=== PATIENT | male | born 1930 | race Caucasian/White ===

== ENCOUNTER 2017-07-31 02:42 | Inpatient (IN) ==
[2017-07-31] MEDS ORDERED: DIPH/TET/ACEL PERT BOOSTER VACCINE 0.5 ML VIAL IM ONE ×2 (02:56→03:06)
[2017-07-31 02:57] LABS: Basophils # 0.1 10*3/uL (0.0-0.2); Basophils % 0.4 % (0.0-0.8); Eosinophils # 0.2 10*3/uL (0.0-0.87); Eosinophils % 0.9 % (0.00-10.9); Hematocrit 34.7 VOL% (42.0-52.0); Hemoglobin 10.9 GM/DL (14.0-18.0); Immature Granulocytes % 0.8 %; Immature Granulocytes Absolute 0.15 #; Lymphocytes # 3.8 10*3/uL (1.4-4.0); Lymphocytes % 20.7 % (21.2-54.2); Mean Corpuscular HGB Conc 31.4 GM/DL (32-36); Mean Corpuscular Hemoglobin 24 PG (27-34); Mean Corpuscular Volume 76.4 FL (87-102); Mean Platelet Volume 11.7 FL (9.6-12.0); Monocytes # 1.7 10*3/uL (0.11-0.8); Monocytes % 9.5 % (1.7-12.7); Neutrophils # 12.4 10*3/uL (1.4-7.4); Neutrophils % 67.7 % (38.7-73.9); Platelet Count 215 T/CUMM (130-400); Red Blood Count 4.54 MC/CUMM (3.8-5.5); Red Cell Distribution Width 16.8 % (9.3-17.3); White Blood Count 18.3 T/CUMM (4-12)
--- NOTE | 2017-07-31 03:05 | Emergency Department Note ---
Arrival - Arrival Chief Complaint: Weakness Stated Complaint: Fall secondary to weakness ED Nursing Triage Note: EMS reports that patient had a fall secondary to weakness and dizziness. Also complains of shortness of breath. EMS also report abnromal EKG with ST elevation in leads v3, avf and ST depression in leads V3, V4 and v5. Denies CP. Hx of HTN, bypass surgery x5 with stent placement. Dr. Colunga is patients learning support assistant. Patient has abrasion to head and complains of head, neck and back pain. Mode of Arrival: Stretcher Time Seen by Provider: 07/31/17 02:45 - History of Present Illness HPI Narrative: A 6-year-old white male brought in by EMS for complaints of nausea dizziness near syncope mechanical fall due to weakness and pain in the left arm and some chest tightness started last night has continued this morning. Upon arrival to the emergency room patient had a EKG done on arrival which showed ST elevation in leads II, III, aVF indicating an inferior wall ST elevation KS. Patient is also on blood thinners for chronic atrial fib he sustained facial trauma right cheek for head trauma and scalp injury with a closed head injury. Dr. Pollock was notified of the EKG immediately we discussed risks and benefits decided to not proceed to the Lining [facility]ter because patient may have a head trauma this is on blood thinners patient needs to be evaluated for intracranial hemorrhage and cervical spine injury has to be cleared before patient can proceed to the Lining Setter Allergies/Adverse Reactions: Allergies Allergy/AdvReac Type Severity Reaction Status Date / Time amitriptyline [From Elavil] Allergy Verified 12/06/16 07:21 gabapentin [From Neurontin] Allergy Verified 12/06/16 07:21 lidocaine Allergy Verified 12/06/16 07:21 Zolpidem [From Ambien] Allergy Verified 08/02/15 08:48 Home Medications: Home Medications Medication Instructions Recorded Confirmed Type Aspirin [Ecotrin] 81 mg PO DAILY 08/02/15 07/31/17 History Lisinopril 30 mg PO DAILY 08/02/15 07/31/17 History Methocarbamol Tab [Robaxin Tab] 500 mg PO TID 08/02/15 07/31/17 History Rivaroxaban [Xarelto] 15 mg PO DAILY W/BREAKFAST 08/02/15 07/31/17 History Glimepiride 4 mg PO BID 11/21/16 07/31/17 History Hydrocodone/Acetaminophen 1 each PO QID 11/21/16 07/31/17 History [Hydrocodon-Acetaminoph 7.5-325] Isosorbide Mononitrate [Isosorbide 30 mg PO DAILY 11/21/16 07/31/17 History Mononitrate ER] Loratadine Tab [Claritin Tab] 10 mg PO DAILY 11/21/16 07/31/17 History Metformin HCl 1,000 mg PO BID 11/21/16 07/31/17 History Metoprolol Tartrate 50 mg PO BID 11/21/16 07/31/17 History Pantoprazole Tab [Protonix Tab] 40 mg PO DAILY 11/21/16 07/31/17 History Sitagliptin Phosphate [Januvia] 50 mg PO DAILY 11/21/16 07/31/17 History Tamsulosin [Flomax] 0.4 mg PO DAILY 11/21/16 07/31/17 History Temazepam [Restoril] 30 mg PO BEDTIME 11/21/16 07/31/17 History amLODIPine [Norvasc] 10 mg PO DAILY 11/21/16 07/31/17 History Fish Oil 340-1,000 1 capsule PO DAILY 12/05/16 07/31/17 History Multivit-Min/FA/Lycopen/Lutein 1 each PO DAILY 12/05/16 07/31/17 History [Centrum Silver Tablet] Sucralfate Liquid [Carafate Liquid] 1 gm PO QID 12/05/16 07/31/17 History Famotidine [Pepcid AC] 20 mg PO DAILY 12/06/16 07/31/17 History Review of System - Review of System 12 point system: reviewed and no additional remarkable complaints except as stated - Review of System Constitutional: Present: diaphoresis, weakness Cardiovascular: Present: chest pain, dyspnea on exertion Gastrointestinal: Present: nausea, vomiting Neurological: Present: weakness, abnormal gait, vertigo Medical,Surgical,& Family Hx - Medical History Cardio: History of: Hypertension, KS, Cardiovascular Problems No history of: CHF Psychological: No history of: Anxiety Disorders, ADHD, Behavior Problems, Bipolar Disorder, Depression, Previous Suicide Attempt, Psychiatric/Substance Abuse Tx, Schizophrenia, Violent Behavior, Psychiatric Problems Neurology: No history of: Cerebral Hemorrhage, Cerebrovascular Accident, Peripheral Neuropathy, Seizures HEENT: No history of: Glaucoma Endocrine: History of: Diabetes Mellitus (NIDDM), Dyslipidemia No history of: Diabetes Mellitus (IDDM), Thyroid Disorder, Endocrine Cancer, Endocrine Problems Rheumatology: No history of;: Psoriasis, Sjogrens, Systemic Lupus Erythematosus Respiratory: History of: Intubation No history of: Asthma, Bronchitis, COPD Renal: No history of: Renal (Kidney) Cancer, Dialysis, Renal Failure, Renal Problems Genitourinary: History of: Prostate Problems (ca), Recurring Urinary Tract Infections No history of: Bladder Problem, Kidney Stones, Genitourinary Cancer, Problems Gastrointestinal: History of: GERD, Polyps, GI Problems (hiatal hernia) No history of: Bowel Obstruction, Clostridium Difficile, Crohn's Disease, Diverticulitis/ Diverticulosis, Esophageal Varices, Gastrointestinal Bleed Musculoskeletal: History of: Back/Neck Problems, Degenerative Disk Disease ( severe back problems) No history of: Amputation Hematology: History of: Clotting Problems (xarelto), Blood Disorders No history of: Blood Transfusion Reaction Other: History of: Cancer (prostate) No history of: Anesthesia Reactions, Anaphylaxis, Eczema, HIV, Malignant Hyperthermia, MRSA, Vancomycin-Resistant Enterococci, Skin Problems, Miscellaneous Medical Problems - Surgical History Cardiac Surgeries: Sugical HX of: Femoral-Popliteal Bypass Graft (5 in 2001...) , Cardiac Catheterization (W/ STENT PLACEMENT), Cardiac Surgery (cabg 1999) Patient Denies: Internal Defibrillator, Vascular Access Devices Thoracic Surgeries: Patient denies;: Kidney (Renal Surgery), Lithotripsy, Nephrectomy, Organ Transplant Neurologic Surgeries: Patient denies: Cerebral Hemorrhage, Neurologic Surgery HEENT Surgeries: Surgical HX of: Eye Surgery (cataract surgery), Tonsilectomy & Adenoidectomy Patient denies: Thyroid Surgery Abdominal Surgeries: Surgical HX of: Abdominal Surgery, Appendectomy, Colonoscopy, EGD Patient denies: Cholecystectomy, Gastric Bypass Surgery, Hernia Repair, Splenectomy Reproductive Surgeries: Surgical HX of;: Prostate Surgery (caterizzed) Patient denies;: Breast Surgery, Cystoscopy, Genitourinary Surgery Orthopedic Surgeries: Surgical HX of;: Orthopedic Surgery (degenerative back disease and rods and pins placed), Spinal Surgery (rods and pins placed) - Family History Family History: Reports;: Family Cancer (mother), Family Diabetes (parents), Family Heart Disease (family) Denies;: Family Anesthesia Reaction, Family Hypertension, Family Psychiatric Problems, Family Stroke - Social History Smoking Status: Never smoker Frequency of Alcohol Use: None Type of Drug Use: None Exam Physical Examination: GENERAL: Moderate distress, alert, 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 inspection, airway nml, no dental/oral injury, there is some abrasions ecchymosis around the right periorbital region RESP/CVS: chest non-tender, no ecchymosis, irregular rhythm, bilateral rhonchi and bibasilar rales ABDOMEN: non-tender, no distension GENITAL/RECTAL: nml ext inspection NEURO/PSYCH: A/Ox4, CN2-10 intact, sensation nml, motor nml, mood/affect nml Glascow Coma Scale: 15 eyes [id number] motor-[id number]-6 SKIN: intact, warm, dry BACK: no CVA tenderness, no vertebral tenderness EXTREMITIES: 3 cm superficial skin tear left forearm c, pelvis stable, , no pedal edema, nml ROM, nml color/temp Vital Signs: Vital Signs Temperature 97.1 F L 07/31/17 02:42 Pulse Rate 88 07/31/17 03:26 Respiratory Rate 17 07/31/17 03:26 Blood Pressure 115/73 07/31/17 03:26 O2 Sat by Pulse Oximetry 95 07/31/17 03:26 Course - Reevaluation(s) Reevaluation #1: After long talk to Dr. Pollock long talk with the patient and patient's family from [place] and the patient and cells risk and benefits were explained about going the Lining Setter and possibility of causing the intracranial hemorrhage in a fatal outcome also with outgoing the Lining Setter that could also be damage to the heart that could be fatal as well. After all this was weighed and closely discussed talked about in depth the family and the patient decided they will proceed to the Lining Setter Dr. Pollock was called back Lining Setter was called back and patient will go to the Lining Setter for intervention Time: 03:33 - Consultations Consultation #1: Discussed with Dr. Pollock EKG results patient have an inferior wall ST elevation KS. Since the patient on blood thinners and has a possible intracranial trauma and neck injury patient must be cleared neurologically CT the head CT C-spine rapidly done emergency room clear patient for heart catheterization. I discussed this with the family they agreed with the plan and understand the risk they also understand due to the patient's age and on high risk medications like thinners going to the Lining Setter as necessary but is also high risk for high risk patient Time: 02:35 Results - Labs CBC & BMP: 07/31/17 02:46 07/31/17 02:46 Lab Results: I have reviewed the patients labs - Diagnostic Findings Procedure: CT: image reviewed by me, report reviewed by me (CT head CT C-spine negative for any intracranial bleed) Critical Care Time Critical Care Time: Yes Total Critical Care Time: 60 Disposition Clinical Impression: Fall mechanical, Closed head injury, High risk medication, Chronic anticoagulation, Chronic atrial fibrillation, Scalp contusion, Head injury, Skin tear of left forearm without complication, Chest pain, Dizziness, Syncope and collapse, A-fib Case discussed with: patient, patient's family Disposition: Still a Patient Condition: Critical Time of Disposition: 03:34
[2017-07-31] MEDS ORDERED: ceFAZolin 1,000 MG VIAL ONE (03:06)
[2017-07-31] MEDS ORDERED: SODIUM CHLORIDE 0.9% 100 ML IV ONE (03:06)
[2017-07-31] MEDS ORDERED: ONDANSETRON 4 MG/2 ML VIAL IV STA (03:17)
[2017-07-31 03:20] LABS: Albumin 3.2 G/DL (3.4-5.0); Bilirubin,Total 0.5 MG/DL (0.2-1.0); Calcium 9.4 MG/DL (8.5-10.1); Magnesium 1.6 MG/DL (1.8-2.4); Osmolality,Calculated 285.8 MOS/KG (273-304); Potassium 4.4 MMOL/L (3.5-5.1); Total Protein 6.7 G/DL (6.4-8.3)
[2017-07-31] MEDS ORDERED: ONDANSETRON 4 MG/2 ML VIAL ONE ×2 (03:23→05:15)
[2017-07-31 03:29] LABS: INR 1.5; PT Patient Result 15.8 SECS; Troponin I Only 7.24 NG/ML (0.00-0.045)
[2017-07-31] MEDS ORDERED: TIROFIBAN 0 MCG in PREMIX 1 EACH IV ONE (03:30)
[2017-07-31] MEDS ORDERED: TIROFIBAN 5,000 MCG/100 ML PREMIX IV SCH (03:30)
[2017-07-31] MEDS ORDERED: METOPROLOL TARTRATE 5 MG/5 ML VIAL IV STA (03:31)
[2017-07-31] MEDS ORDERED: ASPIRIN EC 325 MG TABLET PO STA (03:31)
[2017-07-31] MEDS ORDERED: METOPROLOL TARTRATE 5 MG/5 ML VIAL IV ONE (03:34)
[2017-07-31] MEDS ORDERED: ASPIRIN 325 MG TABLET ONE (03:34)
[2017-07-31] MEDS ORDERED: TIROFIBAN IV ONE (03:35)
[2017-07-31] MEDS ORDERED: LIDOCAINE 1% 20 ML VIAL ONE (04:14)
--- NOTE | 2017-07-31 04:29 | History and Physical Update ---
Sedation H&P Update - History and Physical H&P was reviewed, the patient examined and there: are no changes in the patients condition since last H&P was completed. - Dictation Physical: refer to H&P completed by admitting physician - Physical Exam Mental Status: alert and oriented Heart: regular rate and rhythm Lung: clear to auscultation Abdomen: within normal limits Vitals: within normal limits - Sedation Plan for Sedation: minimal Patient Consent: Procedure disscussed with patient and patinet has consented., Risks and benefits were discussed with patient,including infection,, bleeding, injury to surrounding structures, seizure, temporary nerve, Patient understands and accepts potential risks/benefits and agrees to, proceed. ASA Class: IV Airway Assessment: Class II: Soft palate, uvula, fauces visible
--- NOTE | 2017-07-31 04:29 | Cardiology History & Physical ---
Assessment and Plan - Time spent with patient Time spent with patient: Greater than 30 minutes (1) ST elevation myocardial infarction (STEMI) of inferior wall Status: Acute Assessment and plan: The patient came in for facial trauma but her EKG showed an incidental inferior STEMI. Troponin is elevated. It could have even occurred a few hours ago or yesterday. He is having some ongoing left arm pain, which may be from his AL, and ST elevation in his ct of the head is negative so I believe the best option would be taken to the Formula Room Worker, intervened upon the inferior microinfarction. However he is at significant increased risk of having a head bleed with giving the medications as needed to treat him for posterior AL. The risk and benefits were discussed in detail with the patient and family. I even discussed with the patient and his daughter about not proceeding with intervention but just treating him conservatively for an AL. There are risk and benefits of this approach. They want to proceed with a coronary intervention. They realize he could have a head bleed and . Plan/recommendation: Take emergently to the Formula Room Worker This intervention falls out of the STEMI protocol because of the delay from needing to see the results of the CT prior to intervening Beta-zuleyka post AL TOO inhibitor post AL Aggrastat bolus and infusion was begun in the emergency room And aspirin 325 mg p.o. was given We will hold Xarelto for now Left heart cath and possible PTCA or stent Left heart cath and possible PTCA or stent were discussed with the patient. The risk of the procedure include but are not limited to a small risk of injury to the vessel, abnormal heart rhythm, stroke, heart attack, need for emergent surgery, contrast reaction, restenosis, infection, or . The patient voices understanding, agrees with the plan, and desires to proceed with the heart catheterization. Current Visit: Yes (2) Left arm pain Status: Acute Current Visit: Yes (3) Facial trauma Status: Acute Current Visit: Yes (4) Chronic anticoagulation Status: Acute Current Visit: Yes (5) Chronic atrial fibrillation Status: Acute Current Visit: Yes (6) Closed head injury Status: Acute Current Visit: Yes (7) Dizziness Status: Acute Current Visit: Yes (8) Elevated troponin Status: Acute Current Visit: Yes (9) Head injury Status: Acute Current Visit: Yes (10) Hyperlipidemia Status: Acute Current Visit: No (11) Type 2 diabetes mellitus Status: Acute Current Visit: No (12) Coronary artery disease Status: Chronic Current Visit: No Qualifiers: Coronary Disease-Associated Artery/Lesion type: cheesh-na artery Teller vs. transplanted heart: cheesh-na heart Associated angina: with stable angina Qualified Code(s): I25.118 - Atherosclerotic heart disease of cheesh-na coronary artery with other forms of angina pectoris (13) Gastroesophageal reflux Status: Chronic Current Visit: No (14) Hypertension Status: Chronic Current Visit: No (15) Status post coronary artery bypass grafting Problem details: CABG x4 November 1999 with repeat catheterization 09/06/08 which showed 4 patent grafts. Status: Chronic Current Visit: No (16) Elevated serum creatinine Problem details: ? Acute or chronic Status: Acute Current Visit: Yes History of Present Illness Chief complaint: "I fell and hit my face", came in for facial trauma but was noted hv stemi History of present illness: Mr. Colvin is a 86 year old male PCP: Dr. Silver Victoria Enamel Cracker: Dr. Manuel Christine Mr. colvin is 86. He is somewhat unsteady on his feet. However his daughter, who lives with him, is encouraged him to call her when he needs help getting around, particular in the middle of night. Last night, he had some arm pain. It did not bother him. He did not seek evaluation. Today, he got up and walked down the stairs and fell. He fell twice. His daughter assist him. He was laying on his face. He is brought to the emergency room. He was noted to have facial abrasions. An EKG Was Obtained and Suggested Inferoposterior Myocardial Infarction, a STEMI. He had a CT of the head. Showed no bleed. It was discussed with the patient and his daughter the risk and benefits of proceeding with treating an inferior AL in the setting of some head trauma, the medications which are needed to be used could increase his risk of having a brain bleed. These risks were discussed with the patient's family. They wanted to proceed. They realize that he could have a brain bleed and . The exact estimate of the risk is unknown, but it is higher than usual. Discussed the option of treating conservatively for the inferior AL and not adding further antiplatelet or antithrombotic's were considered, but they declined that option. He has had some left arm pain. Denies any chest pain Currently no orthopnea, PND, edema, palpitations, syncope, cough wheezing or phlegm. No bleeding in the pt's bowels, urine, or coughing up blood. No planned surgery for the next year. No contraindication to anticoagulation for a year. Past medical history Diabetes Prior coronary bypass grafting in 1999, he said 5 vessels , four grafts are noted Cath in [address] Christine revealing occluded right coronary artery, all grafts are open Allergy to lidocaine Has felt weak and dizzy. Did not have local loss of consciousness with this fall, at least as best he can tell Social history: He does not smoke cigarettes or drink alcohol family history: There is some coronary disease. Also some diabetes,? Home Medications Medication Instructions Recorded Confirmed Type Aspirin [Ecotrin] 81 mg PO DAILY 08/02/15 07/31/17 History Lisinopril 30 mg PO DAILY 08/02/15 07/31/17 History Methocarbamol Tab [Robaxin Tab] 500 mg PO TID 08/02/15 07/31/17 History Rivaroxaban [Xarelto] 15 mg PO DAILY W/BREAKFAST 08/02/15 07/31/17 History Glimepiride 4 mg PO BID 11/21/16 07/31/17 History Hydrocodone/Acetaminophen 1 each PO QID 11/21/16 07/31/17 History [Hydrocodon-Acetaminoph 7.5-325] Isosorbide Mononitrate [Isosorbide 30 mg PO DAILY 11/21/16 07/31/17 History Mononitrate ER] Loratadine Tab [Claritin Tab] 10 mg PO DAILY 11/21/16 07/31/17 History Metformin HCl 1,000 mg PO BID 11/21/16 07/31/17 History Metoprolol Tartrate 50 mg PO BID 11/21/16 07/31/17 History Pantoprazole Tab [Protonix Tab] 40 mg PO DAILY 11/21/16 07/31/17 History Sitagliptin Phosphate [Januvia] 50 mg PO DAILY 11/21/16 07/31/17 History Tamsulosin [Flomax] 0.4 mg PO DAILY 11/21/16 07/31/17 History Temazepam [Restoril] 30 mg PO BEDTIME 11/21/16 07/31/17 History amLODIPine [Norvasc] 10 mg PO DAILY 11/21/16 07/31/17 History Fish Oil 340-1,000 1 capsule PO DAILY 12/05/16 07/31/17 History Multivit-Min/FA/Lycopen/Lutein 1 each PO DAILY 12/05/16 07/31/17 History [Centrum Silver Tablet] Sucralfate Liquid [Carafate Liquid] 1 gm PO QID 12/05/16 07/31/17 History Famotidine [Pepcid AC] 20 mg PO DAILY 12/06/16 07/31/17 History Allergies Allergy/AdvReac Type Severity Reaction Status Date / Time amitriptyline [From Elavil] Allergy Verified 12/06/16 07:21 gabapentin [From Neurontin] Allergy Verified 12/06/16 07:21 lidocaine Allergy Verified 12/06/16 07:21 Zolpidem [From Ambien] Allergy Verified 08/02/15 08:48 12 point system: reviewed and no additional remarkable complaints except as stated (A 12 point review of systems is negative except for as mentioned in HPI. ) Medical,Surgical,& Family Hx - Medical History Cardio: History of: Hypertension, AL, Cardiovascular Problems No history of: CHF Psychological: No history of: Anxiety Disorders, ADHD, Behavior Problems, Bipolar Disorder, Depression, Previous Suicide Attempt, Psychiatric/Substance Abuse Tx, Schizophrenia, Violent Behavior, Psychiatric Problems Neurology: No history of: Cerebral Hemorrhage, Cerebrovascular Accident, Peripheral Neuropathy, Seizures HEENT: No history of: Glaucoma Endocrine: History of: Diabetes Mellitus (NIDDM), Dyslipidemia No history of: Diabetes Mellitus (IDDM), Thyroid Disorder, Endocrine Cancer, Endocrine Problems Rheumatology: No history of;: Psoriasis, Sjogrens, Systemic Lupus Erythematosus Respiratory: History of: Intubation No history of: Asthma, Bronchitis, COPD Renal: No history of: Renal (Kidney) Cancer, Dialysis, Renal Failure, Renal Problems Genitourinary: History of: Prostate Problems (ca), Recurring Urinary Tract Infections No history of: Bladder Problem, Kidney Stones, Genitourinary Cancer, Problems Gastrointestinal: History of: GERD, Polyps, GI Problems (hiatal hernia) No history of: Bowel Obstruction, Clostridium Difficile, Crohn's Disease, Diverticulitis/ Diverticulosis, Esophageal Varices, Gastrointestinal Bleed Musculoskeletal: History of: Back/Neck Problems, Degenerative Disk Disease ( severe back problems) No history of: Amputation Hematology: History of: Clotting Problems (xarelto), Blood Disorders No history of: Blood Transfusion Reaction Other: History of: Cancer (prostate) No history of: Anesthesia Reactions, Anaphylaxis, Eczema, HIV, Malignant Hyperthermia, MRSA, Vancomycin-Resistant Enterococci, Skin Problems, Miscellaneous Medical Problems - Surgical History Cardiac Surgeries: Sugical HX of: Femoral-Popliteal Bypass Graft (5 in 2001...) , Cardiac Catheterization (W/ STENT PLACEMENT), Cardiac Surgery (cabg 1999) Patient Denies: Internal Defibrillator, Vascular Access Devices Thoracic Surgeries: Patient denies;: Kidney (Renal Surgery), Lithotripsy, Nephrectomy, Organ Transplant Neurologic Surgeries: Patient denies: Cerebral Hemorrhage, Neurologic Surgery HEENT Surgeries: Surgical HX of: Eye Surgery (cataract surgery), Tonsilectomy & Adenoidectomy Patient denies: Thyroid Surgery Abdominal Surgeries: Surgical HX of: Abdominal Surgery, Appendectomy, Colonoscopy, EGD Patient denies: Cholecystectomy, Gastric Bypass Surgery, Hernia Repair, Splenectomy Reproductive Surgeries: Surgical HX of;: Prostate Surgery (caterizzed) Patient denies;: Breast Surgery, Cystoscopy, Genitourinary Surgery Orthopedic Surgeries: Surgical HX of;: Orthopedic Surgery (degenerative back disease and rods and pins placed), Spinal Surgery (rods and pins placed) - Family History Family History: Reports;: Family Cancer (mother), Family Diabetes (parents), Family Heart Disease (family) Denies;: Family Anesthesia Reaction, Family Hypertension, Family Psychiatric Problems, Family Stroke - Social History Smoking Status: Never smoker Frequency of Alcohol Use: None Type of Drug Use: None Lives With:: Children Functional capacity: independent ambulation (But he has an unsteady gait.) Cardiology Physical Exam - Constitutional Vitals: Vital Signs Temp Pulse Resp BP Pulse Ox 97.1 F L 78 21 109/75 99 07/31/17 02:42 07/31/17 04:13 07/31/17 04:13 07/31/17 04:13 07/31/17 04:13 Intake and Output 07/30/17 07/30/17 07/31/17 15:59 23:59 07:59 Other: Weight 86.183 kg Patient Weight 07/31/17 23:59 Weight 86.183 kg Exam: HEENT: Pupils equal, reactive to light and accommodation Neck: NoJVD or bruit Lungs clear to auscultation Heart: Irregularly irregular rhythm rate with normal S1 and S2. 3/6 holosystolic murmur at the apex Abdomen: No hepatosplenomegaly Spine/extremities: No clubbing, cyanosis, or edema Neuro: Nonfocal Psych: No depression or anxiety Femoral pulses are 4+. Foot pulses are 3+ Some abrasions of his face. Result/EKG - Labs CBC & BMP: 07/31/17 02:46 07/31/17 02:46 Lab Results: I have reviewed the past 24 hour labs Labs: Laboratory Results - last 24 hr 07/31/17 07/31/17 07/31/17 02:46 02:46 02:46 WBC 18.3 H RBC 4.54 Hgb 10.9 L Hct 34.7 L MCV 76.4 L MCH 24 L MCHC 31.4 L RDW 16.8 Plt Count 215 MPV 11.7 Neut % (Auto) 67.7 Lymph % (Auto) 20.7 L [place] % (Auto) 9.5 Eos % (Auto) 0.9 Baso % (Auto) 0.4 Neut # (Auto) 12.4 H Lymph # (Auto) 3.8 [place] # (Auto) 1.7 H Eos # (Auto) 0.2 Baso # (Auto) 0.1 Immature Gran % 0.8 Nucleated RBC % 0.0 Immature Gran # 0.15 Nucleated RBCs # 0.00 Immature Plt Fraction 0.0 INR 1.5 PT Patient/Control Mix 15.8 Sodium 137 Potassium 4.4 Chloride 103 Carbon Dioxide 20 L Anion Gap 18.4 H BUN 19 H Creatinine 1.50 H GFR Calculation 48 BUN/Creatinine Ratio 12.00 Glucose 298 H Calculated Osmolality 285.8 Calcium 9.4 Magnesium 1.6 L Total Bilirubin 0.50 AST 80 H ALT 30 Alkaline Phosphatase 58 Troponin I 7.240 H Total Protein 6.7 Albumin 3.2 L Globulin 3.5 Albumin/Globulin Ratio 0.9 L - Diagnostic Findings Procedure: Chest x-ray: report reviewed by me - EKG EKG results: interpreted by me
[2017-07-31] MEDS ORDERED: MEPERIDINE 25 MG/1 ML VIAL ONE (04:37)
[2017-07-31] MEDS ORDERED: MIDAZOLAM 2 MG/2 ML VIAL ONE (04:38)
[2017-07-31] MEDS ORDERED: HEPARIN 5,000 UNIT/1 ML VIAL ONE (04:44)
[2017-07-31] MEDS ORDERED: TICAGRELOR 90 MG TABLET ONE (05:32)
--- NOTE | 2017-07-31 05:48 | Operative Note ---
Date of procedure: 07/31/17 Procedure Preformed: Left heart cath Left ventriculography Supravalvar aortography Coronary angiography Vein graft angiography- x 3 vein grafts--to the right coronary artery, left circumflex, and the diagonal Left internal mammary artery graft angiography--- to the LAD Aggrastat bolus and infusion-begun in the emergency room Stent of the body of the vein graft to the right coronary artery-acute inferoposterior LA--- Xience Alpine, 3.5 x 18 mm, 18 pamela, after pre-dilating with a 3.0 x 15 mm NC Trek--a filter wire was used to help minimize distal embolization of instrumenting a 17-year-old vein bypass graft Angiogram of the right femoral artery Loading with Brilinta, 180 mg p.o. Angio-Seal of the right femoral artery-successful Surgeon / Physician: Jim Pollock [employer] Worker: Moshe Capps Post-op diagnosis: same (Patient has had some head trauma due to fall, presents and the EKG has evidence of an acute inferoposterior STEMI, troponin 7.1, having some ongoing left arm pain, head CT is negative for bleed--) Findings: Impression: Significant three-vessel coronary disease Moderately severe global left ventricular systolic dysfunction, LVEF about 30% to 35% Inferobasal and inferior severe hypokinesis 3-4+ mitral regurgitation--? Ischemic related Mildly ectatic aortic root without significant aortic regurgitation-at least 2 vein grafts were noted to emanate from the aorta Patent KERRY to LAD-but the LAD is small and diffusely diseased but no focal stenosis after the insertion site, the LAD is occluded very proximally Patent vein graft to the obtuse marginal-no critical disease Patent but significantly diseased vein graft to the diagonal-not the LA vessel Critical disease in the proximal [place] circumflex supplying a moderate-sized post lateral branch Occluded right coronary-old Subtotal stenosis of the mid body of the vein graft to the right coronary-JASIEL grade II flow-probably acute LA vessel The patient did have additional ST elevation in the inferior leads with ballooning the lesion of the mid vein graft to the right coronary-suggesting this is the lesion/vessel causing the LA Aggrastat bolus infusion-begun in the emergency room Status post successful stenting of the mid body of the vein graft to the right coronary artery---drug-eluting stent, Xience Alpine 3.5 x 18 mm, after pre- dilating with a 3.0 x 15 mm NC Trek, a filter wire was used to help minimize post intervention distal embolization Angiogram of the right femoral artery Angio-Seal of the right femoral artery-successful Loading with Brilinta, 180 mg p.o. Plan/recommendations: He was having an inferior posterior LA. With his elevated troponin on admission, possibly do the least part of the LA could have happened hours or more before he came in, is possible. Whatever the case, he was having ongoing left arm pain and ST elevation inferiorly and reciprocal ST depression anteriorly.. Hopefully will benefit from this intervention. I did use the filter wire to minimize distal embolization, but he does have reduced flow post intervention, JASIEL grade II. Hopefully, the Aggrastat and other antiplatelet medicines will, over time, help improve that flow and minimize embolization injury. Hopefully, with revascularization of this acute LA, the 3- 4+ MR will lessen, assuming it may be ischemic. Otherwise, we will watch his renal function post op. With his reduced ejection fraction I will add an TOO inhibitor if he is not on it. He will be on Brilinta and reduce dose of Xarelto , but I will hold her Xarelto for a few days before adding it. I will add carvedilol if he is not on it. He may need some as needed Lasix. He will be on Brilinta for at least 12 months, preferably. We will drop the aspirin while is on the Brilinta and reduced dose, 15 mg, Xarelto, per the recent stent in the setting of atrial fibrillation study. Otherwise, will watch for any evidence of bleeding his brain from his head trauma. So far, it appears to not be significantly present but it could change with all of the antiplatelet and antithrombotic medications which are needed for the LA and with his head trauma , weakness the patient and family was keenly aware before we proceeded with this intervention. He tends to be unsteady, have an unsteady gait. I will strongly discussed with him about getting help whenever he gets up and around, and using a walker or cane. His prognosis is guarded. The patient will will have risk factors optimized. Follow-up will be scheduled. My post-cath check to Addenda: I saw the patient post-cath. the groin puncture site and distal pulse are stable. vital signs are stable and the patient will be observed closely overnight. Specimens: none sent Estimated blood loss: minimal Condition: critical Anesthesia: local, conscious sedation Disposition: ICU
--- NOTE | 2017-07-31 06:07 | Cardiology Operative Report ---
Date of Procedure:: 07/31/17 Post-op diagnosis: same (Patient has had some head trauma due to fall, presents and the EKG has evidence of an acute inferoposterior STEMI, troponin 7.1, having some ongoing left arm pain, head CT is negative for bleed--) Procedure: Date of procedure: 07/31/17 Procedure Preformed: Left heart cath Left ventriculography Supravalvar aortography Coronary angiography Vein graft angiography- x 3 vein grafts--to the right coronary artery, left circumflex, and the diagonal Left internal mammary artery graft angiography--- to the LAD Aggrastat bolus and infusion-begun in the emergency room Stent of the body of the vein graft to the right coronary artery-acute inferoposterior KS--- Xience Alpine, 3.5 x 18 mm, 18 pamela, after pre-dilating with a 3.0 x 15 mm NC Trek--a filter wire was used to help minimize distal embolization of instrumenting a 17-year-old vein bypass graft Angiogram of the right femoral artery Loading with Brilinta, 180 mg p.o. Angio-Seal of the right femoral artery-successful Surgeon / Physician: Jim Pollock Bass Viol Repairer: Moshe Capps Post-op diagnosis: same (Patient has had some head trauma due to fall, presents and the EKG has evidence of an acute inferoposterior STEMI, troponin 7.1, having some ongoing left arm pain, head CT is negative for bleed--) procedure: The patient was prepped and draped in usual manner. Entered the right femoral artery via the Seldinger technique. I then exchanged for an angled pigtail. I crossed the valve. Left ventricular end-diastolic pressures measured. Left ventriculography was done. Left ventricle pullback was done. Supravalvar aortography was done. I then used a JL4 and engaged left coronary. Multiple views were taken. I then exchanged for a JR4. Multiple views of the right coronary were taken. I then used a JR4 to engage the vein graft to the diagonal , the vein graft to the obtuse marginal, and the vein graft to the right coronary and the HEREDIA graft to the LAD-all with multiple views. The catheters were then removed from the patient. The intervention was done as below. Please see the data sheets for the details of catheters used. Intervention: Cardiovascular surgery was available for any complications. The coronary intervention was done using a 6 Serbian multipurpose guiding catheter and 3.5- 5.5 mm filter the filter wire was deployed. the right vein bypass graft catheter was not adequate. There is a bad entry angle. I then, Then try to cross with a 3.5 x 18 mm Zions Alpine. It would not cause. I remove this stent. I then placed a 3.0 x 15 mm NC Trek across the lesion. Balloon. I then came back and place a stent across the lesion and it was deployed. There was a good result. I then retrieve the filter wire. There is JASIEL grade II flow post intervention. Initially was better than that low but it soon became JASIEL grade II. Angiogram of the right femoral artery was done, either at that time or as a follow-through from the aortogram/left ventriculogram. Closure device was used -see data sheets. patient was transferred to her room on telemetry in satisfactory but guarded condition. Please see the cath report for details of the pressures and times. Complications: none Hemodynamic data: LVEDP was 20 mmHg. Angiographic data: The left main coronary was large and had minimal luminal irregularities. The left anterior descending artery was large. There is one major diagonal. He was occluded ostially. The LAD only filled via the vein graft to the LAD The left circumflex system was moderate to large. It was 1 major obtuse marginal and 1 posterior lateral branches. The obtuse marginal only filled via the vein graft to obtuse marginal. Proximal circumflex had a 70 - 90% narrowing supplied the post lateral branch. The right coronary artery was large in size, dominant vessel with the PDA and post lateral branch. It was occluded proximally. There is an old occlusion. The vein graft to the right coronary was a large conduit. It inserted in the PDA. In the mid body however there is a 99% narrowing with JASIEL grade II flow. The actual right coronary artery had mild to moderate diffuse disease but no critical, focal stenosis. The vein graft to the obtuse marginal was a large conduit. Origin, body, insertion site was good. The [place] vessel itself was slightly small. There is no significant narrowing within this graft or vessel, other than proximal to the graft The vein graft to the diagonal was a moderate size conduit. It had 2 or 3 significant lesions within it, probably 70 - 90 %. It supplied a small diagonal. This was not the infarct-related vessel. The HEREDIA graft to the LAD was a large conduit. It supplied the LAD. The LAD itself was small but there is no critical disease within the LAD or the of the HEREDIA graft. Very proximal to the insertion site of the HEREDIA graft, LAD was occluded, but it was proximal in the LAD. PERALES left ventriculography revealed moderately severe reduction in global left ventricular systolic function. Overall ejection fraction was about 35%. There was inferior and inferior posterior severe hypokinesis to akinesis. There is 3- 4+ mitral regurgitation. Supravalvar aortography revealed a mildly ectatic aortic root with no significant aortic regurgitation. At least 2 vein grafts were noted to emanate from the aorta. After the intervention of vein graft to the PDA/right coronary, there is a 0% residual and a JASIEL grade III initially but then JASIEL grade II flow with further injections. Angiogram of the right femoral artery revealed the puncture site to be in a large vessel, above the bifurcation. It was suitable for a clocure device. Impression: Significant three-vessel coronary disease Moderately severe global left ventricular systolic dysfunction, LVEF about 30% to 35% Inferobasal and inferior severe hypokinesis 3-4+ mitral regurgitation--? Ischemic related Mildly ectatic aortic root without significant aortic regurgitation-at least 2 vein grafts were noted to emanate from the aorta Patent KERRY to LAD-but the LAD is small and diffusely diseased but no focal stenosis after the insertion site, the LAD is occluded very proximally Patent vein graft to the obtuse marginal-no critical disease Patent but significantly diseased vein graft to the diagonal-not the KS vessel Critical disease in the proximal [place] circumflex supplying a moderate-sized post lateral branch Occluded right coronary-old Subtotal stenosis of the mid body of the vein graft to the right coronary-JASIEL grade II flow-probably acute KS vessel The patient did have additional ST elevation in the inferior leads with ballooning the lesion of the mid vein graft to the right coronary-suggesting this is the lesion/vessel causing the KS Aggrastat bolus infusion-begun in the emergency room Status post successful stenting of the mid body of the vein graft to the right coronary artery---drug-eluting stent, Xience Alpine 3.5 x 18 mm, after pre- dilating with a 3.0 x 15 mm NC Trek, a filter wire was used to help minimize post intervention distal embolization Angiogram of the right femoral artery Angio-Seal of the right femoral artery-successful Loading with Brilinta, 180 mg p.o. Plan/recommendations: He was having an inferior posterior KS. With his elevated troponin on admission, possibly do the least part of the KS could have happened hours or more before he came in, is possible. Whatever the case, he was having ongoing left arm pain and ST elevation inferiorly and reciprocal ST depression anteriorly.. Hopefully will benefit from this intervention. I did use the filter wire to minimize distal embolization, but he does have reduced flow post intervention, JASIEL grade II. Hopefully, the Aggrastat and other antiplatelet medicines will, over time, help improve that flow and minimize embolization injury. Hopefully, with revascularization of this acute KS, the 3- 4+ MR will lessen, assuming it may be ischemic. Otherwise, we will watch his renal function post op. With his reduced ejection fraction I will add an TOO inhibitor if he is not on it. He will be on Brilinta and reduce dose of Xarelto , but I will hold her Xarelto for a few days before adding it. I will add carvedilol if he is not on it. He may need some as needed Lasix. He will be on Brilinta for at least 12 months, preferably. We will drop the aspirin while is on the Brilinta and reduced dose, 15 mg, Xarelto, per the recent stent in the setting of atrial fibrillation study. Otherwise, will watch for any evidence of bleeding his brain from his head trauma. So far, it appears to not be significantly present but it could change with all of the antiplatelet and antithrombotic medications which are needed for the KS and with his head trauma , weakness the patient and family was keenly aware before we proceeded with this intervention. He tends to be unsteady, have an unsteady gait. I will strongly discussed with him about getting help whenever he gets up and around, and using a walker or cane. His prognosis is guarded. The patient will will have risk factors optimized. Follow-up will be scheduled. Of note, as described above there are other areas which could cause ischemia such as a vein graft to diagonal or the circumflex supplying the post lateral and may be other branches, but there were not the infarct vessel. They were not addressed at this intervention. They could be addressed/intervened upon later and eventually may be treated medically and conservatively. Dr. Christine will make that final decision. My post-cath check to Addenda: I saw the patient post-cath. the groin puncture site and distal pulse are stable. vital signs are stable and the patient will be observed closely overnight. Specimens: none sent Estimated blood loss: minimal Condition: critical Anesthesia: local, conscious sedation Disposition: ICU Additional CC's: Silver Christine Anesthesia: local, minimal conscious sedation Surgeon / Physician: Jim Pollock Bass Viol Repairer: other Estimated blood loss: minimal Specimens: none sent Condition: critical Disposition: ICU/CCU
[2017-07-31] MEDS ORDERED: MAGNESIUM SULF RIDER 2 GM in PREMIX 1 EACH IV PRN ×2 (06:08→10:21)
[2017-07-31] MEDS ORDERED: ACETAMINOPHEN 325 MG TABLET PO PRN (06:08)
[2017-07-31] MEDS ORDERED: ONDANSETRON 4 MG/2 ML VIAL IV PRN (06:08)
[2017-07-31] MEDS ORDERED: MAGNESIUM SULF RIDER 4 GM in PREMIX 1 EACH IV PRN ×2 (06:08→10:21)
--- NOTE | 2017-07-31 06:15 | EKG Report ---
Stationary ECG Study [facility] ER Test Date: 07/31/2017 2:33:46 AM Pat Name: IOANA GATES Department: Room: Gender: M Archeologist: : [id number] Requested by: Wili Lizarraga Order Number: [id number] Reading MD: KUSH BOURNE Intervals [place] Rate: 81 P: 999 CA: 0 QRS: 19 QRSD: 128 T: -53 QT: 371 QTc: 408 Interpretive Statements ATRIAL FIBRILLATION POSSIBLE LEFT VENTRICULAR HYPERTROPHY INFERIOR MYOCARDIAL INFARCTION, PROBABLY RECENT ACUTE AL Electronically Signed On 07-31-17 18:51:02 CDT by KUSH BOURNE [email or web address]
--- NOTE | 2017-07-31 06:24 | CT Report ---
Exam:CT cervical spine wo con Date:07/31/2017 2:46 AM Indication: Head injury status post fall pain, neck pain Comparison: None Total DLP: 387.1 mGy*cm Technical: Sagittal axial and coronal imaging was available for review with out the use of intravenous contrast. Dose reduction was performed with decreasing kv and mA and automated exposure Findings: This study was initially reviewed by [facility]. 7 cervical vertebral bodies are demonstrated. The vertebral body heights, lamina, pedicles, and posterior elements are intact. The arch at C1 and C2 and odontoid process are intact. The neural foramina canals are demonstrated with slight narrowing with uncovertebral osteophytic spurring at multiple levels. Vascular calcifications of the carotid arteries. Intervertebral discogenic disease is present at C3-4 C4-5 most prominent at C5-6 and C6-7 with posterior spurring at C5-6 and C6-7. Impression 1. No fracture or dislocation. 2. 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 3. Uncovertebral osteophytic spurring at multiple. PROCEDURE INTERPRETED AT [facility] DEPARTMENT OF RADIOLOGY Final Report Signed by: Dr. Kurt Rangel
[2017-07-31] MEDS ORDERED: MAGNESIUM SULF RIDER 2 GM in PREMIX 1 EACH IV ONE (06:26)
--- NOTE | 2017-07-31 06:26 | CT Report ---
Exam: CT scan of brain without contrast Date: 07/31/2017 Indication: Syncope Comparison: None Patient's classification: Emergency department Technical: Images were obtained from the skull base to the vertex without the use of intravenous contrast. Dose reduction was performed with decreasing kv and mA and automated exposure Total DLP: 387.1 mGy*cm Findings: The study was initially reviewed by [facility]. The brainstem is intact the cerebellum reveals minimal atrophic changes. There is atrophy within the cerebral hemispheres with diffuse small vessel ischemic changes and enlargement of the ventricles. Calcification in the basal ganglia regions bilaterally. The calvarium is intact. Vascular calcifications are noted. Minimal soft tissue swelling over the right frontal for head region. Impression: 1. No acute hemorrhage infarction or mass effect 2. Soft tissue swelling right frontal scalp 3. Atrophy and diffuse small vessel ischemic change. PROCEDURE INTERPRETED AT [facility] DEPARTMENT OF RADIOLOGY Final Report Signed by: Dr. Kurt Rangel
[2017-07-31] MEDS ORDERED: SODIUM CHLORIDE 0.9% 1,000 ML IV SCH (06:30)
[2017-07-31] MEDS ORDERED: DEXTROSE 50% 25 GM/50 ML SYRINGE IV PRN (06:32)
[2017-07-31] MEDS ORDERED: GLUCAGON 1 MG VIAL IM PRN (06:32)
[2017-07-31 07:32] LABS: Risk Ratio 4.29; VLDL CHOLESTEROL 40.8 MG/DL
--- NOTE | 2017-07-31 07:49 | XRay Report ---
Exam: XR chest 1V portable Date: 07/31/2017 2:47 AM Indication: Pain secondary to fall Comparison: 11/20/2016 Technical: AP Findings: Cardiomegaly present with previous sternotomy. External cardiac leads are present. Mediastinum and bony structures are otherwise intact. No obvious effusions or infiltrates present. No pneumothorax. The bony structures reveal no acute findings Impression: 1. Cardiomegaly and previous sternotomy without acute cardiopulmonary pathology PROCEDURE INTERPRETED AT [facility] DEPARTMENT OF RADIOLOGY Final Report Signed by: Dr. Kurt Rangel
[2017-07-31 08:24] LABS: CKMB % 7.7 %
[2017-07-31 08:28] LABS: Troponin I Only 21.7 NG/ML (0.00-0.045)
[2017-07-31] MEDS: INSULIN REGULAR 100 UNIT/ML SUBCUT SCH ×4 (08:54→21:01)
[2017-07-31] MEDS: METHOCARBAMOL 500 MG TABLET PO SCH ×3 (08:55→21:00)
[2017-07-31] MEDS: SUCRALFATE 1 GM/10 ML UDCUP PO SCH ×4 (08:55→21:01)
[2017-07-31] MEDS: MULTIVITAMIN (CENTRUM) TABLET PO SCH (08:56)
[2017-07-31] MEDS: OMEGA 3 ACID ETHYL ESTERS 1 GM CAPSULE PO SCH (08:59)
[2017-07-31] MEDS ORDERED: ISOSORBIDE MONONITRATE 30 MG TABLET PO SCH (09:00)
[2017-07-31] MEDS ORDERED: CARVEDILOL 3.125 MG TABLET PO SCH (09:00)
[2017-07-31] MEDS ORDERED: FUROSEMIDE 40 MG/4 ML VIAL ONE (09:26)
[2017-07-31] MEDS ORDERED: DOBUTamine 500 MG/250 ML PREMIX IV ONE (09:28)
[2017-07-31] MEDS ORDERED: DOBUTamine 500 MG/250 ML PREMIX IV SCH (09:30)
[2017-07-31] MEDS ORDERED: FUROSEMIDE 40 MG/4 ML VIAL IV ONE ×2 (09:35→09:37)
[2017-07-31] MEDS: LORATADINE 10 MG TABLET PO SCH (09:44)
--- NOTE | 2017-07-31 09:44 | EKG Report ---
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
--- NOTE | 2017-07-31 09:49 | XRay Report ---
Exam: XR chest 1V portable Date: 07/31/2017 9:27 AM Indication: Cardiac dysrhythmia pain Comparison: None Technical: 07/31/2017 3:07 AM Findings: Cardiomegaly is present with previous sternotomy. Some increasing interstitial edema is present in the lung jarquin bilaterally with low volume effusions. No pneumothorax. External cardiac leads are present. Mediastinum is intact. Impression: 1. Worsening radiographic findings that suggest interstitial edema with mild CHF suspected with underlying cardiomegaly previous sternotomy. PROCEDURE INTERPRETED AT [facility] DEPARTMENT OF RADIOLOGY Final Report Signed by: Dr. Kurt Rangel
[2017-07-31] MEDS: MAGNESIUM CHLORIDE 64 MG TABLET PO SCH ×2 (10:07→21:00)
[2017-07-31 10:11] LABS: Hematocrit 34.5 VOL% (42.0-52.0); Hemoglobin 10.9 GM/DL (14.0-18.0)
--- NOTE | 2017-07-31 10:12 | Event Note ---
I was called to see the patient urgently by practitioner early. The patient had a seeming decline in his status with some transient bradycardia and associated presyncopal symptoms. At the time of my arrival, he is denying any chest pain. He acknowledges some shortness of breath. His heart rate is 110s, sinus tachycardia. Blood pressure is 130/90, oxygen saturations are 94% on 4 L nasal cannula. On physical exam he is noted to have ecchymosis around his right periorbital region, he has some blood-tinged saliva in his mouth and we are suctioning with seems to be him coughing up some blood-tinged sputum. He has diffuse crackles in his bilateral lungs half-way up. There is tachycardia with a regular rhythm, 3/6 holosystolic murmur loudest at the apex. The right groin is without hematoma, bruit, ecchymosis. EKG demonstrates persistent inferior ST elevation with some lateral depression, overall mildly improved from his preoperative EKG, there is no other postoperative EKG to compare this to. There are no postoperative labs available at this time. Aggrastat was just recently discontinued. The patient appears to have had transient heart block, but has recovered well into sinus tachycardia. Temporary pacemaker pads were placed on the patient's chest. Repeat laboratory data has been sent and is pending. We have given him 40 mg of Lasix IV followed by an additional 80 mg of Lasix, chest x-ray does demonstrate significant bilateral pulmonary edema. I have discussed the patient's condition and status with Dr. Pollock.
--- NOTE | 2017-07-31 10:27 | Event Note ---
Prior to my arrival this morning, patient experienced a bradycardic episode ( possibly brief third degree heart block) associated with brief near syncope and hypotension. This lasted approximately 5 seconds and patient spontaneously awakened and does became tachycardic with heart rate in the 110s. After I arrived, patient seemed to be stable. 40 mg IV Lasix ordered for slight tachypnea at rest. After visiting with the patient for approximately 15 minutes , patient then began with an altered mental status which included him being somewhat dazed but roused to loud verbal stimuli. He then became more short of breath, clutching his chest and neck. He then began to produce blood from coughing versus GI source. Only minimal amount. Labs still pending. EKG ordered, chest x-ray ordered, echocardiogram ordered. Pacing pads intact. Notify Dr. Napoles who came immediately. Dr. Pollock and forestry farm laborer in unavailable.
[2017-07-31 10:35] LABS: Magnesium 2.1 MG/DL (1.8-2.4); Potassium 4.6 MMOL/L (3.5-5.1)
[2017-07-31] MEDS: CAPTOPRIL 6.25 MG TABLET PO SCH ×2 (10:52→21:00)
[2017-07-31] MEDS: TAMSULOSIN 0.4 MG CAPSULE PO SCH (10:56)
[2017-07-31] MEDS: FAMOTIDINE 20 MG TABLET PO SCH (10:57)
[2017-07-31] MEDS: PANTOPRAZOLE 40 MG TABLET PO SCH ×2 (10:57→15:54)
[2017-07-31 10:59] LABS: CKMB % 8.3 %
[2017-07-31 11:00] LABS: Troponin I Only 61.9 NG/ML (0.00-0.045)
[2017-07-31 14:16] LABS: Basophils % 0.1 % (0.0-0.8); Hematocrit 32.7 VOL% (42.0-52.0); Hemoglobin 10.5 GM/DL (14.0-18.0); Immature Granulocytes % 0.6 %; Immature Granulocytes Absolute 0.09 #; Lymphocytes # 1.4 10*3/uL (1.4-4.0); Lymphocytes % 8.4 % (21.2-54.2); Mean Corpuscular HGB Conc 32.1 GM/DL (32-36); Mean Corpuscular Hemoglobin 24 PG (27-34); Mean Corpuscular Volume 74.7 FL (87-102); Mean Platelet Volume 11.4 FL (9.6-12.0); Monocytes # 0.9 10*3/uL (0.11-0.8); Monocytes % 5.2 % (1.7-12.7); Neutrophils # 13.9 10*3/uL (1.4-7.4); Neutrophils % 85.7 % (38.7-73.9); Platelet Count 199 T/CUMM (130-400); Red Blood Count 4.38 MC/CUMM (3.8-5.5); White Blood Count 16.2 T/CUMM (4-12)
[2017-07-31 14:52] LABS: CKMB % 8.2 %
[2017-07-31 15:00] LABS: Troponin I Only 79.5 NG/ML (0.00-0.045)
[2017-07-31] MEDS: TICAGRELOR 90 MG TABLET PO SCH ×2 (17:03→21:01)
--- NOTE | 2017-07-31 18:19 | Event Note ---
The patient is reevaluated. He is resting more comfortably and says his breathing is much improved, he is on a nonrebreather. Blood pressure is well controlled. O2 sats are 99%. There is mild tachycardia with a heart rate of 110. He continues to have bilateral basilar crackles. We will give additional Lasix to prevent worsening of his clinical condition.
[2017-07-31] MEDS: FUROSEMIDE 40 MG/4 ML VIAL IV SCH (20:59)
[2017-07-31] MEDS ORDERED: ATORVASTATIN 80 MG TABLET PO SCH (21:00)
[2017-07-31] MEDS: TEMAZEPAM 15 MG CAPSULE PO SCH (21:01)
[2017-07-31 22:53] LABS: ABG Base Excess 0.7 MMOL/L (-2.5-2.5); ABG HCO3 23.9 MMOL/L (20-26); ABG Oxygen Saturation 95.1 % (95-100); ABG PCO2 32.9 MM HG (35-48); ABG PH 7.479 (7.35-7.45); ABG PO2 74.7 MM HG (80-95); ABG TCO2 24.9 MMOL/L (23-27); Allen Test Positive; Pt O2 Delivery Device Venturi Mask
[2017-07-31 23:25] LABS: CKMB % 5.2 %
[2017-07-31 23:30] LABS: Troponin I Only 48.6 NG/ML (0.00-0.045)
[2017-08-01 01:40] LABS: Apearance,Urine Slightly Hazy (Clear); Bilirubin,Urine Negative (Negative); Blood, Urine Large mg/dL (Negative); Glucose,Urine (UA) Negative (Negative); Ketones,Urine Negative (Negative); Mucus,Urine Occasional /LPF (Occasional); Nitrite,Urine Negative (Negative); Protein,Urine Negative; RBC,Urine 67 /HPF (0-4); Urine Color Yellow (Yellow); Urine Specific Gravity 1.036 (1.001-1.035); Urine Urobilinogen < 2.0 EU/DL (0.2-1.0); WBC,Urine 39 /HPF (0-6)
[2017-08-01 02:50] LABS: Basophils % 0.2 % (0.0-0.8); Hematocrit 31.7 VOL% (42.0-52.0); Hemoglobin 9.9 GM/DL (14.0-18.0); Immature Granulocytes % 0.7 %; Lymphocytes # 1.2 10*3/uL (1.4-4.0); Lymphocytes % 8.6 % (21.2-54.2); Mean Corpuscular HGB Conc 31.2 GM/DL (32-36); Mean Corpuscular Hemoglobin 24 PG (27-34); Mean Corpuscular Volume 75.3 FL (87-102); Mean Platelet Volume 11.3 FL (9.6-12.0); Monocytes # 1.4 10*3/uL (0.11-0.8); Monocytes % 9.8 % (1.7-12.7); Neutrophils # 11.6 10*3/uL (1.4-7.4); Neutrophils % 80.7 % (38.7-73.9); Platelet Count 175 T/CUMM (130-400); Red Blood Count 4.21 MC/CUMM (3.8-5.5); Red Cell Distribution Width 17.1 % (9.3-17.3); White Blood Count 14.4 T/CUMM (4-12)
[2017-08-01 03:20] LABS: Albumin 3.2 G/DL (3.4-5.0); Bilirubin,Total 1.1 MG/DL (0.2-1.0); Calcium 8.8 MG/DL (8.5-10.1); Magnesium 2.1 MG/DL (1.8-2.4); Osmolality,Calculated 287.5 MOS/KG (273-304); Potassium 4.5 MMOL/L (3.5-5.1); Total Protein 6.3 G/DL (6.4-8.3)
--- NOTE | 2017-08-01 06:00 | CT Report ---
Exam: CT scan of brain without contrast Date: 07/31/2017 10:47 PM Indication: Change in mental status Comparison: 07/31/2017 2:55 AM Patient's classification: Inpatient CCU Technical: Images were obtained from the skull base to the vertex without the use of intravenous contrast. Dose reduction was performed with decreasing kv and mA and automated exposure Total DLP: 1025.6 mGy*cm Findings: Study was initially reviewed by [facility]. Soft tissue swelling is again noted over the right frontal scalp region. The brainstem cerebellum and cerebral hemispheres reveal no acute hemorrhage infarction or mass effect with minimal component of cortical atrophy. There is bilateral basal ganglia calcifications. The ventricles are slightly prominent with diffuse small vessel ischemic changes. Paranasal sinuses reveal no acute findings. Impression: 1. No acute hemorrhage infarction or mass effect 2. Diffuse small vessel ischemic change 3. No significant interval change PROCEDURE INTERPRETED AT [facility] DEPARTMENT OF RADIOLOGY Final Report Signed by: Dr. Kurt Rangel
--- NOTE | 2017-08-01 08:30 | EKG Report ---
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 Electronically Signed On 08-01-17 10:16:15 CDT by KUSH POLLOCK [email or web address]
--- NOTE | 2017-08-01 08:39 | XRay Report ---
Exam: XR chest 1V portable Date: 08/01/2017 4:00 AM Indication: CHF myocardial infarction Comparison: 07/31/2017 Technical: AP Findings: Cardiomegaly is present with previous sternotomy. Low volume effusions interstitial alveolar edema present left greater than right with no pneumothorax. Sternotomy wires are present. External cardiac leads and face shield present. Bony structures are intact. Impression: 1. Persistent findings of CHF with little change compared to previous exam PROCEDURE INTERPRETED AT [facility] DEPARTMENT OF RADIOLOGY Final Report Signed by: Dr. Kurt Rangel
[2017-08-01] MEDS: INSULIN REGULAR 100 UNIT/ML SUBCUT SCH ×4 (08:58→21:49)
[2017-08-01] MEDS: FUROSEMIDE 40 MG/4 ML VIAL IV SCH ×2 (09:51→16:49)
[2017-08-01] MEDS: SUCRALFATE 1 GM/10 ML UDCUP PO SCH ×4 (09:52→21:49)
[2017-08-01] MEDS: PANTOPRAZOLE 40 MG TABLET PO SCH ×2 (09:53→09:57)
[2017-08-01] MEDS: CAPTOPRIL 6.25 MG TABLET PO SCH (09:54)
[2017-08-01] MEDS: METHOCARBAMOL 500 MG TABLET PO SCH ×3 (09:54→21:48)
[2017-08-01] MEDS: MAGNESIUM CHLORIDE 64 MG TABLET PO SCH ×2 (09:54→21:49)
[2017-08-01] MEDS: TAMSULOSIN 0.4 MG CAPSULE PO SCH (09:55)
[2017-08-01] MEDS: TICAGRELOR 90 MG TABLET PO SCH ×2 (09:55→21:48)
[2017-08-01] MEDS: FAMOTIDINE 20 MG TABLET PO SCH (09:55)
[2017-08-01] MEDS: MULTIVITAMIN (CENTRUM) TABLET PO SCH (09:56)
[2017-08-01] MEDS: LORATADINE 10 MG TABLET PO SCH (09:56)
[2017-08-01] MEDS: ASPIRIN CHEW 81 MG TABLET PO SCH (09:56)
[2017-08-01] MEDS: OMEGA 3 ACID ETHYL ESTERS 1 GM CAPSULE PO SCH (09:57)
[2017-08-01] MEDS ORDERED: BISACODYL 5 MG TABLET PO PRN (10:56)
[2017-08-01] MEDS ORDERED: BISACODYL 10 MG SUPP RECTAL PRN (10:56)
--- NOTE | 2017-08-01 12:19 | Cardiology Progress Note ---
Assessment and Plan - Time spent with patient Time spent with patient: Greater than 30 minutes (1) Acute on chronic diastolic CHF (congestive heart failure) Status: Acute Assessment and plan: SEE PLAN OF CARE LISTED BELOW Current Visit: Yes (2) Coronary artery disease Status: Chronic Assessment and plan: SEE PLAN OF CARE LISTED BELOW Current Visit: Yes Qualifiers: Coronary Disease-Associated Artery/Lesion type: [place] artery [place] vs. transplanted heart: [place] heart Associated angina: with stable angina Qualified Code(s): I25.118 - Atherosclerotic heart disease of [place] coronary artery with other forms of angina pectoris (3) Hypertension Status: Chronic Assessment and plan: SEE PLAN OF CARE LISTED BELOW Current Visit: Yes (4) Chronic atrial fibrillation Status: Chronic Assessment and plan: SEE PLAN OF CARE LISTED BELOW Current Visit: Yes (5) Chronic anticoagulation Status: Chronic Assessment and plan: SEE PLAN OF CARE LISTED BELOW Current Visit: Yes (6) Hyperlipidemia Status: Chronic Assessment and plan: SEE PLAN OF CARE LISTED BELOW Current Visit: Yes (7) Type 2 diabetes mellitus Status: Chronic Assessment and plan: SEE PLAN OF CARE LISTED BELOW Current Visit: Yes (8) Closed head injury Status: Acute Assessment and plan: SEE PLAN OF CARE LISTED BELOW Current Visit: Yes (9) Scalp contusion Status: Acute Assessment and plan: SEE PLAN OF CARE LISTED BELOW Current Visit: Yes (10) Head injury Status: Acute Assessment and plan: SEE PLAN OF CARE LISTED BELOW Current Visit: Yes (11) Skin tear of left forearm without complication Status: Acute Assessment and plan: SEE PLAN OF CARE LISTED BELOW Current Visit: Yes (12) Syncope and collapse Status: Resolved Assessment and plan: SEE PLAN OF CARE LISTED BELOW Current Visit: Yes (13) ST elevation myocardial infarction (STEMI) of inferior wall Status: Acute Assessment and plan: SEE PLAN OF CARE LISTED BELOW Current Visit: Yes (14) UTI (urinary tract infection) Status: Acute Assessment and plan: SEE PLAN OF CARE LISTED BELOW Current Visit: Yes (15) Ischemic cardiomyopathy Status: Chronic Assessment and plan: SEE PLAN OF CARE LISTED BELOW Current Visit: Yes (16) Bradycardia following surgery Status: Acute Assessment and plan: SEE PLAN OF CARE LISTED BELOW Current Visit: Yes (17) At high risk for falls Status: Chronic Assessment and plan: SEE PLAN OF CARE LISTED BELOW Current Visit: Yes (18) Altered mental status Status: Resolved Assessment and plan: SEE PLAN OF CARE LISTED BELOW Current Visit: Yes (19) Advanced age Status: Chronic Assessment and plan: SEE PLAN OF CARE LISTED BELOW Current Visit: Yes (20) Debilitated Status: Chronic Assessment and plan: SEE PLAN OF CARE LISTED BELOW Current Visit: Yes (21) Constipation Status: Acute Assessment and plan: SEE PLAN OF CARE LISTED BELOW Current Visit: Yes (22) Acute kidney injury Status: Acute Assessment and plan: SEE PLAN OF CARE LISTED BELOW Current Visit: Yes (23) Anemia Status: Acute Assessment and plan: SEE PLAN OF CARE LISTED BELOW Current Visit: Yes Cardiology - PN: Subj Interval history: SPACE CONTROLLER: DR. BRANDON SUMMARY: Mr. Colvin, 86WM, with history of known CAD (status post CABG), hypertension, dyslipidemia, diabetes. History of atrial fibrillation on chronic anticoagulation (Xarelto), history of DVT, chronic pain. Patient presented to ED of [facility] July 31, 2017 after experiencing head trauma due to fall related to syncope. EKG revealed inferoposterior STEMI. Underwent emergent CT head to rule out hemorrhage (negative for hemorrhage) prior to proceeding with heart catheterization. Dr. Pollock and took patient to be heart laborer [facility] where he required a SRUTHI to vein graft to right coronary artery. (See heart catheterization report). Patient tolerated the actual procedure well. Postoperatively, patient experienced transient third-degree heart block, near syncope, brief episode of spitting up of blood. (It was difficult to ascertain if this came from the stomach or lungs). Also, patient experienced respiratory distress deemed acute on chronic CHF secondary to systolic dysfunction (EF 40-45%) and diastolic dysfunction, NYHA Class IV. 2016: During the night, patient experienced altered mental status including being difficult to arouse after receiving was given Restoril. Patient underwent CT of head again given the fact he was on multiple blood thinners over the past 24 hours. No significant abnormality was noted. Patient 's mental status is now clear having returned to his baseline. Urinalysis revealed large leukocytes, culture and sensitivity pending. In the meantime, will start Cipro twice daily. Echocardiogram result is pending. Patient has diuresed well overnight losing 5kg with IV Lasix twice daily. Creatinine increased from 1.4 - 2.1 overnight. Blood pressure is marginally low 90s-100s. I will hold Captopril at this time given the significant increase overnight of his creatinine. Hopefully, we can reincorporate TOO inhibitor prior to discharge. Because patient had no additional (possible) heart block since initially post procedure, may consider attempting to reincorporate low-dose beta -zuleyka at some point monitor his heart rate heart rhythm as he would greatly benefit from beta-zuleyka if possible. Continues to be slightly short of breath but improved. Troponin trending down, peaked at 79.5. Also, he is concerned because he has not had a bowel movement in several days therefore I will add MiraLAX to his regimen daily and Dulcolax as needed. Of note, Dr. Silver Victoria was called to see patient as it was originally thought Dr. Victoria was his primary care provider however he is not. This consult was canceled and we did not reconsult anyone to assist at this point. Cardiac rehab has seen patient and counseled. I will go ahead and consult case management for discharge planning as the patient will most likely need swing bed versus LTAC at discharge. Will further discuss with Dr. Pollock and await additional recommendations. ASSESSMENT/PLAN: 1. STEMI, INFERIOR - status post revascularization. Troponin is trending down. Continue Aspirin and Brilinta. 2. CAD S/P CABG - continue Aspirin, Brilinta, lipid-lowering agent 3. HYPERTENSION -at this time, blood pressure is 90s-100s. Discontinuing TOO inhibitor (TANYA). Will consider very low-dose beta blockade when able. 4. DYSLIPIDEMIA -LDL 98. Will decrease Atorvastatin from 80 mg to 40 mg. His LFTs are slightly elevated and on repeat in the morning. Suspect this is related to insult with a STEMI and hypotension. 5. DIABETES -continue sliding scale insulin. 6. BRADYCARDIA ARRHYTHMIA - occurred after PCI to the right coronary artery. Rhythm strips are scanned in. It was not a formal 12-lead EKG and is difficult to assess but may have been a third-degree heart block which was brief. Certainly, he did have some symptoms to suggest this was a true high grade heart block. However, heart rate now has rebounded ending is in the 90s and low 100s consistently. For this reason, when blood pressure will allow may consider reintroducing low-dose beta-zuleyka and monitor heart rate and rhythm. 7. ATRIAL FIBRILLATION, CHRONIC - previously on Xarelto. Patient will not be a candidate for triple antiplatelet therapy and favor aspirin, Brilinta for recent IN with PCI with SRUTHI. 8. TANYA - suspect related to hypotension with STEMI, IVP dye use with heart cath, and significant use of diuretics to treat his CHF. Stop TOO inhibitor. Follow labs daily. 9. UTI - adding Cipro p.o. twice daily and awaiting urine culture and sensitivity 10. ALTERED MENTAL STATUS -this occurred after the patient received Restoril. Underwent repeat CT which revealed no significant abnormality. He is now back to baseline. Also, patient was discovered to have a UTI and is being treated for such and this may have also contributed. 11. SYNCOPE - may have been related to arrhythmia versus IN. Stable. 12. HIGH FALLS RISK - protocol in place to prevent because 13. ANEMIA -stable. Patient did have production of blood yesterday with coughing and with gagging. Not sure if this was coming from his lungs or his GI system however none has recurred. Continue aspirin and Brilinta. Daily CBC 14. ICM - long-standing history of ischemic cardiomyopathy. Will stop his TOO inhibitor as patient has experienced acute kidney injury overnight. Will try to incorporate prior to discharge. I do believe he will benefit from a beta-zuleyka is if his heart rate and rhythm will allow for such. Because the possible heart block occurred shortly after PCI/infarct of the right coronary artery system and has not reoccurred, will try low-dose beta-zuleyka. 15. CHF, ACUTE ON CHRONIC -secondary to systolic dysfunction (EF previously 40- 45% waiting for new echo results) and diastolic dysfunction. NYHA class IV last evening, class III today. Continue with diuresis, strict I&O, daily weights. 16. CLOSED HEAD INJURY - patient has has 2 CT head scans since admission. Stable. 17. CHRONIC PAIN - will continue home meds to treat his chronic back pain. 18. CONSTIPATION - MiraLAX daily, Dulcolax as needed Exam (Progress Note) - Constitutional Vitals: Period Temp Pulse Resp BP Sys/Torre Pulse Ox Last 24 Hr 97.0 F-98.2 F 77-112 15-32 78-139/49-87 84-100 Exam: General: [Appears well with no apparent distress.] [Pleasant and cooperative. ] [Appears comfortable.] HEENT: [PERRL, multiple lacerations and ecchymotic areas noted to the right face. Mucous membranes moist. No jaundice noted. Conjunctiva moist and clear , sclerae anicteric] Neck: No obvious JVD/HJR, no thyromegaly or lymphadenopathy noted. No carotid bruit appreciated Cardiac: [Regular rate and rhythm.] [II/ holosystolic murmur heard best at fifth intercostal space to the left. Lungs: [Inspiratory crackles posteriorly in the bases, improved but persist with cough. Oxygen in use via nasal cannula Abdomen: Soft, bowel sounds normoactive. Nontender and nondistended. No abdominal bruit or thrill noted. No masses noted. Musculoskeletal: No fluid collection. Decreased range of motion is noted. Extremities: No clubbing, cyanosis noted. [ No edema noted.] Upper extremity pulses 2+. Lower extremity pulses 1+. Capillary refill less than 3 seconds. Skin: No unusual lesions or rashes other than the ecchymotic areas noted to his face. No skin breakdown appreciated. Neuro: Awake, alert and oriented 3. Moves all extremities well without hemiparesis or paralysis. No essential tremor is appreciated. Result/EKG - Labs CBC & BMP: 08/01/17 02:38 08/01/17 02:38 Lab Results: I have reviewed the past 24 hour labs Labs: Laboratory Results - last 24 hr 07/31/17 07/31/17 07/31/17 14:08 14:08 15:20 WBC 16.2 H RBC 4.38 Hgb 10.5 L Hct 32.7 L MCV 74.7 L MCH 24 L MCHC 32.1 RDW 17.0 Plt Count 199 MPV 11.4 Neut % (Auto) 85.7 H Lymph % (Auto) 8.4 L [place] % (Auto) 5.2 Eos % (Auto) 0.0 Baso % (Auto) 0.1 Neut # (Auto) 13.9 H Lymph # (Auto) 1.4 [place]ois # (Auto) 0.9 H Eos # (Auto) 0.0 Baso # (Auto) 0.0 Immature Gran % 0.6 Nucleated RBC % 0.0 Immature Gran # 0.09 Nucleated RBCs # 0.00 Immature Plt Fraction 0.0 ABG pH ABG pCO2 ABG pO2 ABG HCO3 ABG Total CO2 ABG O2 Saturation ABG Base Excess FiO2 Sodium Potassium Chloride Carbon Dioxide Anion Gap BUN Creatinine GFR Calculation BUN/Creatinine Ratio Glucose POC Glucose 228 H Calculated Osmolality Calcium Magnesium Total Bilirubin AST ALT Alkaline Phosphatase Total Creatine Kinase 1645 H CK-MB (CK-2) 134.2 H D CK and CKMB Interp 8.2 Troponin I 79.500 H D B-Natriuretic Peptide Total Protein Albumin Globulin Albumin/Globulin Ratio Urine Color Urine Appearance Urine pH Ur Specific [place] Urine Protein Urine Glucose (UA) Urine Ketones Urine Blood Urine Nitrate Urine Bilirubin Urine Urobilinogen Urine Leukocytes Urine RBC Urine WBC Urine WBC Clumps Urine Mucus Ur Culture Indicated? 07/31/17 07/31/17 07/31/17 19:29 22:24 22:36 WBC RBC Hgb Hct MCV MCH MCHC RDW Plt Count MPV Neut % (Auto) Lymph % (Auto) [place] % (Auto) Eos % (Auto) Baso % (Auto) Neut # (Auto) Lymph # (Auto) [place] # (Auto) Eos # (Auto) Baso # (Auto) Immature Gran % Nucleated RBC % Immature Gran # Nucleated RBCs # Immature Plt Fraction ABG pH ABG pCO2 ABG pO2 ABG HCO3 ABG Total CO2 ABG O2 Saturation ABG Base Excess FiO2 Sodium Potassium Chloride Carbon Dioxide Anion Gap BUN Creatinine GFR Calculation BUN/Creatinine Ratio Glucose POC Glucose 162 H 207 H Calculated Osmolality Calcium Magnesium Total Bilirubin AST ALT Alkaline Phosphatase Total Creatine Kinase 1107 H D CK-MB (CK-2) 57.6 H D CK and CKMB Interp 5.2 Troponin I 48.600 H D B-Natriuretic Peptide Total Protein Albumin Globulin Albumin/Globulin Ratio Urine Color Urine Appearance Urine pH Ur Specific [place] Urine Protein Urine Glucose (UA) Urine Ketones Urine Blood Urine Nitrate Urine Bilirubin Urine Urobilinogen Urine Leukocytes Urine RBC Urine WBC Urine WBC Clumps Urine Mucus Ur Culture Indicated? 07/31/17 07/31/17 08/01/17 22:50 23:45 02:38 WBC 14.4 H RBC 4.21 Hgb 9.9 L Hct 31.7 L MCV 75.3 L MCH 24 L MCHC 31.2 L RDW 17.1 Plt Count 175 MPV 11.3 Neut % (Auto) 80.7 H Lymph % (Auto) 8.6 L [place] % (Auto) 9.8 Eos % (Auto) 0.0 Baso % (Auto) 0.2 Neut # (Auto) 11.6 H Lymph # (Auto) 1.2 L [place] # (Auto) 1.4 H Eos # (Auto) 0.0 Baso # (Auto) 0.0 Immature Gran % 0.7 Nucleated RBC % 0.0 Immature Gran # 0.10 Nucleated RBCs # 0.00 Immature Plt Fraction 0.0 ABG pH 7.479 H ABG pCO2 32.9 L ABG pO2 74.7 L ABG HCO3 23.9 ABG Total CO2 24.9 ABG O2 Saturation 95.1 ABG Base Excess 0.7 FiO2 50.00 Sodium Potassium Chloride Carbon Dioxide Anion Gap BUN Creatinine GFR Calculation BUN/Creatinine Ratio Glucose POC Glucose Calculated Osmolality Calcium Magnesium Total Bilirubin AST ALT Alkaline Phosphatase Total Creatine Kinase CK-MB (CK-2) CK and CKMB Interp Troponin I B-Natriuretic Peptide Total Protein Albumin Globulin Albumin/Globulin Ratio Urine Color Yellow Urine Appearance Slightly hazy Urine pH 5.0 Ur Specific [place] 1.036 H Urine Protein Negative Urine Glucose (UA) Negative Urine Ketones Negative Urine Blood Large Urine Nitrate Negative Urine Bilirubin Negative Urine Urobilinogen < 2.0 H Urine Leukocytes Large H Urine RBC 67 Urine WBC 39 Urine WBC Clumps Few Urine Mucus Occasional Ur Culture Indicated? Results to follow 08/01/17 08/01/17 08/01/17 02:38 02:49 08:04 WBC RBC Hgb Hct MCV MCH MCHC RDW Plt Count MPV Neut % (Auto) Lymph % (Auto) [place] % (Auto) Eos % (Auto) Baso % (Auto) Neut # (Auto) Lymph # (Auto) [place] # (Auto) Eos # (Auto) Baso # (Auto) Immature Gran % Nucleated RBC % Immature Gran # Nucleated RBCs # Immature Plt Fraction ABG pH ABG pCO2 ABG pO2 ABG HCO3 ABG Total CO2 ABG O2 Saturation ABG Base Excess FiO2 Sodium 139 Potassium 4.5 Chloride 104 Carbon Dioxide 25 Anion Gap 14.5 BUN 28 H Creatinine 2.10 H GFR Calculation 32 BUN/Creatinine Ratio 13.00 Glucose 181 H POC Glucose 235 H Calculated Osmolality 287.5 Calcium 8.8 Magnesium 2.1 Total Bilirubin 1.10 H AST 165 H ALT 46 Alkaline Phosphatase 56 Total Creatine Kinase CK-MB (CK-2) CK and CKMB Interp Troponin I B-Natriuretic Peptide 1300 H Total Protein 6.3 L Albumin 3.2 L Globulin 3.1 Albumin/Globulin Ratio 1.0 L Urine Color Urine Appearance Urine pH Ur Specific [place] Urine Protein Urine Glucose (UA) Urine Ketones Urine Blood Urine Nitrate Urine Bilirubin Urine Urobilinogen Urine Leukocytes Urine RBC Urine WBC Urine WBC Clumps Urine Mucus Ur Culture Indicated? - Diagnostic Findings Procedure: Chest x-ray: report reviewed by me, CT: report reviewed by me, Ultrasound: pending - EKG EKG results: interpreted by me EKG shows: sinus rhythm, atrial fibrillation Quality Measures - VTE Contraindication to Pharmacological VTE Prophylaxis: High Risk of Bleeding Specialty Discharge - Follow Up or Referrals
[2017-08-01] MEDS ORDERED: CARVEDILOL 3.125 MG TABLET PO SCH (12:30)
[2017-08-01] MEDS ORDERED: CIPROFLOXACIN 250 MG TABLET PO SCH (12:30)
[2017-08-01] MEDS: POLYETHYLENE GLYCOL POWDER 17 GM PACK PO SCH (14:36)
[2017-08-01] MEDS: CIPROFLOXACIN 250 MG TABLET PO SCH ×2 (14:36→21:48)
[2017-08-01] MEDS: DIGOXIN 0.5 MG/2 ML AMP IV SCH ×2 (16:50→23:09)
--- NOTE | 2017-08-01 20:50 | Event Note ---
2 daughters, one on that early yesterday morning his [place] and one coming from [place] talk about his situation. I appraised him of his overall situation. See earlier note. 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 He had back surgery by Dr. Fam in [place] many years ago. 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 He has seen Dr. Nato Schmitt ,been treated for his pain with the patient became nervous about opiates and stopped his meds. He is in fearful of taking Tylenol. He has tried 2 different pain patches and did not like them or had side effects. Plan: Consult Dr. Lux for second opinion regarding management of his pain. He and his family agree. e
[2017-08-01] MEDS: TEMAZEPAM 15 MG CAPSULE PO SCH (21:43)
[2017-08-01] MEDS: ATORVASTATIN 20 MG TABLET PO SCH (21:48)
[2017-08-02] MEDS: DIGOXIN 0.5 MG/2 ML AMP IV SCH (04:43)
[2017-08-02 05:10] LABS: Basophils % 0.2 % (0.0-0.8); Eosinophils % 0.1 % (0.00-10.9); Hematocrit 29.4 VOL% (42.0-52.0); Hemoglobin 9.3 GM/DL (14.0-18.0); Immature Granulocytes % 0.9 %; Immature Granulocytes Absolute 0.12 #; Lymphocytes # 1.5 10*3/uL (1.4-4.0); Lymphocytes % 11.2 % (21.2-54.2); Mean Corpuscular HGB Conc 31.6 GM/DL (32-36); Mean Corpuscular Hemoglobin 24 PG (27-34); Mean Corpuscular Volume 74.8 FL (87-102); Mean Platelet Volume 11.7 FL (9.6-12.0); Monocytes % 7.5 % (1.7-12.7); Neutrophils # 10.5 10*3/uL (1.4-7.4); Neutrophils % 80.1 % (38.7-73.9); Platelet Count 180 T/CUMM (130-400); Red Blood Count 3.93 MC/CUMM (3.8-5.5); Red Cell Distribution Width 16.9 % (9.3-17.3); White Blood Count 13.1 T/CUMM (4-12)
[2017-08-02 05:44] LABS: Calcium 8.9 MG/DL (8.5-10.1); Magnesium 2.4 MG/DL (1.8-2.4); Potassium 4.5 MMOL/L (3.5-5.1)
[2017-08-02 06:16] LABS: Bilirubin,Direct 0.24 MG/DL (0.0-0.20); Bilirubin,Indirect 0.8 MG/DL (0.0-1.0); Total Protein 6.5 G/DL (6.4-8.3)
--- NOTE | 2017-08-02 07:41 | EKG Report ---
Stationary ECG Study 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
[2017-08-02] MEDS: INSULIN REGULAR 100 UNIT/ML SUBCUT SCH ×4 (08:16→21:03)
[2017-08-02] MEDS: TICAGRELOR 90 MG TABLET PO SCH ×2 (08:17→21:03)
[2017-08-02] MEDS: ASPIRIN CHEW 81 MG TABLET PO SCH (08:17)
[2017-08-02] MEDS: FUROSEMIDE 40 MG/4 ML VIAL IV SCH (08:17)
[2017-08-02] MEDS: SUCRALFATE 1 GM/10 ML UDCUP PO SCH ×4 (08:18→21:02)
[2017-08-02] MEDS: TAMSULOSIN 0.4 MG CAPSULE PO SCH (08:18)
[2017-08-02] MEDS: POLYETHYLENE GLYCOL POWDER 17 GM PACK PO SCH (08:18)
[2017-08-02] MEDS: MULTIVITAMIN (CENTRUM) TABLET PO SCH (08:18)
[2017-08-02] MEDS: LORATADINE 10 MG TABLET PO SCH (08:18)
[2017-08-02] MEDS: CIPROFLOXACIN 250 MG TABLET PO SCH (08:18)
[2017-08-02] MEDS: METHOCARBAMOL 500 MG TABLET PO SCH ×3 (08:19→21:03)
[2017-08-02] MEDS: PANTOPRAZOLE 40 MG TABLET PO SCH (08:19)
[2017-08-02] MEDS: OMEGA 3 ACID ETHYL ESTERS 1 GM CAPSULE PO SCH (08:19)
[2017-08-02] MEDS: FAMOTIDINE 20 MG TABLET PO SCH (08:19)
[2017-08-02] MEDS: MAGNESIUM CHLORIDE 64 MG TABLET PO SCH ×2 (08:23→21:02)
[2017-08-02] MEDS: CARVEDILOL 6.25 MG TABLET PO SCH ×2 (12:42→17:37)
--- NOTE | 2017-08-02 14:04 | Cardiology Progress Note ---
Assessment and Plan (1) ST elevation myocardial infarction (STEMI) of inferior wall Status: Acute Assessment and plan: The patient came in for facial trauma but her EKG showed an incidental inferior STEMI. Troponin is elevated. It could have even occurred a few hours ago or yesterday. He is having some ongoing left arm pain, which may be from his MN, and ST elevation in his ct of the head is negative so I believe the best option would be taken to the Cyber Security Manager, intervened upon the inferior microinfarction. However he is at significant increased risk of having a head bleed with giving the medications as needed to treat him for posterior MN. The risk and benefits were discussed in detail with the patient and family. I even discussed with the patient and his daughter about not proceeding with intervention but just treating him conservatively for an MN. There are risk and benefits of this approach. They want to proceed with a coronary intervention. They realize he could have a head bleed and . Plan/recommendation: Take emergently to the Cyber Security Manager This intervention falls out of the STEMI protocol because of the delay from needing to see the results of the CT prior to intervening Beta-zuleyka post MN TOO inhibitor post MN Aggrastat bolus and infusion was begun in the emergency room And aspirin 325 mg p.o. was given We will hold Xarelto for now Left heart cath and possible PTCA or stent Left heart cath and possible PTCA or stent were discussed with the patient. The risk of the procedure include but are not limited to a small risk of injury to the vessel, abnormal heart rhythm, stroke, heart attack, need for emergent surgery, contrast reaction, restenosis, infection, or . The patient voices understanding, agrees with the plan, and desires to proceed with the heart catheterization. 08/02/17 Assessment: Renal function is increasing, may be slightly dry, or at least intravascular depletion A. fib is slightly too rapid Blood pressure is better Plan/recommendation: Increase carvedilol to 6.25 mg p.o. every 6 hours-hold if pulse less than 60 or systolic blood pressure less than 100 Hold on Lasix for now Hold digoxin for now because of worsening renal function--he is essentially only received loading dose BMP every morning 3 Could consider low-dose dobutamine if hypotension Recheck chest x-ray in a.m. I conferred care with the patient's nurse. Current Visit: Yes (2) Left arm pain Status: Acute Current Visit: Yes (3) Facial trauma Status: Deleted Current Visit: Yes (4) Chronic anticoagulation Status: Resolved Current Visit: Yes (5) Chronic atrial fibrillation Status: Acute Current Visit: Yes (6) Closed head injury Status: Acute Current Visit: Yes (7) Dizziness Status: Resolved Current Visit: Yes (8) Elevated troponin Status: Acute Current Visit: Yes (9) Head injury Status: Acute Current Visit: Yes (10) Hyperlipidemia Status: Chronic Current Visit: Yes (11) Type 2 diabetes mellitus Status: Chronic Current Visit: Yes (12) Coronary artery disease Status: Chronic Current Visit: Yes Qualifiers: Coronary Disease-Associated Artery/Lesion type: [place] artery [place] vs. transplanted heart: [place] heart Associated angina: with stable angina Qualified Code(s): I25.118 - Atherosclerotic heart disease of [place] coronary artery with other forms of angina pectoris (13) Gastroesophageal reflux Status: Resolved Current Visit: No (14) Hypertension Status: Chronic Current Visit: Yes (15) Status post coronary artery bypass grafting Problem details: CABG x4 November 1999 with repeat catheterization 09/06/08 which showed 4 patent grafts. Status: Chronic Current Visit: Yes (16) Elevated serum creatinine Problem details: ? Acute or chronic Status: Deleted Current Visit: No Cardiology - PN: Subj Interval history: No chest pain or shortness of breath. Exam (Progress Note) - Constitutional Vitals: Period Temp Pulse Resp BP Sys/Torre Pulse Ox Last 24 Hr 97.1 F-98.6 F 94-124 19-31 86-153/55-88 86-98 Exam: HEENT: Pupils equal, reactive to light and accommodation Neck: NoJVD or bruit Lungs clear to auscultation Heart: Irregularly irregular rhythm rate with normal S1 and S2., 2/6 holosystolic murmur at the apex Abdomen: No hepatosplenomegaly Spine/extremities: No clubbing, cyanosis, or edema Neuro: Nonfocal Psych: No depression or anxiety Result/EKG - Labs CBC & BMP: 08/02/17 04:42 08/02/17 04:42 Lab Results: I have reviewed the past 24 hour labs Labs: Laboratory Results - last 24 hr 08/01/17 08/01/17 08/02/17 16:04 21:03 04:42 WBC RBC Hgb Hct MCV MCH MCHC RDW Plt Count MPV Neut % (Auto) Lymph % (Auto) [place] % (Auto) Eos % (Auto) Baso % (Auto) Neut # (Auto) Lymph # (Auto) [place] # (Auto) Eos # (Auto) Baso # (Auto) Immature Gran % Nucleated RBC % Immature Gran # Nucleated RBCs # Immature Plt Fraction Sodium Potassium Chloride Carbon Dioxide Anion Gap BUN Creatinine GFR Calculation BUN/Creatinine Ratio Glucose POC Glucose 333 H 322 H Calculated Osmolality Calcium Magnesium Total Bilirubin 1.00 Direct Bilirubin 0.240 H Indirect Bilirubin 0.8 AST 65 H ALT 34 Alkaline Phosphatase 64 Total Protein 6.5 Albumin 3.0 L 08/02/17 08/02/17 08/02/17 04:42 04:42 07:08 WBC 13.1 H RBC 3.93 Hgb 9.3 L Hct 29.4 L MCV 74.8 L MCH 24 L MCHC 31.6 L RDW 16.9 Plt Count 180 MPV 11.7 Neut % (Auto) 80.1 H Lymph % (Auto) 11.2 L [place] % (Auto) 7.5 Eos % (Auto) 0.1 Baso % (Auto) 0.2 Neut # (Auto) 10.5 H Lymph # (Auto) 1.5 [place] # (Auto) 1.0 H Eos # (Auto) 0.0 Baso # (Auto) 0.0 Immature Gran % 0.9 Nucleated RBC % 0.0 Immature Gran # 0.12 Nucleated RBCs # 0.00 Immature Plt Fraction 0.0 Sodium 136 Potassium 4.5 Chloride 101 Carbon Dioxide 25 Anion Gap 14.5 BUN 44 H Creatinine 2.80 H GFR Calculation 22 BUN/Creatinine Ratio 15.00 Glucose 195 H POC Glucose 239 H Calculated Osmolality 287.0 Calcium 8.9 Magnesium 2.4 Total Bilirubin Direct Bilirubin Indirect Bilirubin AST ALT Alkaline Phosphatase Total Protein Albumin 08/02/17 11:21 WBC RBC Hgb Hct MCV MCH MCHC RDW Plt Count MPV Neut % (Auto) Lymph % (Auto) [place] % (Auto) Eos % (Auto) Baso % (Auto) Neut # (Auto) Lymph # (Auto) [place] # (Auto) Eos # (Auto) Baso # (Auto) Immature Gran % Nucleated RBC % Immature Gran # Nucleated RBCs # Immature Plt Fraction Sodium Potassium Chloride Carbon Dioxide Anion Gap BUN Creatinine GFR Calculation BUN/Creatinine Ratio Glucose POC Glucose 302 H Calculated Osmolality Calcium Magnesium Total Bilirubin Direct Bilirubin Indirect Bilirubin AST ALT Alkaline Phosphatase Total Protein Albumin - EKG EKG results: interpreted by me Quality Measures - VTE Contraindication to Pharmacological VTE Prophylaxis: High Risk of Bleeding Specialty Discharge - Follow Up or Referrals
--- NOTE | 2017-08-02 16:01 | Pain Management Consult Note ---
Assessment and Plan (1) Chronic pain syndrome Status: Acute Assessment and plan: Patient can continue his Mabel 7.5 3 times daily to 4 times daily as needed for pain during hospital stay. We will make him follow-up appointment with me in pain clinic after discharge and we will make a plan further care Current Visit: Yes History of Present Illness Chief complaint: Lower back pain and bilateral leg pain History of present illness: Mr. Colvin is a 86 year old male Patient is admitted this time for workup for cardiac pain and has obvious injury to his face after a fall. However patient has a long history of lumbar spinal stenosis and underwent lumbar fusion surgery in 2004. Patient has had multiple pain intervention procedures in the past. I have discussed with him about the further treatment options. Plan is for him to make an appointment with me as an outpatient after discharge. I will review his medical records from [place] [facility] and from Dr. Fam in [place] and then we can make a plan for future treatment Home Medications Medication Instructions Recorded Confirmed Type Aspirin [Ecotrin] 81 mg PO DAILY 08/02/15 07/31/17 History Lisinopril 20 mg PO BID 08/02/15 07/31/17 History Methocarbamol Tab [Robaxin Tab] 500 mg PO TID 08/02/15 07/31/17 History Rivaroxaban [Xarelto] 15 mg PO DAILY W/BREAKFAST 08/02/15 07/31/17 History Glimepiride 4 mg PO BID 11/21/16 07/31/17 History Hydrocodone/Acetaminophen 1 each PO QID 11/21/16 12/06/16 History [Hydrocodon-Acetaminoph 7.5-325] Isosorbide Mononitrate [Isosorbide 30 mg PO DAILY 11/21/16 07/31/17 History Mononitrate ER] Loratadine Tab [Claritin Tab] 10 mg PO DAILY 11/21/16 07/31/17 History Metformin HCl 1,000 mg PO BID 11/21/16 07/31/17 History Metoprolol Tartrate 50 mg PO BID 11/21/16 07/31/17 History Pantoprazole Tab [Protonix Tab] 40 mg PO DAILY 11/21/16 07/31/17 History Sitagliptin Phosphate [Januvia] 50 mg PO DAILY 11/21/16 07/31/17 History Tamsulosin [Flomax] 0.4 mg PO DAILY 11/21/16 07/31/17 History Fish Oil 340-1,000 1 capsule PO DAILY 12/05/16 07/31/17 History Multivit-Min/FA/Lycopen/Lutein 1 each PO DAILY 12/05/16 07/31/17 History [Centrum Silver Tablet] Sucralfate Liquid [Carafate Liquid] 1 gm PO QID 12/05/16 12/05/16 History Famotidine [Pepcid AC] 20 mg PO DAILY 12/06/16 07/31/17 History Metformin HCl [Metformin HCl] 07/31/17 History Allergies Allergy/AdvReac Type Severity Reaction Status Date / Time amitriptyline [From Elavil] Allergy Verified 12/06/16 07:21 gabapentin [From Neurontin] Allergy Verified 12/06/16 07:21 lidocaine Allergy Verified 12/06/16 07:21 Zolpidem [From Ambien] Allergy Verified 08/02/15 08:48 Temazepam [From Restoril] AdvReac Severe UNRESPONSIV Verified 08/01/17 02:18 E Medical,Surgical,& Family Hx - Medical History Cardio: History of: Hypertension, [place], Cardiovascular Problems No history of: CHF Psychological: No history of: Anxiety Disorders, ADHD, Behavior Problems, Bipolar Disorder, Depression, Previous Suicide Attempt, Psychiatric/Substance Abuse Tx, Schizophrenia, Violent Behavior, Psychiatric Problems Neurology: No history of: Cerebral Hemorrhage, Cerebrovascular Accident, Peripheral Neuropathy, Seizures HEENT: No history of: Glaucoma Endocrine: History of: Diabetes Mellitus (NIDDM), Dyslipidemia No history of: Diabetes Mellitus (IDDM), Thyroid Disorder, Endocrine Cancer, Endocrine Problems Rheumatology: No history of;: Psoriasis, Sj[place], Systemic Lupus Erythematosus Respiratory: History of: Intubation No history of: Asthma, Bronchitis, COPD Renal: No history of: Renal (Kidney) Cancer, Dialysis, Renal Failure, Renal Problems Genitourinary: History of: Prostate Problems (ca), Recurring Urinary Tract Infections No history of: Bladder Problem, Kidney Stones, Genitourinary Cancer, Problems Gastrointestinal: History of: GERD, Polyps, GI Problems (hiatal hernia) No history of: Bowel Obstruction, Clostridium Difficile, Crohn's Disease, Diverticulitis/ Diverticulosis, Esophageal Varices, Gastrointestinal Bleed Musculoskeletal: History of: Back/Neck Problems, Degenerative Disk Disease ( severe back problems) No history of: Amputation Hematology: History of: Clotting Problems (xarelto), Blood Disorders No history of: Blood Transfusion Reaction Other: History of: Cancer (prostate) No history of: Anesthesia Reactions, Anaphylaxis, Eczema, HIV, Malignant Hyperthermia, MRSA, Vancomycin-Resistant Enterococci, Skin Problems, Miscellaneous Medical Problems - Surgical History Cardiac Surgeries: Sugical HX of: Femoral-Popliteal Bypass Graft (5 in 2001...) , Cardiac Catheterization (W/ STENT PLACEMENT), Cardiac Surgery (cabg 1999) Patient Denies: Internal Defibrillator, Vascular Access Devices Thoracic Surgeries: Patient denies;: Kidney (Renal Surgery), Lithotripsy, Nephrectomy, Organ Transplant Neurologic Surgeries: Patient denies: Cerebral Hemorrhage, Neurologic Surgery HEENT Surgeries: Surgical HX of: Eye Surgery (cataract surgery), Tonsilectomy & Adenoidectomy Patient denies: Thyroid Surgery Abdominal Surgeries: Surgical HX of: Abdominal Surgery, Appendectomy, Colonoscopy, EGD Patient denies: Cholecystectomy, Gastric Bypass Surgery, Hernia Repair, Splenectomy Reproductive Surgeries: Surgical HX of;: Prostate Surgery (caterizzed) Patient denies;: Breast Surgery, Cystoscopy, Genitourinary Surgery Orthopedic Surgeries: Surgical HX of;: Orthopedic Surgery (degenerative back disease and rods and pins placed), Spinal Surgery (rods and pins placed) - Family History Family History: Reports;: Family Cancer (mother), Family Diabetes (parents), Family Heart Disease (family) Denies;: Family Anesthesia Reaction, Family Hypertension, Family Psychiatric Problems, Family Stroke - Social History Smoking Status: Never smoker Frequency of Alcohol Use: None Type of Drug Use: None Quality Measures - VTE Contraindication to Pharmacological VTE Prophylaxis: High Risk of Bleeding 12 point system: reviewed and no additional remarkable complaints except as stated Exam - Constitutional Vitals: Period Temp Pulse Resp BP Sys/Torre Pulse Ox Last 24 Hr 97.1 F-98.6 F 94-124 22-31 86-153/55-91 86-100 General appearance: no acute distress - Head Head exam: Present: normal inspection - Eye Eye exam: Present: periorbital swelling, other (bruising) Pupils: Present: ROMAN - ENT ENT exam: Present: normal exam Ear exam: Present: intact Mouth exam: Present: normal external inspection - Neck Neck exam: Present: normal inspection - Respiratory Respiratory exam: Present: clear to auscultation bilaterally - Cardiovascular Cardiovascular exam: Present: RRR - GI/Abdominal GI/Abdominal exam: Present: normal bowel sounds - Extremities Exam Extremities exam: Present: normal inspection - Back Exam Back exam: Present: vertebral tenderness - Neurological Exam Neurological exam: Present: alert, oriented X3, abnormal gait Results - Labs CBC & BMP: 08/02/17 04:42 08/02/17 04:42 Lab Results: I have reviewed the past 24 hour labs Specialty Discharge - Follow Up or Referrals
[2017-08-02] MEDS: ATORVASTATIN 20 MG TABLET PO SCH (21:02)
[2017-08-02] MEDS: TEMAZEPAM 15 MG CAPSULE PO SCH (22:04)
[2017-08-03] MEDS: CARVEDILOL 6.25 MG TABLET PO SCH ×2 (00:58→06:24)
[2017-08-03 03:40] LABS: Basophils % 0.2 % (0.0-0.8); Eosinophils # 0.1 10*3/uL (0.0-0.87); Eosinophils % 0.9 % (0.00-10.9); Hematocrit 29.4 VOL% (42.0-52.0); Hemoglobin 9.2 GM/DL (14.0-18.0); Immature Granulocytes % 0.9 %; Immature Granulocytes Absolute 0.12 #; Lymphocytes # 1.3 10*3/uL (1.4-4.0); Lymphocytes % 9.8 % (21.2-54.2); Mean Corpuscular HGB Conc 31.3 GM/DL (32-36); Mean Corpuscular Hemoglobin 24 PG (27-34); Monocytes # 1.2 10*3/uL (0.11-0.8); Neutrophils # 10.3 10*3/uL (1.4-7.4); Neutrophils % 79.2 % (38.7-73.9); Platelet Count 196 T/CUMM (130-400); Red Blood Count 3.87 MC/CUMM (3.8-5.5); Red Cell Distribution Width 16.8 % (9.3-17.3); White Blood Count 13.1 T/CUMM (4-12)
[2017-08-03 04:38] LABS: Calcium 8.7 MG/DL (8.5-10.1); Magnesium 2.6 MG/DL (1.8-2.4); Potassium 4.5 MMOL/L (3.5-5.1)
[2017-08-03] MEDS: INSULIN REGULAR 100 UNIT/ML SUBCUT SCH ×4 (07:20→22:01)
--- NOTE | 2017-08-03 09:25 | EKG Report ---
Stationary ECG Study [facility] Test Date: 08/03/2017 7:54:26 AM Pat Name: IOANA GATES Department: Room: 123 Gender: M Pot Liner: KRIS : 1930 Requested by: Kush Pollock Order Number: [id number] Reading MD: KUSH POLLOCK Intervals [place] Rate: 77 P: -51 [place]: 217 QRS: 10 QRSD: 121 T: 155 QT: 339 QTc: 370 Interpretive Statements SINUS RHYTHM WITH PROLONGED [place] INTERVAL MODERATE INTRAVENTRICULAR CONDUCTION DELAY ST DEVIATION AND MODERATE T-WAVE ABNORMALITY INTERPRETATION BASED ON A DEFAULT AGE OF 40 YEARS Electronically Signed On 08-03-17 11:45:33 CDT by KUSH POLLOCK [email or web address]
[2017-08-03] MEDS: MULTIVITAMIN (CENTRUM) TABLET PO SCH (10:07)
[2017-08-03] MEDS: ASPIRIN CHEW 81 MG TABLET PO SCH (10:07)
[2017-08-03] MEDS: TICAGRELOR 90 MG TABLET PO SCH ×2 (10:07→22:00)
[2017-08-03] MEDS: SUCRALFATE 1 GM/10 ML UDCUP PO SCH ×4 (10:07→22:01)
[2017-08-03] MEDS: MAGNESIUM CHLORIDE 64 MG TABLET PO SCH ×2 (10:07→22:00)
[2017-08-03] MEDS: PANTOPRAZOLE 40 MG TABLET PO SCH (10:08)
[2017-08-03] MEDS: LORATADINE 10 MG TABLET PO SCH (10:08)
[2017-08-03] MEDS: METHOCARBAMOL 500 MG TABLET PO SCH ×3 (10:08→22:00)
[2017-08-03] MEDS: OMEGA 3 ACID ETHYL ESTERS 1 GM CAPSULE PO SCH (10:08)
[2017-08-03] MEDS: POLYETHYLENE GLYCOL POWDER 17 GM PACK PO SCH (10:08)
[2017-08-03] MEDS: TAMSULOSIN 0.4 MG CAPSULE PO SCH (10:09)
[2017-08-03] MEDS: FAMOTIDINE 20 MG TABLET PO SCH (10:09)
[2017-08-03] MEDS: CIPROFLOXACIN 250 MG TABLET PO SCH (10:09)
--- NOTE | 2017-08-03 13:34 | Cardiology Progress Note ---
Assessment and Plan (1) ST elevation myocardial infarction (STEMI) of inferior wall Status: Acute Assessment and plan: The patient came in for facial trauma but her EKG showed an incidental inferior STEMI. Troponin is elevated. It could have even occurred a few hours ago or yesterday. He is having some ongoing left arm pain, which may be from his SD, and ST elevation in his ct of the head is negative so I believe the best option would be taken to the Qualification Engineer, intervened upon the inferior microinfarction. However he is at significant increased risk of having a head bleed with giving the medications as needed to treat him for posterior SD. The risk and benefits were discussed in detail with the patient and family. I even discussed with the patient and his daughter about not proceeding with intervention but just treating him conservatively for an SD. There are risk and benefits of this approach. They want to proceed with a coronary intervention. They realize he could have a head bleed and . Plan/recommendation: Take emergently to the Qualification Engineer This intervention falls out of the STEMI protocol because of the delay from needing to see the results of the CT prior to intervening Beta-zuleyka post SD TOO inhibitor post SD Aggrastat bolus and infusion was begun in the emergency room And aspirin 325 mg p.o. was given We will hold Xarelto for now Left heart cath and possible PTCA or stent Left heart cath and possible PTCA or stent were discussed with the patient. The risk of the procedure include but are not limited to a small risk of injury to the vessel, abnormal heart rhythm, stroke, heart attack, need for emergent surgery, contrast reaction, restenosis, infection, or . The patient voices understanding, agrees with the plan, and desires to proceed with the heart catheterization. 08/02/17 Assessment: Renal function is increasing, may be slightly dry, or at least intravascular depletion A. fib is slightly too rapid Blood pressure is better Plan/recommendation: Increase carvedilol to 6.25 mg p.o. every 6 hours-hold if pulse less than 60 or systolic blood pressure less than 100 Hold on Lasix for now Hold digoxin for now because of worsening renal function--he is essentially only received loading dose BMP every morning 3 Could consider low-dose dobutamine if hypotension Recheck chest x-ray in a.m. I conferred care with the patient's nurse. 08/03/17: Assessment/plan/recommendation Post SD, is doing fairly well His blood pressure is better His creatinine is decreasing back to his baseline. His events this morning was a bradycardic episode. Unsure if it is related to his recent inferior SD, medications which may or may not be essential, sinus node or AV node dysfunction, or related to untreated central sleep apnea. I will have Dr. Geovanni Morrison, who is coming on the service tomorrow, to assess is whether he may need a pacemaker Consult Dr. Erich Baker regarding possible central sleep apnea He has a dry mouth-we will humidify his oxygen, use butyrin spray We will hold carvedilol for now because the episode of bradycardia No apparent neuro deficits post brief CPR Prognosis remains guarded Had a long discussion with the patient and his 2 daughters regarding events and workup and plans I appreciate Dr. Lux seen the patient for helping manage his pain. Current Visit: Yes (2) Left arm pain Status: Acute Current Visit: Yes (3) Facial trauma Status: Deleted Current Visit: Yes (4) Chronic anticoagulation Status: Resolved Current Visit: Yes (5) Chronic atrial fibrillation Status: Acute Current Visit: Yes (6) Closed head injury Status: Acute Current Visit: Yes (7) Dizziness Status: Resolved Current Visit: Yes (8) Elevated troponin Status: Acute Current Visit: Yes (9) Head injury Status: Acute Current Visit: Yes (10) Hyperlipidemia Status: Chronic Current Visit: Yes (11) Type 2 diabetes mellitus Status: Chronic Current Visit: Yes (12) Coronary artery disease Status: Chronic Current Visit: Yes Qualifiers: Coronary Disease-Associated Artery/Lesion type: [place] artery [place] vs. transplanted heart: [place] heart Associated angina: with stable angina Qualified Code(s): I25.118 - Atherosclerotic heart disease of [place] coronary artery with other forms of angina pectoris (13) Gastroesophageal reflux Status: Resolved Current Visit: No (14) Hypertension Status: Chronic Current Visit: Yes (15) Status post coronary artery bypass grafting Problem details: CABG x4 November 1999 with repeat catheterization 09/06/08 which showed 4 patent grafts. Status: Chronic Current Visit: Yes (16) Elevated serum creatinine Problem details: ? Acute or chronic Status: Deleted Current Visit: No (17) Low back pain Status: Acute Current Visit: Yes (18) Chronic pain syndrome Status: Acute Current Visit: Yes Cardiology - PN: Subj Interval history: No chest pain. Some shortness of breath with exertion. The nurse relates that he had an event earlier this morning where he stopped breathing then had some bradycardia and had to have brief, 8 or so seconds, of CPR. He came back and is neurologically intact. Did not require atropine or other intervention. Exam (Progress Note) - Constitutional Vitals: Period Temp Pulse Resp BP Sys/Torre Pulse Ox Last 24 Hr 97.1 F-97.9 F 75-115 15-30 82-153/21-91 91-100 Exam: HEENT: Pupils equal, reactive to light and accommodation Neck: NoJVD or bruit Lungs clear to auscultation Heart: Irregularly irregular rhythm rate with normal S1 and S2., 2/6 holosystolic murmur at the apex Abdomen: No hepatosplenomegaly Spine/extremities: No clubbing, cyanosis, or edema Neuro: Nonfocal Psych: No depression or anxiety Result/EKG - Labs CBC & BMP: 08/03/17 03:09 08/03/17 03:09 Lab Results: I have reviewed the past 24 hour labs Labs: Laboratory Results - last 24 hr 08/02/17 08/02/17 08/03/17 15:39 19:16 01:11 WBC RBC Hgb Hct MCV MCH MCHC RDW Plt Count MPV Neut % (Auto) Lymph % (Auto) [place] % (Auto) Eos % (Auto) Baso % (Auto) Neut # (Auto) Lymph # (Auto) [place] # (Auto) Eos # (Auto) Baso # (Auto) Immature Gran % Nucleated RBC % Immature Gran # Nucleated RBCs # Immature Plt Fraction Sodium Potassium Chloride Carbon Dioxide Anion Gap BUN Creatinine GFR Calculation BUN/Creatinine Ratio Glucose POC Glucose 364 H 343 H 214 H Calculated Osmolality Calcium Magnesium 08/03/17 08/03/17 08/03/17 03:09 03:09 06:59 WBC 13.1 H RBC 3.87 Hgb 9.2 L Hct 29.4 L MCV 76.0 L MCH 24 L MCHC 31.3 L RDW 16.8 Plt Count 196 MPV 12.0 Neut % (Auto) 79.2 H Lymph % (Auto) 9.8 L [place] % (Auto) 9.0 Eos % (Auto) 0.9 Baso % (Auto) 0.2 Neut # (Auto) 10.3 H Lymph # (Auto) 1.3 L [place] # (Auto) 1.2 H Eos # (Auto) 0.1 Baso # (Auto) 0.0 Immature Gran % 0.9 Nucleated RBC % 0.0 Immature Gran # 0.12 Nucleated RBCs # 0.00 Immature Plt Fraction 0.0 Sodium 136 Potassium 4.5 Chloride 102 Carbon Dioxide 24 Anion Gap 14.5 BUN 47 H Creatinine 2.30 H GFR Calculation 25 BUN/Creatinine Ratio 20.00 Glucose 183 H POC Glucose 284 H Calculated Osmolality 288.0 Calcium 8.7 Magnesium 2.6 H - EKG EKG results: interpreted by me Quality Measures - VTE Contraindication to Pharmacological VTE Prophylaxis: High Risk of Bleeding Specialty Discharge - Follow Up or Referrals
[2017-08-03] MEDS: TEMAZEPAM 15 MG CAPSULE PO SCH (21:00)
[2017-08-03] MEDS: ATORVASTATIN 20 MG TABLET PO SCH (22:00)
[2017-08-04 05:35] LABS: Basophils % 0.3 % (0.0-0.8); Eosinophils # 0.4 10*3/uL (0.0-0.87); Eosinophils % 3.4 % (0.00-10.9); Hematocrit 30.7 VOL% (42.0-52.0); Hemoglobin 9.7 GM/DL (14.0-18.0); Immature Granulocytes % 0.8 %; Immature Granulocytes Absolute 0.09 #; Lymphocytes # 1.6 10*3/uL (1.4-4.0); Lymphocytes % 14.9 % (21.2-54.2); Mean Corpuscular HGB Conc 31.6 GM/DL (32-36); Mean Corpuscular Hemoglobin 24 PG (27-34); Mean Corpuscular Volume 76.2 FL (87-102); Mean Platelet Volume 11.3 FL (9.6-12.0); Monocytes % 9.4 % (1.7-12.7); Neutrophils # 7.5 10*3/uL (1.4-7.4); Neutrophils % 71.2 % (38.7-73.9); Platelet Count 210 T/CUMM (130-400); Red Blood Count 4.03 MC/CUMM (3.8-5.5); Red Cell Distribution Width 16.6 % (9.3-17.3); White Blood Count 10.6 T/CUMM (4-12)
[2017-08-04 06:15] LABS: Calcium 8.6 MG/DL (8.5-10.1); Magnesium 2.8 MG/DL (1.8-2.4); Osmolality,Calculated 289.1 MOS/KG (273-304); Potassium 4.5 MMOL/L (3.5-5.1)
[2017-08-04] MEDS: SUCRALFATE 1 GM/10 ML UDCUP PO SCH ×4 (08:40→21:17)
[2017-08-04] MEDS: INSULIN REGULAR 100 UNIT/ML SUBCUT SCH ×4 (08:40→21:17)
[2017-08-04] MEDS: PANTOPRAZOLE 40 MG TABLET PO SCH (08:41)
[2017-08-04] MEDS: POLYETHYLENE GLYCOL POWDER 17 GM PACK PO SCH (08:41)
[2017-08-04] MEDS: CIPROFLOXACIN 250 MG TABLET PO SCH (08:41)
[2017-08-04] MEDS: ASPIRIN CHEW 81 MG TABLET PO SCH (08:42)
[2017-08-04] MEDS: LORATADINE 10 MG TABLET PO SCH (08:42)
[2017-08-04] MEDS: MAGNESIUM CHLORIDE 64 MG TABLET PO SCH ×2 (08:42→21:18)
[2017-08-04] MEDS: FAMOTIDINE 20 MG TABLET PO SCH (08:42)
[2017-08-04] MEDS: MULTIVITAMIN (CENTRUM) TABLET PO SCH (08:42)
[2017-08-04] MEDS: METHOCARBAMOL 500 MG TABLET PO SCH ×3 (08:42→21:17)
[2017-08-04] MEDS: TAMSULOSIN 0.4 MG CAPSULE PO SCH (08:42)
[2017-08-04] MEDS: OMEGA 3 ACID ETHYL ESTERS 1 GM CAPSULE PO SCH (08:43)
[2017-08-04] MEDS: TICAGRELOR 90 MG TABLET PO SCH ×2 (08:45→21:17)
--- NOTE | 2017-08-04 10:39 | Physician Query Form ---
CLICK EDIT DOCUMENT TO SELECT QUERY ANSWER --> OK --> SIGN Radha Koenig RN Clinical Road [employer]er W) [phone] (f) [phone] [email or web address]: Make your selection(s) from the choices in EACH section by typing an "x" and enter comments in the comment section. Please use your independent medical judgment in providing your response. This request does not imply that any particular answer is desired or expected. CLINICAL INDICATORS: (Providers should not edit this section) Based on documentation of "Shortness of breath" "Diffuse crackles in his bilateral lungs senior living up" "He then became more short of breath, clutching his chest and neck" "his breathing is much improved, he is on a nonrebreather" Respirations of 31, Sats of 88%. 100% NRB applied, If possible, please further clarify the type and acuity of respiratory diagnosis : ACUITY: (x ) Acute ( ) Chronic ( ) Acute on Chronic TYPE: (x ) Respiratory failure with hypoxia ( ) Respiratory failure with hypercapnia ( ) Respiratory Arrest ( ) Postprocedural/postoperative respiratory failure ( ) Respiratory Insufficiency ( ) ARDS (Adult/Acute Respiratory Distress Syndrome) ( ) Other, please specify: ( ) Clinically unable to determine Recognized criteria for respiratory failure PH <7.35 or >7.45 PO2 <60 PCO2 >50 RR >24 O2 Sat <90% on RA or <95% on O2 Use of accessory muscles Unable to speak in full sentences Intubation is not required COMMENTS: PLEASE ALSO DOCUMENT RESPONSE IN PROGRESS NOTES AND/OR DISCHARGE SUMMARY Use of terms such as suspected, likely, or probable (associated with a specific diagnosis that is being evaluated, monitored, or treated as if it exists) are acceptable and can be restated in the discharge summary if not ruled out. MTDD
--- NOTE | 2017-08-04 13:47 | Cardiology Progress Note ---
<PoJanene E - Last Filed: 08/04/17 13:22> Assessment and Plan - Time spent with patient Time spent with patient: Greater than 30 minutes (1) Acute on chronic diastolic CHF (congestive heart failure) Status: Acute Assessment and plan: SEE PLAN OF CARE LISTED BELOW Current Visit: Yes (2) Coronary artery disease Status: Chronic Assessment and plan: SEE PLAN OF CARE LISTED BELOW Current Visit: Yes Qualifiers: Coronary Disease-Associated Artery/Lesion type: [place] artery [place] vs. transplanted heart: [place] heart Associated angina: with stable angina Qualified Code(s): I25.118 - Atherosclerotic heart disease of [place] coronary artery with other forms of angina pectoris (3) Hypertension Status: Chronic Assessment and plan: SEE PLAN OF CARE LISTED BELOW Current Visit: Yes (4) Chronic atrial fibrillation Status: Chronic Assessment and plan: SEE PLAN OF CARE LISTED BELOW Current Visit: Yes (5) Chronic anticoagulation Status: Chronic Assessment and plan: SEE PLAN OF CARE LISTED BELOW Current Visit: Yes (6) Hyperlipidemia Status: Chronic Assessment and plan: SEE PLAN OF CARE LISTED BELOW Current Visit: Yes (7) Type 2 diabetes mellitus Status: Chronic Assessment and plan: SEE PLAN OF CARE LISTED BELOW Current Visit: Yes (8) Closed head injury Status: Acute Assessment and plan: SEE PLAN OF CARE LISTED BELOW Current Visit: Yes (9) Scalp contusion Status: Acute Assessment and plan: SEE PLAN OF CARE LISTED BELOW Current Visit: Yes (10) Head injury Status: Acute Assessment and plan: SEE PLAN OF CARE LISTED BELOW Current Visit: Yes (11) Skin tear of left forearm without complication Status: Acute Assessment and plan: SEE PLAN OF CARE LISTED BELOW Current Visit: Yes (12) Syncope and collapse Status: Resolved Assessment and plan: SEE PLAN OF CARE LISTED BELOW Current Visit: Yes (13) ST elevation myocardial infarction (STEMI) of inferior wall Status: Acute Assessment and plan: SEE PLAN OF CARE LISTED BELOW Current Visit: Yes (14) UTI (urinary tract infection) Status: Acute Assessment and plan: SEE PLAN OF CARE LISTED BELOW Current Visit: Yes (15) Ischemic cardiomyopathy Status: Chronic Assessment and plan: SEE PLAN OF CARE LISTED BELOW Current Visit: Yes (16) Bradycardia following surgery Status: Acute Assessment and plan: SEE PLAN OF CARE LISTED BELOW Current Visit: Yes (17) At high risk for falls Status: Chronic Assessment and plan: SEE PLAN OF CARE LISTED BELOW Current Visit: Yes (18) Altered mental status Status: Resolved Assessment and plan: SEE PLAN OF CARE LISTED BELOW Current Visit: Yes (19) Advanced age Status: Chronic Assessment and plan: SEE PLAN OF CARE LISTED BELOW Current Visit: Yes (20) Debilitated Status: Chronic Assessment and plan: SEE PLAN OF CARE LISTED BELOW Current Visit: Yes (21) Constipation Status: Acute Assessment and plan: SEE PLAN OF CARE LISTED BELOW Current Visit: Yes (22) Acute kidney injury Status: Acute Assessment and plan: SEE PLAN OF CARE LISTED BELOW Current Visit: Yes (23) Anemia Status: Acute Assessment and plan: SEE PLAN OF CARE LISTED BELOW Current Visit: Yes Cardiology - PN: Subj Interval history: 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 CHRISTINE SUMMARY: Mr. Colvin, 86WM, with history of known CAD (status post CABG), hypertension, dyslipidemia, diabetes. History of atrial fibrillation on chronic anticoagulation (Xarelto), history of DVT, chronic pain. Patient presented to ED of [facility] July 31, 2017 after experiencing head trauma due to fall related to syncope. EKG revealed inferoposterior STEMI. Underwent emergent CT head to rule out hemorrhage (negative for hemorrhage) prior to proceeding with heart catheterization. Dr. Pollock and took patient to be heart pathology laboratory technologist where he required a SRUTHI to vein graft to right coronary artery. (See heart catheterization report). Patient tolerated the actual procedure well. Postoperatively, patient experienced transient third-degree heart block, near syncope, brief episode of spitting up of blood. (It was difficult to ascertain if this came from the stomach or lungs). Also, patient experienced respiratory distress deemed acute on chronic CHF secondary to systolic dysfunction (EF 45-50%) and diastolic dysfunction, NYHA Class IV. Echocardiogram: EF 45-50%, mild to moderate mitral regurgitation, PAP of 38 mmHg. 2016: Over the weekend, patient's creatinine peaked at 2.8 but this morning has improved at 1.9. Low-dose beta-zuleyka was incorporated into the patient's medication regimen over the weekend and he is tolerating this well. Patient was placed on Digoxin over the weekend but due to his worsening creatinine this was held. Heart rate remains 90s to low 100s and I believe it is safe to resume Digoxin at this time. Blood glucose levels are unacceptably high. Will restart Glimepiride now and eventually Metformin if creatinine continues to improve. Holding Xarelto at this time due to need for DAPT and patient's frail condition. Dr. Lux has seen patient and is treating his chronic pain. Patient will need LTAC at discharge. Hopefully, in the next few days patient will be ready for transfer. Will further discuss with Dr. Christine and await additional recommendations. ASSESSMENT/PLAN: 1. STEMI, INFERIOR - status post revascularization. Troponin is trending down. Continue Aspirin and Brilinta. Would like to incorporate long-acting nitrate soon. 2. CAD S/P CABG - continue Aspirin, Brilinta, beta-zuleyka and lipid-lowering agent. Avoiding TOO inhibitor for fear of worsening renal insufficiency 3. HYPERTENSION - adequately controlled with beta-zuleyka. Avoiding TOO inhibitors for fear of worsening renal insufficiency. 4. DYSLIPIDEMIA - LDL 98. Continue atorvastatin at 40 mg. Originally, LFTs were slightly elevated but repeating results reveal normalized. 5. DIABETES - restarting Glimepiride (home med). Soon, will hopefully reincorporate metformin if creatinine continues to improve. Continue sliding scale insulin. 6. BRADYCARDIA ARRHYTHMIA - occurred after PCI to the right coronary artery. Rhythm strips are scanned in. It was not a formal 12-lead EKG and is difficult to assess but may have been a third-degree heart block which was brief. Certainly, he did have some symptoms to suggest this was a true high grade heart block. However, since reintroducing low-dose beta blockade no additional arrhythmia or bradycardia has been noted. 7. ATRIAL FIBRILLATION, CHRONIC - previously on Xarelto. Patient will not be a candidate for triple antiplatelet therapy and favor aspirin, Brilinta for recent NM with PCI with SRUTHI. 8. TANYA - suspect related to hypotension with STEMI, IVP dye use with heart cath, and significant use of diuretics to treat his CHF. Avoiding TOO inhibitor. Creatinine continues to improve. Continue to follow labs daily. 9. UTI - culture and sensitivity revealed no growth. Therefore will discontinue use of Cipro at this time. 10. ALTERED MENTAL STATUS - this occurred after the patient received Restoril. Underwent repeat CT which revealed no significant abnormality. He is now back to baseline. 11. SYNCOPE - may have been related to arrhythmia versus NM. Stable. 12. HIGH FALLS RISK - protocol in place to prevent falls 13. ANEMIA - stable. Continue DAPT without fail. Daily CBC 14. ICM - long-standing history of ischemic cardiomyopathy. Continue beta- zuleyka, avoiding TOO inhibitor. 15. CHF, ACUTE ON CHRONIC - secondary to systolic dysfunction (EF previously 45 %-50%) and diastolic dysfunction. NYHA class III. Continue with diuresis, strict I&O, daily weights. 16. CLOSED HEAD INJURY - patient has has 2 CT head scans since admission. Stable. 17. CHRONIC PAIN - will continue home meds to treat his chronic back pain. Appreciate Dr. Lux's management 18. CONSTIPATION - MiraLAX daily, Dulcolax as needed. Constipation has resolved 19. DEBILITATED PATIENT - needs LTAC at discharge. Working with Case Management. Exam (Progress Note) - Constitutional Vitals: Period Temp Pulse Resp BP Sys/Torre Pulse Ox Last 24 Hr 96.9 F-97.9 F 77-110 16-28 98-144/60-94 91-97 Exam: General: [Appears well with no apparent distress.] [Pleasant and cooperative. ] [Appears comfortable.] HEENT: [PERRL, multiple lacerations and ecchymotic areas noted to the right face. Mucous membranes moist. No jaundice noted. Conjunctiva moist and clear , sclerae anicteric] Neck: No obvious JVD/HJR, no thyromegaly or lymphadenopathy noted. No carotid bruit appreciated Cardiac: [Regular rate and rhythm.] [II/ holosystolic murmur heard best at fifth intercostal space to the left. Lungs: Decreased sounds throughout without wheezes. Oxygen in use via nasal cannula Abdomen: Soft, bowel sounds normoactive. Nontender and nondistended. No abdominal bruit or thrill noted. No masses noted. Musculoskeletal: No fluid collection. Decreased range of motion is noted. Extremities: No clubbing, cyanosis noted. [ No edema noted.] Upper extremity pulses 2+. Lower extremity pulses 1+. Capillary refill less than 3 seconds. Skin: No unusual lesions or rashes other than the ecchymotic areas noted to his face. No skin breakdown appreciated. Neuro: Awake, alert and oriented 3. Moves all extremities well without hemiparesis or paralysis. No essential tremor is appreciated. Result/EKG - Labs CBC & BMP: 08/04/17 03:57 08/04/17 03:57 Lab Results: I have reviewed the past 24 hour labs Labs: Laboratory Results - last 24 hr 08/03/17 08/03/17 08/03/17 11:16 15:13 21:45 WBC RBC Hgb Hct MCV MCH MCHC RDW Plt Count MPV Neut % (Auto) Lymph % (Auto) Granite % (Auto) Eos % (Auto) Baso % (Auto) Neut # (Auto) Lymph # (Auto) Granite # (Auto) Eos # (Auto) Baso # (Auto) Immature Gran % Nucleated RBC % Immature Gran # Nucleated RBCs # Immature Plt Fraction Sodium Potassium Chloride Carbon Dioxide Anion Gap BUN Creatinine GFR Calculation BUN/Creatinine Ratio Glucose POC Glucose 317 H 286 H 310 H Calculated Osmolality Calcium Magnesium 08/04/17 08/04/17 08/04/17 03:57 03:57 07:34 WBC 10.6 RBC 4.03 Hgb 9.7 L Hct 30.7 L MCV 76.2 L MCH 24 L MCHC 31.6 L RDW 16.6 Plt Count 210 MPV 11.3 Neut % (Auto) 71.2 Lymph % (Auto) 14.9 L [place] % (Auto) 9.4 Eos % (Auto) 3.4 Baso % (Auto) 0.3 Neut # (Auto) 7.5 H Lymph # (Auto) 1.6 Granite # (Auto) 1.0 H Eos # (Auto) 0.4 Baso # (Auto) 0.0 Immature Gran % 0.8 Nucleated RBC % 0.0 Immature Gran # 0.09 Nucleated RBCs # 0.00 Immature Plt Fraction 0.0 Sodium 135 L Potassium 4.5 Chloride 102 Carbon Dioxide 22 Anion Gap 15.5 H BUN 50 H Creatinine 1.90 H GFR Calculation 36 BUN/Creatinine Ratio 26.00 H Glucose 217 H POC Glucose 283 H Calculated Osmolality 289.1 Calcium 8.6 Magnesium 2.8 H 08/04/17 11:28 WBC RBC Hgb Hct MCV MCH MCHC RDW Plt Count MPV Neut % (Auto) Lymph % (Auto) Granite % (Auto) Eos % (Auto) Baso % (Auto) Neut # (Auto) Lymph # (Auto) Granite # (Auto) Eos # (Auto) Baso # (Auto) Immature Gran % Nucleated RBC % Immature Gran # Nucleated RBCs # Immature Plt Fraction Sodium Potassium Chloride Carbon Dioxide Anion Gap BUN Creatinine GFR Calculation BUN/Creatinine Ratio Glucose POC Glucose 366 H Calculated Osmolality Calcium Magnesium - EKG EKG results: interpreted by me EKG shows: sinus rhythm Quality Measures - VTE Contraindication to Pharmacological VTE Prophylaxis: High Risk of Bleeding Specialty Discharge - Follow Up or Referrals <ChristineDonavan kong - Last Filed: 08/04/17 16:49> Cardiology - PN: Subj Interval history: I have discussed in detail the particulars of this case and I have examined the patient and reviewed the patient's chart both current and old. I was directly involved in the patient's evaluation and management and I completely agree with Janene Fontenot NP regarding this patient's evaluation and treatment plan. Exam (Progress Note) - Constitutional Vitals: Period Temp Pulse Resp BP Sys/Torre Pulse Ox Last 24 Hr 96.9 F-97.9 F 90-110 16-28 98-144/62-94 91-97 Result/EKG - Labs CBC & BMP: 08/04/17 03:57 08/04/17 03:57 Labs: Laboratory Results - last 24 hr 08/03/17 08/04/17 08/04/17 21:45 03:57 03:57 WBC 10.6 RBC 4.03 Hgb 9.7 L Hct 30.7 L MCV 76.2 L MCH 24 L MCHC 31.6 L RDW 16.6 Plt Count 210 MPV 11.3 Neut % (Auto) 71.2 Lymph % (Auto) 14.9 L Granite % (Auto) 9.4 Eos % (Auto) 3.4 Baso % (Auto) 0.3 Neut # (Auto) 7.5 H Lymph # (Auto) 1.6 Granite # (Auto) 1.0 H Eos # (Auto) 0.4 Baso # (Auto) 0.0 Immature Gran % 0.8 Nucleated RBC % 0.0 Immature Gran # 0.09 Nucleated RBCs # 0.00 Immature Plt Fraction 0.0 Sodium 135 L Potassium 4.5 Chloride 102 Carbon Dioxide 22 Anion Gap 15.5 H BUN 50 H Creatinine 1.90 H GFR Calculation 36 BUN/Creatinine Ratio 26.00 H Glucose 217 H POC Glucose 310 H Calculated Osmolality 289.1 Calcium 8.6 Magnesium 2.8 H 08/04/17 08/04/17 08/04/17 07:34 11:28 16:04 WBC RBC Hgb Hct MCV MCH MCHC RDW Plt Count MPV Neut % (Auto) Lymph % (Auto) Granite % (Auto) Eos % (Auto) Baso % (Auto) Neut # (Auto) Lymph # (Auto) Granite # (Auto) Eos # (Auto) Baso # (Auto) Immature Gran % Nucleated RBC % Immature Gran # Nucleated RBCs # Immature Plt Fraction Sodium Potassium Chloride Carbon Dioxide Anion Gap BUN Creatinine GFR Calculation BUN/Creatinine Ratio Glucose POC Glucose 283 H 366 H 392 H Calculated Osmolality Calcium Magnesium
--- NOTE | 2017-08-04 16:29 | Sleep Medicine Consult ---
Assessment and Plan (1) Unspecified sleep apnea Status: Acute Assessment and plan: This patient does have significant issues with difficulty maintaining sleep but could be related to sleep apnea. He lacks significant symptomatology of snoring or abnormal breathing during sleep but with his comorbidities, sleep evaluation is indicated. He is too ill to evaluate at this time due to his complex issues. We will set him up for outpatient polysomnography which will be a much better evaluation for his difficulty initiating and maintaining sleep. Thank you for this consult. Current Visit: Yes (2) Hypertension Status: Chronic Assessment and plan: The prevalence rate for obstructive sleep apnea patients with hypertension is 35 %. That rate can be as high as 80% in patients who require 4 or more medications for blood pressure control. Current Visit: Yes (3) Coronary artery disease Status: Chronic Assessment and plan: The [place] data from Lancet 2005 proved significant reduction in the risk of fatal and nonfatal cardiac events in patients with severe obstructive sleep apnea compliant with CPAP, in comparison with those noncompliant with CPAP for severe sleep apnea. Current Visit: Yes Qualifiers: Coronary Disease-Associated Artery/Lesion type: [place] artery [place] vs. transplanted heart: [place] heart Associated angina: with stable angina Qualified Code(s): I25.118 - Atherosclerotic heart disease of [place] coronary artery with other forms of angina pectoris (4) Type 2 diabetes mellitus Status: Chronic Assessment and plan: The prevalence rate for obstructive sleep apnea in patients with type 2 diabetes can be as high as 86%. Those patients with moderate to severe obstructive sleep apnea are at a greater risk for diabetic nephropathy and neuropathy. Compliance with CPAP therapy for these patients can lead to improvement in glycemic control and improvement in insulin sensitivity. Current Visit: Yes History of Present Illness Chief complaint: Sleep apnea History of present illness: Mr. Colvin is a 86 year old male who had a fall with significant facial and cranial injury. After his fall, with presentation to the hospital, he was noted to have abnormal cardiac isoenzymes and was found to have an acute ME. He was evaluated by cardiology. During the course of his evaluation, there was concern expressed for sleep apnea and sleep medicine was consulted. Patient has a history of difficulty initiating and maintaining sleep. He usually gets in the bed about 9 PM and sometimes cannot fall asleep until midnight. He usually gets up by 5 each day before the rest of the family. None of his family have complained about him being a loud snore. He seldom naps. He does not have any symptoms of restless legs. He denies any caffeine consumption. He does awaken frequently and does not know what wakes him up. He has a difficult time getting back to sleep. Home Medications Medication Instructions Recorded Confirmed Type Aspirin [Ecotrin] 81 mg PO DAILY 08/02/15 07/31/17 History Lisinopril 20 mg PO BID 08/02/15 07/31/17 History Methocarbamol Tab [Robaxin Tab] 500 mg PO TID 08/02/15 07/31/17 History Rivaroxaban [Xarelto] 15 mg PO DAILY W/BREAKFAST 08/02/15 07/31/17 History Glimepiride 4 mg PO BID 11/21/16 07/31/17 History Hydrocodone/Acetaminophen 1 each PO QID 11/21/16 08/03/17 History [Hydrocodon-Acetaminoph 7.5-325] Isosorbide Mononitrate [Isosorbide 30 mg PO DAILY 11/21/16 07/31/17 History Mononitrate ER] Loratadine Tab [Claritin Tab] 10 mg PO DAILY 11/21/16 07/31/17 History Metformin HCl 1,000 mg PO BID 11/21/16 07/31/17 History Metoprolol Tartrate 50 mg PO BID 11/21/16 07/31/17 History Pantoprazole Tab [Protonix Tab] 40 mg PO DAILY 11/21/16 07/31/17 History Sitagliptin Phosphate [Januvia] 50 mg PO DAILY 11/21/16 07/31/17 History Tamsulosin [Flomax] 0.4 mg PO DAILY 11/21/16 07/31/17 History Fish Oil 340-1,000 1 capsule PO DAILY 12/05/16 07/31/17 History Multivit-Min/FA/Lycopen/Lutein 1 each PO DAILY 12/05/16 07/31/17 History [Centrum Silver Tablet] Sucralfate Liquid [Carafate Liquid] 1 gm PO QID 12/05/16 08/03/17 History Famotidine [Pepcid AC] 20 mg PO DAILY 12/06/16 07/31/17 History Metformin HCl [Metformin HCl] 07/31/17 History Allergies Allergy/AdvReac Type Severity Reaction Status Date / Time [facility] Allergy Verified 12/06/16 07:21 gabapentin [From Neurontin] Allergy Verified 12/06/16 07:21 lidocaine Allergy Verified 12/06/16 07:21 Zolpidem [From Ambien] Allergy Verified 08/02/15 08:48 Temazepam [From Restoril] AdvReac Severe UNRESPONSIV Verified 08/01/17 02:18 E Review of systems: Otherwise unremarkable from a sleep medicine standpoint. Exam ([place]) H&P - Constitutional Vitals: Period Temp Pulse Resp BP Sys/Torre Pulse Ox Last 24 Hr 96.9 F-97.9 F 90-110 16-28 98-144/62-94 91-97 Exam: He is alert and responsive. He has significant bruising over the right forehead and temporal area. Pupils are equal round and reactive. Oropharynx with a class III Mallampati exam. Neck is supple without adenopathy. Chest with good air movement and no focal wheeze or rhonchi. Cardiac exam reveals a regular rhythm without murmur or gallop. Abdomen soft nontender extremities without clubbing, cyanosis, or edema. Neurologically, he is grossly intact. Medical,Surgical,& Family Hx - Medical History Cardio: History of: Hypertension, ME, Cardiovascular Problems No history of: CHF Psychological: No history of: Anxiety Disorders, ADHD, Behavior Problems, Bipolar Disorder, Depression, Previous Suicide Attempt, Psychiatric/Substance Abuse Tx, Schizophrenia, Violent Behavior, Psychiatric Problems Neurology: No history of: Cerebral Hemorrhage, Cerebrovascular Accident, Peripheral Neuropathy, Seizures HEENT: No history of: Glaucoma Endocrine: History of: Diabetes Mellitus (NIDDM), Dyslipidemia No history of: Diabetes Mellitus (IDDM), Thyroid Disorder, Endocrine Cancer, Endocrine Problems Rheumatology: No history of;: Psoriasis, Sjogrens, Systemic Lupus Erythematosus Respiratory: History of: Intubation No history of: Asthma, Bronchitis, COPD Renal: No history of: Renal (Kidney) Cancer, Dialysis, Renal Failure, Renal Problems Genitourinary: History of: Prostate Problems (ca), Recurring Urinary Tract Infections No history of: Bladder Problem, Kidney Stones, Genitourinary Cancer, Problems Gastrointestinal: History of: GERD, Polyps, GI Problems (hiatal hernia) No history of: Bowel Obstruction, Clostridium Difficile, Crohn's Disease, Diverticulitis/ Diverticulosis, Esophageal Varices, Gastrointestinal Bleed Musculoskeletal: History of: Back/Neck Problems, Degenerative Disk Disease ( severe back problems) No history of: Amputation Hematology: History of: Clotting Problems (xarelto), Blood Disorders No history of: Blood Transfusion Reaction Other: History of: Cancer (prostate) No history of: Anesthesia Reactions, Anaphylaxis, Eczema, HIV, Malignant Hyperthermia, MRSA, Vancomycin-Resistant Enterococci, Skin Problems, Miscellaneous Medical Problems - Surgical History Cardiac Surgeries: Sugical HX of: Femoral-Popliteal Bypass Graft (5 in 2001...) , Cardiac Catheterization (W/ STENT PLACEMENT), Cardiac Surgery (cabg 1999) Patient Denies: Internal Defibrillator, Vascular Access Devices Thoracic Surgeries: Patient denies;: Kidney (Renal Surgery), Lithotripsy, Nephrectomy, Organ Transplant Neurologic Surgeries: Patient denies: Cerebral Hemorrhage, Neurologic Surgery HEENT Surgeries: Surgical HX of: Eye Surgery (cataract surgery), Tonsilectomy & Adenoidectomy Patient denies: Thyroid Surgery Abdominal Surgeries: Surgical HX of: Abdominal Surgery, Appendectomy, Colonoscopy, EGD Patient denies: Cholecystectomy, Gastric Bypass Surgery, Hernia Repair, Splenectomy Reproductive Surgeries: Surgical HX of;: Prostate Surgery (caterizzed) Patient denies;: Breast Surgery, Cystoscopy, Genitourinary Surgery Orthopedic Surgeries: Surgical HX of;: Orthopedic Surgery (degenerative back disease and rods and pins placed), Spinal Surgery (rods and pins placed) - Family History Family History: Reports;: Family Cancer (mother), Family Diabetes (parents), Family Heart Disease (family) Denies;: Family Anesthesia Reaction, Family Hypertension, Family Psychiatric Problems, Family Stroke - Social History Smoking Status: Never smoker Frequency of Alcohol Use: None Type of Drug Use: None Results - Labs CBC & BMP: 08/04/17 03:57 08/04/17 03:57 Lab Results: I have reviewed the past 24 hour labs Quality Measures - VTE Contraindication to Pharmacological VTE Prophylaxis: High Risk of Bleeding Specialty Discharge - Follow Up or Referrals
[2017-08-04] MEDS: ATORVASTATIN 20 MG TABLET PO SCH (21:17)
[2017-08-04] MEDS: TEMAZEPAM 15 MG CAPSULE PO SCH (21:17)
[2017-08-04] MEDS ORDERED: FUROSEMIDE 40 MG/4 ML VIAL IV ONE (21:27)
[2017-08-04] MEDS ORDERED: FUROSEMIDE 40 MG/4 ML VIAL ONE (21:30)
[2017-08-04] MEDS: ALBUTEROL/IPRATROPIUM 3 ML NEB RESP TX PRN (21:35)
[2017-08-05 04:23] LABS: Basophils % 0.4 % (0.0-0.8); Eosinophils # 0.2 10*3/uL (0.0-0.87); Eosinophils % 1.9 % (0.00-10.9); Hematocrit 30.2 VOL% (42.0-52.0); Hemoglobin 9.5 GM/DL (14.0-18.0); Immature Granulocytes % 1.9 %; Lymphocytes # 1.5 10*3/uL (1.4-4.0); Lymphocytes % 13.8 % (21.2-54.2); Mean Corpuscular HGB Conc 31.5 GM/DL (32-36); Mean Corpuscular Hemoglobin 24 PG (27-34); Mean Corpuscular Volume 76.3 FL (87-102); Mean Platelet Volume 11.7 FL (9.6-12.0); Monocytes # 1.1 10*3/uL (0.11-0.8); Monocytes % 10.4 % (1.7-12.7); NRBC # 0.02 10*3/uL; Neutrophils # 7.5 10*3/uL (1.4-7.4); Neutrophils % 71.6 % (38.7-73.9); Platelet Count 238 T/CUMM (130-400); Red Blood Count 3.96 MC/CUMM (3.8-5.5); Red Cell Distribution Width 16.6 % (9.3-17.3); White Blood Count 10.5 T/CUMM (4-12)
[2017-08-05 04:56] LABS: Calcium 8.5 MG/DL (8.5-10.1); Magnesium 2.4 MG/DL (1.8-2.4); Osmolality,Calculated 290.8 MOS/KG (273-304); Potassium 4.2 MMOL/L (3.5-5.1)
--- NOTE | 2017-08-05 05:43 | Pain Management Progress Note ---
Assessment and Plan (1) Chronic pain syndrome Status: Acute Assessment and plan: Patient can continue his [employer] 7.5 3 times daily to 4 times daily as needed for pain during hospital stay. We will make him follow-up appointment with me in pain clinic after discharge and we will make a plan further care 08/05 continue [employer] for pain and agree with LTAC transfer at the end of inpatient stay Current Visit: Yes Pain - Subjective Interval history: Patient seems stable as far as his pain treatment is concerned still complains of lower lumbar back pain which is unchanged from before. Patient is receiving [employer] 5 as needed for pain. I have discussed with the patient that I will be happy to review his previous pain clinic records and offer interventional procedures as an outpatient after discharge I agree with LTAC transfer at the end of inpatient stay Exam - Constitutional Vitals: Period Temp Pulse Resp BP Sys/Torre Pulse Ox Last 24 Hr 96.9 F-97.9 F 63-111 14-30 101-138/66-90 91-100 General appearance: no acute distress - Head Head exam: Present: normal inspection - Eye Eye exam: Present: EOMI Pupils: Present: ROMAN - ENT ENT exam: Present: normal exam Ear exam: Present: intact Mouth exam: Present: normal external inspection - Neck Neck exam: Present: normal inspection - Respiratory Respiratory exam: Present: clear to auscultation bilaterally - Cardiovascular Cardiovascular exam: Present: RRR - GI/Abdominal GI/Abdominal exam: Present: normal bowel sounds - Extremities Exam Extremities exam: Present: normal inspection - Back Exam Back exam: Present: vertebral tenderness - Neurological Exam Neurological exam: Present: alert, oriented X3, abnormal gait - Skin Skin exam: Present: normal color Results - Labs CBC & BMP: 08/05/17 03:34 08/05/17 03:34 Lab Results: I have reviewed the past 24 hour labs Quality Measures - VTE Contraindication to Pharmacological VTE Prophylaxis: High Risk of Bleeding Specialty Discharge - Follow Up or Referrals
[2017-08-05] MEDS: INSULIN REGULAR 100 UNIT/ML SUBCUT SCH ×4 (08:30→22:07)
[2017-08-05] MEDS: FUROSEMIDE 40 MG/4 ML VIAL IV SCH ×2 (08:31→16:24)
[2017-08-05] MEDS: MAGNESIUM CHLORIDE 64 MG TABLET PO SCH ×2 (08:33→22:07)
[2017-08-05] MEDS: TAMSULOSIN 0.4 MG CAPSULE PO SCH (08:33)
[2017-08-05] MEDS: LORATADINE 10 MG TABLET PO SCH (08:33)
[2017-08-05] MEDS: METHOCARBAMOL 500 MG TABLET PO SCH ×3 (08:33→22:07)
[2017-08-05] MEDS: FAMOTIDINE 20 MG TABLET PO SCH (08:33)
[2017-08-05] MEDS: PANTOPRAZOLE 40 MG TABLET PO SCH (08:33)
[2017-08-05] MEDS: SUCRALFATE 1 GM/10 ML UDCUP PO SCH ×4 (08:34→22:06)
[2017-08-05] MEDS: MULTIVITAMIN (CENTRUM) TABLET PO SCH (08:34)
[2017-08-05] MEDS: ASPIRIN CHEW 81 MG TABLET PO SCH (08:34)
[2017-08-05] MEDS: TICAGRELOR 90 MG TABLET PO SCH ×2 (08:34→22:07)
[2017-08-05] MEDS: OMEGA 3 ACID ETHYL ESTERS 1 GM CAPSULE PO SCH (08:35)
[2017-08-05] MEDS: POLYETHYLENE GLYCOL POWDER 17 GM PACK PO SCH (08:36)
--- NOTE | 2017-08-05 09:23 | Cardiology Progress Note ---
<PoRuth kenneye E - Last Filed: 08/05/17 15:33> Assessment and Plan (1) Acute on chronic diastolic CHF (congestive heart failure) Status: Acute Assessment and plan: SEE PLAN OF CARE LISTED BELOW Current Visit: Yes (2) Coronary artery disease Status: Chronic Assessment and plan: SEE PLAN OF CARE LISTED BELOW Current Visit: Yes Qualifiers: Coronary Disease-Associated Artery/Lesion type: ho-chunk artery [place] vs. transplanted heart: ho-chunk heart Associated angina: with stable angina Qualified Code(s): I25.118 - Atherosclerotic heart disease of ho-chunk coronary artery with other forms of angina pectoris (3) Hypertension Status: Chronic Assessment and plan: SEE PLAN OF CARE LISTED BELOW Current Visit: Yes (4) Chronic atrial fibrillation Status: Chronic Assessment and plan: SEE PLAN OF CARE LISTED BELOW Current Visit: Yes (5) Chronic anticoagulation Status: Chronic Assessment and plan: SEE PLAN OF CARE LISTED BELOW Current Visit: Yes (6) Hyperlipidemia Status: Chronic Assessment and plan: SEE PLAN OF CARE LISTED BELOW Current Visit: Yes (7) Type 2 diabetes mellitus Status: Chronic Assessment and plan: SEE PLAN OF CARE LISTED BELOW Current Visit: Yes (8) Closed head injury Status: Acute Assessment and plan: SEE PLAN OF CARE LISTED BELOW Current Visit: Yes (9) Scalp contusion Status: Acute Assessment and plan: SEE PLAN OF CARE LISTED BELOW Current Visit: Yes (10) Head injury Status: Acute Assessment and plan: SEE PLAN OF CARE LISTED BELOW Current Visit: Yes (11) Skin tear of left forearm without complication Status: Acute Assessment and plan: SEE PLAN OF CARE LISTED BELOW Current Visit: Yes (12) Syncope and collapse Status: Resolved Assessment and plan: SEE PLAN OF CARE LISTED BELOW Current Visit: Yes (13) ST elevation myocardial infarction (STEMI) of inferior wall Status: Acute Assessment and plan: SEE PLAN OF CARE LISTED BELOW Current Visit: Yes (14) UTI (urinary tract infection) Status: Acute Assessment and plan: SEE PLAN OF CARE LISTED BELOW Current Visit: Yes (15) Ischemic cardiomyopathy Status: Chronic Assessment and plan: SEE PLAN OF CARE LISTED BELOW Current Visit: Yes (16) Bradycardia following surgery Status: Acute Assessment and plan: SEE PLAN OF CARE LISTED BELOW Current Visit: Yes (17) At high risk for falls Status: Chronic Assessment and plan: SEE PLAN OF CARE LISTED BELOW Current Visit: Yes (18) Altered mental status Status: Resolved Assessment and plan: SEE PLAN OF CARE LISTED BELOW Current Visit: Yes (19) Advanced age Status: Chronic Assessment and plan: SEE PLAN OF CARE LISTED BELOW Current Visit: Yes (20) Debilitated Status: Chronic Assessment and plan: SEE PLAN OF CARE LISTED BELOW Current Visit: Yes (21) Constipation Status: Acute Assessment and plan: SEE PLAN OF CARE LISTED BELOW Current Visit: Yes (22) Acute kidney injury Status: Acute Assessment and plan: SEE PLAN OF CARE LISTED BELOW Current Visit: Yes (23) Anemia Status: Acute Assessment and plan: SEE PLAN OF CARE LISTED BELOW Current Visit: Yes Cardiology - PN: Subj Interval history: Called [facility] around midnight last night for shortness of breath. He was given IV Lasix and diuresed well, respiratory treatments per Just received 80 mg IV Lasix this morning while I am assessing. I ordered a chest x-ray. Not ready for LTAC or swing bed. Case management is working towards this. Hopefully, he will be ready soon CEPHALOMETRIC ANALYST: DR. CHRISTINE SUMMARY: Mr. Colvin, 86WM, with history of known CAD (status post CABG), hypertension, dyslipidemia, diabetes. History of atrial fibrillation on chronic anticoagulation (Xarelto), history of DVT, chronic pain. Patient presented to ED of [facility] July 31, 2017 after experiencing head trauma due to fall related to syncope. EKG revealed inferoposterior STEMI. Underwent emergent CT head to rule out hemorrhage (negative for hemorrhage) prior to proceeding with heart catheterization. Dr. 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 (See heart catheterization report). Patient tolerated the actual procedure well. Postoperatively, patient experienced transient third-degree heart block, near syncope, brief episode of spitting up of blood. (It was difficult to ascertain if this came from the stomach or lungs). Also, patient experienced respiratory distress deemed acute on chronic CHF secondary to systolic dysfunction (EF 45-50%) and diastolic dysfunction, NYHA Class IV. Echocardiogram: EF 45-50%, mild to moderate mitral regurgitation, PAP of 38 mmHg. 2016: Over the weekend, patient's creatinine peaked at 2.8 but this morning has improved at 1.9. Low-dose beta-zuleyka was incorporated into the patient's medication regimen over the weekend and he is tolerating this well. Patient was placed on Digoxin over the weekend but due to his worsening creatinine this was held. Heart rate remains 90s to low 100s and I believe it is safe to resume Digoxin at this time. Blood glucose levels are unacceptably high. Will restart Glimepiride now and eventually Metformin if creatinine continues to improve. Holding Xarelto at this time due to need for DAPT and patient's frail condition. Dr. Lux has seen patient and is treating his chronic pain. Patient will need LTAC at discharge. Hopefully, in the next few days patient will be ready for transfer. Will further discuss with Dr. Christine and await additional recommendations. 2016: During the night, patient was short of breath and anxious. Dr. Morrison was called. He was given IV Lasix and a chest x-ray. According to the nurse, patient diuresed relatively well. I have ordered a chest x-ray this morning. Denies chest pain, heaviness or tightness. I spoke with Dr. Christine this afternoon regarding patient's arrhythmia. Apparently, over the weekend, vital signs per ASSESSMENT/PLAN: 1. STEMI, INFERIOR - status post revascularization. Troponin is trending down. Continue Aspirin and Brilinta. Would like to incorporate long-acting nitrate soon. 2. CAD S/P CABG - continue Aspirin, Brilinta, beta-zuleyka and lipid-lowering agent. Avoiding TOO inhibitor for fear of worsening renal insufficiency 3. HYPERTENSION - adequately controlled with beta-zuleyka. Avoiding TOO inhibitors for fear of worsening renal insufficiency. 4. DYSLIPIDEMIA - LDL 98. Continue atorvastatin at 40 mg. Originally, LFTs were slightly elevated but repeating results reveal normalized. 5. DIABETES - restarting Glimepiride (home med). Soon, will hopefully reincorporate metformin if creatinine continues to improve. Continue sliding scale insulin. 6. BRADYCARDIA ARRHYTHMIA - occurred after PCI to the right coronary artery. Rhythm strips are scanned in. It was not a formal 12-lead EKG and is difficult to assess but may have been a third-degree heart block which was brief. Certainly, he did have some symptoms to suggest this was a true high grade heart block. However, since reintroducing low-dose beta blockade no additional arrhythmia or bradycardia has been noted. 7. ATRIAL FIBRILLATION, CHRONIC - previously on Xarelto. Patient will not be a candidate for triple antiplatelet therapy and favor aspirin, Brilinta for recent CA with PCI with SRUTHI. 8. TANYA - suspect related to hypotension with STEMI, IVP dye use with heart cath, and significant use of diuretics to treat his CHF. Avoiding TOO inhibitor. Creatinine continues to improve. Continue to follow labs daily. 9. UTI - culture and sensitivity revealed no growth. Therefore will discontinue use of Cipro at this time. 10. ALTERED MENTAL STATUS - this occurred after the patient received Restoril. Underwent repeat CT which revealed no significant abnormality. He is now back to baseline. 11. SYNCOPE - may have been related to arrhythmia versus CA. Stable. 12. HIGH FALLS RISK - protocol in place to prevent falls 13. ANEMIA - stable. Continue DAPT without fail. Daily CBC 14. ICM - long-standing history of ischemic cardiomyopathy. Continue beta- zuleyka, avoiding TOO inhibitor. 15. CHF, ACUTE ON CHRONIC - secondary to systolic dysfunction (EF previously 45 %-50%) and diastolic dysfunction. NYHA class III. Continue with diuresis, strict I&O, daily weights. 16. CLOSED HEAD INJURY - patient has has 2 CT head scans since admission. Stable. 17. CHRONIC PAIN - will continue home meds to treat his chronic back pain. Appreciate Dr. Lux's management 18. CONSTIPATION - MiraLAX daily, Dulcolax as needed. Constipation has resolved 19. DEBILITATED PATIENT - needs LTAC at discharge. Working with Case Management. Exam (Progress Note) - Constitutional Vitals: Period Temp Pulse Resp BP Sys/Torre Pulse Ox Last 24 Hr 96.9 F-98.1 F 63-111 14-30 101-138/66-92 90-100 Result/EKG - Labs CBC & BMP: 08/05/17 03:34 08/05/17 03:34 Labs: Laboratory Results - last 24 hr 08/04/17 08/04/17 08/04/17 11:28 16:04 20:16 WBC RBC Hgb Hct MCV MCH MCHC RDW Plt Count MPV Neut % (Auto) Lymph % (Auto) [place] % (Auto) Eos % (Auto) Baso % (Auto) Neut # (Auto) Lymph # (Auto) [place] # (Auto) Eos # (Auto) Baso # (Auto) Immature Gran % Nucleated RBC % Immature Gran # Nucleated RBCs # Immature Plt Fraction Sodium Potassium Chloride Carbon Dioxide Anion Gap BUN Creatinine GFR Calculation BUN/Creatinine Ratio Glucose POC Glucose 366 H 392 H 441 H Calculated Osmolality Calcium Magnesium 08/05/17 08/05/17 08/05/17 03:34 03:34 07:28 WBC 10.5 RBC 3.96 Hgb 9.5 L Hct 30.2 L MCV 76.3 L MCH 24 L MCHC 31.5 L RDW 16.6 Plt Count 238 MPV 11.7 Neut % (Auto) 71.6 Lymph % (Auto) 13.8 L Zapata % (Auto) 10.4 Eos % (Auto) 1.9 Baso % (Auto) 0.4 Neut # (Auto) 7.5 H Lymph # (Auto) 1.5 Zapata # (Auto) 1.1 H Eos # (Auto) 0.2 Baso # (Auto) 0.0 Immature Gran % 1.9 Nucleated RBC % 0.2 Immature Gran # 0.20 Nucleated RBCs # 0.02 Immature Plt Fraction 0.0 Sodium 137 Potassium 4.2 Chloride 103 Carbon Dioxide 25 Anion Gap 13.2 BUN 43 H Creatinine 1.70 H GFR Calculation 41 BUN/Creatinine Ratio 25.00 H Glucose 218 H POC Glucose 313 H Calculated Osmolality 290.8 Calcium 8.5 Magnesium 2.4 Quality Measures - VTE Contraindication to Pharmacological VTE Prophylaxis: High Risk of Bleeding Specialty Discharge - Follow Up or Referrals <Donavan Christine - Last Filed: 08/05/17 16:35> Cardiology - PN: Subj Interval history: I have discussed in detail the particulars of this case and I have examined the patient and reviewed the patient's chart both current and old. I was directly involved in the patient's evaluation and management and I completely agree with Janene Fontenot NP regarding this patient's evaluation and treatment plan. Exam (Progress Note) - Constitutional Vitals: Period Temp Pulse Resp BP Sys/Torre Pulse Ox Last 24 Hr 96.9 F-98.1 F 63-111 14-30 102-138/65-92 90-100 Result/EKG - Labs CBC & BMP: 08/05/17 03:34 08/05/17 03:34 Labs: Laboratory Results - last 24 hr 08/04/17 08/05/17 08/05/17 20:16 03:34 03:34 WBC 10.5 RBC 3.96 Hgb 9.5 L Hct 30.2 L MCV 76.3 L MCH 24 L MCHC 31.5 L RDW 16.6 Plt Count 238 MPV 11.7 Neut % (Auto) 71.6 Lymph % (Auto) 13.8 L Zap[place] % (Auto) 10.4 Eos % (Auto) 1.9 Baso % (Auto) 0.4 Neut # (Auto) 7.5 H Lymph # (Auto) 1.5 Zapata # (Auto) 1.1 H Eos # (Auto) 0.2 Baso # (Auto) 0.0 Immature Gran % 1.9 Nucleated RBC % 0.2 Immature Gran # 0.20 Nucleated RBCs # 0.02 Immature Plt Fraction 0.0 Sodium 137 Potassium 4.2 Chloride 103 Carbon Dioxide 25 Anion Gap 13.2 BUN 43 H Creatinine 1.70 H GFR Calculation 41 BUN/Creatinine Ratio 25.00 H Glucose 218 H POC Glucose 441 H Calculated Osmolality 290.8 Calcium 8.5 Magnesium 2.4 08/05/17 08/05/17 08/05/17 07:28 12:06 13:48 WBC RBC Hgb Hct MCV MCH MCHC RDW Plt Count MPV Neut % (Auto) Lymph % (Auto) [place] % (Auto) Eos % (Auto) Baso % (Auto) Neut # (Auto) Lymph # (Auto) [place] # (Auto) Eos # (Auto) Baso # (Auto) Immature Gran % Nucleated RBC % Immature Gran # Nucleated RBCs # Immature Plt Fraction Sodium Potassium Chloride Carbon Dioxide Anion Gap BUN Creatinine GFR Calculation BUN/Creatinine Ratio Glucose POC Glucose 313 H 423 H 437 H Calculated Osmolality Calcium Magnesium 08/05/17 16:02 WBC RBC Hgb Hct MCV MCH MCHC RDW Plt Count MPV Neut % (Auto) Lymph % (Auto) [place] % (Auto) Eos % (Auto) Baso % (Auto) Neut # (Auto) Lymph # (Auto) [place] # (Auto) Eos # (Auto) Baso # (Auto) Immature Gran % Nucleated RBC % Immature Gran # Nucleated RBCs # Immature Plt Fraction Sodium Potassium Chloride Carbon Dioxide Anion Gap BUN Creatinine GFR Calculation BUN/Creatinine Ratio Glucose POC Glucose 410 H Calculated Osmolality Calcium Magnesium
[2017-08-05] MEDS: ALBUTEROL/IPRATROPIUM 3 ML NEB RESP TX PRN (09:56)
--- NOTE | 2017-08-05 10:38 | XRay Report ---
XR chest 1V portable Indication: Congestive heart failure Comparison: 01 August 2017 Findings: The heart and mediastinum are stable in size and configuration with cardiac surgery changes. The pulmonary vascularity is slightly increased with bilateral increased interstitial lung density. No other lung infiltrates, effusions, pneumothorax or other abnormality is demonstrated. Impression: Findings suggest mild cardiac decompensation. PROCEDURE INTERPRETED AT [facility] [place] DEPARTMENT OF RADIOLOGY Final Report Signed by: Dr. Gucci Rivas
[2017-08-05] MEDS ORDERED: LORazepam 0.5 MG TABLET PO ONE (11:04)
--- NOTE | 2017-08-05 11:12 | EKG Report ---
Stationary ECG Study [facility] Test Date: 08/05/2017 11:11:12 AM Pat Name: IOANA GATES Department: Room: 123 Gender: M [employer]igar P[employer] Shader: SISI : 1930 Requested by: Janene Fuchs Order Number: [id number] Reading MD: MATTIE MARTINEZ Intervals [place] Rate: 99 P: 12 CT: 177 QRS: 63 QRSD: 140 T: 261 QT: 356 QTc: 413 Interpretive Statements SINUS RHYTHM INTRAVENTRICULAR CONDUCTION DELAY INFERIOR MYOCARDIAL INFARCTION, PROBABLY RECENT Electronically Signed On 08-05-17 22:24:38 CDT by MATTIE MARTINEZ [email or web address]
[2017-08-05] MEDS: DIGOXIN 0.125 MG TABLET PO SCH (12:14)
--- NOTE | 2017-08-05 17:03 | Electrophysiology Consultation ---
History of Present Illness - Data of Consult Patient: new to practice - Consult Narrative Reason for consult: intermittent chb History of present illness: Mr. Colvin is a 86 year old male, ischemic cardiomyopathy, ejection fraction 30- 35%, atrial fibrillation, anticoagulated with Xarelto, CAD, status post CABG. He was admitted with suspected STEMI and underwent successful PCI of the distal RCA. Postprocedure, he was noted to have intermittent episodes of complete heart block, leading to loss of pulse and brief episodes, requiring CPR. Review of telemetry strips, this was still happening, more than 48 hours after the PCI. He is now on aspirin and Brilinta, the Xarelto was stopped. Had some delirium, he seems to be quite oriented right now. Blood sugars remained markedly elevated, hospitalist consult pending. WBC trended down, and there is no fever. CKD, acute kidney injury improving. CC: Jim Pollock MD - Home Medications and Allergies Home Medications: Home Medications Medication Instructions Recorded Confirmed Type Aspirin [Ecotrin] 81 mg PO DAILY 08/02/15 07/31/17 History Lisinopril 20 mg PO BID 08/02/15 07/31/17 History Methocarbamol Tab [Robaxin Tab] 500 mg PO TID 08/02/15 07/31/17 History Rivaroxaban [Xarelto] 15 mg PO DAILY W/BREAKFAST 08/02/15 07/31/17 History Glimepiride 4 mg PO BID 11/21/16 07/31/17 History Hydrocodone/Acetaminophen 1 each PO QID 11/21/16 08/03/17 History [Hydrocodon-Acetaminoph 7.5-325] Isosorbide Mononitrate [Isosorbide 30 mg PO DAILY 11/21/16 07/31/17 History Mononitrate ER] Loratadine Tab [Claritin Tab] 10 mg PO DAILY 11/21/16 07/31/17 History Metformin HCl 1,000 mg PO BID 11/21/16 07/31/17 History Metoprolol Tartrate 50 mg PO BID 11/21/16 07/31/17 History Pantoprazole Tab [Protonix Tab] 40 mg PO DAILY 11/21/16 07/31/17 History Sitagliptin Phosphate [Januvia] 50 mg PO DAILY 11/21/16 07/31/17 History Tamsulosin [Flomax] 0.4 mg PO DAILY 11/21/16 07/31/17 History Fish Oil 340-1,000 1 capsule PO DAILY 12/05/16 07/31/17 History Multivit-Min/FA/Lycopen/Lutein 1 each PO DAILY 12/05/16 07/31/17 History [Centrum Silver Tablet] Sucralfate Liquid [Carafate Liquid] 1 gm PO QID 12/05/16 08/03/17 History Famotidine [Pepcid AC] 20 mg PO DAILY 12/06/16 07/31/17 History Metformin HCl [Metformin HCl] 07/31/17 History Allergies/Adverse Reactions: Allergies Allergy/AdvReac Type Severity Reaction Status Date / Time amitriptyline [From Elavil] Allergy Verified 12/06/16 07:21 gabapentin [From Neurontin] Allergy Verified 12/06/16 07:21 lidocaine Allergy Verified 12/06/16 07:21 Zolpidem [From Ambien] Allergy Verified 08/02/15 08:48 Temazepam [From Restoril] AdvReac Severe UNRESPONSIV Verified 08/01/17 02:18 E Medical,Surgical,& Family Hx - Medical History Cardio: History of: Hypertension, [place], Cardiovascular Problems No history of: CHF Psychological: No history of: Anxiety Disorders, ADHD, Behavior Problems, Bipolar Disorder, Depression, Previous Suicide Attempt, Psychiatric/Substance Abuse Tx, Schizophrenia, Violent Behavior, Psychiatric Problems Neurology: No history of: Cerebral Hemorrhage, Cerebrovascular Accident, Peripheral Neuropathy, Seizures HEENT: No history of: Glaucoma Endocrine: History of: Diabetes Mellitus (NIDDM), Dyslipidemia No history of: Diabetes Mellitus (IDDM), Thyroid Disorder, Endocrine Cancer, Endocrine Problems Rheumatology: No history of;: Psoriasis, Sjogrens, Systemic Lupus Erythematosus Respiratory: History of: Intubation No history of: Asthma, Bronchitis, COPD Renal: No history of: Renal (Kidney) Cancer, Dialysis, Renal Failure, Renal Problems Genitourinary: History of: Prostate Problems (ca), Recurring Urinary Tract Infections No history of: Bladder Problem, Kidney Stones, Genitourinary Cancer, Problems Gastrointestinal: History of: GERD, Polyps, GI Problems (hiatal hernia) No history of: Bowel Obstruction, Clostridium Difficile, Crohn's Disease, Diverticulitis/ Diverticulosis, Esophageal Varices, Gastrointestinal Bleed Musculoskeletal: History of: Back/Neck Problems, Degenerative Disk Disease ( severe back problems) No history of: Amputation Hematology: History of: Clotting Problems (xarelto), Blood Disorders No history of: Blood Transfusion Reaction Other: History of: Cancer (prostate) No history of: Anesthesia Reactions, Anaphylaxis, Eczema, HIV, Malignant Hyperthermia, MRSA, Vancomycin-Resistant Enterococci, Skin Problems, Miscellaneous Medical Problems - Surgical History Cardiac Surgeries: Sugical HX of: Femoral-Popliteal Bypass Graft (5 in 2001...) , Cardiac Catheterization (W/ STENT PLACEMENT), Cardiac Surgery (cabg 1999) Patient Denies: Internal Defibrillator, Vascular Access Devices Thoracic Surgeries: Patient denies;: Kidney (Renal Surgery), Lithotripsy, Nephrectomy, Organ Transplant Neurologic Surgeries: Patient denies: Cerebral Hemorrhage, Neurologic Surgery HEENT Surgeries: Surgical HX of: Eye Surgery (cataract surgery), Tonsilectomy & Adenoidectomy Patient denies: Thyroid Surgery Abdominal Surgeries: Surgical HX of: Abdominal Surgery, Appendectomy, Colonoscopy, EGD Patient denies: Cholecystectomy, Gastric Bypass Surgery, Hernia Repair, Splenectomy Reproductive Surgeries: Surgical HX of;: Prostate Surgery (caterizzed) Patient denies;: Breast Surgery, Cystoscopy, Genitourinary Surgery Orthopedic Surgeries: Surgical HX of;: Orthopedic Surgery (degenerative back disease and rods and pins placed), Spinal Surgery (rods and pins placed) - Family History Family History: Reports;: Family Cancer (mother), Family Diabetes (parents), Family Heart Disease (family) Denies;: Family Anesthesia Reaction, Family Hypertension, Family Psychiatric Problems, Family Stroke - Social History Smoking Status: Never smoker Frequency of Alcohol Use: None Type of Drug Use: None 12 point system: reviewed and no additional remarkable complaints except as stated Exam - Constitutional Vitals: Period Temp Pulse Resp BP Sys/Torre Pulse Ox Last 24 Hr 96.9 F-98.1 F 63-111 14-30 102-138/65-92 90-100 General appearance: normal weight, over weight - Head Head exam: Present: normal inspection, other (Multiple facial suffusions). Absent: contusion - Eye Eye exam: Absent: conjunctival injection Pupils: Absent: dilated - ENT ENT exam: Present: normal exam, normal external ear exam - Neck Neck exam: Present: normal inspection - Respiratory Respiratory exam: Present: clear to auscultation bilaterally. Absent: chest wall tenderness - Cardiovascular Cardiovascular exam: Present: regular rate and rhythm, systolic murmur. Absent : JVD - GI/Abdominal GI/Abdominal exam: Present: normal bowel sounds. Absent: distended - Extremities Exam Extremities exam: Present: normal inspection, normal capillary refill. Absent: edema - Back Exam Back exam: Present: normal inspection - Neurological Exam Neurological exam: Present: alert - Psychiatric Psychiatric exam: Present: normal affect, normal mood - Skin Skin exam: Present: normal color, warm, other (Multiple skin suffusion). Absent : cyanosis Results - Labs CBC & BMP: 08/05/17 03:34 08/05/17 03:34 Lab Results: I have reviewed the past 24 hour labs Assessment and Plan (1) Ischemic cardiomyopathy Status: Chronic Assessment and plan: 86-year-old male, ischemic cardiomyopathy, ejection fraction 30-35%, recurrent episodes of complete heart block, syncope, requiring CPR. DNR, quite debilitated. -We discussed risks and benefits of management options. He is high risk for recurrent syncope, even cardiac arrest, with his episodes of intermittent complete heart block. 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 -Keep in the ICU. High risk for arrhythmia. If we are actively pursuing arrhythmia management, I suggest to use a full CODE STATUS for now if this event recurs, high risk for recurrent symptomatic bradycardia arrhythmia, for which a definitive treatment exists. -He is DNR. I suggest not to utilize an ICD. QRS 140 ms, IVCD, no indication for STEAM PAN SPONGER. -NPO after MN Current Visit: Yes (2) Advanced age Status: Chronic Current Visit: Yes (3) Anemia Status: Acute Current Visit: Yes (4) Chronic atrial fibrillation Status: Chronic Current Visit: Yes Quality Measures - VTE Contraindication to Pharmacological VTE Prophylaxis: High Risk of Bleeding Specialty Discharge - Follow Up or Referrals
[2017-08-05] MEDS ORDERED: INSULIN REGULAR 100 UNIT/ML IV ONE (17:48)
--- NOTE | 2017-08-05 18:06 | Hospitalist Consult Note ---
<Moy Gallagher - Last Filed: 08/05/17 18:12> Assessment and Plan (1) Type 2 diabetes mellitus Status: Chronic Assessment and plan: Change insulin from regular to log. Increase sliding scale to high. Obtain Hbg A1c in am. Restart home Amaryl. Add Lantus at bedtime. Current Visit: Yes (2) ST elevation myocardial infarction (STEMI) of inferior wall Status: Acute Assessment and plan: Received PCI - cards following Current Visit: Yes (3) Coronary artery disease Status: Chronic Current Visit: Yes Qualifiers: Coronary Disease-Associated Artery/Lesion type: [place] artery [place] vs. transplanted heart: [place] heart Associated angina: with stable angina Qualified Code(s): I25.118 - Atherosclerotic heart disease of [place] coronary artery with other forms of angina pectoris (4) Advanced age Status: Chronic Current Visit: Yes History of Present Illness - Consult Narrative Reason for consult: diabetes management History of present illness: Mr. Colvin is a 86 year old white male with a history gerd, htn, IL, CABG, afib, and dm that presented to the ED on 07/31 after a fall and was discovered to have an abnormal EKG revealing ST elevation in leads II, III, aVF indicating an inferior wall ST elevation IL. Pt. underwent a heart catherization and PCI of RCA. After the procedure, the patient was noted to have episode of complete heart block at one point requiring CPR. Pt. will undergo pacemaker placement by portfolio director. During hospital course, pt was noted to have elevated blood sugars. Hospitalist service has been consulted to assist in management. Pt. was seen and examined with family at bedside. Pt. was diagnosed with dm approximately 3-4 years ago. Pt.'s daughter and son in law state that blood sugars are normally well controlled and have rarely gone over 180. We will change sliding scale to higher dose, obtain hemoglobin A1c, restart Amaryl, and add Lantus to patient's regimen. Thank you for letting us participate in the patient's care. We will continue to follow. CC: Jim Pollock MD - Home Medications and Allergies Home Medications: Home Medications Medication Instructions Recorded Confirmed Type Aspirin [Ecotrin] 81 mg PO DAILY 08/02/15 07/31/17 History Lisinopril 20 mg PO BID 08/02/15 07/31/17 History Methocarbamol Tab [Robaxin Tab] 500 mg PO TID 08/02/15 07/31/17 History Rivaroxaban [Xarelto] 15 mg PO DAILY W/BREAKFAST 08/02/15 07/31/17 History Glimepiride 4 mg PO BID 11/21/16 07/31/17 History Hydrocodone/Acetaminophen 1 each PO QID 11/21/16 08/03/17 History [Hydrocodon-Acetaminoph 7.5-325] Isosorbide Mononitrate [Isosorbide 30 mg PO DAILY 11/21/16 07/31/17 History Mononitrate ER] Loratadine Tab [Claritin Tab] 10 mg PO DAILY 11/21/16 07/31/17 History Metformin HCl 1,000 mg PO BID 11/21/16 07/31/17 History Metoprolol Tartrate 50 mg PO BID 11/21/16 07/31/17 History Pantoprazole Tab [Protonix Tab] 40 mg PO DAILY 11/21/16 07/31/17 History Sitagliptin Phosphate [Januvia] 50 mg PO DAILY 11/21/16 07/31/17 History Tamsulosin [Flomax] 0.4 mg PO DAILY 11/21/16 07/31/17 History Fish Oil 340-1,000 1 capsule PO DAILY 12/05/16 07/31/17 History Multivit-Min/FA/Lycopen/Lutein 1 each PO DAILY 12/05/16 07/31/17 History [Centrum Silver Tablet] Sucralfate Liquid [Carafate Liquid] 1 gm PO QID 12/05/16 08/03/17 History Famotidine [Pepcid AC] 20 mg PO DAILY 12/06/16 07/31/17 History Metformin HCl [Metformin HCl] 07/31/17 History Allergies/Adverse Reactions: Allergies Allergy/AdvReac Type Severity Reaction Status Date / Time amitriptyline [From Elavil] Allergy Verified 12/06/16 07:21 gabapentin [From Neurontin] Allergy Verified 12/06/16 07:21 lidocaine Allergy Verified 12/06/16 07:21 Zolpidem [From Ambien] Allergy Verified 08/02/15 08:48 Temazepam [From Restoril] AdvReac Severe UNRESPONSIV Verified 08/01/17 02:18 E Medical,Surgical,& Family Hx - Medical History Cardio: History of: Hypertension, IL, Cardiovascular Problems No history of: CHF Psychological: No history of: Anxiety Disorders, ADHD, Behavior Problems, Bipolar Disorder, Depression, Previous Suicide Attempt, Psychiatric/Substance Abuse Tx, Schizophrenia, Violent Behavior, Psychiatric Problems Neurology: No history of: Cerebral Hemorrhage, Cerebrovascular Accident, Peripheral Neuropathy, Seizures HEENT: No history of: Glaucoma Endocrine: History of: Diabetes Mellitus (NIDDM), Dyslipidemia No history of: Diabetes Mellitus (IDDM), Thyroid Disorder, Endocrine Cancer, Endocrine Problems Rheumatology: No history of;: Psoriasis, Sjogrens, Systemic Lupus Erythematosus Respiratory: History of: Intubation No history of: Asthma, Bronchitis, COPD Renal: No history of: Renal (Kidney) Cancer, Dialysis, Renal Failure, Renal Problems Genitourinary: History of: Prostate Problems (ca), Recurring Urinary Tract Infections No history of: Bladder Problem, Kidney Stones, Genitourinary Cancer, Problems Gastrointestinal: History of: GERD, Polyps, GI Problems (hiatal hernia) No history of: Bowel Obstruction, Clostridium Difficile, Crohn's Disease, Diverticulitis/ Diverticulosis, Esophageal Varices, Gastrointestinal Bleed Musculoskeletal: History of: Back/Neck Problems, Degenerative Disk Disease ( severe back problems) No history of: Amputation Hematology: History of: Clotting Problems (xarelto), Blood Disorders No history of: Blood Transfusion Reaction Other: History of: Cancer (prostate) No history of: Anesthesia Reactions, Anaphylaxis, Eczema, HIV, Malignant Hyperthermia, MRSA, Vancomycin-Resistant Enterococci, Skin Problems, Miscellaneous Medical Problems - Surgical History Cardiac Surgeries: Sugical HX of: Femoral-Popliteal Bypass Graft (5 in 2001...) , Cardiac Catheterization (W/ STENT PLACEMENT), Cardiac Surgery (cabg 1999) Patient Denies: Internal Defibrillator, Vascular Access Devices Thoracic Surgeries: Patient denies;: Kidney (Renal Surgery), Lithotripsy, Nephrectomy, Organ Transplant Neurologic Surgeries: Patient denies: Cerebral Hemorrhage, Neurologic Surgery HEENT Surgeries: Surgical HX of: Eye Surgery (cataract surgery), Tonsilectomy & Adenoidectomy Patient denies: Thyroid Surgery Abdominal Surgeries: Surgical HX of: Abdominal Surgery, Appendectomy, Colonoscopy, EGD Patient denies: Cholecystectomy, Gastric Bypass Surgery, Hernia Repair, Splenectomy Reproductive Surgeries: Surgical HX of;: Prostate Surgery (caterizzed) Patient denies;: Breast Surgery, Cystoscopy, Genitourinary Surgery Orthopedic Surgeries: Surgical HX of;: Orthopedic Surgery (degenerative back disease and rods and pins placed), Spinal Surgery (rods and pins placed) - Family History Family History: Reports;: Family Cancer (mother), Family Diabetes (parents), Family Heart Disease (family) Denies;: Family Anesthesia Reaction, Family Hypertension, Family Psychiatric Problems, Family Stroke - Social History Smoking Status: Never smoker Frequency of Alcohol Use: None Type of Drug Use: None Marital Status: Lives With:: Children Functional capacity: independent ambulation 12 point system: reviewed and no additional remarkable complaints except as stated - Constitutional Constitutional: Absent: chills, fever(s) - EENT Eyes: Absent: blurry vision Ears: Present: decreased hearing - Cardiovascular Cardiovascular: Present: dyspnea on exertion - Respiratory Respiratory: Present: dyspnea on exertion - Gastrointestinal Gastrointestinal: Absent: nausea, vomiting - Genitourinary Genitourinary: Absent: dysuria - Neurological Neurological: Present: confusion. Absent: headache(s) - Psychiatric Psychiatric: Present: memory loss - Endocrine Endocrine: Present: fatigue - Hematologic/Lymphatic Hematologic/Lymphatic: Present: easy bleeding, easy bruising Exam - Constitutional Vitals: Period Temp Pulse Resp BP Sys/Torre Pulse Ox Last 24 Hr 96.9 F-98.1 F 63-111 14-30 102-138/65-92 90-100 General appearance: normal weight, no acute distress - Head Head exam: Present: normal inspection, normocephalic - Eye Eye exam: Present: EOMI. Absent: scleral icterus Pupils: Present: ROMAN - Respiratory Respiratory exam: Present: decreased breath sounds. Absent: clear to auscultation bilaterally - Cardiovascular Cardiovascular exam: Present: regular rate and rhythm - GI/Abdominal GI/Abdominal exam: Present: normal bowel sounds, soft. Absent: tenderness - Extremities Exam Extremities exam: Present: normal capillary refill, edema - Neurological Exam Neurological exam: Present: alert, oriented X3 - Psychiatric Psychiatric exam: Present: normal affect, normal mood - Skin Skin exam: Present: normal color, warm Results - Labs CBC & BMP: 08/05/17 03:34 08/05/17 03:34 Lab Results: I have reviewed the past 24 hour labs Quality Measures - VTE Contraindication to Pharmacological VTE Prophylaxis: High Risk of Bleeding Specialty Discharge - Follow Up or Referrals <Yessi Chase - Last Filed: 08/05/17 19:32> Assessment and Plan (1) ST elevation myocardial infarction (STEMI) of inferior wall Status: Acute Assessment and plan: Status post angioplasty and stent of the mid body vein graft to the RCA. Ejection fraction 30-35%, continue aspirin and Brilinta Current Visit: Yes (2) Intermittent complete heart block Status: Acute Assessment and plan: Dr. Morrison has seen him and plans to do a pacemaker in a.m. Current Visit: Yes (3) Acute kidney injury Status: Acute Assessment and plan: Continue to monitor Current Visit: Yes (4) Anemia Status: Acute Assessment and plan: Continue Protonix Current Visit: Yes (5) Unspecified sleep apnea Status: Acute Assessment and plan: Dr. Baker has seen him and recommends an outpatient sleep study Current Visit: Yes (6) Ischemic cardiomyopathy Status: Chronic Assessment and plan: Ejection fraction 30-35% continue diuresis with Lasix. Current Visit: Yes (7) Type 2 diabetes mellitus Status: Chronic Assessment and plan: 7 units of IV insulin given, restarted Amaryl, agree with above Current Visit: Yes (8) Acute on chronic combined systolic and diastolic CHF (congestive heart failure) Status: Acute Assessment and plan: Continue IV Lasix, Coreg on hold due to intermittent complete heart block Current Visit: Yes (9) COPD exacerbation Status: Acute Assessment and plan: Oral prednisone and duo nebs Current Visit: Yes History of Present Illness - Data of Consult Consult date: 08/05/17 Requesting Physician: Geovanni Morrison - Consult Narrative History of present illness: Mr. Colvin is a 86 year old male CC: Jim Pollock MD Exam - Constitutional Vitals: Period Temp Pulse Resp BP Sys/Torre Pulse Ox Last 24 Hr 96.9 F-98.1 F 63-111 14-30 102-138/65-92 90-100 - Eye Pupils: Present: normal accommodation - ENT ENT exam: Present: normal exam, normal external ear exam - Respiratory Respiratory exam: Present: wheezes. Absent: rhonchi - Cardiovascular Cardiovascular exam: Present: systolic murmur - Skin Skin exam: Present: other (extensive bruising) Results - Labs CBC & BMP: 08/05/17 03:34 08/05/17 03:34 - Diagnostic Findings Procedure: Chest x-ray: report reviewed by me (chf)
[2017-08-05] MEDS: GLIMEPIRIDE 2 MG TABLET PO SCH (18:19)
[2017-08-05] MEDS: ALBUTEROL/IPRATROPIUM 3 ML NEB RESP TX SCH ×2 (19:26→22:49)
[2017-08-05] MEDS ORDERED: INSULIN GLARGINE 100 UNIT/ML SUBCUT SCH (21:00)
[2017-08-05] MEDS: ATORVASTATIN 20 MG TABLET PO SCH (22:07)
[2017-08-05] MEDS: TEMAZEPAM 15 MG CAPSULE PO SCH (22:08)
[2017-08-06] MEDS ORDERED: HALOPERIDOL 5 MG/ML AMP IV ONE ×2 (02:19→04:14)
[2017-08-06] MEDS: ALBUTEROL/IPRATROPIUM 3 ML NEB RESP TX SCH ×6 (03:18→23:39)
[2017-08-06] MEDS ORDERED: ZIPRASIDONE 20 MG/1 ML VIAL IM PRN (04:14)
[2017-08-06 04:49] LABS: Allen Test Positive
[2017-08-06 04:51] LABS: ABG Base Excess 0.6 MMOL/L (-2.5-2.5); ABG HCO3 23.1 MMOL/L (20-26); ABG PCO2 29.7 MM HG (35-48); ABG PH 7.508 (7.35-7.45); ABG PO2 60.6 MM HG (80-95)
[2017-08-06 05:24] LABS: Calcium 8.5 MG/DL (8.5-10.1); Magnesium 2.2 MG/DL (1.8-2.4); Osmolality,Calculated 290.8 MOS/KG (273-304)
[2017-08-06 05:25] LABS: Basophils # 0.1 10*3/uL (0.0-0.2); Basophils % 0.4 % (0.0-0.8); Eosinophils # 0.2 10*3/uL (0.0-0.87); Hematocrit 31.6 VOL% (42.0-52.0); Immature Granulocytes % 2.1 %; Immature Granulocytes Absolute 0.34 #; Lymphocytes % 12.8 % (21.2-54.2); Mean Corpuscular HGB Conc 31.6 GM/DL (32-36); Mean Corpuscular Hemoglobin 24 PG (27-34); Mean Corpuscular Volume 75.8 FL (87-102); Mean Platelet Volume 11.5 FL (9.6-12.0); Monocytes # 1.7 10*3/uL (0.11-0.8); Monocytes % 10.7 % (1.7-12.7); NRBC # 0.07 10*3/uL; Neutrophils # 11.5 10*3/uL (1.4-7.4); Platelet Count 302 T/CUMM (130-400); Red Blood Count 4.17 MC/CUMM (3.8-5.5); Red Cell Distribution Width 17.2 % (9.3-17.3); White Blood Count 15.8 T/CUMM (4-12)
[2017-08-06] MEDS ORDERED: SODIUM CHLORIDE 0.9% 500 ML IV ONE (06:11)
--- NOTE | 2017-08-06 06:15 | Pain Management Progress Note ---
Assessment and Plan (1) Chronic pain syndrome Status: Acute Assessment and plan: Patient can continue his [place] 7.5 3 times daily to 4 times daily as needed for pain during hospital stay. We will make him follow-up appointment with me in pain clinic after discharge and we will make a plan further care 08/05 continue [place] for pain and agree with LTAC transfer at the end of inpatient stay 08/06 hold norco for now due to change in mental status Current Visit: Yes Pain - Subjective Interval history: he has worsening hypotension and confusion and i will hold norco this morning. cardiology is notified per nursing staff Exam - Constitutional Vitals: Period Temp Pulse Resp BP Sys/Torre Pulse Ox Last 24 Hr 96.9 F-98.0 F 85-121 20-38 78-147/53-98 88-100 General appearance: no acute distress - Head Head exam: Present: normal inspection - Eye Eye exam: Present: periorbital swelling - ENT ENT exam: Present: normal oropharynx Mouth exam: Present: normal external inspection - Neck Neck exam: Present: normal inspection - Respiratory Respiratory exam: Present: decreased breath sounds - Cardiovascular Cardiovascular exam: Present: irregular rhythm - GI/Abdominal GI/Abdominal exam: Present: normal bowel sounds - Neurological Exam Neurological exam: Present: abnormal gait, altered Speech: Present: abnormal - Skin Skin exam: Present: dry Results - Labs CBC & BMP: 08/06/17 04:17 08/06/17 04:17 Lab Results: I have reviewed the past 24 hour labs Quality Measures - VTE Contraindication to Pharmacological VTE Prophylaxis: High Risk of Bleeding Specialty Discharge - Follow Up or Referrals
--- NOTE | 2017-08-06 06:51 | CT Report ---
Exam: CT head without intravenous contrast Clinical History: 86 years Male altered mental status confusion and disorientation Technique: Axial computed tomography images of the head/brain without intravenous contrast Comparison: July 31, 2017 at 2245 hours Findings: Brain: Generalized atrophy with extensive microangiopathic small vessel ischemic changes. Samuel-white matter distinction maintained. No mass effect. No intra or extra-axial hemorrhage. Ventricles: Symmetric enlargement secondary to parenchymal loss. Bones/joints: Calvarium is intact Soft tissues: Unremarkable Sinuses: No active paranasal sinus process Mastoid air cells: Unremarkable visualized. Impression: 1. No acute intracranial abnormalities. PROCEDURE INTERPRETED AT [facility] DEPARTMENT OF RADIOLOGY Final Report Signed by: Luciano Samuel
[2017-08-06] MEDS ORDERED: ceFAZolin 1,000 MG VIAL IRRIG ONE (07:00)
--- NOTE | 2017-08-06 07:36 | Electrophysiology Progress Not ---
Assessment and Plan (1) Ischemic cardiomyopathy Status: Chronic Assessment and plan: 86-year-old male, ischemic cardiomyopathy, ejection fraction 30-35%, recurrent episodes of complete heart block, syncope, requiring CPR. DNR, quite debilitated. -Delirium, increased WBC concerning for new event such as aspiration or sepsis. Risk for permanent pacemaker implant are prohibitive at this time. Discussed management options with family member at the bedside. She agrees to pursue reasonable medical options at this time, if there is hope of recovery. -We will proceed with a temporary pacemaker placement, planned for a right subclavian access. Risks and benefits were discussed with family member. I will consult anesthesia for this. He was very agitated combative and pulled out multiple lines last night. He may need to be intubated, if adequate level of sedation cannot be maintained with a temporary PM in place -Once sepsis ruled out, we may proceed with a permanent pacemaker implant. He still has episodes of intermittent high-grade/complete AV block, bradycardia induced ventricular ectopy, and had prior bradycardic cardiac arrest.CPR, with baseline IVCD, he is unlikely to survive without protection from bradycardia -He is full code as of now. Current Visit: Yes (2) Advanced age Status: Chronic Current Visit: Yes (3) Anemia Status: Acute Current Visit: Yes (4) Chronic atrial fibrillation Status: Chronic Current Visit: Yes Electrophysiology Subjective Interval history: He became confused and agitated last night. CT showed no major issues. Still had episodes of intermittent high-grade AV block, with ventricular ectopy and nonsustained VT. No prolonged pauses. WBC elevated, no fever Exam - Constitutional Vitals: Period Temp Pulse Resp BP Sys/Torre Pulse Ox Last 24 Hr 97 F-98.0 F 85-121 20-38 78-147/53-98 88-100 General appearance: normal weight, over weight - Head Head exam: Present: normal inspection. Absent: normocephalic - Eye Eye exam: Present: other (Multiple periorbital and forehead suffusion). Absent : periorbital swelling, scleral icterus Pupils: Absent: dilated - ENT ENT exam: Present: normal external ear exam - Neck Neck exam: Present: normal inspection - Respiratory Respiratory exam: Present: decreased breath sounds. Absent: accessory muscle use, chest wall tenderness - Cardiovascular Cardiovascular exam: Present: irregular rhythm, systolic murmur. Absent: JVD - GI/Abdominal GI/Abdominal exam: Present: hypoactive bowel sounds. Absent: distended, guarding - Extremities Exam Extremities exam: Present: normal inspection, normal capillary refill. Absent: edema - Neurological Exam Neurological exam: Present: altered, other (Unresponsive) - Skin Skin exam: Present: pallor. Absent: cyanosis, diaphoretic Results - Labs CBC & BMP: 08/06/17 04:17 08/06/17 04:17 Lab Results: I have reviewed the past 24 hour labs Quality Measures - VTE Contraindication to Pharmacological VTE Prophylaxis: High Risk of Bleeding Specialty Discharge - Follow Up or Referrals
--- NOTE | 2017-08-06 07:40 | History and Physical Update ---
Sedation H&P Update - History and Physical H&P was reviewed, the patient examined and there: are no changes in the patients condition since last H&P was completed. - Dictation Physical: refer to H&P completed by admitting physician - Physical Exam Mental Status: other (unresponsive) Heart: other (irregular) Lung: other (decreased bs) Abdomen: other (decrease bs) Vitals: within normal limits - Sedation Plan for Sedation: MAC (by the anesthesia team) Patient Consent: Procedure disscussed with patient and patinet has consented., Risks and benefits were discussed with patient,including infection,, bleeding, injury to surrounding structures, seizure, temporary nerve, Patient understands and accepts potential risks/benefits and agrees to ASA Class: V Airway Assessment: Class II: Soft palate, uvula, fauces visible
[2017-08-06] MEDS: INSULIN REGULAR 100 UNIT/ML SUBCUT SCH ×4 (08:11→21:37)
--- NOTE | 2017-08-06 08:18 | EKG Report ---
Stationary ECG Study [facility] Test Date: 08/06/2017 8:15:30 AM Pat Name: IOANA GATES Department: Room: 123 Gender: M Roving Frame Tender: Becca : 1930 Requested by: Mattie Morrison Order Number: [id number] Reading MD: MATTIE MORRISON Intervals Vass Rate: 96 P: 32 VT: 175 QRS: 78 QRSD: 132 T: 234 QT: 369 QTc: 423 Interpretive Statements SINUS RHYTHM WITH FREQUENT SUPRAVENTRICULAR PREMATURE COMPLEXES NONSPECIFIC INTRAVENTRICULAR CONDUCTION BLOCK Possible recent inferior AR Electronically Signed On 08-06-17 21:14:09 CDT by MATTIE MORRISON [email or web address]
[2017-08-06] MEDS ORDERED: predniSONE 20 MG TABLET PO SCH (09:00)
[2017-08-06] MEDS ORDERED: ETOMIDATE 20 MG/10 ML VIAL IV ONE ×2 (09:21→11:42)
[2017-08-06] MEDS ORDERED: SUCCINYLCHOLINE 200 MG/10 ML VIAL IV ONE (09:23)
[2017-08-06] MEDS ORDERED: HEPARIN/NACL 0.9% 2 UNITS/ML 500 ML IV ONE (09:42)
[2017-08-06] MEDS ORDERED: LIDOCAINE 1% 20 ML VIAL ONE (09:42)
[2017-08-06] MEDS ORDERED: PHENYLEPHRINE DRIP 40 MG/250 ML PREMIX IV ONE (10:36)
--- NOTE | 2017-08-06 10:43 | Event Note ---
PROCEDURAL SUMMARY Temporary pacemaker implant from right subclavian vein access. Successful procedure, no complications. PLAN Bed rest, keep flat. CXR stat DIAGNOSES Intermittent complete heart block PROCEDURE REPORT A timeout was performed before the procedure. The patient was continuously monitored by electrocardiography, pulse oximetry and NIBP. Iv. Ancef was used for preprocedural antibiotic prophylaxis. Sedation Conscious sedation was initiated with Versed + Fentanyl and maintained during the procedure. The patient was intubated in the ICU, anesthesia was monitored by the anesthesia team. Access The Seldinger technique was performed utilizing a 21 gauge micropuncture needle and 0.[address] the following sheaths. Right subclavian vein: 6 [place]. Temporary PM placement The patient was prepped and draped according to the EP protocol. Under fluoroscopic guidance, a 6 [place] sheath was placed into the right subclavian vein. The temporary PM was advanced into the RV under fluoroscopic guidance. Measurement with the external PM confirmed adequate sensing and pacing threshold. The sheath was sutured to the skin, the temporary wire was looped around and secured the skin, then sterile dressing was placed over the insertion site. Fluoroscopy confirmed temporary PM wire position in the RV, no change in heart borders. The patient left the laboratory in a stable condition.
--- NOTE | 2017-08-06 11:27 | XRay Report ---
XR chest 1V portable Indication: NG tube placement Comparison: 05 August 2017 Findings: Exam is centered over the lower chest and upper abdomen. NG tube is present with tip overlying the left upper quadrant. Impression: NG tube appears in appropriate x-ray position. PROCEDURE INTERPRETED AT [facility] DEPARTMENT OF RADIOLOGY Final Report Signed by: Dr. Gucci Rivas
--- NOTE | 2017-08-06 11:29 | XRay Report ---
XR chest 1V portable Indication: Temporary pacer Comparison: 05 August 2017 Findings: The heart and mediastinum are similar in size and configuration. Endotracheal tube is been placed with tip at the clavicle level. Temporary pacemaker is present with tip overlying right ventricle area. The pulmonary vascularity is prominent but similar to previous exam. No lung infiltrates, effusions, pneumothorax or other abnormality is demonstrated. Impression: Endotracheal tube and temporary pacemaker, appear within normal limits. No other significant changes. PROCEDURE INTERPRETED AT [facility] DEPARTMENT OF RADIOLOGY Final Report Signed by: Dr. Gucci Rivas
[2017-08-06] MEDS ORDERED: MIDAZOLAM 2 MG/2 ML VIAL ONE (11:42)
[2017-08-06] MEDS ORDERED: SEVOFLURANE 1 UNIT/15 MINUTE INH ONE (11:42)
[2017-08-06] MEDS ORDERED: PHENYLEPHRINE DRIP 20 MG/250 ML PREMIX IV ONE (11:42)
[2017-08-06] MEDS ORDERED: SODIUM CHLORIDE 0.9% 1,000 ML IV ONE (11:43)
[2017-08-06] MEDS ORDERED: SUCCINYLCHOLINE 200 MG/10 ML VIAL ONE (11:43)
[2017-08-06] MEDS ORDERED: ROCURONIUM 100 MG/10 ML VIAL IV ONE (11:43)
--- NOTE | 2017-08-06 11:49 | Cardiology Progress Note ---
Assessment and Plan - Time spent with patient Time spent with patient: Less than 30 minutes (The patient is stable post temporary pacemaker placement. He has I think a reasonable chance recovering significant improved mental status and our plan will be to continue support.) Cardiology - PN: Subj Interval history: This is a patient that I follow as an outpatient and have done so for years. 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 He has been cardiac stable until this admission when he had a fall off a ladder and incidentally was noted to have an acute inferior myocardial infarction. He did at that time complaining of left arm pain and was taken to [facility] where he had stenting of the graft stenosis. He did well initially post percutaneous coronary intervention was had progressive problems with delirium confusion and had one prolonged asystolic episode with severe bradycardia and heart block. Dr. Morrison saw the patient in consultation for this and felt that this was not related to the raymond-infarct ischemic event and that this was a significant risk. He underwent placement of a temporary pacemaker today because of problems with hemodynamic instability. He has been on a very low-dose giorgio-and his blood pressures are good now currently. He is now post pacemaker placement (temporary) and is stable. Once we have his bradycardia arrhythmias addressed appropriately I think he would benefit him significantly to be out of the unit and into a more structured setting. His prognosis is poor. Exam (Progress Note) - Constitutional Vitals: Period Temp Pulse Resp BP Sys/Torre Pulse Ox Last 24 Hr 97 F-98.0 F 75-121 20-38 78-147/53-98 88-100 Exam: General:no acute distress. Patient is sedated on the ventilator. HEENT: no new lesions, sclerae are clear, mouth and pharynx benign Neck: supple, trachea midline, no JVD noted Lungs: no rales ronchi or wheeze is noted. pt comfortable without accesory muscle use to assist with breathing CV: RRR no murmur rub or gallop is noted. Abd: soft and nontender, BSNA, no masses. Ext: no cyanosis, clubbing or edema Neuro: The patient is sedated on the ventilator Result/EKG - Labs CBC & BMP: 08/06/17 04:17 08/06/17 04:17 Labs: Laboratory Results - last 24 hr 08/05/17 08/05/17 08/05/17 12:06 13:48 16:02 WBC RBC Hgb Hct MCV MCH MCHC RDW Plt Count MPV Neut % (Auto) Lymph % (Auto) Geary % (Auto) Eos % (Auto) Baso % (Auto) Neut # (Auto) Lymph # (Auto) Geary # (Auto) Eos # (Auto) Baso # (Auto) Immature Gran % Nucleated RBC % Immature Gran # Nucleated RBCs # Immature Plt Fraction ABG pH ABG pCO2 ABG pO2 ABG HCO3 ABG Total CO2 ABG O2 Saturation ABG Base Excess FiO2 Sodium Potassium Chloride Carbon Dioxide Anion Gap BUN Creatinine GFR Calculation BUN/Creatinine Ratio Glucose POC Glucose 423 H 437 H 410 H Hemoglobin A1c Calculated Osmolality Calcium Magnesium 08/05/17 08/06/17 08/06/17 21:48 01:19 04:17 WBC 15.8 H D RBC 4.17 Hgb 10.0 L Hct 31.6 L MCV 75.8 L MCH 24 L MCHC 31.6 L RDW 17.2 Plt Count 302 D MPV 11.5 Neut % (Auto) 73.0 Lymph % (Auto) 12.8 L Geary % (Auto) 10.7 Eos % (Auto) 1.0 Baso % (Auto) 0.4 Neut # (Auto) 11.5 H Lymph # (Auto) 2.0 Geary # (Auto) 1.7 H Eos # (Auto) 0.2 Baso # (Auto) 0.1 Immature Gran % 2.1 Nucleated RBC % 0.4 Immature Gran # 0.34 Nucleated RBCs # 0.07 Immature Plt Fraction 0.0 ABG pH ABG pCO2 ABG pO2 ABG HCO3 ABG Total CO2 ABG O2 Saturation ABG Base Excess FiO2 Sodium Potassium Chloride Carbon Dioxide Anion Gap BUN Creatinine GFR Calculation BUN/Creatinine Ratio Glucose POC Glucose 309 H 302 H Hemoglobin A1c Calculated Osmolality Calcium Magnesium 08/06/17 08/06/17 08/06/17 04:17 04:17 07:24 WBC RBC Hgb Hct MCV MCH MCHC RDW Plt Count MPV Neut % (Auto) Lymph % (Auto) Geary % (Auto) Eos % (Auto) Baso % (Auto) Neut # (Auto) Lymph # (Auto) Geary # (Auto) Eos # (Auto) Baso # (Auto) Immature Gran % Nucleated RBC % Immature Gran # Nucleated RBCs # Immature Plt Fraction ABG pH ABG pCO2 ABG pO2 ABG HCO3 ABG Total CO2 ABG O2 Saturation ABG Base Excess FiO2 Sodium 137 Potassium 4.0 Chloride 101 Carbon Dioxide 24 Anion Gap 16.0 H BUN 41 H Creatinine 1.90 H GFR Calculation 36 BUN/Creatinine Ratio 21.00 H Glucose 238 H POC Glucose 334 H Hemoglobin A1c 7.2 H Calculated Osmolality 290.8 Calcium 8.5 Magnesium 2.2 08/06/17 Unknown WBC RBC Hgb Hct MCV MCH MCHC RDW Plt Count MPV Neut % (Auto) Lymph % (Auto) Geary % (Auto) Eos % (Auto) Baso % (Auto) Neut # (Auto) Lymph # (Auto) Geary # (Auto) Eos # (Auto) Baso # (Auto) Immature Gran % Nucleated RBC % Immature Gran # Nucleated RBCs # Immature Plt Fraction ABG pH 7.508 H ABG pCO2 29.7 L ABG pO2 60.6 L ABG HCO3 23.1 ABG Total CO2 24.0 ABG O2 Saturation 93.0 L ABG Base Excess 0.6 FiO2 40.00 Sodium Potassium Chloride Carbon Dioxide Anion Gap BUN Creatinine GFR Calculation BUN/Creatinine Ratio Glucose POC Glucose Hemoglobin A1c Calculated Osmolality Calcium Magnesium Quality Measures - VTE Contraindication to Pharmacological VTE Prophylaxis: High Risk of Bleeding Specialty Discharge - Follow Up or Referrals
--- NOTE | 2017-08-06 11:52 | Hospitalist Progress Note ---
Assessment and Plan (1) ST elevation myocardial infarction (STEMI) of inferior wall Status: Acute Assessment and plan: Status post angioplasty and stent of the mid body vein graft to the RCA. Ejection fraction 30-35%, continue aspirin and Brilinta Current Visit: Yes (2) Intermittent complete heart block Status: Acute Assessment and plan: Dr. Morrison is only going to a temporary pacemaker today because he fears he has an infection. Current Visit: Yes (3) Acute kidney injury Status: Acute Assessment and plan: Creatinine remains relatively the same. Current Visit: Yes (4) Anemia Status: Acute Assessment and plan: Hemoglobin stable at 10, continue Protonix Current Visit: Yes (5) Unspecified sleep apnea Status: Acute Assessment and plan: Dr. Baker has seen him and recommends an outpatient sleep study Current Visit: Yes (6) Ischemic cardiomyopathy Status: Chronic Assessment and plan: Ejection fraction 30-35% continue diuresis with Lasix. Current Visit: Yes (7) Type 2 diabetes mellitus Status: Chronic Assessment and plan: Continue Amaryl bid, and increase lantus 40 units Current Visit: Yes (8) Acute on chronic combined systolic and diastolic CHF (congestive heart failure) Status: Acute Assessment and plan: Continue IV Lasix, Coreg on hold due to intermittent complete heart block Current Visit: Yes (9) COPD exacerbation Status: Acute Assessment and plan: Oral prednisone and duo nebs, prednisone most likely contributed to the elevated white count that they see. We will do an infectious workup and make sure patient has not aspirated. Current Visit: Yes (10) Leukocytosis Status: Acute Assessment and plan: We will order blood cultures 2, repeat the urine, repeat chest x-ray shows pulmonary edema but no discrete infiltrates. Elevation in white count is most likely due to the prednisone I started him on to help with his lungs. We will start him on Zosyn for now to cover for aspiration. Dr. Willis is been consulted to manage the vent Current Visit: Yes (11) Acute respiratory failure Status: Acute Assessment and plan: Patient was intubated due to lethargy. I will order a head CT. Current Visit: Yes Hospitalist: Subjective Interval history: Nursing reports patient more confused today and more lethargic. Blood sugars remain high over 300. Hemoglobin A1c is 7.2 patient going down for pacemaker Exam - Constitutional Vitals: Period Temp Pulse Resp BP Sys/Torre Pulse Ox Last 24 Hr 97 F-98.0 F 75-121 20-38 78-147/53-98 88-100 Exam: Heart Rate-[RRR] Lungs-[CTAB but diminished] GI-[+bs soft, NT] Ext-[no edema] Neuro could not evaluate lethargic psych sleeping but easily agitated when disturbed General [no acute distress] Results - Labs CBC & BMP: 08/06/17 04:17 08/06/17 04:17 Lab Results: I have reviewed the past 24 hour labs - Diagnostic Findings Procedure: Chest x-ray: report reviewed by me (NG tube appears in good position) Quality Measures - VTE Contraindication to Pharmacological VTE Prophylaxis: High Risk of Bleeding Specialty Discharge - Follow Up or Referrals
--- NOTE | 2017-08-06 12:04 | Anesthesia Procedures ---
Anesthesia Procedures - Intubation Time out performed intubation: Yes Sedative: Etomidate Mg given sedative: 20 Paralytic: Succinylcholine Mg given paralytic: 200 Laryngoscope: Maria Eugenia ET Tube Size: 8 ET Tube Uncuffed: No Tube Secured Depth (cm): 22 Tube Secured Location: teeth Tube Placement Confirmation: visualized tube passing through cords, equal breath sounds bilaterally, no breath sounds over epigastrium, confirmation detector color change Patient tolerated procedure intubation: well, no complications (intubated at Dr Morrison's request) Intubation Complications: none (intubated at Dr Adair's request)
--- NOTE | 2017-08-06 12:09 | Anesthesia Post-Op ---
Anesthesia Post OP - Post Ansesthetic Evaluation Patient seen in post op: Yes Resp: within normal limits (continued post op ventilation) CV: within normal limits Mental: within normal limits (continued IV sedation for ventilator management) Temp: within normal limits [id number]: within normal limits Nausea and Vomiting: within normal limits Pain: within normal limits
[2017-08-06] MEDS: PROPOFOL 1,000 MG/100 ML BOTTLE IV SCH ×2 (12:15→21:30)
[2017-08-06] MEDS: PHENYLEPHRINE DRIP 40 MG/250 ML PREMIX IV SCH (12:16)
[2017-08-06] MEDS: GLIMEPIRIDE 2 MG TABLET PO SCH ×2 (13:30→17:07)
[2017-08-06] MEDS: FUROSEMIDE 40 MG/4 ML VIAL IV SCH ×2 (13:31→16:57)
[2017-08-06] MEDS: LORATADINE 10 MG TABLET PO SCH (13:32)
[2017-08-06] MEDS: SUCRALFATE 1 GM/10 ML UDCUP PO SCH ×4 (13:32→20:11)
[2017-08-06] MEDS: MULTIVITAMIN (CENTRUM) TABLET PO SCH (13:32)
[2017-08-06] MEDS: POLYETHYLENE GLYCOL POWDER 17 GM PACK PO SCH (13:33)
[2017-08-06] MEDS: TAMSULOSIN 0.4 MG CAPSULE PO SCH (13:33)
[2017-08-06] MEDS: METHOCARBAMOL 500 MG TABLET PO SCH ×3 (13:33→20:11)
[2017-08-06] MEDS: OMEGA 3 ACID ETHYL ESTERS 1 GM CAPSULE PO SCH (13:33)
[2017-08-06] MEDS: MAGNESIUM CHLORIDE 64 MG TABLET PO SCH ×2 (13:51→20:11)
[2017-08-06] MEDS: TICAGRELOR 90 MG TABLET PO SCH ×2 (13:51→20:11)
[2017-08-06] MEDS: PANTOPRAZOLE 40 MG TABLET PO SCH (13:51)
[2017-08-06] MEDS: PIPERACILLIN/TAZOBACTAM 3,375 MG in SODIUM CHLORIDE 0.9% 100 ML IV SCH ×2 (13:51→19:49)
[2017-08-06] MEDS: ASPIRIN CHEW 81 MG TABLET PO SCH (13:51)
--- NOTE | 2017-08-06 13:59 | CT Report ---
CT head/brain wo con Indication: Altered mental status. CT BRAIN WITHOUT CONTRAST DLP: 1117 mGy*cm. One or more of the following dose reduction techniques was used: Automated exposure control, adjustment of the mA and/or kV according the patient size, or use of iterative reconstruction techniques. Comparison: 0426 hours today. Date of admission: 08/06/2017. Technique: Axial noncontrast CT images of the brain were obtained. Findings: Endotracheal tube and nasogastric tube are now in the field of view on the towel inspector images. No acute hemorrhage, mass or mass effect present. There is stable appearing generalized atrophy of the brain with continued extensive patchy periventricular small vessel ischemic change noted. There are 3 lacunar infarcts within the left cerebral hemisphere which, in retrospect, were present on the dairy bacteriologist scan but are new since 07/31/2017. Elsewhere, cortical morales-white junction is maintained and the structures of the basal ganglia are well-defined. No new bone lesions. Visualized sinuses are clear. Impression: 1. No acute intracranial pathology when compared to earlier today. 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 2. Significant generalized atrophy and extensive small vessel ischemic change, chronic. PROCEDURE INTERPRETED AT [facility] DEPARTMENT OF RADIOLOGY Final Report Signed by: Dayday Sanz M.D.
[2017-08-06] MEDS: DIGOXIN 0.125 MG TABLET PO SCH (14:55)
--- NOTE | 2017-08-06 16:17 | Neurology Consult Note ---
History of Present Illness History of present illness: Mr. Colvin is a 86 year old right-handed gentleman with past medical history significant for multiple medical problems admitted to the hospital with chest pain and shortness of breath. He was taken to [facility] for emergent cardiac cath. Subsequently he had to have pacemaker placed and he was intubated the same time. CT of the head reveals old left cerebellar infarct nothing new. At the present moment he is waking up and following commands. He is moving all 4 extremities. He is opening his eyes and tracking. Home Medications Medication Instructions Recorded Confirmed Type Aspirin [Ecotrin] 81 mg PO DAILY 08/02/15 07/31/17 History Lisinopril 20 mg PO BID 08/02/15 07/31/17 History Methocarbamol Tab [Robaxin Tab] 500 mg PO TID 08/02/15 07/31/17 History Rivaroxaban [Xarelto] 15 mg PO DAILY W/BREAKFAST 08/02/15 07/31/17 History Glimepiride 4 mg PO BID 11/21/16 07/31/17 History Hydrocodone/Acetaminophen 1 each PO QID 11/21/16 08/03/17 History [Hydrocodon-Acetaminoph 7.5-325] Isosorbide Mononitrate [Isosorbide 30 mg PO DAILY 11/21/16 07/31/17 History Mononitrate ER] Loratadine Tab [Claritin Tab] 10 mg PO DAILY 11/21/16 07/31/17 History Metformin HCl 1,000 mg PO BID 11/21/16 07/31/17 History Metoprolol Tartrate 50 mg PO BID 11/21/16 07/31/17 History Pantoprazole Tab [Protonix Tab] 40 mg PO DAILY 11/21/16 07/31/17 History Sitagliptin Phosphate [Januvia] 50 mg PO DAILY 11/21/16 07/31/17 History Tamsulosin [Flomax] 0.4 mg PO DAILY 11/21/16 07/31/17 History Fish Oil 340-1,000 1 capsule PO DAILY 12/05/16 07/31/17 History Multivit-Min/FA/Lycopen/Lutein 1 each PO DAILY 12/05/16 07/31/17 History [Centrum Silver Tablet] Sucralfate Liquid [Carafate Liquid] 1 gm PO QID 12/05/16 08/03/17 History Famotidine [Pepcid AC] 20 mg PO DAILY 12/06/16 07/31/17 History Allergies Allergy/AdvReac Type Severity Reaction Status Date / Time amitriptyline [From Elavil] Allergy Verified 12/06/16 07:21 gabapentin [From Neurontin] Allergy Verified 12/06/16 07:21 lidocaine Allergy Verified 12/06/16 07:21 Zolpidem [From Ambien] Allergy Verified 08/02/15 08:48 Temazepam [From Restoril] AdvReac Severe UNRESPONSIV Verified 08/01/17 02:18 E ROS unobtainable: due to mental status Medical,Surgical,& Family Hx - Medical History Cardio: History of: Hypertension, [place], Cardiovascular Problems No history of: CHF Psychological: No history of: Anxiety Disorders, ADHD, Behavior Problems, Bipolar Disorder, Depression, Previous Suicide Attempt, Psychiatric/Substance Abuse Tx, Schizophrenia, Violent Behavior, Psychiatric Problems Neurology: No history of: Cerebral Hemorrhage, Cerebrovascular Accident, Peripheral Neuropathy, Seizures HEENT: No history of: Glaucoma Endocrine: History of: Diabetes Mellitus (NIDDM), Dyslipidemia No history of: Diabetes Mellitus (IDDM), Thyroid Disorder, Endocrine Cancer, Endocrine Problems Rheumatology: No history of;: Psoriasis, Sjogrens, Systemic Lupus Erythematosus Respiratory: History of: Intubation No history of: Asthma, Bronchitis, COPD Renal: No history of: Renal (Kidney) Cancer, Dialysis, Renal Failure, Renal Problems Genitourinary: History of: Prostate Problems (ca), Recurring Urinary Tract Infections No history of: Bladder Problem, Kidney Stones, Genitourinary Cancer, Problems Gastrointestinal: History of: GERD, Polyps, GI Problems (hiatal hernia) No history of: Bowel Obstruction, Clostridium Difficile, Crohn's Disease, Diverticulitis/ Diverticulosis, Esophageal Varices, Gastrointestinal Bleed Musculoskeletal: History of: Back/Neck Problems, Degenerative Disk Disease ( severe back problems) No history of: Amputation Hematology: History of: Clotting Problems (xarelto), Blood Disorders No history of: Blood Transfusion Reaction Other: History of: Cancer (prostate) No history of: Anesthesia Reactions, Anaphylaxis, Eczema, HIV, Malignant Hyperthermia, MRSA, Vancomycin-Resistant Enterococci, Skin Problems, Miscellaneous Medical Problems - Surgical History Cardiac Surgeries: Sugical HX of: Femoral-Popliteal Bypass Graft (5 in 2001...) , Cardiac Catheterization (W/ STENT PLACEMENT), Cardiac Surgery (cabg 1999) Patient Denies: Internal Defibrillator, Vascular Access Devices Thoracic Surgeries: Patient denies;: Kidney (Renal Surgery), Lithotripsy, Nephrectomy, Organ Transplant Neurologic Surgeries: Patient denies: Cerebral Hemorrhage, Neurologic Surgery HEENT Surgeries: Surgical HX of: Eye Surgery (cataract surgery), Tonsilectomy & Adenoidectomy Patient denies: Thyroid Surgery Abdominal Surgeries: Surgical HX of: Abdominal Surgery, Appendectomy, Colonoscopy, EGD Patient denies: Cholecystectomy, Gastric Bypass Surgery, Hernia Repair, Splenectomy Reproductive Surgeries: Surgical HX of;: Prostate Surgery (caterizzed) Patient denies;: Breast Surgery, Cystoscopy, Genitourinary Surgery Orthopedic Surgeries: Surgical HX of;: Orthopedic Surgery (degenerative back disease and rods and pins placed), Spinal Surgery (rods and pins placed) - Family History Family History: Reports;: Family Cancer (mother), Family Diabetes (parents), Family Heart Disease (family) Denies;: Family Anesthesia Reaction, Family Hypertension, Family Psychiatric Problems, Family Stroke - Social History Smoking Status: Never smoker Frequency of Alcohol Use: None Type of Drug Use: None Exam - Constitutional Vitals: Period Temp Pulse Resp BP Sys/Torre Pulse Ox Last 24 Hr 97 F-97.6 F 75-122 10-38 71-183/45-110 88-100 Exam: GENERAL: Patient is in no acute distress. NECK: Neck is supple. There is no JVD. No carotid bruits present. No thyroid masses. CVS: First and second heart sounds are normal. There is no S3 present. Regular rate and rhythm. RESPIRATORY: Lungs are clear to auscultation without any rales or rhonchi. ABDOMEN: Soft and non-tender. Bowel sounds are present. There is no hepatosplenomegaly. EXT: There is no palpable edema. Peripheral pulses are present. Skin: No rashes Central Nervous system: General: Keeping his eyes closed on vent Speech: None Comprehension: Fair Facial expressions: Normal Cranial Nerves: Pupils are equally reactive to light. External ocular movements are intact. No facial asymmetry seen. Motor: Bulk and Tone is normal. Strength moving all 4 extremities spontaneously as well as on command Sensory: Unreliable Reflexes: 1+ and symmetrical Cerebellar function: Not tested Toes: Equivocal Gait: Not tested Results - Labs CBC & BMP: 08/06/17 04:17 08/06/17 04:17 Assessment and Plan (1) Altered mental status Status: Resolved Assessment and plan: Likely due to metabolic/cardiac etiologies. No clear evidence of stroke, TIAs, epilepsy or seizures. Continue current antiplatelet agents No new recommendations from neuro standpoint Thank you for the consult Current Visit: Yes Specialty Discharge - Follow Up or Referrals
--- NOTE | 2017-08-06 17:23 | Pulmonology Consult Note ---
Assessment and Plan (1) Acute on chronic combined systolic and diastolic CHF (congestive heart failure) Status: Acute Assessment and plan: Has ejection fraction 45%. Defer to cardiology. Ischemic heart disease and mitral regurgitation Current Visit: Yes (2) Acute respiratory failure Status: Acute Assessment and plan: Presently on ventilator after requiring intubation with pacemaker. Will follow and wean as possible. 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 Now has pacemaker. Current Visit: Yes (4) ST elevation myocardial infarction (STEMI) of inferior wall Status: Acute Assessment and plan: He has a catheterization. Please see cardiology note. Current Visit: Yes History of Present Illness Chief complaint: Respiratory failure History of present illness: Mr. Colvin is a 86 year old male came in after falling with what turned out to be syncope with a facial contusion. He was found to have an acute inferior myocardial infarction. He was taken to the [facility]. Subsequently developed heart block and required a pacemaker. It was felt that bradycardia was the cause of his syncopal episode. At present he is on the ventilator and somewhat hypotensive. 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 Home Medications Medication Instructions Recorded Confirmed Type Aspirin [Ecotrin] 81 mg PO DAILY 08/02/15 07/31/17 History Lisinopril 20 mg PO BID 08/02/15 07/31/17 History Methocarbamol Tab [Robaxin Tab] 500 mg PO TID 08/02/15 07/31/17 History Rivaroxaban [Xarelto] 15 mg PO DAILY W/BREAKFAST 08/02/15 07/31/17 History Glimepiride 4 mg PO BID 11/21/16 07/31/17 History Hydrocodone/Acetaminophen 1 each PO QID 11/21/16 08/03/17 History [Hydrocodon-Acetaminoph 7.5-325] Isosorbide Mononitrate [Isosorbide 30 mg PO DAILY 11/21/16 07/31/17 History Mononitrate ER] Loratadine Tab [Claritin Tab] 10 mg PO DAILY 11/21/16 07/31/17 History Metformin HCl 1,000 mg PO BID 11/21/16 07/31/17 History Metoprolol Tartrate 50 mg PO BID 11/21/16 07/31/17 History Pantoprazole Tab [Protonix Tab] 40 mg PO DAILY 11/21/16 07/31/17 History Sitagliptin Phosphate [Januvia] 50 mg PO DAILY 11/21/16 07/31/17 History Tamsulosin [Flomax] 0.4 mg PO DAILY 11/21/16 07/31/17 History Fish Oil 340-1,000 1 capsule PO DAILY 12/05/16 07/31/17 History Multivit-Min/FA/Lycopen/Lutein 1 each PO DAILY 12/05/16 07/31/17 History [Centrum Silver Tablet] Sucralfate Liquid [Carafate Liquid] 1 gm PO QID 12/05/16 08/03/17 History Famotidine [Pepcid AC] 20 mg PO DAILY 12/06/16 07/31/17 History Allergies Allergy/AdvReac Type Severity Reaction Status Date / Time amitriptyline [From Elavil] Allergy Verified 12/06/16 07:21 gabapentin [From Neurontin] Allergy Verified 12/06/16 07:21 lidocaine Allergy Verified 12/06/16 07:21 Zolpidem [From Ambien] Allergy Verified 08/02/15 08:48 Temazepam [From Restoril] AdvReac Severe UNRESPONSIV Verified 08/01/17 02:18 E ROS unobtainable: due to endotracheal tube, due to mental status Exam (Pulmonay) H&P - Constitutional Vitals: Period Temp Pulse Resp BP Sys/Torre Pulse Ox Last 24 Hr 97 F-97.6 F 75-122 10-38 71-183/45-110 88-100 Exam: Patient is sedated. Pupils react to light. Has a periorbital contusion on the right side. Orotracheal tube is in place. Neck is supple no bruits. Chest sounds essentially clear. Heart rate is around 70 and regular. He has a loud left parasternal murmur. Abdomen soft no masses. Extremities no clubbing cyanosis. Trace of edema. Medical,Surgical,& Family Hx - Medical History Cardio: History of: Hypertension, [place], Cardiovascular Problems No history of: CHF Psychological: No history of: Anxiety Disorders, ADHD, Behavior Problems, Bipolar Disorder, Depression, Previous Suicide Attempt, Psychiatric/Substance Abuse Tx, Schizophrenia, Violent Behavior, Psychiatric Problems Neurology: No history of: Cerebral Hemorrhage, Cerebrovascular Accident, Peripheral Neuropathy, Seizures HEENT: No history of: Glaucoma Endocrine: History of: Diabetes Mellitus (NIDDM), Dyslipidemia No history of: Diabetes Mellitus (IDDM), Thyroid Disorder, Endocrine Cancer, Endocrine Problems Rheumatology: No history of;: Psoriasis, Sjogrens, Systemic Lupus Erythematosus Respiratory: History of: Intubation No history of: Asthma, Bronchitis, COPD Renal: No history of: Renal (Kidney) Cancer, Dialysis, Renal Failure, Renal Problems Genitourinary: History of: Prostate Problems (ca), Recurring Urinary Tract Infections No history of: Bladder Problem, Kidney Stones, Genitourinary Cancer, Problems Gastrointestinal: History of: GERD, Polyps, GI Problems (hiatal hernia) No history of: Bowel Obstruction, Clostridium Difficile, Crohn's Disease, Diverticulitis/ Diverticulosis, Esophageal Varices, Gastrointestinal Bleed Musculoskeletal: History of: Back/Neck Problems, Degenerative Disk Disease ( severe back problems) No history of: Amputation Hematology: History of: Clotting Problems (xarelto), Blood Disorders No history of: Blood Transfusion Reaction Other: History of: Cancer (prostate) No history of: Anesthesia Reactions, Anaphylaxis, Eczema, HIV, Malignant Hyperthermia, MRSA, Vancomycin-Resistant Enterococci, Skin Problems, Miscellaneous Medical Problems - Surgical History Cardiac Surgeries: Sugical HX of: Femoral-Popliteal Bypass Graft (5 in 2001...) , Cardiac Catheterization (W/ STENT PLACEMENT), Cardiac Surgery (cabg 1999) Patient Denies: Internal Defibrillator, Vascular Access Devices Thoracic Surgeries: Patient denies;: Kidney (Renal Surgery), Lithotripsy, Nephrectomy, Organ Transplant Neurologic Surgeries: Patient denies: Cerebral Hemorrhage, Neurologic Surgery HEENT Surgeries: Surgical HX of: Eye Surgery (cataract surgery), Tonsilectomy & Adenoidectomy Patient denies: Thyroid Surgery Abdominal Surgeries: Surgical HX of: Abdominal Surgery, Appendectomy, Colonoscopy, EGD Patient denies: Cholecystectomy, Gastric Bypass Surgery, Hernia Repair, Splenectomy Reproductive Surgeries: Surgical HX of;: Prostate Surgery (caterizzed) Patient denies;: Breast Surgery, Cystoscopy, Genitourinary Surgery Orthopedic Surgeries: Surgical HX of;: Orthopedic Surgery (degenerative back disease and rods and pins placed), Spinal Surgery (rods and pins placed) - Family History Family History: Reports;: Family Cancer (mother), Family Diabetes (parents), Family Heart Disease (family) Denies;: Family Anesthesia Reaction, Family Hypertension, Family Psychiatric Problems, Family Stroke - Social History Smoking Status: Never smoker Frequency of Alcohol Use: None Type of Drug Use: None Results - Labs CBC & BMP: 08/06/17 04:17 08/06/17 04:17 Lab Results: I have reviewed the past 24 hour labs - Diagnostic Findings Procedure: Chest x-ray: image reviewed by me (Mild cardiomegaly. ET tube good position. Central line in good position. Slightly increased interstitial markings in the bases.) Quality Measures - VTE Contraindication to Pharmacological VTE Prophylaxis: High Risk of Bleeding Specialty Discharge - Follow Up or Referrals
--- NOTE | 2017-08-06 18:17 | Urology Consultation ---
Assessment and Plan - Time spent with patient Time spent with patient: Less than 30 minutes (1) Acute urinary retention Status: Acute Assessment and plan: Likely related with urethral trauma, intubation, and BPH. Daniels catheter placed by urology. Immediate drainage of over 600 cc of tavon urine with some hematuria at the termination of stream. Maintain Daniels catheter to gravity. Secured to the right thigh. Would keep patient restrained as more urethral trauma is not needed. Dr. Fabiano Victoria, is established urologist, will see him tomorrow. Current Visit: Yes (2) Gross hematuria Status: Acute Assessment and plan: Consistent with self-inflicted urethral trauma from traumatic removal of inflated Daniels Would maintain Daniels catheter for now to allow tamponade of urethral bleeding. Current Visit: Yes (3) Enlarged prostate with lower urinary tract symptoms (LUTS) Status: Acute Assessment and plan: BPH is chronic per history from his daughter. He will follow up with his established urologist for this. Current Visit: Yes (4) Altered mental status Status: Resolved Assessment and plan: Multiple reasons for this. Sepsis, cerebrovascular disease with acute ischemia , and recent UTI. Is important to keep the patient restrained for self protection. I would leave restraints for now, and consider removing only when the patient is a completely alert and oriented. Current Visit: Yes (5) UTI (urinary tract infection) Status: Acute Assessment and plan: On antibiotics. Urine culture with no growth, but unsure if this was obtained after antibiotics provided. Urinalysis obtained on admission consistent with pyuria. Thanks for the opportunity to participate in the care of this patient. Dr. Fabiano Victoria, his established urologist, will be following him. Current Visit: Yes History of Present Illness - Data of Consult Patient: known to practice within the last 3 years Consult date: 08/06/17 - Consult Narrative History of present illness: Mr. Colvin is a 86 year old male who was admitted with syncope. He was found to have a STEMI and required temporary pacer. He was found to have infection with altered mental status consistent with sepsis. He "became crazy last night and ripped out all of his tubes" including his Daniels catheter. He is currently intubated and has been having blood per urethra today. His Daniels catheter was not replaced last evening. His Daniels catheter was attempted to be replaced by the nursing staff this afternoon, and this was unsuccessful. He continued to have blood per urethra, minimal urine output, and he is intubated. I was called to assist with Daniels placement. He is followed by Dr. aFbiano Victoria. His daughters at the bedside, and she relates his history. He has had a long- standing history of BPH. He is more alert, and follows commands. He had a CT of the head that demonstrates evidence of infarct. He is in restraints, but he has not been pulling at the tube since currently. Nurse reports Daniels balloon was removed about 24 hours ago. This was removed by the patient, with the balloon fully inflated. He continues to have gross hematuria. Urine output has continued decrease. He initially was voiding into a diaper. Urinary retention seems to worsen. CC: Jim Pollock MD Urinary retention, gross hematuria with urethral bleeding status post self- inflicted traumatic Daniels removal - Home Medications and Allergies Home Medications: Home Medications Medication Instructions Recorded Confirmed Type Aspirin [Ecotrin] 81 mg PO DAILY 08/02/15 07/31/17 History Lisinopril 20 mg PO BID 08/02/15 07/31/17 History Methocarbamol Tab [Robaxin Tab] 500 mg PO TID 08/02/15 07/31/17 History Rivaroxaban [Xarelto] 15 mg PO DAILY W/BREAKFAST 08/02/15 07/31/17 History Glimepiride 4 mg PO BID 11/21/16 07/31/17 History Hydrocodone/Acetaminophen 1 each PO QID 11/21/16 08/03/17 History [Hydrocodon-Acetaminoph 7.5-325] Isosorbide Mononitrate [Isosorbide 30 mg PO DAILY 11/21/16 07/31/17 History Mononitrate ER] Loratadine Tab [Claritin Tab] 10 mg PO DAILY 11/21/16 07/31/17 History Metformin HCl 1,000 mg PO BID 11/21/16 07/31/17 History Metoprolol Tartrate 50 mg PO BID 11/21/16 07/31/17 History Pantoprazole Tab [Protonix Tab] 40 mg PO DAILY 11/21/16 07/31/17 History Sitagliptin Phosphate [Januvia] 50 mg PO DAILY 11/21/16 07/31/17 History Tamsulosin [Flomax] 0.4 mg PO DAILY 11/21/16 07/31/17 History Fish Oil 340-1,000 1 capsule PO DAILY 12/05/16 07/31/17 History Multivit-Min/FA/Lycopen/Lutein 1 each PO DAILY 12/05/16 07/31/17 History [Centrum Silver Tablet] Sucralfate Liquid [Carafate Liquid] 1 gm PO QID 12/05/16 08/03/17 History Famotidine [Pepcid AC] 20 mg PO DAILY 12/06/16 07/31/17 History Allergies/Adverse Reactions: Allergies Allergy/AdvReac Type Severity Reaction Status Date / Time amitriptyline [From Elavil] Allergy Verified 12/06/16 07:21 gabapentin [From Neurontin] Allergy Verified 12/06/16 07:21 lidocaine Allergy Verified 12/06/16 07:21 Zolpidem [From Ambien] Allergy Verified 08/02/15 08:48 Temazepam [From Restoril] AdvReac Severe UNRESPONSIV Verified 08/01/17 02:18 E Medical,Surgical,& Family Hx - Medical History Cardio: History of: Hypertension, [place], Cardiovascular Problems No history of: CHF Psychological: No history of: Anxiety Disorders, ADHD, Behavior Problems, Bipolar Disorder, Depression, Previous Suicide Attempt, Psychiatric/Substance Abuse Tx, Schizophrenia, Violent Behavior, Psychiatric Problems Neurology: No history of: Cerebral Hemorrhage, Cerebrovascular Accident, Peripheral Neuropathy, Seizures HEENT: No history of: Glaucoma Endocrine: History of: Diabetes Mellitus (NIDDM), Dyslipidemia No history of: Diabetes Mellitus (IDDM), Thyroid Disorder, Endocrine Cancer, Endocrine Problems Rheumatology: No history of;: Psoriasis, Sjogrens, Systemic Lupus Erythematosus Respiratory: History of: Intubation No history of: Asthma, Bronchitis, COPD Renal: No history of: Renal (Kidney) Cancer, Dialysis, Renal Failure, Renal Problems Genitourinary: History of: Prostate Problems (ca), Recurring Urinary Tract Infections No history of: Bladder Problem, Kidney Stones, Genitourinary Cancer, Problems Gastrointestinal: History of: GERD, Polyps, GI Problems (hiatal hernia) No history of: Bowel Obstruction, Clostridium Difficile, Crohn's Disease, Diverticulitis/ Diverticulosis, Esophageal Varices, Gastrointestinal Bleed Musculoskeletal: History of: Back/Neck Problems, Degenerative Disk Disease ( severe back problems) No history of: Amputation Hematology: History of: Clotting Problems (xarelto), Blood Disorders No history of: Blood Transfusion Reaction Other: History of: Cancer (prostate) No history of: Anesthesia Reactions, Anaphylaxis, Eczema, HIV, Malignant Hyperthermia, MRSA, Vancomycin-Resistant Enterococci, Skin Problems, Miscellaneous Medical Problems - Surgical History Cardiac Surgeries: Sugical HX of: Femoral-Popliteal Bypass Graft (5 in 2001...) , Cardiac Catheterization (W/ STENT PLACEMENT), Cardiac Surgery (cabg 1999) Patient Denies: Internal Defibrillator, Vascular Access Devices Thoracic Surgeries: Patient denies;: Kidney (Renal Surgery), Lithotripsy, Nephrectomy, Organ Transplant Neurologic Surgeries: Patient denies: Cerebral Hemorrhage, Neurologic Surgery HEENT Surgeries: Surgical HX of: Eye Surgery (cataract surgery), Tonsilectomy & Adenoidectomy Patient denies: Thyroid Surgery Abdominal Surgeries: Surgical HX of: Abdominal Surgery, Appendectomy, Colonoscopy, EGD Patient denies: Cholecystectomy, Gastric Bypass Surgery, Hernia Repair, Splenectomy Reproductive Surgeries: Surgical HX of;: Prostate Surgery (caterizzed) Patient denies;: Breast Surgery, Cystoscopy, Genitourinary Surgery Orthopedic Surgeries: Surgical HX of;: Orthopedic Surgery (degenerative back disease and rods and pins placed), Spinal Surgery (rods and pins placed) - Family History Family History: Reports;: Family Cancer (mother), Family Diabetes (parents), Family Heart Disease (family) Denies;: Family Anesthesia Reaction, Family Hypertension, Family Psychiatric Problems, Family Stroke - Social History Smoking Status: Never smoker Frequency of Alcohol Use: None Type of Drug Use: None ROS unobtainable: due to endotracheal tube Exam - Constitutional Vitals: Period Temp Pulse Resp BP Sys/Torre Pulse Ox Last 24 Hr 97 F-98.5 F 75-122 10-38 71-183/45-110 88-100 General appearance: other (Ill-appearing) - Head Head exam: Present: other (Bruising and contusion to the face) - Eye Eye exam: Present: periorbital swelling - ENT ENT exam: Present: other (Endotracheal tube in place) - Neck Neck exam: Absent: lymphadenopathy - Respiratory Respiratory exam: Present: decreased breath sounds, other (Ventilated). Absent : wheezes - Cardiovascular Cardiovascular exam: Present: other (Paced rhythm). Absent: gallop - GI/Abdominal GI/Abdominal exam: Present: normal bowel sounds, distended (Palpable bladder), soft. Absent: tenderness, rebound - Genitourinary Genitourinary: scrotum without lesions, cysts, edema or rash, diffusely enlarged prostate without tenderness (Gross hematuria per urethra, distended bladder), other - Extremities Exam Extremities exam: Present: normal capillary refill, full ROM - Back Exam Back exam: Absent: CVA tenderness (L), CVA tenderness (R) - Neurological Exam Neurological exam: Present: alert, other (Follows commands) - Psychiatric Psychiatric exam: Absent: agitated - Skin Skin exam: Present: warm, petechiae Results - Labs CBC & BMP: 08/06/17 04:17 08/06/17 04:17 Lab Results: I have reviewed the past 24 hour labs Procedures - Catheter Insertion (Urinary) Does patient have: other (Self-inflicted urethral trauma with inability to Place Daniels by nursing staff) Prophylactic antibiotics given: Yes (Currently on antibiotics) Bladder Scan/Ultrasound used before catheterization: No Estimated amount of urin (mLs): 600 Preparation: Povidone-Iodine Type of catheter inserted: 2 way, coude tip Catheter Haitian Size: 18 Catheter Balloon Size (mLs): 10 (Sterile water) Topical anesthesia used: Yes (2% viscous lidocaine (Urojet)) Results: successfully catheterized-immediate flow Patient tolerated procedure: well Specialty Discharge - Follow Up or Referrals
[2017-08-06 18:36] LABS: Apearance,Urine CLOUDY (Clear); Bilirubin,Urine Negative (Negative); Blood, Urine Large mg/dL (Negative); Glucose,Urine (UA) Negative (Negative); Ketones,Urine Negative (Negative); Nitrite,Urine Negative (Negative); Protein,Urine 30 MG/DL; RBC,Urine 2045 /HPF (0-4); Urine Color Yellow (Yellow); Urine Specific Gravity 1.009 (1.001-1.035); Urine Urobilinogen < 2.0 EU/DL (0.2-1.0); WBC,Urine 8 /HPF (0-6)
[2017-08-06 18:49] LABS: Allen Test Positive; Pt O2 Delivery Device Ventilator
[2017-08-06 18:53] LABS: ABG Base Excess 1.7 MMOL/L (-2.5-2.5); ABG HCO3 25.9 MMOL/L (20-26); ABG Oxygen Saturation 97.4 % (95-100); ABG PCO2 33.2 MM HG (35-48); ABG PH 7.483 (7.35-7.45); ABG PO2 93.4 MM HG (80-95); ABG TCO2 22.9 MMOL/L (23-27)
[2017-08-06] MEDS: ATORVASTATIN 20 MG TABLET PO SCH (20:11)
[2017-08-06] MEDS: TEMAZEPAM 15 MG CAPSULE PO SCH (20:11)
[2017-08-06] MEDS: INSULIN GLARGINE 100 UNIT/ML SUBCUT SCH (21:37)
[2017-08-07] MEDS: PHENYLEPHRINE DRIP 40 MG/250 ML PREMIX IV SCH ×4 (00:45→22:31)
[2017-08-07 02:47] LABS: ABG Base Excess 1.3 MMOL/L (-2.5-2.5); ABG HCO3 25.6 MMOL/L (20-26); ABG Oxygen Saturation 98.4 % (95-100); Allen Test Positive; Pt O2 Delivery Device Ventilator
[2017-08-07] MEDS: ALBUTEROL/IPRATROPIUM 3 ML NEB RESP TX SCH ×6 (02:48→22:44)
[2017-08-07] MEDS: PIPERACILLIN/TAZOBACTAM 3,375 MG in SODIUM CHLORIDE 0.9% 100 ML IV SCH ×3 (04:38→20:05)
[2017-08-07 05:37] LABS: Basophils % 0.2 % (0.0-0.8); Eosinophils # 0.2 10*3/uL (0.0-0.87); Eosinophils % 1.3 % (0.00-10.9); Hematocrit 28.4 VOL% (42.0-52.0); Hemoglobin 8.8 GM/DL (14.0-18.0); Immature Granulocytes % 1.9 %; Immature Granulocytes Absolute 0.28 #; Lymphocytes # 1.9 10*3/uL (1.4-4.0); Lymphocytes % 12.8 % (21.2-54.2); Mean Corpuscular Hemoglobin 24 PG (27-34); Mean Corpuscular Volume 76.8 FL (87-102); Mean Platelet Volume 11.2 FL (9.6-12.0); Monocytes # 1.6 10*3/uL (0.11-0.8); Monocytes % 10.6 % (1.7-12.7); NRBC # 0.04 10*3/uL; Neutrophils % 73.2 % (38.7-73.9); Platelet Count 289 T/CUMM (130-400); Red Cell Distribution Width 17.3 % (9.3-17.3)
[2017-08-07] MEDS: PROPOFOL 1,000 MG/100 ML BOTTLE IV SCH ×4 (05:37→23:38)
[2017-08-07 06:12] LABS: Calcium 7.9 MG/DL (8.5-10.1); Magnesium 2.5 MG/DL (1.8-2.4); Potassium 3.9 MMOL/L (3.5-5.1)
--- NOTE | 2017-08-07 07:28 | Pulmonology Progress Note ---
Pulmonary - PN: Subj Interval history: 6-year-old man that had acute coronary syndrome and had a syncopal episode due to AV block. He had a pacemaker placed yesterday and was placed on mechanical ventilation. Remains on the ventilator this morning. We will hold sedation change to IMV and hopefully can get him weaned. Exam (Progress Note) - Constitutional Vitals: Period Temp Pulse Resp BP Sys/Torre Pulse Ox Last 24 Hr 97.1 F-98.5 F 68-122 10-26 71-183/45-110 95-100 Exam: Patient is sedated on the ventilator. Vital signs stable. Pupils react to light. Orotracheal tube in place. Neck is supple no bruits. Chest reveals a few basilar crackles. Heart shows a systolic murmur on the left sternal border. Abdomen is soft nontender no masses. Extremities no clubbing cyanosis 1+ edema. Results - Labs CBC & BMP: 08/07/17 04:45 08/07/17 04:46 Lab Results: I have reviewed the past 24 hour labs - Diagnostic Findings Procedure: Chest x-ray: image reviewed by me (Small effusions. ET tube good position. Pacemaker and central line in good position) Assessment and Plan (1) Acute on chronic combined systolic and diastolic CHF (congestive heart failure) Status: Acute Assessment and plan: Has ejection fraction 45%. Defer to cardiology. Ischemic heart disease and mitral regurgitation 08/07/2017 x-ray looks a little bit less wet today. Needs some diuresis in order to wean. Current Visit: Yes (2) Acute respiratory failure Status: Acute Assessment and plan: Presently on ventilator after requiring intubation with pacemaker. Will follow and wean as possible. 08/07/2017 ABGs look good. Change to IMV and start weaning process. Probably needs to diurese a little more. 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 Now has pacemaker. 08/07/2017 this was due to heart block. Current Visit: Yes (4) ST elevation myocardial infarction (STEMI) of inferior wall Status: Acute Assessment and plan: He had a catheterization. Please see cardiology note. 08/07/2017 defer to cardiology. Had revascularization done with stents 1 week ago. Current Visit: Yes Specialty Discharge - Follow Up or Referrals
--- NOTE | 2017-08-07 08:20 | XRay Report ---
XR chest 1V portable Indication: Ventilator patient Comparison: 06 August 2017 Findings: The heart and mediastinum are stable in size and configuration. The lines and tubes are unchanged in position. The pulmonary vascularity appears improved. No lung infiltrates, effusions, pneumothorax or other abnormality is demonstrated. Impression: Improving pulmonary vascularity. No other significant changes. PROCEDURE INTERPRETED AT [facility] DEPARTMENT OF RADIOLOGY Final Report Signed by: Dr. Gucci Rivas
--- NOTE | 2017-08-07 08:35 | Urology Progress Note ---
Urology - PN: Subj Interval history: See Dr. Musa's consult. Catheters in his urine is clear now. I would leave that until he gets off the floor. Exam - Constitutional Vitals: Period Temp Pulse Resp BP Sys/Torre Pulse Ox Last 24 Hr 97.1 F-98.5 F 68-122 10-26 71-183/45-110 95-100 Results - Labs CBC & BMP: 08/07/17 04:45 08/07/17 04:46 Specialty Discharge - Follow Up or Referrals
[2017-08-07] MEDS: INSULIN REGULAR 100 UNIT/ML SUBCUT SCH ×4 (08:54→21:32)
[2017-08-07] MEDS: GLIMEPIRIDE 2 MG TABLET PO SCH ×2 (09:32→16:46)
[2017-08-07] MEDS: FUROSEMIDE 40 MG/4 ML VIAL IV SCH (09:32)
[2017-08-07] MEDS: ASPIRIN CHEW 81 MG TABLET PO SCH (10:52)
[2017-08-07] MEDS: PANTOPRAZOLE 40 MG VIAL IV SCH (10:52)
[2017-08-07] MEDS: METHOCARBAMOL 500 MG TABLET PO SCH ×3 (10:53→21:31)
[2017-08-07] MEDS: TICAGRELOR 90 MG TABLET PO SCH ×2 (10:53→21:31)
[2017-08-07] MEDS: MAGNESIUM CHLORIDE 64 MG TABLET PO SCH ×3 (10:54→21:44)
[2017-08-07] MEDS: LORATADINE 10 MG TABLET PO SCH (10:54)
[2017-08-07] MEDS: SUCRALFATE 1 GM/10 ML UDCUP PO SCH ×4 (10:54→21:31)
[2017-08-07] MEDS: MULTIVITAMIN (CENTRUM) TABLET PO SCH (10:54)
[2017-08-07] MEDS: TAMSULOSIN 0.4 MG CAPSULE PO SCH (10:54)
[2017-08-07] MEDS: OMEGA 3 ACID ETHYL ESTERS 1 GM CAPSULE PO SCH (10:55)
[2017-08-07] MEDS: POLYETHYLENE GLYCOL POWDER 17 GM PACK PO SCH (10:55)
[2017-08-07] MEDS: predniSONE 20 MG TABLET PO SCH (10:55)
[2017-08-07] MEDS: DIGOXIN 0.125 MG TABLET PO SCH (12:39)
--- NOTE | 2017-08-07 12:44 | Cardiology Progress Note ---
<Ruth Fontenote E - Last Filed: 08/07/17 12:31> Assessment and Plan - Time spent with patient Time spent with patient: Greater than 30 minutes (1) Acute on chronic diastolic CHF (congestive heart failure) Status: Acute Assessment and plan: SEE PLAN OF CARE LISTED BELOW Current Visit: Yes (2) Coronary artery disease Status: Chronic Assessment and plan: SEE PLAN OF CARE LISTED BELOW Current Visit: Yes Qualifiers: Coronary Disease-Associated Artery/Lesion type: barrow artery Three Affiliated vs. transplanted heart: barrow heart Associated angina: with stable angina Qualified Code(s): I25.118 - Atherosclerotic heart disease of barrow coronary artery with other forms of angina pectoris (3) Hypertension Status: Chronic Assessment and plan: SEE PLAN OF CARE LISTED BELOW Current Visit: Yes (4) Chronic atrial fibrillation Status: Chronic Assessment and plan: SEE PLAN OF CARE LISTED BELOW Current Visit: Yes (5) Chronic anticoagulation Status: Chronic Assessment and plan: SEE PLAN OF CARE LISTED BELOW Current Visit: Yes (6) Hyperlipidemia Status: Chronic Assessment and plan: SEE PLAN OF CARE LISTED BELOW Current Visit: Yes (7) Type 2 diabetes mellitus Status: Chronic Assessment and plan: SEE PLAN OF CARE LISTED BELOW Current Visit: Yes (8) Closed head injury Status: Acute Assessment and plan: SEE PLAN OF CARE LISTED BELOW Current Visit: Yes (9) Scalp contusion Status: Acute Assessment and plan: SEE PLAN OF CARE LISTED BELOW Current Visit: Yes (10) Head injury Status: Acute Assessment and plan: SEE PLAN OF CARE LISTED BELOW Current Visit: Yes (11) Skin tear of left forearm without complication Status: Acute Assessment and plan: SEE PLAN OF CARE LISTED BELOW Current Visit: Yes (12) Syncope and collapse Status: Resolved Assessment and plan: SEE PLAN OF CARE LISTED BELOW Current Visit: Yes (13) ST elevation myocardial infarction (STEMI) of inferior wall Status: Acute Assessment and plan: SEE PLAN OF CARE LISTED BELOW Current Visit: Yes (14) UTI (urinary tract infection) Status: Acute Assessment and plan: SEE PLAN OF CARE LISTED BELOW Current Visit: Yes (15) Ischemic cardiomyopathy Status: Chronic Assessment and plan: SEE PLAN OF CARE LISTED BELOW Current Visit: Yes (16) Bradycardia following surgery Status: Acute Assessment and plan: SEE PLAN OF CARE LISTED BELOW Current Visit: Yes (17) At high risk for falls Status: Chronic Assessment and plan: SEE PLAN OF CARE LISTED BELOW Current Visit: Yes (18) Altered mental status Status: Resolved Assessment and plan: SEE PLAN OF CARE LISTED BELOW Current Visit: Yes (19) Advanced age Status: Chronic Assessment and plan: SEE PLAN OF CARE LISTED BELOW Current Visit: Yes (20) Debilitated Status: Chronic Assessment and plan: SEE PLAN OF CARE LISTED BELOW Current Visit: Yes (21) Constipation Status: Acute Assessment and plan: SEE PLAN OF CARE LISTED BELOW Current Visit: Yes (22) Acute kidney injury Status: Acute Assessment and plan: SEE PLAN OF CARE LISTED BELOW Current Visit: Yes (23) Anemia Status: Acute Assessment and plan: SEE PLAN OF CARE LISTED BELOW Current Visit: Yes (24) Respiratory distress Status: Acute Assessment and plan: SEE PLAN OF CARE LISTED BELOW Current Visit: Yes Cardiology - PN: Subj Interval history: COMMERCIAL PEST CONTROL REPRESENTATIVE: DR. CHRISTINE Patient is being seen in the CCU. SUMMARY: Mr. Yusuf, 86WM, with history of known CAD (status post CABG), hypertension, dyslipidemia, diabetes. History of atrial fibrillation on chronic anticoagulation (Xarelto), history of DVT, chronic pain. Patient presented to ED of [facility] July 31, 2017 after experiencing head trauma due to fall related to syncope. EKG revealed inferoposterior STEMI. Underwent emergent CT head to rule out hemorrhage (negative for hemorrhage) prior to proceeding with heart catheterization. Dr. Pollock and took patient to be heart physical laboratory assistant where he required a SRUTHI to vein graft to right coronary artery. (See heart catheterization report). Patient tolerated the actual procedure well. Postoperatively, patient experienced transient third-degree heart block, near syncope, brief episode of spitting up of blood. (It was difficult to ascertain if this came from the stomach or lungs). Also, patient experienced respiratory distress deemed acute on chronic CHF secondary to systolic dysfunction (EF 45-50%) and diastolic dysfunction, NYHA Class IV. Echocardiogram: EF 45-50%, mild to moderate mitral regurgitation, PAP of 38 mmHg. 2016: Over the weekend, patient's creatinine peaked at 2.8 but this morning has improved at 1.9. Low-dose beta-zuleyka was incorporated into the patient's medication regimen over the weekend and he is tolerating this well. Patient was placed on Digoxin over the weekend but due to his worsening creatinine this was held. Heart rate remains 90s to low 100s and I believe it is safe to resume Digoxin at this time. Blood glucose levels are unacceptably high. Will restart Glimepiride now and eventually Metformin if creatinine continues to improve. Holding Xarelto at this time due to need for DAPT and patient's frail condition. Dr. Lux has seen patient and is treating his chronic pain. Patient will need LTAC at discharge. Hopefully, in the next few days patient will be ready for transfer. Will further discuss with Dr. Christine and await additional recommendations. 2016: During the night, patient was short of breath and anxious. Dr. Morrison was called. He was given IV Lasix and a chest x-ray. According to the nurse, patient diuresed relatively well. I have ordered a chest x-ray this morning. Denies chest pain, heaviness or tightness. I spoke with Dr. Christine this afternoon regarding patient's arrhythmia. 2016: Yesterday, patient required temporary pacemaker as patient became hemodynamically unstable. He is requiring pressors at this time, doses are escalating. Dr. Edward is seeing Mr. yusuf for altered mental status. 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 The respiratory distress, required intubation yesterday. Patient did become confused and pulled out many tubes and lines including his Daniels catheter. There was difficulty reinserting the Daniels catheter and urology was required for reinsertion. Lasix is being held at this time given the patient's hypotension and need for escalating doses of pressors. I will further discuss with Dr. Christine and await additional recommendations. ASSESSMENT/PLAN: 1. STEMI, INFERIOR - status post revascularization. Continue Aspirin and Brilinta. 2. CAD S/P CABG - continue Aspirin, Brilinta. Beta blockers and TOO inhibitor being avoided at this time due to hypotension, (TOO inhibitor) renal insufficiency 3. HYPERTENSION - currently hypotensive. 4. DYSLIPIDEMIA - LDL 98. Continue Atorvastatin at 20 mg. Originally, LFTs were slightly elevated but repeating results reveal normalized. 5. DIABETES - adequately controlled at this time. 6. BRADYCARDIA ARRHYTHMIA/ASYSTOLE - now with temporary pacemaker. 7. ATRIAL FIBRILLATION, CHRONIC - previously on Xarelto. Patient will not be a candidate for triple antiplatelet therapy and favor Aspirin, Brilinta for recent CT with PCI with SRUTHI. 8. TANYA - suspect related to hypotension with STEMI, IVP dye use with heart cath, and significant use of diuretics to treat his CHF. Avoiding TOO inhibitor. Creatinine continues to improve. Continue to follow labs daily. 9. UTI - culture and sensitivity revealed no growth. 10. ALTERED MENTAL STATUS - CT Head - no acute event. back to baseline. 11. SYNCOPE - may have been related to arrhythmia versus CT. Stable. 12. HIGH FALLS RISK - protocol in place to prevent falls 13. ANEMIA - stable. Continue DAPT without fail. Daily CBC 14. ICM - long-standing history of ischemic cardiomyopathy. Unable to restart ARB/TOO/betablocker at this time. 15. CHF, ACUTE ON CHRONIC - secondary to systolic dysfunction (EF previously 45 %-50%) and diastolic dysfunction. NYHA class IV. Intubated. Strict I&O, daily weights. 16. CLOSED HEAD INJURY - patient has has 2 CT head scans since admission. Stable. 17. CHRONIC PAIN - will continue home meds to treat his chronic back pain. Appreciate Dr. Lux's management 18. CONSTIPATION - MiraLAX daily, Dulcolax as needed. Constipation has resolved 19. DEBILITATED PATIENT - needs LTAC at discharge. Working with Case Management. 20. RESPIRATORY DISTRESS - now intubated Exam (Progress Note) - Constitutional Vitals: Period Temp Pulse Resp BP Sys/Torre Pulse Ox Last 24 Hr 97.1 F-98.5 F 67-97 12-26 81-128/51-92 95-100 Exam: General: [Appears pale and critically ill. Intubated.] HEENT: [PERRL, multiple lacerations and ecchymotic areas noted to the right face. Mucous membranes moist. No jaundice noted. Conjunctiva moist and clear , sclerae anicteric] Neck: No obvious JVD/HJR, no thyromegaly or lymphadenopathy noted. No carotid bruit appreciated Cardiac: [Regular rate and rhythm.] [II/ holosystolic murmur heard best at fifth intercostal space to the left. Lungs: Decreased sounds throughout without wheezes. Requiring mechanical ventilation. Symmetrical chest wall movements noted. Abdomen: Soft, bowel sounds normoactive. Nontender and nondistended. No abdominal bruit or thrill noted. No masses noted. Musculoskeletal: No fluid collection. Decreased range of motion is noted. Extremities: No clubbing, cyanosis noted. [ No edema noted.] Upper extremity pulses 2+. Lower extremity pulses 1+. Capillary refill less than 3 seconds. Skin: No unusual lesions or rashes other than the ecchymotic areas noted to his face. No skin breakdown appreciated. Neuro: Awakes and becomes aggressive when sedation with health. No essential tremor is appreciated. Result/EKG - Labs CBC & BMP: 08/07/17 04:45 08/07/17 04:46 Lab Results: I have reviewed the past 24 hour labs Labs: Laboratory Results - last 24 hr 08/06/17 08/06/17 08/06/17 12:40 17:03 18:00 WBC RBC Hgb Hct MCV MCH MCHC RDW Plt Count MPV Neut % (Auto) Lymph % (Auto) [place] % (Auto) Eos % (Auto) Baso % (Auto) Neut # (Auto) Lymph # (Auto) [place] # (Auto) Eos # (Auto) Baso # (Auto) Immature Gran % Nucleated RBC % Immature Gran # Nucleated RBCs # Immature Plt Fraction ABG pH ABG pCO2 ABG pO2 ABG HCO3 ABG Total CO2 ABG O2 Saturation ABG Base Excess FiO2 Sodium Potassium Chloride Carbon Dioxide Anion Gap BUN Creatinine GFR Calculation BUN/Creatinine Ratio Glucose POC Glucose 358 H 194 H Calculated Osmolality Calcium Magnesium Urine Color Yellow Urine Appearance Cloudy Urine pH 6.0 Ur Specific [place] 1.009 Urine Protein 30 Urine Glucose (UA) Negative Urine Ketones Negative Urine Blood Large Urine Nitrate Negative Urine Bilirubin Negative Urine Urobilinogen < 2.0 H Urine Leukocytes Negative Urine RBC 2045 Urine WBC 8 Ur Culture Indicated? Results to follow 08/06/17 08/06/17 08/07/17 18:30 20:50 02:50 WBC RBC Hgb Hct MCV MCH MCHC RDW Plt Count MPV Neut % (Auto) Lymph % (Auto) [place] % (Auto) Eos % (Auto) Baso % (Auto) Neut # (Auto) Lymph # (Auto) [place] # (Auto) Eos # (Auto) Baso # (Auto) Immature Gran % Nucleated RBC % Immature Gran # Nucleated RBCs # Immature Plt Fraction ABG pH 7.483 H 7.460 H ABG pCO2 33.2 L 35.0 ABG pO2 93.4 118.0 H ABG HCO3 25.9 25.6 ABG Total CO2 22.9 L 23.0 ABG O2 Saturation 97.4 98.4 ABG Base Excess 1.7 1.3 FiO2 40.00 40.00 Sodium Potassium Chloride Carbon Dioxide Anion Gap BUN Creatinine GFR Calculation BUN/Creatinine Ratio Glucose POC Glucose 180 H Calculated Osmolality Calcium Magnesium Urine Color Urine Appearance Urine pH Ur Specific [place] Urine Protein Urine Glucose (UA) Urine Ketones Urine Blood Urine Nitrate Urine Bilirubin Urine Urobilinogen Urine Leukocytes Urine RBC Urine WBC Ur Culture Indicated? 08/07/17 08/07/17 08/07/17 04:45 04:46 08:27 WBC 15.0 H RBC 3.70 L Hgb 8.8 L Hct 28.4 L MCV 76.8 L MCH 24 L MCHC 31.0 L RDW 17.3 Plt Count 289 MPV 11.2 Neut % (Auto) 73.2 Lymph % (Auto) 12.8 L [place] % (Auto) 10.6 Eos % (Auto) 1.3 Baso % (Auto) 0.2 Neut # (Auto) 11.0 H Lymph # (Auto) 1.9 [place] # (Auto) 1.6 H Eos # (Auto) 0.2 Baso # (Auto) 0.0 Immature Gran % 1.9 Nucleated RBC % 0.3 Immature Gran # 0.28 Nucleated RBCs # 0.04 Immature Plt Fraction 0.0 ABG pH ABG pCO2 ABG pO2 ABG HCO3 ABG Total CO2 ABG O2 Saturation ABG Base Excess FiO2 Sodium 143 Potassium 3.9 Chloride 107 Carbon Dioxide 27 Anion Gap 12.9 BUN 43 H Creatinine 1.60 H GFR Calculation 44 BUN/Creatinine Ratio 26.00 H Glucose 78 POC Glucose 106 Calculated Osmolality 294.0 Calcium 7.9 L Magnesium 2.5 H Urine Color Urine Appearance Urine pH Ur Specific [place] Urine Protein Urine Glucose (UA) Urine Ketones Urine Blood Urine Nitrate Urine Bilirubin Urine Urobilinogen Urine Leukocytes Urine RBC Urine WBC Ur Culture Indicated? 08/07/17 11:37 WBC RBC Hgb Hct MCV MCH MCHC RDW Plt Count MPV Neut % (Auto) Lymph % (Auto) [place] % (Auto) Eos % (Auto) Baso % (Auto) Neut # (Auto) Lymph # (Auto) [place] # (Auto) Eos # (Auto) Baso # (Auto) Immature Gran % Nucleated RBC % Immature Gran # Nucleated RBCs # Immature Plt Fraction ABG pH ABG pCO2 ABG pO2 ABG HCO3 ABG Total CO2 ABG O2 Saturation ABG Base Excess FiO2 Sodium Potassium Chloride Carbon Dioxide Anion Gap BUN Creatinine GFR Calculation BUN/Creatinine Ratio Glucose POC Glucose 115 H Calculated Osmolality Calcium Magnesium Urine Color Urine Appearance Urine pH Ur Specific [place] Urine Protein Urine Glucose (UA) Urine Ketones Urine Blood Urine Nitrate Urine Bilirubin Urine Urobilinogen Urine Leukocytes Urine RBC Urine WBC Ur Culture Indicated? - Diagnostic Findings Procedure: Chest x-ray: report reviewed by me - EKG EKG results: interpreted by me EKG shows: atrial fibrillation Quality Measures - VTE Contraindication to Pharmacological VTE Prophylaxis: High Risk of Bleeding Specialty Discharge - Follow Up or Referrals <Donavan Christine - Last Filed: 08/07/17 13:59> Cardiology - PN: Subj Interval history: I have discussed in detail the particulars of this case and I have examined the patient and reviewed the patient's chart both current and old. I was directly involved in the patient's evaluation and management and I completely agree with Janene Fontenot NP regarding this patient's evaluation and treatment plan. Exam (Progress Note) - Constitutional Vitals: Period Temp Pulse Resp BP Sys/Torre Pulse Ox Last 24 Hr 97.1 F-98.5 F 67-97 12-26 81-128/46-92 95-100 Result/EKG - Labs CBC & BMP: 08/07/17 04:45 08/07/17 04:46 Labs: Laboratory Results - last 24 hr 08/06/17 08/06/17 08/06/17 17:03 18:00 18:30 WBC RBC Hgb Hct MCV MCH MCHC RDW Plt Count MPV Neut % (Auto) Lymph % (Auto) [place] % (Auto) Eos % (Auto) Baso % (Auto) Neut # (Auto) Lymph # (Auto) [place] # (Auto) Eos # (Auto) Baso # (Auto) Immature Gran % Nucleated RBC % Immature Gran # Nucleated RBCs # Immature Plt Fraction ABG pH 7.483 H ABG pCO2 33.2 L ABG pO2 93.4 ABG HCO3 25.9 ABG Total CO2 22.9 L ABG O2 Saturation 97.4 ABG Base Excess 1.7 FiO2 40.00 Sodium Potassium Chloride Carbon Dioxide Anion Gap BUN Creatinine GFR Calculation BUN/Creatinine Ratio Glucose POC Glucose 194 H Calculated Osmolality Calcium Magnesium Urine Color Yellow Urine Appearance Cloudy Urine pH 6.0 Ur Specific [place] 1.009 Urine Protein 30 Urine Glucose (UA) Negative Urine Ketones Negative Urine Blood Large Urine Nitrate Negative Urine Bilirubin Negative Urine Urobilinogen < 2.0 H Urine Leukocytes Negative Urine RBC 2045 Urine WBC 8 Ur Culture Indicated? Results to follow 08/06/17 08/07/17 08/07/17 20:50 02:50 04:45 WBC 15.0 H RBC 3.70 L Hgb 8.8 L Hct 28.4 L MCV 76.8 L MCH 24 L MCHC 31.0 L RDW 17.3 Plt Count 289 MPV 11.2 Neut % (Auto) 73.2 Lymph % (Auto) 12.8 L [place] % (Auto) 10.6 Eos % (Auto) 1.3 Baso % (Auto) 0.2 Neut # (Auto) 11.0 H Lymph # (Auto) 1.9 [place] # (Auto) 1.6 H Eos # (Auto) 0.2 Baso # (Auto) 0.0 Immature Gran % 1.9 Nucleated RBC % 0.3 Immature Gran # 0.28 Nucleated RBCs # 0.04 Immature Plt Fraction 0.0 ABG pH 7.460 H ABG pCO2 35.0 ABG pO2 118.0 H ABG HCO3 25.6 ABG Total CO2 23.0 ABG O2 Saturation 98.4 ABG Base Excess 1.3 FiO2 40.00 Sodium Potassium Chloride Carbon Dioxide Anion Gap BUN Creatinine GFR Calculation BUN/Creatinine Ratio Glucose POC Glucose 180 H Calculated Osmolality Calcium Magnesium Urine Color Urine Appearance Urine pH Ur Specific [place] Urine Protein Urine Glucose (UA) Urine Ketones Urine Blood Urine Nitrate Urine Bilirubin Urine Urobilinogen Urine Leukocytes Urine RBC Urine WBC Ur Culture Indicated? 08/07/17 08/07/17 08/07/17 04:46 08:27 11:37 WBC RBC Hgb Hct MCV MCH MCHC RDW Plt Count MPV Neut % (Auto) Lymph % (Auto) [place] % (Auto) Eos % (Auto) Baso % (Auto) Neut # (Auto) Lymph # (Auto) [place] # (Auto) Eos # (Auto) Baso # (Auto) Immature Gran % Nucleated RBC % Immature Gran # Nucleated RBCs # Immature Plt Fraction ABG pH ABG pCO2 ABG pO2 ABG HCO3 ABG Total CO2 ABG O2 Saturation ABG Base Excess FiO2 Sodium 143 Potassium 3.9 Chloride 107 Carbon Dioxide 27 Anion Gap 12.9 BUN 43 H Creatinine 1.60 H GFR Calculation 44 BUN/Creatinine Ratio 26.00 H Glucose 78 POC Glucose 106 115 H Calculated Osmolality 294.0 Calcium 7.9 L Magnesium 2.5 H Urine Color Urine Appearance Urine pH Ur Specific [place] Urine Protein Urine Glucose (UA) Urine Ketones Urine Blood Urine Nitrate Urine Bilirubin Urine Urobilinogen Urine Leukocytes Urine RBC Urine WBC Ur Culture Indicated?
--- NOTE | 2017-08-07 13:09 | Hospitalist Progress Note ---
Assessment and Plan (1) ST elevation myocardial infarction (STEMI) of inferior wall Status: Acute Assessment and plan: Status post angioplasty and stent of the mid body vein graft to the RCA. Ejection fraction 30-35%, continue aspirin and Brilinta Current Visit: Yes (2) Intermittent complete heart block Status: Acute Assessment and plan: Status post temporary pacemaker Current Visit: Yes (3) Acute kidney injury Status: Acute Assessment and plan: Creatinine improving Current Visit: Yes (4) Anemia Status: Acute Assessment and plan: Hemoglobin hemoglobin dropping but must remain on Brilinta and aspirin due to new stents, continue Protonix Current Visit: Yes (5) Unspecified sleep apnea Status: Acute Assessment and plan: Dr. Baker recommends an outpatient sleep study Current Visit: Yes (6) Ischemic cardiomyopathy Status: Chronic Assessment and plan: Ejection fraction 30-35% Current Visit: Yes (7) Type 2 diabetes mellitus Status: Chronic Assessment and plan: Continue Amaryl bid, and lantus, start tube feeding Current Visit: Yes (8) Acute on chronic combined systolic and diastolic CHF (congestive heart failure) Status: Acute Assessment and plan: She is hypotensive on pressors no blood pressure medicines at this time. Current Visit: Yes (9) COPD exacerbation Status: Acute Assessment and plan: Continue oral prednisone and DuoNeb Current Visit: Yes (10) Leukocytosis Status: Acute Assessment and plan: Leukocytosis persists but is also on oral prednisone. Blood cultures 2 negative no growth, urine culture negative no growth, chest x-ray no evidence of pneumonia. Continue Zosyn for prophylaxis at this time Current Visit: Yes (11) Acute respiratory failure Status: Acute Assessment and plan: History pulmonary edema Lasix on hold due to hypotension Current Visit: Yes (12) Hypotension Status: Acute Assessment and plan: Due to cardiomyopathy and diprivan, doubt sepsis no source Current Visit: Yes (13) Falling Status: Acute Assessment and plan: 3 left cerebellar infarcts on ct, neurology does not see any clear evidence of stroke or TIA or seizures. Current Visit: Yes Hospitalist: Subjective Interval history: Patient's blood pressure remains low and they had to go up on his Rico- Synephrine last night. Patient nurse reports that he follows commands off sedation. Will hold Lasix until seen by cardiology. Exam - Constitutional Vitals: Period Temp Pulse Resp BP Sys/Torre Pulse Ox Last 24 Hr 97.1 F-98.5 F 67-97 12- 81-128/46-92 95-100 Exam: Heart Rate-[RRR] Lungs-[diminished GI-[+bs soft, NT] Ext-[no edema] Neuro sedated and intubated psych sedated and intubated unable to evaluate General [no acute distress] Results - Labs CBC & BMP: 08/07/17 04:45 08/07/17 04:46 Lab Results: I have reviewed the past 24 hour labs - Diagnostic Findings Procedure: Chest x-ray: report reviewed by me (Improving pulmonary edema), CT: report reviewed by me (Head CT 3 left cerebellar hemispheric infarcts have developed but appear chronic on current exam. New since July 31, 2017.) Quality Measures - VTE Contraindication to Pharmacological VTE Prophylaxis: High Risk of Bleeding Specialty Discharge - Follow Up or Referrals
[2017-08-07] MEDS ORDERED: DEXTROSE 50% 25 GM/50 ML SYRINGE IV PRN (15:03)
--- NOTE | 2017-08-07 15:31 | Electrophysiology Progress Not ---
Assessment and Plan (1) Ischemic cardiomyopathy Status: Chronic Assessment and plan: 86-year-old male, ischemic cardiomyopathy, ejection fraction 30-35%, recurrent episodes of complete heart block, syncope, requiring CPR. DNR, quite debilitated. 08/06: temp PM implant -Hypotension, requiring pressors. This may be related to sedation, or sepsis. -We can plan tentatively for permanent pacemaker implantation tomorrow, if this does not appear to be sepsis. I recommend to keep the temporary pacemaker, had multiple episodes of complete heart block, bradycardic cardiac arrest in the past few days. Baseline IVCD, recent ACS. -Keep him intubated for now, in case we can proceed with a pacemaker implant tomorrow Current Visit: Yes (2) Advanced age Status: Chronic Current Visit: Yes (3) Anemia Status: Acute Current Visit: Yes (4) Chronic atrial fibrillation Status: Chronic Current Visit: Yes Electrophysiology Subjective Interval history: He remains intubated, did well on weaning trial. Hypotensive, now requiring pressor support with phenylephrine. WBC remained elevated, flat. No fever. Chest x-ray does not show pneumonia. He is on Zosyn. No recurrence of high-grade AV block last night. Temporary pacemaker in unchanged position on x-ray. Exam - Constitutional Vitals: Period Temp Pulse Resp BP Sys/Torre Pulse Ox Last 24 Hr 97.1 F-98.5 F 67-97 12-28 81-128/46-92 95-100 General appearance: no acute distress, over weight - Head Head exam: Present: normocephalic, atraumatic - Eye Eye exam: Absent: periorbital swelling, laceration to eyelids - ENT ENT exam: Present: normal external ear exam - Neck Neck exam: Present: normal inspection. Absent: thyromegaly - Respiratory Respiratory exam: Present: clear to auscultation bilaterally. Absent: chest wall tenderness - Cardiovascular Cardiovascular exam: Present: irregular rhythm, JVD, systolic murmur - GI/Abdominal GI/Abdominal exam: Present: hypoactive bowel sounds. Absent: distended, firm - Extremities Exam Extremities exam: Present: normal inspection, normal capillary refill, edema (1+ ) - Neurological Exam Neurological exam: Present: other (Unresponsive) - Skin Skin exam: Present: normal color, warm. Absent: cyanosis Results - Labs CBC & BMP: 08/07/17 04:45 09/14/17 04:46 Lab Results: I have reviewed the past 24 hour labs Quality Measures - VTE Contraindication to Pharmacological VTE Prophylaxis: High Risk of Bleeding Specialty Discharge - Follow Up or Referrals
[2017-08-07] MEDS: SODIUM CHLORIDE 0.9% 1,000 ML IV SCH ×2 (15:45→23:51)
[2017-08-07] MEDS: INSULIN GLARGINE 100 UNIT/ML SUBCUT SCH (21:32)
[2017-08-07] MEDS: TEMAZEPAM 15 MG CAPSULE PO SCH (21:32)
[2017-08-07] MEDS: ATORVASTATIN 20 MG TABLET PO SCH (21:34)
[2017-08-08] MEDS: ALBUTEROL/IPRATROPIUM 3 ML NEB RESP TX SCH ×6 (02:37→23:14)
[2017-08-08] MEDS: PIPERACILLIN/TAZOBACTAM 3,375 MG in SODIUM CHLORIDE 0.9% 100 ML IV SCH ×3 (04:10→20:31)
[2017-08-08 04:58] LABS: Basophils % 0.3 % (0.0-0.8); Eosinophils # 0.2 10*3/uL (0.0-0.87); Eosinophils % 1.5 % (0.00-10.9); Hematocrit 28.2 VOL% (42.0-52.0); Hemoglobin 8.6 GM/DL (14.0-18.0); Immature Granulocytes % 1.8 %; Immature Granulocytes Absolute 0.22 #; Lymphocytes # 1.8 10*3/uL (1.4-4.0); Lymphocytes % 14.3 % (21.2-54.2); Mean Corpuscular HGB Conc 30.5 GM/DL (32-36); Mean Corpuscular Hemoglobin 24 PG (27-34); Mean Corpuscular Volume 78.6 FL (87-102); Monocytes # 1.3 10*3/uL (0.11-0.8); Monocytes % 10.2 % (1.7-12.7); NRBC # 0.05 10*3/uL; Neutrophils % 71.9 % (38.7-73.9); Platelet Count 281 T/CUMM (130-400); Red Blood Count 3.59 MC/CUMM (3.8-5.5); Red Cell Distribution Width 17.8 % (9.3-17.3); White Blood Count 12.5 T/CUMM (4-12)
[2017-08-08 05:03] LABS: INR 1.2; PT Patient Result 12.6 SECS; Partial Thromboplastin Time 26.7 SECS (0-40)
[2017-08-08] MEDS: PHENYLEPHRINE DRIP 40 MG/250 ML PREMIX IV SCH ×3 (05:12→21:28)
[2017-08-08 05:22] LABS: Magnesium 2.7 MG/DL (1.8-2.4); Osmolality,Calculated 298.6 MOS/KG (273-304)
[2017-08-08 05:25] LABS: Phosphorous 3.2 MG/DL (2.5-4.9); Prealbumin 15.5 MG/DL (20-40)
[2017-08-08] MEDS ORDERED: ceFAZolin 1,000 MG VIAL IRRIG ONE (07:00)
--- NOTE | 2017-08-08 07:30 | Pulmonology Progress Note ---
Pulmonary - PN: Subj Interval history: 86-year-old man that had acute coronary syndrome and had a syncopal episode due to AV block. He had a pacemaker placed yesterday and was placed on mechanical ventilation. Remains on the ventilator this morning. We will hold sedation change to IMV and hopefully can get him weaned. 08/08/2017 patient did well with weaning trials yesterday. He is about ready to be extubated. He is going for a permanent pacemaker today. We will hold off on extubation until he returns from that. Continuing with CPAP for now. Exam (Progress Note) - Constitutional Vitals: Period Temp Pulse Resp BP Sys/Torre Pulse Ox Last 24 Hr 97.2 F-98.1 F 67-93 12-29 91-126/46-92 97-100 Exam: Patient is sedated on the ventilator. Vital signs stable. Pupils react to light. Orotracheal tube in place. Neck is supple no bruits. Chest reveals a few basilar crackles. Heart shows a systolic murmur on the left sternal border. Abdomen is soft nontender no masses. Extremities no clubbing cyanosis 1+ edema. Little change from yesterday. Results - Labs CBC & BMP: 08/08/17 04:30 08/08/17 04:30 Lab Results: I have reviewed the past 24 hour labs - Diagnostic Findings Procedure: Chest x-ray: image reviewed by me (Mild interstitial edema in the bases. Little change from yesterday. ET tube is about 7 cm above the karis which is a bit high. Will push it in a little further.) Assessment and Plan (1) Acute on chronic combined systolic and diastolic CHF (congestive heart failure) Status: Acute Assessment and plan: Has ejection fraction 45%. Defer to cardiology. Ischemic heart disease and mitral regurgitation 08/07/2017 x-ray looks a little bit less wet today. Needs some diuresis in order to wean. 08/08/2017 seems to be diuresing. Still a little wet. About ready for extubation, however since he is going for permanent pacemaker today will not plan extubation until he is back from that. Current Visit: Yes (2) Acute respiratory failure Status: Acute Assessment and plan: Presently on ventilator after requiring intubation with pacemaker. Will follow and wean as possible. 08/07/2017 ABGs look good. Change to IMV and start weaning process. Probably needs to diurese a little more. 08/08/2017 doing well with weaning process. 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 Now has pacemaker. 08/07/2017 this was due to heart block. 08/08/2017 this was due to heart block. Has temporary pacemaker. Plans are for permanent pacemaker today. Current Visit: Yes (4) ST elevation myocardial infarction (STEMI) of inferior wall Status: Acute Assessment and plan: He had a catheterization. Please see cardiology note. 08/07/2017 defer to cardiology. Had revascularization done with stents 1 week ago. Current Visit: Yes Specialty Discharge - Follow Up or Referrals
[2017-08-08] MEDS: INSULIN REGULAR 100 UNIT/ML SUBCUT SCH ×4 (08:11→21:31)
--- NOTE | 2017-08-08 08:23 | XRay Report ---
Portable chest Exam date: 08/08/2017 319 AM Indication: Shortness of breath, cough Comparison: Previous day at 0313 hours Findings: Cardiomediastinal contours are stable with sternotomy wires at midline and no change in tube or line placement. Bibasilar pleural and parenchymal opacities are unchanged with stable interstitial edema pattern. No acute osseous abnormalities. Visualized upper abdomen demonstrates no acute pathology. Impression: No interval change in the appearance of chest PROCEDURE INTERPRETED AT [facility] DEPARTMENT OF RADIOLOGY Final Report Signed by: Luciano Samuel
--- NOTE | 2017-08-08 08:38 | EKG Report ---
Stationary ECG Study [facility] Test Date: 08/08/2017 8:19:59 AM Pat Name: IOANA GATES Department: Room: 123 Gender: M Manager Environmental Affairs: SISI : 1930 Requested by: Geovanni Morrison Order Number: [id number] Reading MD: TIARRA BRANDON Intervals Rogers Rate: 70 P: 82 ND: 206 QRS: 8 QRSD: 122 T: -83 QT: 424 QTc: 445 Interpretive Statements SINUS RHYTHM WITH OCCASIONAL SUPRAVENTRICULAR PREMATURE COMPLEXES MODERATE INTRAVENTRICULAR CONDUCTION DELAY ST DEVIATION AND MODERATE T-WAVE ABNORMALITY, CONSIDER INFERIOR ISCHEMIA Electronically Signed On 08-08-17 17:09:05 CDT by TIARRA BRANDON [email or web address]
[2017-08-08] MEDS: PANTOPRAZOLE 40 MG VIAL IV SCH (08:39)
[2017-08-08] MEDS: SUCRALFATE 1 GM/10 ML UDCUP PO SCH ×4 (08:40→21:31)
[2017-08-08] MEDS: TAMSULOSIN 0.4 MG CAPSULE PO SCH (08:40)
[2017-08-08] MEDS: ASPIRIN CHEW 81 MG TABLET PO SCH (08:40)
[2017-08-08] MEDS: LORATADINE 10 MG TABLET PO SCH (08:40)
[2017-08-08] MEDS: GLIMEPIRIDE 2 MG TABLET PO SCH ×2 (08:40→19:10)
[2017-08-08] MEDS: predniSONE 20 MG TABLET PO SCH (08:40)
[2017-08-08] MEDS: METHOCARBAMOL 500 MG TABLET PO SCH ×3 (08:40→21:31)
[2017-08-08] MEDS: TICAGRELOR 90 MG TABLET PO SCH ×2 (08:40→21:31)
[2017-08-08] MEDS: POLYETHYLENE GLYCOL POWDER 17 GM PACK PO SCH (08:40)
[2017-08-08] MEDS: MAGNESIUM CHLORIDE 64 MG TABLET PO SCH (08:41)
[2017-08-08] MEDS: SODIUM CHLORIDE 0.9% 1,000 ML IV SCH (08:43)
--- NOTE | 2017-08-08 09:07 | XRay Report ---
XR chest 1V portable Indication: Ventilator patient Comparison: 08 August 2017 at 3:19 AM Findings: The heart and mediastinum are stable in size and configuration. Endotracheal tube is been advanced and tip lies at the clavicle level. Remaining support structures are unchanged in appearance. The pulmonary vascularity appears slightly improved. Faint basilar lung densities are present similar to previous. No other lung infiltrates, effusions, pneumothorax or other abnormality is demonstrated. Impression: Endotracheal tube advanced the clavicle level. Slight improvement of pulmonary vascularity. PROCEDURE INTERPRETED AT [facility] DEPARTMENT OF RADIOLOGY Final Report Signed by: Dr. Gucci Rivas
[2017-08-08] MEDS: PROPOFOL 1,000 MG/100 ML BOTTLE IV SCH ×2 (09:35→21:29)
--- NOTE | 2017-08-08 11:05 | Cardiology Progress Note ---
<Janene Fontenot E - Last Filed: 08/08/17 10:55> Assessment and Plan - Time spent with patient Time spent with patient: Greater than 30 minutes (1) Acute on chronic diastolic CHF (congestive heart failure) Status: Resolved Assessment and plan: SEE PLAN OF CARE LISTED BELOW Current Visit: Yes (2) Coronary artery disease Status: Chronic Assessment and plan: SEE PLAN OF CARE LISTED BELOW Current Visit: Yes Qualifiers: Coronary Disease-Associated Artery/Lesion type: [place] artery [place] vs. transplanted heart: [place] heart Associated angina: with stable angina Qualified Code(s): I25.118 - Atherosclerotic heart disease of [place] coronary artery with other forms of angina pectoris (3) Chronic atrial fibrillation Status: Chronic Assessment and plan: SEE PLAN OF CARE LISTED BELOW Current Visit: Yes (4) Hyperlipidemia Status: Chronic Assessment and plan: SEE PLAN OF CARE LISTED BELOW Current Visit: Yes (5) Type 2 diabetes mellitus Status: Chronic Assessment and plan: SEE PLAN OF CARE LISTED BELOW Current Visit: Yes (6) Closed head injury Status: Acute Assessment and plan: SEE PLAN OF CARE LISTED BELOW Current Visit: Yes (7) Head injury Status: Acute Assessment and plan: SEE PLAN OF CARE LISTED BELOW Current Visit: Yes (8) Syncope and collapse Status: Resolved Assessment and plan: SEE PLAN OF CARE LISTED BELOW Current Visit: Yes (9) ST elevation myocardial infarction (STEMI) of inferior wall Status: Resolved Assessment and plan: SEE PLAN OF CARE LISTED BELOW Current Visit: Yes (10) Ischemic cardiomyopathy Status: Chronic Assessment and plan: SEE PLAN OF CARE LISTED BELOW Current Visit: Yes (11) Bradycardia following surgery Status: Acute Assessment and plan: SEE PLAN OF CARE LISTED BELOW Current Visit: Yes (12) Altered mental status Status: Resolved Assessment and plan: SEE PLAN OF CARE LISTED BELOW Current Visit: Yes (13) Advanced age Status: Chronic Assessment and plan: SEE PLAN OF CARE LISTED BELOW Current Visit: Yes (14) Debilitated Status: Chronic Assessment and plan: SEE PLAN OF CARE LISTED BELOW Current Visit: Yes (15) Acute kidney injury Status: Acute Assessment and plan: SEE PLAN OF CARE LISTED BELOW Current Visit: Yes (16) Anemia Status: Acute Assessment and plan: SEE PLAN OF CARE LISTED BELOW Current Visit: Yes (17) Respiratory distress Status: Acute Assessment and plan: SEE PLAN OF CARE LISTED BELOW Current Visit: Yes Cardiology - PN: Subj Interval history: 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 CHRISTINE Patient is being seen in the CCU. SUMMARY: Mr. Yusuf, 86WM, with history of known CAD (status post CABG), hypertension, dyslipidemia, diabetes. History of atrial fibrillation on chronic anticoagulation (Xarelto), history of DVT, chronic pain. Patient presented to ED of [facility] July 31, 2017 after experiencing head trauma due to fall related to syncope. EKG revealed inferoposterior STEMI. Underwent emergent CT head to rule out hemorrhage (negative for hemorrhage) prior to proceeding with heart catheterization. Dr. Pollock and took patient to be heart skilled laborer where he required a SRUTHI to vein graft to right coronary artery. (See heart catheterization report). Patient tolerated the actual procedure well. Postoperatively, patient experienced transient third-degree heart block, near syncope, brief episode of spitting up of blood. (It was difficult to ascertain if this came from the stomach or lungs). Also, patient experienced respiratory distress deemed acute on chronic CHF secondary to systolic dysfunction (EF 45-50%) and diastolic dysfunction, NYHA Class IV. Echocardiogram: EF 45-50%, mild to moderate mitral regurgitation, PAP of 38 mmHg. 2016: Over the weekend, patient's creatinine peaked at 2.8 but this morning has improved at 1.9. Low-dose beta-zuleyka was incorporated into the patient's medication regimen over the weekend and he is tolerating this well. Patient was placed on Digoxin over the weekend but due to his worsening creatinine this was held. Heart rate remains 90s to low 100s and I believe it is safe to resume Digoxin at this time. Blood glucose levels are unacceptably high. Will restart Glimepiride now and eventually Metformin if creatinine continues to improve. Holding Xarelto at this time due to need for DAPT and patient's frail condition. Dr. Lux has seen patient and is treating his chronic pain. Patient will need LTAC at discharge. Hopefully, in the next few days patient will be ready for transfer. Will further discuss with Dr. Christine and await additional recommendations. 2016: During the night, patient was short of breath and anxious. Dr. Morrison was called. He was given IV Lasix and a chest x-ray. According to the nurse, patient diuresed relatively well. I have ordered a chest x-ray this morning. Denies chest pain, heaviness or tightness. I spoke with Dr. Christine this afternoon regarding patient's arrhythmia. 2016: Yesterday, patient required temporary pacemaker as patient became hemodynamically unstable. He is requiring pressors at this time, doses are escalating. Dr. Edward is seeing Mr. yusuf for altered mental status. 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 The respiratory distress, required intubation yesterday. Patient did become confused and pulled out many tubes and lines including his Daniels catheter. There was difficulty reinserting the Daniels catheter and urology was required for reinsertion. Lasix is being held at this time given the patient's hypotension and need for escalating doses of pressors. I will further discuss with Dr. Christine and await additional recommendations. 2016: Only minimal improvement overnight. Chest x-ray basically unchanged overnight. Remains afebrile and white blood cell count is decreasing. Holding off on permanent pacemaker implantation until patient's condition improves. No high-grade block noted overnight. Echocardiogram has been ordered this morning to rule out pericardial effusion as patient remains on pressors (Phenylephrine 100 mcg/min) overnight. Apparently did well with weaning trials yesterday. Extubation was considered for this morning however at that point he was also being considered for permanent pacemaker implantation. Aspirin, Brilinta, Atorvastatin continue. Will further discuss with Dr. Christine and await additional recommendations. ASSESSMENT/PLAN: 1. STEMI, INFERIOR - status post revascularization. Continue Aspirin and Brilinta. 2. CAD S/P CABG - continue Aspirin, Brilinta as we continue to watch labs daily. Unfortunately, no betablockers or TOO/ARB on board due to hypotension. 3. HYPOTENSION - being treated with antibiotics. No obvious source of infection identified. Echo this morning to rule-out pericardial effusion. 4. DYSLIPIDEMIA - LDL 98. Continue Atorvastatin at 20 mg. Originally, LFTs were slightly elevated but repeating results reveal normalized. 5. DIABETES - adequately controlled at this time. 6. BRADYCARDIA ARRHYTHMIA/ASYSTOLE - now with temporary pacemaker. 7. ATRIAL FIBRILLATION, CHRONIC - previously on Xarelto. Patient will not be a candidate for triple antiplatelet therapy and favor Aspirin, Brilinta for recent TX with PCI with SRUTHI. 8. TANYA - resolved. Suspect related to hypotension with STEMI, IVP dye use with heart cath, and significant use of diuretics to treat his CHF. May eventually be able to tolerate TOO/ARB prior to discharge if creatinine remains normal and hypotension resolves. 9. ALTERED MENTAL STATUS - CT Head - no acute event. 10. SYNCOPE - may have been related to arrhythmia versus TX. Stable. 11. HIGH FALLS RISK - protocol in place to prevent falls 12. ANEMIA - stable. Continue DAPT without fail. Daily CBC 13. ICM - long-standing history of ischemic cardiomyopathy. Unable to restart ARB/TOO/betablocker at this time. 14. CHF, ACUTE ON CHRONIC - secondary to systolic dysfunction (EF previously 45 %-50%) and diastolic dysfunction. NYHA class IV. Intubated. Strict I&O, daily weights. CHF has resolved at this time. 15. CLOSED HEAD INJURY - patient has had several CT head scans since admission. Stable. 16. DEBILITATED PATIENT - needs LTAC at discharge. Working with Case Management. 17. RESPIRATORY DISTRESS - now intubated but weaning trials in progress. Exam (Progress Note) - Constitutional Vitals: Period Temp Pulse Resp BP Sys/Torre Pulse Ox Last 24 Hr 97.2 F-98.1 F 68-88 12-30 91-126/46-71 97-100 Exam: General: [Appears pale and critically ill. Intubated.] HEENT: [Mmultiple lacerations and ecchymotic areas noted to the right face. Mucous membranes moist. No jaundice noted. Conjunctiva moist and clear, sclerae anicteric] Neck: No obvious JVD/HJR, no thyromegaly or lymphadenopathy noted. No carotid bruit appreciated. No tracheal deviation noted. Cardiac: [Regular rate and rhythm.] [II/ holosystolic murmur heard best at fifth intercostal space to the left. Lungs: Decreased sounds throughout without wheezes. Requiring mechanical ventilation. Symmetrical chest wall movements noted. Abdomen: Soft, bowel sounds normoactive. Nontender and nondistended. No abdominal bruit or thrill noted. No masses noted. Musculoskeletal: No fluid collection. Decreased range of motion is noted. Extremities: No clubbing, cyanosis noted. [ Trace bilateral lower extremity edema noted.] Upper extremity pulses 2+. Lower extremity pulses 1+. Capillary refill less than 3 seconds. Right groin soft without hematoma noted. Skin: No unusual lesions or rashes other than the ecchymotic areas noted to his face. No skin breakdown appreciated. Neuro: Awakes and becomes aggressive when sedation with health. No essential tremor is appreciated. Result/EKG - Labs CBC & BMP: 08/08/17 04:30 08/08/17 04:30 Lab Results: I have reviewed the past 24 hour labs Labs: Laboratory Results - last 24 hr 08/07/17 08/07/17 08/07/17 11:37 16:29 20:48 WBC RBC Hgb Hct MCV MCH MCHC RDW Plt Count MPV Neut % (Auto) Lymph % (Auto) Gregg % (Auto) Eos % (Auto) Baso % (Auto) Neut # (Auto) Lymph # (Auto) Gregg # (Auto) Eos # (Auto) Baso # (Auto) Immature Gran % Nucleated RBC % Immature Gran # Nucleated RBCs # Immature Plt Fraction INR PT Patient/Control Mix Circ Anticoag PTT Sodium Potassium Chloride Carbon Dioxide Anion Gap BUN Creatinine GFR Calculation BUN/Creatinine Ratio Glucose POC Glucose 115 H 220 H 221 H Calculated Osmolality Calcium Phosphorus Magnesium Prealbumin 08/07/17 08/08/17 08/08/17 23:51 04:30 04:30 WBC 12.5 H RBC 3.59 L Hgb 8.6 L Hct 28.2 L MCV 78.6 L MCH 24 L MCHC 30.5 L RDW 17.8 H Plt Count 281 MPV 11.0 Neut % (Auto) 71.9 Lymph % (Auto) 14.3 L Gregg % (Auto) 10.2 Eos % (Auto) 1.5 Baso % (Auto) 0.3 Neut # (Auto) 9.0 H Lymph # (Auto) 1.8 Gregg # (Auto) 1.3 H Eos # (Auto) 0.2 Baso # (Auto) 0.0 Immature Gran % 1.8 Nucleated RBC % 0.4 Immature Gran # 0.22 Nucleated RBCs # 0.05 Immature Plt Fraction 0.0 INR PT Patient/Control Mix Circ Anticoag PTT Sodium 146 H Potassium 4.0 Chloride 112 H Carbon Dioxide 26 Anion Gap 12.0 BUN 35 H Creatinine 1.30 GFR Calculation 57 BUN/Creatinine Ratio 26.00 H Glucose 121 H POC Glucose 232 H Calculated Osmolality 298.6 Calcium 8.0 L Phosphorus Magnesium 2.7 H Prealbumin 08/08/17 08/08/17 08/08/17 04:30 04:30 07:17 WBC RBC Hgb Hct MCV MCH MCHC RDW Plt Count MPV Neut % (Auto) Lymph % (Auto) Gregg % (Auto) Eos % (Auto) Baso % (Auto) Neut # (Auto) Lymph # (Auto) Gregg # (Auto) Eos # (Auto) Baso # (Auto) Immature Gran % Nucleated RBC % Immature Gran # Nucleated RBCs # Immature Plt Fraction INR 1.2 PT Patient/Control Mix 12.6 D Circ Anticoag PTT 26.7 Sodium Potassium Chloride Carbon Dioxide Anion Gap BUN Creatinine GFR Calculation BUN/Creatinine Ratio Glucose POC Glucose 140 H Calculated Osmolality Calcium Phosphorus 3.2 Magnesium Prealbumin 15.5 L - Diagnostic Findings Procedure: Chest x-ray: report reviewed by me - EKG EKG results: interpreted by me EKG shows: sinus rhythm Quality Measures - VTE Contraindication to Pharmacological VTE Prophylaxis: High Risk of Bleeding Specialty Discharge - Follow Up or Referrals <Donavan Christine - Last Filed: 08/08/17 16:38> Cardiology - PN: Subj Interval history: I have discussed in detail the particulars of this case and I have examined the patient and reviewed the patient's chart both current and old. I was directly involved in the patient's evaluation and management and I completely agree with Janene Fontenot NP regarding this patient's evaluation and treatment plan. 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 I do not see flail of the valve but he has got significant MR which likely is resulting in the hemodynamic issues were dealing with currently. His prognosis is poor Exam (Progress Note) - Constitutional Vitals: Period Temp Pulse Resp BP Sys/Torre Pulse Ox Last 24 Hr 97.2 F-98.1 F 68-115 12-34 96-126/54-79 97-100 Result/EKG - Labs CBC & BMP: 08/08/17 04:30 08/08/17 04:30 Labs: Laboratory Results - last 24 hr 08/07/17 08/07/17 08/07/17 16:29 20:48 23:51 WBC RBC Hgb Hct MCV MCH MCHC RDW Plt Count MPV Neut % (Auto) Lymph % (Auto) Gregg % (Auto) Eos % (Auto) Baso % (Auto) Neut # (Auto) Lymph # (Auto) Gregg # (Auto) Eos # (Auto) Baso # (Auto) Immature Gran % Nucleated RBC % Immature Gran # Nucleated RBCs # Immature Plt Fraction INR PT Patient/Control Mix Circ Anticoag PTT Sodium Potassium Chloride Carbon Dioxide Anion Gap BUN Creatinine GFR Calculation BUN/Creatinine Ratio Glucose POC Glucose 220 H 221 H 232 H Calculated Osmolality Calcium Phosphorus Magnesium Prealbumin 08/08/17 08/08/17 08/08/17 04:30 04:30 04:30 WBC 12.5 H RBC 3.59 L Hgb 8.6 L Hct 28.2 L MCV 78.6 L MCH 24 L MCHC 30.5 L RDW 17.8 H Plt Count 281 MPV 11.0 Neut % (Auto) 71.9 Lymph % (Auto) 14.3 L Gregg % (Auto) 10.2 Eos % (Auto) 1.5 Baso % (Auto) 0.3 Neut # (Auto) 9.0 H Lymph # (Auto) 1.8 Gregg # (Auto) 1.3 H Eos # (Auto) 0.2 Baso # (Auto) 0.0 Immature Gran % 1.8 Nucleated RBC % 0.4 Immature Gran # 0.22 Nucleated RBCs # 0.05 Immature Plt Fraction 0.0 INR PT Patient/Control Mix Circ Anticoag PTT Sodium 146 H Potassium 4.0 Chloride 112 H Carbon Dioxide 26 Anion Gap 12.0 BUN 35 H Creatinine 1.30 GFR Calculation 57 BUN/Creatinine Ratio 26.00 H Glucose 121 H POC Glucose Calculated Osmolality 298.6 Calcium 8.0 L Phosphorus 3.2 Magnesium 2.7 H Prealbumin 15.5 L 08/08/17 08/08/17 08/08/17 04:30 07:17 11:47 WBC RBC Hgb Hct MCV MCH MCHC RDW Plt Count MPV Neut % (Auto) Lymph % (Auto) Gregg % (Auto) Eos % (Auto) Baso % (Auto) Neut # (Auto) Lymph # (Auto) Gregg # (Auto) Eos # (Auto) Baso # (Auto) Immature Gran % Nucleated RBC % Immature Gran # Nucleated RBCs # Immature Plt Fraction INR 1.2 PT Patient/Control Mix 12.6 D Circ Anticoag PTT 26.7 Sodium Potassium Chloride Carbon Dioxide Anion Gap BUN Creatinine GFR Calculation BUN/Creatinine Ratio Glucose POC Glucose 140 H 209 H Calculated Osmolality Calcium Phosphorus Magnesium Prealbumin 08/08/17 16:18 WBC RBC Hgb Hct MCV MCH MCHC RDW Plt Count MPV Neut % (Auto) Lymph % (Auto) Gregg % (Auto) Eos % (Auto) Baso % (Auto) Neut # (Auto) Lymph # (Auto) Gregg # (Auto) Eos # (Auto) Baso # (Auto) Immature Gran % Nucleated RBC % Immature Gran # Nucleated RBCs # Immature Plt Fraction INR PT Patient/Control Mix Circ Anticoag PTT Sodium Potassium Chloride Carbon Dioxide Anion Gap BUN Creatinine GFR Calculation BUN/Creatinine Ratio Glucose POC Glucose 254 H Calculated Osmolality Calcium Phosphorus Magnesium Prealbumin
--- NOTE | 2017-08-08 12:35 | Urology Progress Note ---
Urology - PN: Subj Interval history: Patient is still on the ventilator. He has a catheter urine is clear and stable from a standpoint. I will check back next week. Exam - Constitutional Vitals: Period Temp Pulse Resp BP Sys/Torre Pulse Ox Last 24 Hr 97.2 F-98.1 F 68-100 12-30 100-126/46-71 98-100 Results - Labs CBC & BMP: 08/08/17 04:30 08/08/17 04:30 Specialty Discharge - Follow Up or Referrals
[2017-08-08] MEDS: DIGOXIN 0.125 MG TABLET PO SCH (12:49)
--- NOTE | 2017-08-08 13:30 | Infectious Disease Consult ---
Assessment and Plan (1) Shock circulatory Status: Acute Assessment and plan: Not sure if this is due to sepsis. No fever or obvious focus of infection. May be cardiogenic. Recommendations: I will leave the patient on current antibiotic therapy (Zosyn) . Follow-up pending blood cultures and adjust accordingly. Thank you very much for the consult. Will follow. Discussed with Dr. Chase Current Visit: Yes (2) Acute on chronic combined systolic and diastolic CHF (congestive heart failure) Status: Acute Current Visit: Yes (3) Intermittent complete heart block Status: Acute Current Visit: Yes (4) Coronary artery disease Status: Chronic Current Visit: Yes Qualifiers: Coronary Disease-Associated Artery/Lesion type: [place] artery [place] vs. transplanted heart: [place] heart Associated angina: with stable angina Qualified Code(s): I25.118 - Atherosclerotic heart disease of [place] coronary artery with other forms of angina pectoris (5) Type 2 diabetes mellitus Status: Chronic Current Visit: Yes History of Present Illness Chief complaint: Possible septic shock History of present illness: Mr. Colvin is a 86 year old male with multiple comorbids including cardiac dysrhythmia has been in hospital for the past week. He is on the vent following the cardiac arrest due to an arrhythmia. Patient has been on 2 vasopressors but nurse is now able to titrate them down. He has not had any fever at all. No report of increased endotracheal secretions, he has diarrhea but is getting stool softeners, he does not have any open wounds. He has a temporary pacemaker in situ since 2 days ago in the right subclavian area. Home Medications Medication Instructions Recorded Confirmed Type Aspirin [Ecotrin] 81 mg PO DAILY 08/02/15 07/31/17 History Lisinopril 20 mg PO BID 08/02/15 07/31/17 History Methocarbamol Tab [Robaxin Tab] 500 mg PO TID 08/02/15 07/31/17 History Rivaroxaban [Xarelto] 15 mg PO DAILY W/BREAKFAST 08/02/15 07/31/17 History Glimepiride 4 mg PO BID 11/21/16 07/31/17 History Hydrocodone/Acetaminophen 1 each PO QID 11/21/16 08/03/17 History [Hydrocodon-Acetaminoph 7.5-325] Isosorbide Mononitrate [Isosorbide 30 mg PO DAILY 11/21/16 07/31/17 History Mononitrate ER] Loratadine Tab [Claritin Tab] 10 mg PO DAILY 11/21/16 07/31/17 History Metformin HCl 1,000 mg PO BID 11/21/16 07/31/17 History Metoprolol Tartrate 50 mg PO BID 11/21/16 07/31/17 History Pantoprazole Tab [Protonix Tab] 40 mg PO DAILY 11/21/16 07/31/17 History Sitagliptin Phosphate [Januvia] 50 mg PO DAILY 11/21/16 07/31/17 History Tamsulosin [Flomax] 0.4 mg PO DAILY 11/21/16 07/31/17 History Fish Oil 340-1,000 1 capsule PO DAILY 12/05/16 07/31/17 History Multivit-Min/FA/Lycopen/Lutein 1 each PO DAILY 12/05/16 07/31/17 History [Centrum Silver Tablet] Sucralfate Liquid [Carafate Liquid] 1 gm PO QID 12/05/16 08/03/17 History Famotidine [Pepcid AC] 20 mg PO DAILY 12/06/16 07/31/17 History Allergies Allergy/AdvReac Type Severity Reaction Status Date / Time amitriptyline [From Elavil] Allergy Verified 12/06/16 07:21 gabapentin [From Neurontin] Allergy Verified 12/06/16 07:21 lidocaine Allergy Verified 12/06/16 07:21 Zolpidem [From Ambien] Allergy Verified 08/02/15 08:48 Temazepam [From Restoril] AdvReac Severe UNRESPONSIV Verified 08/01/17 02:18 E ROS unobtainable: due to mental status Medical,Surgical,& Family Hx - Medical History Cardio: History of: Hypertension, [place], Cardiovascular Problems No history of: CHF Psychological: No history of: Anxiety Disorders, ADHD, Behavior Problems, Bipolar Disorder, Depression, Previous Suicide Attempt, Psychiatric/Substance Abuse Tx, Schizophrenia, Violent Behavior, Psychiatric Problems Neurology: No history of: Cerebral Hemorrhage, Cerebrovascular Accident, Peripheral Neuropathy, Seizures HEENT: No history of: Glaucoma Endocrine: History of: Diabetes Mellitus (NIDDM), Dyslipidemia No history of: Diabetes Mellitus (IDDM), Thyroid Disorder, Endocrine Cancer, Endocrine Problems Rheumatology: No history of;: Psoriasis, Sjogrens, Systemic Lupus Erythematosus Respiratory: History of: Intubation No history of: Asthma, Bronchitis, COPD Renal: No history of: Renal (Kidney) Cancer, Dialysis, Renal Failure, Renal Problems Genitourinary: History of: Prostate Problems (ca), Recurring Urinary Tract Infections No history of: Bladder Problem, Kidney Stones, Genitourinary Cancer, Problems Gastrointestinal: History of: GERD, Polyps, GI Problems (hiatal hernia) No history of: Bowel Obstruction, Clostridium Difficile, Crohn's Disease, Diverticulitis/ Diverticulosis, Esophageal Varices, Gastrointestinal Bleed Musculoskeletal: History of: Back/Neck Problems, Degenerative Disk Disease ( severe back problems) No history of: Amputation Hematology: History of: Clotting Problems (xarelto), Blood Disorders No history of: Blood Transfusion Reaction Other: History of: Cancer (prostate) No history of: Anesthesia Reactions, Anaphylaxis, Eczema, HIV, Malignant Hyperthermia, MRSA, Vancomycin-Resistant Enterococci, Skin Problems, Miscellaneous Medical Problems - Surgical History Cardiac Surgeries: Sugical HX of: Femoral-Popliteal Bypass Graft (5 in 2001...) , Cardiac Catheterization (W/ STENT PLACEMENT), Cardiac Surgery (cabg 1999) Patient Denies: Internal Defibrillator, Vascular Access Devices Thoracic Surgeries: Patient denies;: Kidney (Renal Surgery), Lithotripsy, Nephrectomy, Organ Transplant Neurologic Surgeries: Patient denies: Cerebral Hemorrhage, Neurologic Surgery HEENT Surgeries: Surgical HX of: Eye Surgery (cataract surgery), Tonsilectomy & Adenoidectomy Patient denies: Thyroid Surgery Abdominal Surgeries: Surgical HX of: Abdominal Surgery, Appendectomy, Colonoscopy, EGD Patient denies: Cholecystectomy, Gastric Bypass Surgery, Hernia Repair, Splenectomy Reproductive Surgeries: Surgical HX of;: Prostate Surgery (caterizzed) Patient denies;: Breast Surgery, Cystoscopy, Genitourinary Surgery Orthopedic Surgeries: Surgical HX of;: Orthopedic Surgery (degenerative back disease and rods and pins placed), Spinal Surgery (rods and pins placed) - Family History Family History: Reports;: Family Cancer (mother), Family Diabetes (parents), Family Heart Disease (family) Denies;: Family Anesthesia Reaction, Family Hypertension, Family Psychiatric Problems, Family Stroke - Social History Smoking Status: Never smoker Frequency of Alcohol Use: None Type of Drug Use: None Infectious Disease Exam H&P - Constitutional Vitals: Vital Signs Temp Pulse Resp BP Pulse Ox 97.3 F L 97 H 28 H 112/64 100 08/08/17 07:15 08/08/17 12:49 08/08/17 13:06 08/08/17 09:30 08/08/17 11:02 Intake and Output 08/07/17 08/08/17 08/08/17 23:59 07:59 15:59 Intake Total 1590 / 1590 350 / 350 1200 / 1200 Output Total 400 / 400 300 / 300 60 / 60 Balance 1190 / 1190 50 / 50 1140 / 1140 Intake: IV 1450 / 1450 350 / 350 1200 / 1200 PATT SYNEPHRINE DRIP 40 mg 250 / 250 250 / 250 100 / 100 In 250 ml @ 40 MCG/MIN 15 mls/hr IV TITRATE NATALIE Rx#:[id number] Zosyn 3,375 mg In Ns 100 100 / 100 100 / 100 100 / 100 ml @ 25 mls/hr IV Q8H NATALIE Rx#:[id number] DIPRIVAN 1,000 mg In 100 100 / 100 ml @ 10 MCG/KG/MIN 5.035 mls/hr IV TITRATE NATALIE Rx# :[id number] Ns 1,000 ml @ 50 mls/hr 1000 / 1000 1000 / 1000 IV .Q20H NATALIE Rx#: [id number] Tube Feeding Supplement 90 / 90 Tube Feeding Flush 50 / 50 Output: Urine 400 / 400 300 / 300 60 / 60 Other: Tube Feeding 35 35 Voiding Method Indwelling Catheter Indwelling Catheter # Bowel Movements 1 Weight 86.183 kg Patient Weight 08/08/17 23:59 Weight 86.183 kg Exam: General: Patient sedated on the vent HEENT: Mucous membranes pink and moist, anicteric acyanotic, ROMAN, ET tube in situ Neck: Supple, no thyroid gland enlargement, no lymphadenopathy Respiratory system: Breath sounds vesicular, no crepitations or wheezes Cardiovascular: Normal S1 and S2, no murmurs appreciated Abdomen: BMS in situ with liquid stool but he is getting stool softeners, normal bowel sounds, soft nontender throughout, no organomegaly or mass Genitourinary: No suprapubic pain or bladder distention, bloody urine from Daniels catheter Extremities: no edema Skin: No rash Reports - Labs CBC & BMP: 08/08/17 04:30 08/08/17 04:30 Labs: Laboratory Results - last 24 hr 08/07/17 08/07/17 08/07/17 16:29 20:48 23:51 WBC RBC Hgb Hct MCV MCH MCHC RDW Plt Count MPV Neut % (Auto) Lymph % (Auto) [place] % (Auto) Eos % (Auto) Baso % (Auto) Neut # (Auto) Lymph # (Auto) [place] # (Auto) Eos # (Auto) Baso # (Auto) Immature Gran % Nucleated RBC % Immature Gran # Nucleated RBCs # Immature Plt Fraction INR PT Patient/Control Mix Circ Anticoag PTT Sodium Potassium Chloride Carbon Dioxide Anion Gap BUN Creatinine GFR Calculation BUN/Creatinine Ratio Glucose POC Glucose 220 H 221 H 232 H Calculated Osmolality Calcium Phosphorus Magnesium Prealbumin 08/08/17 08/08/17 08/08/17 04:30 04:30 04:30 WBC 12.5 H RBC 3.59 L Hgb 8.6 L Hct 28.2 L MCV 78.6 L MCH 24 L MCHC 30.5 L RDW 17.8 H Plt Count 281 MPV 11.0 Neut % (Auto) 71.9 Lymph % (Auto) 14.3 L [place] % (Auto) 10.2 Eos % (Auto) 1.5 Baso % (Auto) 0.3 Neut # (Auto) 9.0 H Lymph # (Auto) 1.8 [place] # (Auto) 1.3 H Eos # (Auto) 0.2 Baso # (Auto) 0.0 Immature Gran % 1.8 Nucleated RBC % 0.4 Immature Gran # 0.22 Nucleated RBCs # 0.05 Immature Plt Fraction 0.0 INR PT Patient/Control Mix Circ Anticoag PTT Sodium 146 H Potassium 4.0 Chloride 112 H Carbon Dioxide 26 Anion Gap 12.0 BUN 35 H Creatinine 1.30 GFR Calculation 57 BUN/Creatinine Ratio 26.00 H Glucose 121 H POC Glucose Calculated Osmolality 298.6 Calcium 8.0 L Phosphorus 3.2 Magnesium 2.7 H Prealbumin 15.5 L 08/08/17 08/08/17 08/08/17 04:30 07:17 11:47 WBC RBC Hgb Hct MCV MCH MCHC RDW Plt Count MPV Neut % (Auto) Lymph % (Auto) [place] % (Auto) Eos % (Auto) Baso % (Auto) Neut # (Auto) Lymph # (Auto) [place] # (Auto) Eos # (Auto) Baso # (Auto) Immature Gran % Nucleated RBC % Immature Gran # Nucleated RBCs # Immature Plt Fraction INR 1.2 PT Patient/Control Mix 12.6 D Circ Anticoag PTT 26.7 Sodium Potassium Chloride Carbon Dioxide Anion Gap BUN Creatinine GFR Calculation BUN/Creatinine Ratio Glucose POC Glucose 140 H 209 H Calculated Osmolality Calcium Phosphorus Magnesium Prealbumin - Reports Microbiology: Microbiology 08/06/17 Unknown Urine Culture - Final Urine,In and Out Cath No Growth at 48 hours. 08/06/17 12:24 Blood Culture - Preliminary Blood No growth at 1 day 08/06/17 12:24 Blood Culture - Preliminary Blood No growth at 1 day - Diagnostic Findings Procedure: Chest x-ray: report reviewed by me (no mention of consolidation) Specialty Discharge - Follow Up or Referrals
--- NOTE | 2017-08-08 14:04 | Electrophysiology Progress Not ---
Assessment and Plan (1) Ischemic cardiomyopathy Status: Chronic Assessment and plan: 86-year-old male, ischemic cardiomyopathy, ejection fraction 30-35%, recurrent episodes of complete heart block, syncope, requiring CPR. DNR, quite debilitated. 08/06: temp PM implant -Shock. Based on echo findings, cardiogenic. 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 Pulmonary hypertension. -I will defer management to the primary team. He may need hemodynamic support with a balloon pump, surgical evaluation. Prognosis is poor. -Recommend to keep temporary pacemaker now, normal parameters, he still has episodes of complete heart block, requiring backup pacing support. -Once hemodynamics improve, we may proceed with a permanent device implant and temporary PM explant. Current Visit: Yes (2) Advanced age Status: Chronic Current Visit: Yes (3) Anemia Status: Acute Current Visit: Yes (4) Chronic atrial fibrillation Status: Chronic Current Visit: Yes Electrophysiology Subjective Interval history: He became more hypotensive, requiring high-dose pressor support. Reviewed transthoracic echo findings, he has severe eccentric mitral regurgitation, without a flail leaflet. This is most likely due to papillary muscle dysfunction. There is no significant pericardial effusion. He still had episodes of complete heart block last night, requiring backup pacing from the temporary pacemaker. Exam - Constitutional Vitals: Period Temp Pulse Resp BP Sys/Torre Pulse Ox Last 24 Hr 97.2 F-98.1 F 68-101 12-30 100-126/46-79 97-100 General appearance: normal weight, over weight, other (Unresponsive) - Head Head exam: Present: normocephalic - Eye Eye exam: Absent: conjunctival injection, periorbital swelling, laceration to eyelids Pupils: Present: normal accommodation - ENT ENT exam: Present: normal external ear exam - Neck Neck exam: Present: other (JVD) - Respiratory Respiratory exam: Present: clear to auscultation bilaterally. Absent: chest wall tenderness - Cardiovascular Cardiovascular exam: Present: JVD, regular rate and rhythm, systolic murmur - GI/Abdominal GI/Abdominal exam: Present: hypoactive bowel sounds. Absent: distended, firm - Extremities Exam Extremities exam: Present: normal inspection, normal capillary refill, edema (1+ ) - Neurological Exam Neurological exam: Present: alert, oriented X3 - Skin Skin exam: Present: warm, pallor. Absent: cyanosis Results - Labs CBC & BMP: 08/08/17 04:30 08/08/17 04:30 Lab Results: I have reviewed the past 24 hour labs Quality Measures - VTE Contraindication to Pharmacological VTE Prophylaxis: High Risk of Bleeding Specialty Discharge - Follow Up or Referrals
--- NOTE | 2017-08-08 14:34 | Hospitalist Progress Note ---
Assessment and Plan (1) ST elevation myocardial infarction (STEMI) of inferior wall Status: Resolved Assessment and plan: S/p stent RCA. Ejection fraction 30-35%, continue aspirin and Brilinta Current Visit: Yes (2) Intermittent complete heart block Status: Acute Assessment and plan: Status post temporary pacemaker, await until patient is stable to place permanent pacer Current Visit: Yes (3) Acute kidney injury Status: Acute Assessment and plan: Creatinine improving with fluids Current Visit: Yes (4) Anemia Status: Acute Assessment and plan: Hemoglobin stable, cont protonix Current Visit: Yes (5) Unspecified sleep apnea Status: Acute Assessment and plan: Dr. Baker recommends an outpatient sleep study Current Visit: Yes (6) Ischemic cardiomyopathy Status: Chronic Assessment and plan: Ejection fraction 30-35%, severe mitral regurgitation Current Visit: Yes (7) Type 2 diabetes mellitus Status: Chronic Assessment and plan: Continue Amaryl bid, and lantus, cont tube feeding Current Visit: Yes (8) Acute on chronic combined systolic and diastolic CHF (congestive heart failure) Status: Acute Assessment and plan: She is hypotensive on pressors, suspect cardiogenic shock Current Visit: Yes (9) COPD exacerbation Status: Acute Assessment and plan: Continue oral prednisone and decrease DuoNeb every 8 hours Current Visit: Yes (10) Leukocytosis Status: Acute Assessment and plan: Leukocytosis improving, no convincing evidence of sepsis. Dr. 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 Current Visit: Yes Hospitalist: Subjective Interval history: Lasix was put on hold yesterday out of concern for possible dehydration. Patient is still remains on pressors despite fluids. Dr. Christine to decrease the fluids today. Hypotension may be just due to the diprivan. I have no source of infection to suggest sepsis. I asked Dr. Hutchison to evaluate for sepsis. She thinks it is cardiogenic in nature. Repeat echocardiogram was ordered and reviewed by Dr. Morrison and he feels that patient has severe mitral regurgitation likely due to papillary muscle dysfunction and pulmonary hypertension. Prognosis at this point is poor. Exam - Constitutional Vitals: Period Temp Pulse Resp BP Sys/Torre Pulse Ox Last 24 Hr 97.2 F-98.1 F 68-111 12-34 96-126/46-79 97-100 Exam: Heart Rate-[RRR] Lungs-[diminished fine crackles GI-[+bs soft, NT] Ext-[trace edema] Neuro sedated and intubated psych sedated and intubated unable to evaluate General [no acute distress] Results - Labs CBC & BMP: 08/08/17 04:30 08/08/17 04:30 Lab Results: I have reviewed the past 24 hour labs Labs: blood cx times 3, negative, urine cx negative - Diagnostic Findings Procedure: Chest x-ray: report reviewed by me (Slight improvement in chest x- ray vascularity today per) Quality Measures - VTE Contraindication to Pharmacological VTE Prophylaxis: High Risk of Bleeding Specialty Discharge - Follow Up or Referrals
--- NOTE | 2017-08-08 16:54 | ECHO Report ---
Jarett Colvin Exam Date: 08/08/2017 11:05 Referring Physician: Technologist: joseph Anna ARDMS, RVT Age: 86 Ht (in): 69 Wt (lb): 190 Gender: M Exam Location: [facility] Echo Indications: Acute on chronic diastolic CHF, CAD, Chronic A-Fib, Hyperlipidemia, DM, Closed head injury, Assess for pericardial effusion BP: 112 / 64 HR: 93 Rhythm: Sinus Technical Quality: Good IMPRESSIONS Mildly increased left ventricular cavity size. Normal left ventricular wall thickness. Left ventricular ejection fraction is estimated at 40 %. Moderately increased right ventricular size. Moderately increased right atrial size. The left atrium is mildly enlarged. Mitral valve sclerosis. Severe high velocity MR suspicious for papillary muscle dysfunction. No flail leaflet identifiable by this study. The aortic valve is trileaflet and has normal motion. No aortic valve stenosis. [id number] aortic valve regurgitation. Tricuspid valve sclerosis. No tricuspid valve stenosis. Moderate tricuspid valve regurgitation. Tricuspid regurgitation velocities suggest a PAP of 74 mmHg. Morphologically normal pulmonic valve.Mild pulmonary valve regurgitation. Normal pericardium without effusion. Normal ascending aorta dimension. MEASUREMENTS (Male / Female) Normal Values 2D ECHO LV Diastolic Diameter PLAX 6.2 cm 4.2 - 5.9 / 3.9 - 5.3 cm LV Systolic Diameter PLAX 5.0 cm LV Fractional Shortening PLAX 20.2 % IVS Diastolic Thickness 0.8 cm 0.6 - 1.0 / 0.6 - 0.9 cm LVPW Diastolic Thickness 1.1 cm 0.6 - 1.0 / 0.6 - 0.9 cm RV Internal Dim ED PLAX 4.4 cm Aortic Root Diameter 4.5 cm LA Systolic Diameter LX 4.6 cm 3.0 - 4.0 / 2.7 - 3.8 cm DOPPLER TR Peak Velocity 401.0 cm/s TR Peak Gradient 64.3 mmHg FINDINGS Left Ventricle Mildly increased left ventricular cavity size. Normal left ventricular wall thickness. Left ventricular ejection fraction is estimated at 40 %. Right Ventricle Moderately increased right ventricular size. Right Atrium Moderately increased right atrial size. Left Atrium The left atrium is mildly enlarged. Mitral Valve Mitral valve sclerosis. Severe high velocity MR suspicious for papillary muscle dysfunction. No flail leaflet identifiable by this study. Aortic Valve The aortic valve is trileaflet and has normal motion. No aortic valve stenosis. Antq-mg-dscdxkpm aortic valve regurgitation. Tricuspid Valve Tricuspid valve sclerosis. No tricuspid valve stenosis. Moderate tricuspid valve regurgitation. Tricuspid regurgitation velocities suggest a PAP of 74 mmHg. Pulmonic Valve Morphologically normal pulmonic valve. Mild pulmonary valve regurgitation. Pericardium Normal pericardium without effusion. Aorta Normal ascending aorta dimension. Donavan Christine MD (Electronically Signed) Final Date: 08 August 2017 16:53
[2017-08-08] MEDS ORDERED: FUROSEMIDE 40 MG/4 ML VIAL IV ONE (20:11)
[2017-08-08] MEDS: ATORVASTATIN 20 MG TABLET PO SCH (21:31)
[2017-08-08] MEDS: MAGNESIUM GLUCONATE 200 MG/ML 30 ML/BOTTLE PO SCH (21:31)
[2017-08-08] MEDS: INSULIN GLARGINE 100 UNIT/ML SUBCUT SCH (21:32)
[2017-08-09] MEDS: SODIUM CHLORIDE 0.9% 1,000 ML IV SCH (00:55)
[2017-08-09 03:04] LABS: ABG Base Excess -2.2 MMOL/L (-2.5-2.5); ABG HCO3 22.6 MMOL/L (20-26); ABG Oxygen Saturation 98.4 % (95-100); ABG PCO2 31.8 MM HG (35-48); ABG PH 7.437 (7.35-7.45); Allen Test Positive; Pt O2 Delivery Device Ventilator
[2017-08-09] MEDS: PIPERACILLIN/TAZOBACTAM 3,375 MG in SODIUM CHLORIDE 0.9% 100 ML IV SCH ×3 (04:09→20:32)
[2017-08-09] MEDS: PROPOFOL 1,000 MG/100 ML BOTTLE IV SCH ×3 (04:43→20:33)
[2017-08-09 04:56] LABS: Basophils % 0.2 % (0.0-0.8); Eosinophils # 0.1 10*3/uL (0.0-0.87); Eosinophils % 1.5 % (0.00-10.9); Hematocrit 28.2 VOL% (42.0-52.0); Hemoglobin 8.4 GM/DL (14.0-18.0); Immature Granulocytes % 2.7 %; Immature Granulocytes Absolute 0.22 #; Lymphocytes # 1.6 10*3/uL (1.4-4.0); Lymphocytes % 19.7 % (21.2-54.2); Mean Corpuscular HGB Conc 29.8 GM/DL (32-36); Mean Corpuscular Hemoglobin 24 PG (27-34); Mean Corpuscular Volume 80.8 FL (87-102); Mean Platelet Volume 10.9 FL (9.6-12.0); Monocytes # 0.7 10*3/uL (0.11-0.8); Monocytes % 8.4 % (1.7-12.7); NRBC # 0.03 10*3/uL; Neutrophils # 5.6 10*3/uL (1.4-7.4); Neutrophils % 67.5 % (38.7-73.9); Platelet Count 220 T/CUMM (130-400); Red Blood Count 3.49 MC/CUMM (3.8-5.5); Red Cell Distribution Width 18.4 % (9.3-17.3); White Blood Count 8.3 T/CUMM (4-12)
[2017-08-09 05:24] LABS: Magnesium 2.6 MG/DL (1.8-2.4); Osmolality,Calculated 302.6 MOS/KG (273-304); Potassium 4.3 MMOL/L (3.5-5.1)
--- NOTE | 2017-08-09 08:00 | Pulmonology Progress Note ---
Pulmonary - PN: Subj Interval history: 86-year-old man that had acute coronary syndrome and had a syncopal episode due to AV block. He had a pacemaker placed yesterday and was placed on mechanical ventilation. Remains on the ventilator this morning. We will hold sedation change to IMV and hopefully can get him weaned. 08/08/2017 patient did well with weaning trials yesterday. He is about ready to be extubated. He is going for a permanent pacemaker today. We will hold off on extubation until he returns from that. Continuing with CPAP for now. 08/09/2017 pacemaker was postponed. Patient was hypotensive. Chest x-ray today looks wet. Weight is up 2 kg. Will add Zaroxolyn and stop saline. Did well with CPAP yesterday but not ready to extubate as yet. Plan is for pacemaker on Friday. Exam (Progress Note) - Constitutional Vitals: Period Temp Pulse Resp BP Sys/Torre Pulse Ox Last 24 Hr 96.8 F-98.1 F 69-115 18-34 96-126/53-79 95-100 Exam: Patient is sedated on the ventilator. Vital signs stable. Pupils react to light. Orotracheal tube in place. Neck is supple no bruits. Chest reveals a few basilar crackles. Also has a few rhonchi. Heart shows a systolic murmur on the left sternal border. Abdomen is soft nontender no masses. Extremities no clubbing cyanosis 1+ edema. Little change from yesterday. Results - Labs CBC & BMP: 08/09/17 04:10 08/09/17 04:10 Lab Results: I have reviewed the past 24 hour labs - Diagnostic Findings Procedure: Chest x-ray: image reviewed by me (Pulmonary edema with pleural effusions. ET tube good position.) Assessment and Plan (1) Acute on chronic combined systolic and diastolic CHF (congestive heart failure) Status: Acute Assessment and plan: Has ejection fraction 45%. Defer to cardiology. Ischemic heart disease and mitral regurgitation 08/07/2017 x-ray looks a little bit less wet today. Needs some diuresis in order to wean. 08/08/2017 seems to be diuresing. Still a little wet. About ready for extubation, however since he is going for permanent pacemaker today will not plan extubation until he is back from that. 08/09/2017 x-ray is a little wet to her today. Not ready for extubation. Need to diurese first. Pacemaker was not done yesterday, it is planned for Friday. Patient is not requiring pressors at present. Current Visit: Yes (2) Acute respiratory failure Status: Acute Assessment and plan: Presently on ventilator after requiring intubation with pacemaker. Will follow and wean as possible. 08/07/2017 ABGs look good. Change to IMV and start weaning process. Probably needs to diurese a little more. 08/08/2017 doing well with weaning process. 08/09/2017 ABGs look good. Did well with CPAP yesterday. However with worsening chest x-ray can not consider extubation as yet. 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 Now has pacemaker. 08/07/2017 this was due to heart block. 08/08/2017 this was due to heart block. Has temporary pacemaker. Plans are for permanent pacemaker today. 08/09/2017 has temporary pacemaker. Permanent pacemaker postponed. Current Visit: Yes (4) ST elevation myocardial infarction (STEMI) of inferior wall Status: Resolved Assessment and plan: He had a catheterization. Please see cardiology note. 08/07/2017 defer to cardiology. Had revascularization done with stents 1 week ago. 08/09/2017 post intervention. Current Visit: Yes Specialty Discharge - Follow Up or Referrals
[2017-08-09] MEDS: ALBUTEROL/IPRATROPIUM 3 ML NEB RESP TX SCH ×3 (08:11→23:30)
--- NOTE | 2017-08-09 08:17 | Electrophysiology Progress Not ---
Assessment and Plan (1) Ischemic cardiomyopathy Status: Chronic Assessment and plan: 86-year-old male, ischemic cardiomyopathy, ejection fraction 30-35%, recurrent episodes of complete heart block, syncope, requiring CPR. DNR, quite debilitated. 08/06: temp PM implant -Shock. Based on echo findings, was cardiogenic. 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 Pulmonary hypertension. This improved, now off pressor, could have been related to his recent NV, ischemia. -We can plan for dual-chamber pacer implant, temporary pacer explant on Friday. -Recommend to keep temporary pacemaker now, normal parameters, multiple episodes of complete heart block, belinda cardiac arrest requiring CPR -Given his frailty, delirium, I suggest to keep him intubated until a permanent pacemaker is implanted, he pulled out IV lines etc. and he is at risk of dislodging his temporary wire if sedation is discontinued -Prognosis remains poor. Current Visit: Yes (2) Advanced age Status: Chronic Current Visit: Yes (3) Anemia Status: Acute Current Visit: Yes (4) Chronic atrial fibrillation Status: Chronic Current Visit: Yes Electrophysiology Subjective Interval history: He remains intubated, minimally responsive. No heart block since yesterday temporary pacemaker capturing well, on demand VVI 40 mode. Hemodynamics improved slightly. Exam - Constitutional Vitals: Period Temp Pulse Resp BP Sys/Torre Pulse Ox Last 24 Hr 96.8 F-98.1 F 69-115 14-34 96-126/53-79 95-100 General appearance: normal weight, over weight - Head Head exam: Present: normal inspection, other (Multiple's effusions). Absent: contusion - Eye Eye exam: Absent: periorbital swelling, laceration to eyelids - ENT ENT exam: Present: normal external ear exam - Neck Neck exam: Present: normal inspection - Respiratory Respiratory exam: Present: decreased breath sounds. Absent: chest wall tenderness - Cardiovascular Cardiovascular exam: Present: regular rate and rhythm, systolic murmur. Absent : JVD - GI/Abdominal GI/Abdominal exam: Present: hypoactive bowel sounds. Absent: distended - Extremities Exam Extremities exam: Present: normal inspection, normal capillary refill. Absent: edema - Neurological Exam Neurological exam: Present: other (Minimally responsive) - Skin Skin exam: Present: normal color, warm. Absent: cyanosis Results - Labs CBC & BMP: 08/09/17 04:10 08/09/17 04:10 Lab Results: I have reviewed the past 24 hour labs Quality Measures - VTE Contraindication to Pharmacological VTE Prophylaxis: High Risk of Bleeding Specialty Discharge - Follow Up or Referrals
[2017-08-09] MEDS: INSULIN REGULAR 100 UNIT/ML SUBCUT SCH ×3 (08:34→18:16)
[2017-08-09] MEDS: SUCRALFATE 1 GM/10 ML UDCUP PO SCH ×4 (08:35→20:32)
[2017-08-09] MEDS: LORATADINE 10 MG TABLET PO SCH (08:35)
[2017-08-09] MEDS: TAMSULOSIN 0.4 MG CAPSULE PO SCH (08:35)
[2017-08-09] MEDS: TICAGRELOR 90 MG TABLET PO SCH (08:35)
[2017-08-09] MEDS: predniSONE 20 MG TABLET PO SCH (08:35)
[2017-08-09] MEDS: METHOCARBAMOL 500 MG TABLET PO SCH ×3 (08:35→20:32)
[2017-08-09] MEDS: ASPIRIN CHEW 81 MG TABLET PO SCH (08:35)
[2017-08-09] MEDS: PANTOPRAZOLE 40 MG VIAL IV SCH (08:35)
[2017-08-09] MEDS: metOLazone 2.5 MG TABLET PO SCH (08:35)
[2017-08-09] MEDS: GLIMEPIRIDE 2 MG TABLET PO SCH ×2 (08:37→16:49)
[2017-08-09] MEDS: MAGNESIUM GLUCONATE 200 MG/ML 30 ML/BOTTLE PO SCH (08:38)
[2017-08-09] MEDS: POLYETHYLENE GLYCOL POWDER 17 GM PACK PO SCH (08:41)
--- NOTE | 2017-08-09 10:24 | Cardiology Progress Note ---
Cardiology - PN: Subj Interval history: SUMMARY: Mr. Yusuf, 86WM, with history of known CAD (status post CABG), hypertension, dyslipidemia, diabetes. History of atrial fibrillation on chronic anticoagulation (Xarelto), history of DVT, chronic pain. Patient presented to ED of [facility] July 31, 2017 after experiencing head trauma due to fall related to syncope. EKG revealed inferoposterior STEMI. Underwent emergent CT head to rule out hemorrhage (negative for hemorrhage) prior to proceeding with heart catheterization. Dr. Pollock and took patient to be heart laborer pipeline where he required a SRUTHI to vein graft to right coronary artery. (See heart catheterization report). Patient tolerated the actual procedure well. Postoperatively, patient experienced transient third-degree heart block, near syncope, brief episode of spitting up of blood. (It was difficult to ascertain if this came from the stomach or lungs). Also, patient experienced respiratory distress deemed acute on chronic CHF secondary to systolic dysfunction (EF 45-50%) and diastolic dysfunction, NYHA Class IV. Echocardiogram: EF 45-50%, mild to moderate mitral regurgitation, PAP of 38 mmHg. 2016: Over the weekend, patient's creatinine peaked at 2.8 but this morning has improved at 1.9. Low-dose beta-zuleyka was incorporated into the patient's medication regimen over the weekend and he is tolerating this well. Patient was placed on Digoxin over the weekend but due to his worsening creatinine this was held. Heart rate remains 90s to low 100s and I believe it is safe to resume Digoxin at this time. Blood glucose levels are unacceptably high. Will restart Glimepiride now and eventually Metformin if creatinine continues to improve. Holding Xarelto at this time due to need for DAPT and patient's frail condition. Dr. Lux has seen patient and is treating his chronic pain. Patient will need LTAC at discharge. Hopefully, in the next few days patient will be ready for transfer. Will further discuss with Dr. Christine and await additional recommendations. 2016: During the night, patient was short of breath and anxious. Dr. Morrison was called. He was given IV Lasix and a chest x-ray. According to the nurse, patient diuresed relatively well. I have ordered a chest x-ray this morning. Denies chest pain, heaviness or tightness. I spoke with Dr. Christine this afternoon regarding patient's arrhythmia. 2016: Yesterday, patient required temporary pacemaker as patient became hemodynamically unstable. He is requiring pressors at this time, doses are escalating. Dr. Edward is seeing Mr. yusuf for altered mental status. 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 The respiratory distress, required intubation yesterday. Patient did become confused and pulled out many tubes and lines including his Daniels catheter. There was difficulty reinserting the Daniels catheter and urology was required for reinsertion. Lasix is being held at this time given the patient's hypotension and need for escalating doses of pressors. I will further discuss with Dr. Christine and await additional recommendations. 2016: Only minimal improvement overnight. Chest x-ray basically unchanged overnight. Remains afebrile and white blood cell count is decreasing. Holding off on permanent pacemaker implantation until patient's condition improves. No high-grade block noted overnight. Echocardiogram has been ordered this morning to rule out pericardial effusion as patient remains on pressors (Phenylephrine 100 mcg/min) overnight. Apparently did well with weaning trials yesterday. Extubation was considered for this morning however at that point he was also being considered for permanent pacemaker implantation. Aspirin, Brilinta, Atorvastatin continue. Will further discuss with Dr. Christine and await additional recommendations. August 09, 2017: Patient is a little more dyspneic this morning and his chest x-ray looks a little worse. He has severe mitral insufficiency which is a mechanical complication of his myocardial infarction. He is requiring no pressors at this point to support his blood pressure and hopefully we will see some improvement in his volume status to the point that we can consider weaning. His prognosis is poor. Exam (Progress Note) - Constitutional Vitals: Period Temp Pulse Resp BP Sys/Torre Pulse Ox Last 24 Hr 96.8 F-98.1 F 72-115 12-34 95-126/53-79 93-100 Exam: General:no acute distress. Patient is sedated on the ventilator HEENT: no new lesions, sclerae are clear, mouth and pharynx benign Neck: supple, trachea midline, no JVD noted Lungs: no rales ronchi or wheeze is noted. pt comfortable without accesory muscle use to assist with breathing CV: RRR grade 2 mitral insufficiency murmur noted PMI is lateral Abd: soft and nontender, BSNA, no masses. Ext: no cyanosis, clubbing or edema Neuro: Patient is sedated on the ventilator Result/EKG - Labs CBC & BMP: 08/09/17 04:10 08/09/17 04:10 Labs: Laboratory Results - last 24 hr 08/08/17 08/08/17 08/08/17 11:47 16:18 21:22 WBC RBC Hgb Hct MCV MCH MCHC RDW Plt Count MPV Neut % (Auto) Lymph % (Auto) [place] % (Auto) Eos % (Auto) Baso % (Auto) Neut # (Auto) Lymph # (Auto) [place] # (Auto) Eos # (Auto) Baso # (Auto) Immature Gran % Nucleated RBC % Immature Gran # Nucleated RBCs # Immature Plt Fraction ABG pH ABG pCO2 ABG pO2 ABG HCO3 ABG Total CO2 ABG O2 Saturation ABG Base Excess FiO2 Sodium Potassium Chloride Carbon Dioxide Anion Gap BUN Creatinine GFR Calculation BUN/Creatinine Ratio Glucose POC Glucose 209 H 254 H 223 H Calculated Osmolality Calcium Magnesium 08/09/17 08/09/17 08/09/17 02:55 04:10 04:10 WBC 8.3 D RBC 3.49 L Hgb 8.4 L Hct 28.2 L MCV 80.8 L MCH 24 L MCHC 29.8 L RDW 18.4 H Plt Count 220 D MPV 10.9 Neut % (Auto) 67.5 Lymph % (Auto) 19.7 L [place] % (Auto) 8.4 Eos % (Auto) 1.5 Baso % (Auto) 0.2 Neut # (Auto) 5.6 Lymph # (Auto) 1.6 [place] # (Auto) 0.7 Eos # (Auto) 0.1 Baso # (Auto) 0.0 Immature Gran % 2.7 Nucleated RBC % 0.4 Immature Gran # 0.22 Nucleated RBCs # 0.03 Immature Plt Fraction 0.0 ABG pH 7.437 ABG pCO2 31.8 L ABG pO2 110.0 H ABG HCO3 22.6 ABG Total CO2 20.0 L ABG O2 Saturation 98.4 ABG Base Excess -2.2 FiO2 40.00 Sodium 146 H Potassium 4.3 Chloride 115 H Carbon Dioxide 23 Anion Gap 12.3 BUN 34 H Creatinine 1.50 H GFR Calculation 48 BUN/Creatinine Ratio 22.00 H Glucose 180 H POC Glucose Calculated Osmolality 302.6 Calcium 8.0 L Magnesium 2.6 H 08/09/17 07:53 WBC RBC Hgb Hct MCV MCH MCHC RDW Plt Count MPV Neut % (Auto) Lymph % (Auto) [place] % (Auto) Eos % (Auto) Baso % (Auto) Neut # (Auto) Lymph # (Auto) [place] # (Auto) Eos # (Auto) Baso # (Auto) Immature Gran % Nucleated RBC % Immature Gran # Nucleated RBCs # Immature Plt Fraction ABG pH ABG pCO2 ABG pO2 ABG HCO3 ABG Total CO2 ABG O2 Saturation ABG Base Excess FiO2 Sodium Potassium Chloride Carbon Dioxide Anion Gap BUN Creatinine GFR Calculation BUN/Creatinine Ratio Glucose POC Glucose 259 H Calculated Osmolality Calcium Magnesium Quality Measures - VTE Contraindication to Pharmacological VTE Prophylaxis: High Risk of Bleeding Specialty Discharge - Follow Up or Referrals
--- NOTE | 2017-08-09 10:46 | XRay Report ---
Portable chest. Indication: Ventilated patient. Comparison: Yesterday's exam. The heart is enlarged. Post median sternotomy. An endotracheal tube and central line are in satisfactory position. The pulmonary vasculature is prominent. There are worsening bilateral basilar infiltrates and pleural effusions. Impression: Interval worsening. PROCEDURE INTERPRETED AT [facility] DEPARTMENT OF RADIOLOGY Final Report Signed by: Dr. Tania Mathis
[2017-08-09] MEDS: PHENYLEPHRINE DRIP 40 MG/250 ML PREMIX IV SCH (12:20)
[2017-08-09] MEDS: DIGOXIN 0.125 MG TABLET PO SCH (13:12)
[2017-08-09] MEDS ORDERED: FUROSEMIDE 40 MG/4 ML VIAL IV SCH (13:45)
--- NOTE | 2017-08-09 13:45 | Hospitalist Progress Note ---
Assessment and Plan (1) ST elevation myocardial infarction (STEMI) of inferior wall Status: Resolved Assessment and plan: S/p stent RCA. Ejection fraction 30-35%, continue aspirin and Brilinta Current Visit: Yes (2) Intermittent complete heart block Status: Acute Assessment and plan: Status post temporary pacemaker, permanent pacemaker planned for Friday. Current Visit: Yes (3) Acute kidney injury Status: Acute Assessment and plan: Creatinine stable Current Visit: Yes (4) Anemia Status: Acute Assessment and plan: Hemoglobin trending down but stable continue proton Current Visit: Yes (5) Unspecified sleep apnea Status: Acute Assessment and plan: Dr. Baker recommends an outpatient sleep study Current Visit: Yes (6) Ischemic cardiomyopathy Status: Chronic Assessment and plan: Ejection fraction 30-35%, severe mitral regurgitation Current Visit: Yes (7) Type 2 diabetes mellitus Status: Chronic Assessment and plan: Continue Amaryl bid, and increase Lantus, cont tube feeding Current Visit: Yes (8) Acute on chronic combined systolic and diastolic CHF (congestive heart failure) Status: Acute Assessment and plan: Lasix restarted and patient weaned off pressors Current Visit: Yes (9) COPD exacerbation Status: Acute Assessment and plan: Decrease prednisone to once a day. Current Visit: No (10) Leukocytosis Status: Acute Assessment and plan: Leukocytosis improved to normal no evidence of sepsis. Must of been a stress response. Continue Zosyn for now Current Visit: Yes (11) Acute respiratory failure Status: Acute Assessment and plan: cont vent support managed by pulmonary, worsening pulmonary edema Current Visit: Yes (12) Hypotension Status: Acute Assessment and plan: Patient weaned off of pressors Current Visit: Yes (13) Falling Status: Acute Assessment and plan: Will need rehab prior to going home Current Visit: Yes Hospitalist: Subjective Interval history: Patient's urine output decreased last night. We gave him one-time dose of Lasix. Patient was successfully weaned off of pressors today. We are hoping to place a permanent pacemaker on Friday. Urine output has been better today. Exam - Constitutional Vitals: Period Temp Pulse Resp BP Sys/Torre Pulse Ox Last 24 Hr 96.8 F-98.1 F 72-115 12-32 95-126/53-78 91-100 Exam: Heart Rate-[RRR] Lungs-[clear GI-[+bs soft, NT] Ext-[trace edema] Neuro sedated and intubated psych sedated and intubated unable to evaluate General [no acute distress] Results - Labs CBC & BMP: 08/09/17 04:10 08/09/17 04:10 Lab Results: I have reviewed the past 24 hour labs - Diagnostic Findings Procedure: Chest x-ray: report reviewed by me (Worsening pulmonary edema) Quality Measures - VTE Contraindication to Pharmacological VTE Prophylaxis: High Risk of Bleeding Specialty Discharge - Follow Up or Referrals
[2017-08-09 16:31] LABS: Hematocrit 26.4 VOL% (42.0-52.0)
[2017-08-09] MEDS: INSULIN GLARGINE 100 UNIT/ML SUBCUT SCH (20:32)
[2017-08-09] MEDS: ATORVASTATIN 20 MG TABLET PO SCH (20:32)
[2017-08-10] MEDS: INSULIN REGULAR 100 UNIT/ML SUBCUT SCH ×5 (00:28→23:59)
[2017-08-10] MEDS: PROPOFOL 1,000 MG/100 ML BOTTLE IV SCH ×3 (02:54→17:25)
[2017-08-10 03:16] LABS: ABG Base Excess 0.1 MMOL/L (-2.5-2.5); ABG HCO3 23.8 MMOL/L (20-26); ABG Oxygen Saturation 97.8 % (95-100); ABG PCO2 34.7 MM HG (35-48); ABG PH 7.454 (7.35-7.45); ABG PO2 99.8 MM HG (80-95); ABG TCO2 24.9 MMOL/L (23-27); Allen Test Positive; Pt O2 Delivery Device Ventilator
[2017-08-10] MEDS: PIPERACILLIN/TAZOBACTAM 3,375 MG in SODIUM CHLORIDE 0.9% 100 ML IV SCH ×3 (04:52→20:41)
[2017-08-10 04:53] LABS: Basophils % 0.3 % (0.0-0.8); Eosinophils # 0.1 10*3/uL (0.0-0.87); Hematocrit 25.7 VOL% (42.0-52.0); Hemoglobin 7.8 GM/DL (14.0-18.0); Immature Granulocytes % 2.5 %; Immature Granulocytes Absolute 0.23 #; Lymphocytes # 1.6 10*3/uL (1.4-4.0); Lymphocytes % 17.6 % (21.2-54.2); Mean Corpuscular HGB Conc 30.4 GM/DL (32-36); Mean Corpuscular Hemoglobin 24 PG (27-34); Mean Corpuscular Volume 78.6 FL (87-102); Monocytes # 0.7 10*3/uL (0.11-0.8); Monocytes % 7.3 % (1.7-12.7); NRBC # 0.05 10*3/uL; Neutrophils # 6.7 10*3/uL (1.4-7.4); Neutrophils % 71.3 % (38.7-73.9); Platelet Count 221 T/CUMM (130-400); Red Blood Count 3.27 MC/CUMM (3.8-5.5); Red Cell Distribution Width 18.4 % (9.3-17.3); White Blood Count 9.3 T/CUMM (4-12)
[2017-08-10 05:18] LABS: Calcium 8.4 MG/DL (8.5-10.1); Magnesium 2.6 MG/DL (1.8-2.4); Osmolality,Calculated 299.6 MOS/KG (273-304); Potassium 3.9 MMOL/L (3.5-5.1)
[2017-08-10] MEDS: ALBUTEROL/IPRATROPIUM 3 ML NEB RESP TX SCH ×3 (07:15→23:07)
--- NOTE | 2017-08-10 08:22 | Cardiology Progress Note ---
Cardiology - PN: Subj Interval history: SUMMARY: Mr. Yusuf, 86WM, with history of known CAD (status post CABG), hypertension, dyslipidemia, diabetes. History of atrial fibrillation on chronic anticoagulation (Xarelto), history of DVT, chronic pain. Patient presented to ED of [facility] July 31, 2017 after experiencing head trauma due to fall related to syncope. EKG revealed inferoposterior STEMI. Underwent emergent CT head to rule out hemorrhage (negative for hemorrhage) prior to proceeding with heart catheterization. Dr. Pollock and took patient to be heart bundle tier and labeler where he required a SRUTHI to vein graft to right coronary artery. (See heart catheterization report). Patient tolerated the actual procedure well. Postoperatively, patient experienced transient third-degree heart block, near syncope, brief episode of spitting up of blood. (It was difficult to ascertain if this came from the stomach or lungs). Also, patient experienced respiratory distress deemed acute on chronic CHF secondary to systolic dysfunction (EF 45-50%) and diastolic dysfunction, NYHA Class IV. Echocardiogram: EF 45-50%, mild to moderate mitral regurgitation, PAP of 38 mmHg. 2016: Over the weekend, patient's creatinine peaked at 2.8 but this morning has improved at 1.9. Low-dose beta-zuleyka was incorporated into the patient's medication regimen over the weekend and he is tolerating this well. Patient was placed on Digoxin over the weekend but due to his worsening creatinine this was held. Heart rate remains 90s to low 100s and I believe it is safe to resume Digoxin at this time. Blood glucose levels are unacceptably high. Will restart Glimepiride now and eventually Metformin if creatinine continues to improve. Holding Xarelto at this time due to need for DAPT and patient's frail condition. Dr. Lux has seen patient and is treating his chronic pain. Patient will need LTAC at discharge. Hopefully, in the next few days patient will be ready for transfer. Will further discuss with Dr. Christine and await additional recommendations. 2016: During the night, patient was short of breath and anxious. Dr. Morrison was called. He was given IV Lasix and a chest x-ray. According to the nurse, patient diuresed relatively well. I have ordered a chest x-ray this morning. Denies chest pain, heaviness or tightness. I spoke with Dr. Christine this afternoon regarding patient's arrhythmia. 2016: Yesterday, patient required temporary pacemaker as patient became hemodynamically unstable. He is requiring pressors at this time, doses are escalating. Dr. Edward is seeing Mr. yusuf for altered mental status. 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 The respiratory distress, required intubation yesterday. Patient did become confused and pulled out many tubes and lines including his Daniels catheter. There was difficulty reinserting the Daniels catheter and urology was required for reinsertion. Lasix is being held at this time given the patient's hypotension and need for escalating doses of pressors. I will further discuss with Dr. Christine and await additional recommendations. 2016: Only minimal improvement overnight. Chest x-ray basically unchanged overnight. Remains afebrile and white blood cell count is decreasing. Holding off on permanent pacemaker implantation until patient's condition improves. No high-grade block noted overnight. Echocardiogram has been ordered this morning to rule out pericardial effusion as patient remains on pressors (Phenylephrine 100 mcg/min) overnight. Apparently did well with weaning trials yesterday. Extubation was considered for this morning however at that point he was also being considered for permanent pacemaker implantation. Aspirin, Brilinta, Atorvastatin continue. Will further discuss with Dr. Christine and await additional recommendations. August 09, 2017: Patient is a little more dyspneic this morning and his chest x-ray looks a little worse. He has severe mitral insufficiency which is a mechanical complication of his myocardial infarction. He is requiring no pressors at this point to support his blood pressure and hopefully we will see some improvement in his volume status to the point that we can consider weaning. His prognosis is poor. August 10, 2017: Patient continues sedated on the ventilator. His pressures are good off of hemogenic support. He is oxygenating well. He has gone into atrial fibrillation with a controlled ventricular response. He will need permanent pacemaker placement at some point. I think the plan will be for this to be done prior to attempting weaning from the ventilator. His prognosis long- term is poor. He did have some bleeding from his rectum and we held his ticagrelor yesterday afternoon and will put him on Plavix 75 mg daily and see how we proceed with his rectal bleeding. Exam (Progress Note) - Constitutional Vitals: Period Temp Pulse Resp BP Sys/Torre Pulse Ox Last 24 Hr 97.1 F-98.3 F 84-109 15-32 95-124/52-78 91-100 Exam: General:no acute distress. Patient is sedated on the ventilator HEENT: no new lesions, sclerae are clear, mouth and pharynx benign Neck: supple, trachea midline, no JVD noted Lungs: no rales ronchi or wheeze is noted. pt comfortable without accesory muscle use to assist with breathing CV: Irregularly irregular rate and rhythm grade 2 mitral insufficiency murmur noted PMI is lateral Abd: soft and nontender, BSNA, no masses. Ext: no cyanosis, clubbing or edema Neuro: Patient is sedated on the ventilator Result/EKG - Labs CBC & BMP: 08/10/17 04:10 08/10/17 04:10 Labs: Laboratory Results - last 24 hr 08/09/17 08/09/17 08/09/17 11:06 16:08 18:10 WBC RBC Hgb 8.0 L Hct 26.4 L MCV MCH MCHC RDW Plt Count MPV Neut % (Auto) Lymph % (Auto) [place] % (Auto) Eos % (Auto) Baso % (Auto) Neut # (Auto) Lymph # (Auto) [place] # (Auto) Eos # (Auto) Baso # (Auto) Immature Gran % Nucleated RBC % Immature Gran # Nucleated RBCs # Immature Plt Fraction ABG pH ABG pCO2 ABG pO2 ABG HCO3 ABG Total CO2 ABG O2 Saturation ABG Base Excess FiO2 Sodium Potassium Chloride Carbon Dioxide Anion Gap BUN Creatinine GFR Calculation BUN/Creatinine Ratio Glucose POC Glucose 328 H 268 H Calculated Osmolality Calcium Magnesium 08/10/17 08/10/17 08/10/17 00:25 03:05 04:10 WBC 9.3 RBC 3.27 L Hgb 7.8 L Hct 25.7 L MCV 78.6 L MCH 24 L MCHC 30.4 L RDW 18.4 H Plt Count 221 MPV 11.0 Neut % (Auto) 71.3 Lymph % (Auto) 17.6 L [place] % (Auto) 7.3 Eos % (Auto) 1.0 Baso % (Auto) 0.3 Neut # (Auto) 6.7 Lymph # (Auto) 1.6 [place] # (Auto) 0.7 Eos # (Auto) 0.1 Baso # (Auto) 0.0 Immature Gran % 2.5 Nucleated RBC % 0.5 Immature Gran # 0.23 Nucleated RBCs # 0.05 Immature Plt Fraction 0.0 ABG pH 7.454 H ABG pCO2 34.7 L ABG pO2 99.8 H ABG HCO3 23.8 ABG Total CO2 24.9 ABG O2 Saturation 97.8 ABG Base Excess 0.1 FiO2 40.00 Sodium Potassium Chloride Carbon Dioxide Anion Gap BUN Creatinine GFR Calculation BUN/Creatinine Ratio Glucose POC Glucose 211 H Calculated Osmolality Calcium Magnesium 08/10/17 08/10/17 04:10 06:10 WBC RBC Hgb Hct MCV MCH MCHC RDW Plt Count MPV Neut % (Auto) Lymph % (Auto) [place] % (Auto) Eos % (Auto) Baso % (Auto) Neut # (Auto) Lymph # (Auto) [place] # (Auto) Eos # (Auto) Baso # (Auto) Immature Gran % Nucleated RBC % Immature Gran # Nucleated RBCs # Immature Plt Fraction ABG pH ABG pCO2 ABG pO2 ABG HCO3 ABG Total CO2 ABG O2 Saturation ABG Base Excess FiO2 Sodium 146 H Potassium 3.9 Chloride 112 H Carbon Dioxide 27 Anion Gap 10.9 BUN 33 H Creatinine 1.30 GFR Calculation 57 BUN/Creatinine Ratio 25.00 H Glucose 148 H POC Glucose 163 H Calculated Osmolality 299.6 Calcium 8.4 L Magnesium 2.6 H Quality Measures - VTE Contraindication to Pharmacological VTE Prophylaxis: High Risk of Bleeding Specialty Discharge - Follow Up or Referrals
--- NOTE | 2017-08-10 08:32 | Pulmonology Progress Note ---
Pulmonary - PN: Subj Interval history: 86-year-old man that had acute coronary syndrome and had a syncopal episode due to AV block. He had a pacemaker placed yesterday and was placed on mechanical ventilation. Remains on the ventilator this morning. We will hold sedation change to IMV and hopefully can get him weaned. 08/08/2017 patient did well with weaning trials yesterday. He is about ready to be extubated. He is going for a permanent pacemaker today. We will hold off on extubation until he returns from that. Continuing with CPAP for now. 08/09/2017 pacemaker was postponed. Patient was hypotensive. Chest x-ray today looks wet. Weight is up 2 kg. Will add Zaroxolyn and stop saline. Did well with CPAP yesterday but not ready to extubate as yet. Plan is for pacemaker on Friday. 08/10/2017 patient had good diuresis yesterday. Chest x-ray does look better. Hematocrit is down to 25. Patient may require patient is for permanent pacemaker tomorrow, I believe. For that reason we will not try to get him extubated today. He is tolerating CPAP's. Exam (Progress Note) - Constitutional Vitals: Period Temp Pulse Resp BP Sys/Torre Pulse Ox Last 24 Hr 97.1 F-98.3 F 84-109 15-32 95-124/52-78 91-100 Exam: Patient is sedated on the ventilator. Vital signs stable. Pupils react to light. Orotracheal tube in place. Neck is supple no bruits. Chest reveals a few basilar crackles. Also has a few rhonchi. Heart shows a systolic murmur on the left sternal border. Abdomen is soft nontender no masses. Extremities no clubbing cyanosis 1+ edema. Results - Labs CBC & BMP: 08/10/17 04:10 08/10/17 04:10 Lab Results: I have reviewed the past 24 hour labs - Diagnostic Findings Procedure: Chest x-ray: image reviewed by me (Less wet. Pleural effusions are smaller. ET tube good position) Assessment and Plan (1) Acute on chronic combined systolic and diastolic CHF (congestive heart failure) Status: Acute Assessment and plan: Has ejection fraction 45%. Defer to cardiology. Ischemic heart disease and mitral regurgitation 08/07/2017 x-ray looks a little bit less wet today. Needs some diuresis in order to wean. 08/08/2017 seems to be diuresing. Still a little wet. About ready for extubation, however since he is going for permanent pacemaker today will not plan extubation until he is back from that. 08/09/2017 x-ray is a little wet to her today. Not ready for extubation. Need to diurese first. Pacemaker was not done yesterday, it is planned for Friday. Patient is not requiring pressors at present. 08/10/2017 continuing with diuresis with Lasix and Zaroxolyn. Renal function intact. Current Visit: Yes (2) Acute respiratory failure Status: Acute Assessment and plan: Presently on ventilator after requiring intubation with pacemaker. Will follow and wean as possible. 08/07/2017 ABGs look good. Change to IMV and start weaning process. Probably needs to diurese a little more. 08/08/2017 doing well with weaning process. 08/09/2017 ABGs look good. Did well with CPAP yesterday. However with worsening chest x-ray can not consider extubation as yet. 08/10/2017 ABGs do look good. Tolerating prolonged CPAP. Holding off on extubation until permanent pacemaker is in place. 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 Now has pacemaker. 08/07/2017 this was due to heart block. 08/08/2017 this was due to heart block. Has temporary pacemaker. Plans are for permanent pacemaker today. 08/09/2017 has temporary pacemaker. Permanent pacemaker postponed. Current Visit: Yes (4) ST elevation myocardial infarction (STEMI) of inferior wall Status: Resolved Assessment and plan: He had a catheterization. Please see cardiology note. 08/07/2017 defer to cardiology. Had revascularization done with stents 1 week ago. 08/09/2017 post intervention. 08/10/2017 defer to cardiology. Current Visit: Yes Specialty Discharge - Follow Up or Referrals
--- NOTE | 2017-08-10 09:51 | Electrophysiology Progress Not ---
Assessment and Plan (1) Ischemic cardiomyopathy Status: Chronic Assessment and plan: 86-year-old male, ischemic cardiomyopathy, ejection fraction 30-35%, recurrent episodes of complete heart block, syncope, requiring CPR. DNR, quite debilitated. 08/06: temp PM implant -Shock. Based on echo findings, was cardiogenic. He had severe eccentric mitral regurg on echo, likely due to ischemic papillary muscle dysfunction. This improved, systolic murmur is more loud today. No JVD -Intermittent complete heart block, status post multiple prior bradycardic arrests, CPR. The patient did not want to pursue heroic measures to prolong his life, DNR. I spoke about the options with family. His heart block events are still happening and if we want to give him a chance, we will need to proceed with a pacemaker implant. I will put him tentatively on the schedule tomorrow, they will await arrival of more family members and will have a family meeting. If they wish to proceed, we will do a dual-chamber pacemaker implant, temporary PM explant explant tomorrow. -Discussed with Dr. Willis. Plan to keep the patient intubated for now, in case we pursue the pacemaker tomorrow. He was delirious, agitated before, pulling out IV lines and with the temporary wire in place, I suggest to keep him sedated -Prognosis remains poor. Current Visit: Yes (2) Advanced age Status: Chronic Current Visit: Yes (3) Anemia Status: Acute Current Visit: Yes (4) Chronic atrial fibrillation Status: Chronic Current Visit: Yes Electrophysiology Subjective Interval history: He remains intubated, hemodynamics improved. Of progress. Still, had episode of complete heart block, required support from the temporary pacemaker to VVI 40. Sinus rhythm, frequent PACs Exam - Constitutional Vitals: Period Temp Pulse Resp BP Sys/Torre Pulse Ox Last 24 Hr 97.1 F-98.3 F 84-109 15-32 95-124/52-75 91-100 General appearance: no acute distress, over weight - Head Head exam: Present: normal inspection, other (Multiple suffusion) - Eye Eye exam: Absent: periorbital swelling, laceration to eyelids - ENT ENT exam: Present: normal external ear exam - Neck Neck exam: Present: normal inspection. Absent: thyromegaly - Respiratory Respiratory exam: Present: clear to auscultation bilaterally. Absent: accessory muscle use, chest wall tenderness - Cardiovascular Cardiovascular exam: Present: regular rate and rhythm, systolic murmur. Absent : JVD - GI/Abdominal GI/Abdominal exam: Present: hypoactive bowel sounds. Absent: distended, guarding - Extremities Exam Extremities exam: Present: normal inspection, normal capillary refill, edema (1+ ) - Neurological Exam Neurological exam: Present: other (Arousable,) - Skin Skin exam: Present: normal color, warm. Absent: cyanosis Results - Labs CBC & BMP: 08/10/17 04:10 08/10/17 04:10 Lab Results: I have reviewed the past 24 hour labs Quality Measures - VTE Contraindication to Pharmacological VTE Prophylaxis: High Risk of Bleeding Specialty Discharge - Follow Up or Referrals
[2017-08-10] MEDS ORDERED: ceFAZolin 1,000 MG VIAL IRRIG ONE (10:00)
[2017-08-10] MEDS: PANTOPRAZOLE 40 MG VIAL IV SCH (10:05)
[2017-08-10] MEDS: GLIMEPIRIDE 2 MG TABLET PO SCH ×2 (10:06→17:27)
[2017-08-10] MEDS: SUCRALFATE 1 GM/10 ML UDCUP PO SCH ×4 (10:06→21:06)
[2017-08-10] MEDS: ASPIRIN CHEW 81 MG TABLET PO SCH (10:06)
[2017-08-10] MEDS: predniSONE 20 MG TABLET PO SCH (10:07)
[2017-08-10] MEDS: CLOPIDOGREL 75 MG TABLET PO SCH (10:07)
[2017-08-10] MEDS: LORATADINE 10 MG TABLET PO SCH (10:07)
[2017-08-10] MEDS: metOLazone 2.5 MG TABLET PO SCH (10:07)
[2017-08-10] MEDS: METHOCARBAMOL 500 MG TABLET PO SCH (10:07)
[2017-08-10] MEDS: POLYETHYLENE GLYCOL POWDER 17 GM PACK PO SCH (10:08)
--- NOTE | 2017-08-10 10:28 | XRay Report ---
Portable chest. Indication: Endotracheal tube placement. Comparison: Yesterday's exam. Endotracheal tube and Keofeed tube are in satisfactory position. Cardiac hardware is in satisfactory position. The pulmonary vasculature is normal. Bilateral basilar infiltrates and pleural effusions are there is some improvement in aeration compared to yesterday's exam. Impression: Satisfactory tube placement. Mild improvement. PROCEDURE INTERPRETED AT [facility] DEPARTMENT OF RADIOLOGY Final Report Signed by: Dr. Tania Mathis
[2017-08-10] MEDS ORDERED: SODIUM CHLORIDE 0.9% 250 ML IV PRN (12:29)
--- NOTE | 2017-08-10 12:31 | Hospitalist Progress Note ---
Assessment and Plan (1) ST elevation myocardial infarction (STEMI) of inferior wall Status: Resolved Assessment and plan: S/p stent RCA. Ejection fraction 30-35%, continue aspirin and changed to plavix Current Visit: Yes (2) Intermittent complete heart block Status: Acute Assessment and plan: Status post temporary pacemaker, permanent pacemaker planned for in am Current Visit: Yes (3) Acute kidney injury Status: Acute Assessment and plan: Creatinine stable Current Visit: Yes (4) Anemia Status: Acute Assessment and plan: 2 unit of PRBC, with lasix after each unit, continue Protonix IV Current Visit: Yes (5) Unspecified sleep apnea Status: Acute Assessment and plan: Dr. Baker recommends an outpatient sleep study Current Visit: Yes (6) Ischemic cardiomyopathy Status: Chronic Assessment and plan: Ejection fraction 30-35%, severe mitral regurgitation Current Visit: Yes (7) Type 2 diabetes mellitus Status: Chronic Assessment and plan: Continue Amaryl and Lantus, tolerating tube feeds Current Visit: Yes (8) Acute on chronic combined systolic and diastolic CHF (congestive heart failure) Status: Acute Assessment and plan: Lasix after each unit of packed cells, continue Zaroxolyn Current Visit: Yes (9) COPD exacerbation Status: Acute Assessment and plan: Resolved Current Visit: No (10) Leukocytosis Status: Acute Assessment and plan: Leukocytosis improved to normal no evidence of sepsis. Weaned off pressors. Bilateral infiltrates on chest x-ray more likely edema than infiltrates but will continue Zosyn for now Current Visit: Yes (11) Acute respiratory failure Status: Acute Assessment and plan: cont vent support managed by pulmonary, ABG better today Current Visit: Yes (12) Hypotension Status: Acute Assessment and plan: Patient weaned off of pressors since yesterday pressure actually higher today Current Visit: Yes (13) Falling Status: Acute Assessment and plan: Will need rehab prior to going home Current Visit: Yes Hospitalist: Subjective Interval history: Plan permanent pacemaker placement tomorrow by Dr. Celaya. Patient has been weaned completely off pressors. Blood pressure is stable. Discussed case with Dr. Christine. Exam - Constitutional Vitals: Period Temp Pulse Resp BP Sys/Torre Pulse Ox Last 24 Hr 97.1 F-98.3 F 84-109 13-32 95-124/52-75 94-100 Exam: Heart Rate-[tachy] Lungs-[crackles GI-[+bs soft, NT] Ext-[trace edema] Neuro sedated and intubated psych sedated and intubated unable to evaluate General [no acute distress] Results - Labs CBC & BMP: 08/10/17 04:10 08/10/17 04:10 Lab Results: I have reviewed the past 24 hour labs Labs: Blood cultures 2 negative no growth, urine culture negative no growth - Diagnostic Findings Procedure: Chest x-ray: report reviewed by me (Mild improvement in bilateral infiltrates) Quality Measures - VTE Contraindication to Pharmacological VTE Prophylaxis: High Risk of Bleeding Specialty Discharge - Follow Up or Referrals
[2017-08-10] MEDS: DIGOXIN 0.125 MG TABLET PO SCH (12:44)
--- NOTE | 2017-08-10 16:24 | Event Note ---
Family agrees with pacemaker implant, temporary pacemaker explant tomorrow.
[2017-08-10] MEDS: FUROSEMIDE 40 MG/4 ML VIAL IV PRN ×2 (17:24→20:36)
[2017-08-10] MEDS: ATORVASTATIN 20 MG TABLET PO SCH (21:06)
[2017-08-10] MEDS: INSULIN GLARGINE 100 UNIT/ML SUBCUT SCH (21:06)
[2017-08-10 21:15] LABS: Hematocrit 32.2 VOL% (42.0-52.0)
[2017-08-10 21:16] LABS: Hemoglobin 10.4 GM/DL (14.0-18.0)
[2017-08-11] MEDS: PROPOFOL 1,000 MG/100 ML BOTTLE IV SCH ×5 (01:39→20:09)
[2017-08-11] MEDS: PIPERACILLIN/TAZOBACTAM 3,375 MG in SODIUM CHLORIDE 0.9% 100 ML IV SCH ×3 (05:10→20:09)
[2017-08-11] MEDS: INSULIN REGULAR 100 UNIT/ML SUBCUT SCH ×3 (05:13→17:16)
[2017-08-11 06:39] LABS: Basophils % 0.3 % (0.0-0.8); Eosinophils # 0.1 10*3/uL (0.0-0.87); Eosinophils % 1.3 % (0.00-10.9); Hematocrit 32.7 VOL% (42.0-52.0); Hemoglobin 10.4 GM/DL (14.0-18.0); Immature Granulocytes Absolute 0.28 #; Lymphocytes # 1.7 10*3/uL (1.4-4.0); Lymphocytes % 17.8 % (21.2-54.2); Mean Corpuscular HGB Conc 31.8 GM/DL (32-36); Mean Corpuscular Hemoglobin 25 PG (27-34); Mean Corpuscular Volume 79.2 FL (87-102); Monocytes # 0.8 10*3/uL (0.11-0.8); Monocytes % 8.4 % (1.7-12.7); NRBC # 0.04 10*3/uL; Neutrophils # 6.6 10*3/uL (1.4-7.4); Neutrophils % 69.2 % (38.7-73.9); Platelet Count 204 T/CUMM (130-400); Red Blood Count 4.13 MC/CUMM (3.8-5.5); Red Cell Distribution Width 17.5 % (9.3-17.3); White Blood Count 9.5 T/CUMM (4-12)
[2017-08-11 06:45] LABS: Hematocrit 32.7 VOL% (42.0-52.0); Hemoglobin 10.5 GM/DL (14.0-18.0)
[2017-08-11] MEDS: ALBUTEROL/IPRATROPIUM 3 ML NEB RESP TX SCH ×3 (07:10→23:24)
[2017-08-11 07:15] LABS: Calcium 8.6 MG/DL (8.5-10.1); Magnesium 2.4 MG/DL (1.8-2.4); Osmolality,Calculated 292.8 MOS/KG (273-304); Potassium 3.8 MMOL/L (3.5-5.1)
--- NOTE | 2017-08-11 07:17 | Electrophysiology Progress Not ---
Assessment and Plan (1) Ischemic cardiomyopathy Status: Chronic Assessment and plan: 86-year-old male, ischemic cardiomyopathy, ejection fraction 30-35%, recurrent episodes of complete heart block, syncope, requiring CPR. DNR, quite debilitated. 08/06: temp PM implant -Family refused to proceed with permanent pacemaker implant, temporary pacemaker explant, despite agreeing to proceed with this yesterday. More family members are coming from out of state. -Recommend to keep the temporary pacemaker for now, until the family decides goals of care. Still has intermittent episodes of complete heart block, need for temporary pacing. Had prior bradycardic arrests from this. -If they do not wish to pursue permanent pacemaker, I recommend to discontinue temporary wire, as soon as they are okay with this decision. We kept him intubated for the planned pacemaker procedure today, if this is not pursued, please discuss with Dr. Willis whether this is still required. He was very agitated last week, delirious, pulled out IV lines. -The cardiogenic shock resolved, was likely due to ischemic MR. Current Visit: Yes (2) Advanced age Status: Chronic Current Visit: Yes (3) Anemia Status: Acute Current Visit: Yes (4) Chronic atrial fibrillation Status: Chronic Current Visit: Yes Electrophysiology Subjective Interval history: I was told by the nurses that the family changed their mind, and refused to proceed with a pacemaker implant today. This is despite an extensive discussion yesterday with 2 family members. Apparently, more are coming in from [place] to discuss goals of care. Exam - Constitutional Vitals: Period Temp Pulse Resp BP Sys/Torre Pulse Ox Last 24 Hr 96.9 F-98.3 F 69-101 12-28 98-130/56-85 93-99 General appearance: normal weight, over weight - Head Head exam: Present: normal inspection, other (Improving facial suffusion) - Eye Eye exam: Absent: periorbital swelling, scleral icterus Pupils: Absent: fixed - ENT ENT exam: Present: normal external ear exam - Neck Neck exam: Present: normal inspection - Respiratory Respiratory exam: Present: clear to auscultation bilaterally. Absent: chest wall tenderness - Cardiovascular Cardiovascular exam: Present: regular rate and rhythm, systolic murmur. Absent : JVD - GI/Abdominal GI/Abdominal exam: Present: normal bowel sounds, hypoactive bowel sounds - Extremities Exam Extremities exam: Present: normal inspection, normal capillary refill. Absent: edema - Back Exam Back exam: Present: normal inspection - Neurological Exam Neurological exam: Present: other (Unresponsive) - Skin Skin exam: Present: normal color, warm. Absent: cyanosis Results - Labs CBC & BMP: 08/11/17 04:29 08/11/17 04:29 Quality Measures - VTE Contraindication to Pharmacological VTE Prophylaxis: High Risk of Bleeding Specialty Discharge - Follow Up or Referrals
[2017-08-11 07:21] LABS: Phosphorous 3.6 MG/DL (2.5-4.9); Prealbumin 23.4 MG/DL (20-40)
--- NOTE | 2017-08-11 07:34 | Pulmonology Progress Note ---
Pulmonary - PN: Subj Interval history: 86-year-old man that had acute coronary syndrome and had a syncopal episode due to AV block. He had a pacemaker placed yesterday and was placed on mechanical ventilation. Remains on the ventilator this morning. We will hold sedation change to IMV and hopefully can get him weaned. 08/08/2017 patient did well with weaning trials yesterday. He is about ready to be extubated. He is going for a permanent pacemaker today. We will hold off on extubation until he returns from that. Continuing with CPAP for now. 08/09/2017 pacemaker was postponed. Patient was hypotensive. Chest x-ray today looks wet. Weight is up 2 kg. Will add Zaroxolyn and stop saline. Did well with CPAP yesterday but not ready to extubate as yet. Plan is for pacemaker on Friday. 08/10/2017 patient had good diuresis yesterday. Chest x-ray does look better. Hematocrit is down to 25. Patient may require patient is for permanent pacemaker tomorrow, I believe. For that reason we will not try to get him extubated today. He is tolerating CPAP's. 08/11/2017 apparently family has decided against pacemaker and to make him comfort measures. I suspect he will do okay off the ventilator. Needs pacemaker long-term but they have declined that. They are concerned the patient has told him that he never wanted to be on the ventilator. Perhaps when she is off the ventilator and has the options explained to him, he may want a permanent pacemaker. Family is coming in today and wants to continue as we are doing until they can talk it over and see him tonight. Exam (Progress Note) - Constitutional Vitals: Period Temp Pulse Resp BP Sys/Torre Pulse Ox Last 24 Hr 96.9 F-98.3 F 69-101 12-28 98-130/56-85 93-99 Exam: Patient is sedated on the ventilator. Vital signs stable. Pupils react to light. Orotracheal tube in place. Neck is supple no bruits. Chest reveals a few basilar crackles. Also has a few rhonchi. Heart shows a systolic murmur on the left sternal border. Abdomen is soft nontender no masses. Extremities no clubbing cyanosis 1+ edema. Little change from yesterday. Results - Labs CBC & BMP: 08/11/17 04:29 08/11/17 04:29 Lab Results: I have reviewed the past 24 hour labs Assessment and Plan (1) Acute on chronic combined systolic and diastolic CHF (congestive heart failure) Status: Acute Assessment and plan: Has ejection fraction 45%. Defer to cardiology. Ischemic heart disease and mitral regurgitation 08/07/2017 x-ray looks a little bit less wet today. Needs some diuresis in order to wean. 08/08/2017 seems to be diuresing. Still a little wet. About ready for extubation, however since he is going for permanent pacemaker today will not plan extubation until he is back from that. 08/09/2017 x-ray is a little wet to her today. Not ready for extubation. Need to diurese first. Pacemaker was not done yesterday, it is planned for Friday. Patient is not requiring pressors at present. 08/10/2017 continuing with diuresis with Lasix and Zaroxolyn. Renal function intact. 08/11/2017 Has ejection fraction 40% with MR and AR. Congestive heart failure seems to be fairly well controlled at present. At the present time we will plan to extubate him once the family gets together and makes their final decision. Current Visit: Yes (2) Acute respiratory failure Status: Acute Assessment and plan: Presently on ventilator after requiring intubation with pacemaker. Will follow and wean as possible. 08/07/2017 ABGs look good. Change to IMV and start weaning process. Probably needs to diurese a little more. 08/08/2017 doing well with weaning process. 08/09/2017 ABGs look good. Did well with CPAP yesterday. However with worsening chest x-ray can not consider extubation as yet. 08/10/2017 ABGs do look good. Tolerating prolonged CPAP. Holding off on extubation until permanent pacemaker is in place. 08/11/2017 tolerating CPAP. Should be able to extubate the meantime. We were keeping him on so that he would be ready for the permanent pacemaker today, this appears to be on hold again. 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 Now has pacemaker. 08/07/2017 this was due to heart block. 08/08/2017 this was due to heart block. Has temporary pacemaker. Plans are for permanent pacemaker today. 08/09/2017 has temporary pacemaker. Permanent pacemaker postponed. 08/11/2017 apparently due to bradycardia and heart block. Current Visit: Yes (4) ST elevation myocardial infarction (STEMI) of inferior wall Status: Resolved Assessment and plan: He had a catheterization. Please see cardiology note. 08/07/2017 defer to cardiology. Had revascularization done with stents 1 week ago. 08/09/2017 post intervention. 08/10/2017 defer to cardiology. Current Visit: Yes Specialty Discharge - Follow Up or Referrals
--- NOTE | 2017-08-11 07:36 | EKG Report ---
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
[2017-08-11] MEDS: PANTOPRAZOLE 40 MG VIAL IV SCH (08:26)
[2017-08-11] MEDS: SUCRALFATE 1 GM/10 ML UDCUP PO SCH ×4 (08:26→21:39)
[2017-08-11] MEDS: ASPIRIN CHEW 81 MG TABLET PO SCH (08:27)
[2017-08-11] MEDS: predniSONE 20 MG TABLET PO SCH (08:27)
[2017-08-11] MEDS: LORATADINE 10 MG TABLET PO SCH (08:27)
[2017-08-11] MEDS: CLOPIDOGREL 75 MG TABLET PO SCH (08:27)
[2017-08-11] MEDS: metOLazone 2.5 MG TABLET PO SCH (08:27)
[2017-08-11] MEDS: POLYETHYLENE GLYCOL POWDER 17 GM PACK PO SCH (08:28)
[2017-08-11] MEDS: GLIMEPIRIDE 2 MG TABLET PO SCH ×2 (08:46→17:16)
--- NOTE | 2017-08-11 09:22 | Hospitalist Progress Note ---
Assessment and Plan (1) Type 2 diabetes mellitus Status: Chronic Assessment and plan: Glucose is well controlled at this time we will continue present regimen. Will recheck electrolytes tomorrow. Current Visit: Yes Hospitalist: Subjective Interval history: Hospital medicine is consulted to help manage diabetes. The patient's glucose is now controlled on a combination of Amaryl plus Lantus and sliding scale. Glucose is well controlled at this time. Exam - Constitutional Vitals: Period Temp Pulse Resp BP Sys/Torre Pulse Ox Last 24 Hr 96.9 F-98.3 F 68-101 12-28 96-130/48-85 71-99 - Respiratory Respiratory exam: Present: clear to auscultation bilaterally - Cardiovascular Cardiovascular exam: Present: regular rate and rhythm - GI/Abdominal GI/Abdominal exam: Present: normal bowel sounds Results - Labs CBC & BMP: 08/11/17 04:29 08/11/17 04:29 Lab Results: I have reviewed the past 24 hour labs Quality Measures - VTE Contraindication to Pharmacological VTE Prophylaxis: High Risk of Bleeding Specialty Discharge - Follow Up or Referrals
--- NOTE | 2017-08-11 11:26 | Cardiology Progress Note ---
Assessment and Plan (1) Mitral regurgitation Status: Acute Assessment and plan: 1. 86-year-old WM status post STEMI with stenting of vein graft RCA July 31 , who has moderate ischemic cardiomyopathy and severe MR/pulmonary hypertension , still intubated with temporary pacemaker in place 2. Patient is DNR, but I have been told family wants to wait until the morning to discontinue temporary pacemaker and extubate him, so we will plan for this. 3. Can I get beta-zuleyka given he has had episodes of complete heart block ( none apparent this morning, and he is in sinus with relatively frequent ectopy) 4. Add captopril 6.25 mg twice daily given his cardiomyopathy and cardiogenic shock diagnosis. Current Visit: Yes (2) Ischemic cardiomyopathy Status: Chronic Current Visit: Yes (3) ST elevation myocardial infarction (STEMI) of inferior wall Status: Resolved Current Visit: Yes Cardiology - PN: Subj Interval history: Mr. yusuf is sedated and intubated. I discussed his condition with CCU nursing staff. He is in sinus rhythm currently with PACs and no pacing this morning that I can see. Exam (Progress Note) - Constitutional Vitals: Period Temp Pulse Resp BP Sys/Torre Pulse Ox Last 24 Hr 96.9 F-98.3 F 68-101 12-28 96-130/48-85 71-99 General appearance: no acute distress, other (Intubated and sedated) - Head Head exam: Present: normal inspection, normocephalic, atraumatic - Respiratory Respiratory exam: Present: rales. Absent: rhonchi, stridor - Cardiovascular Cardiovascular exam: Present: regular rate and rhythm, systolic murmur. Absent : diastolic murmur, rubs - GI/Abdominal GI/Abdominal exam: Present: soft. Absent: tenderness - Extremities Exam Extremities exam: Absent: edema Result/EKG - Labs CBC & BMP: 08/11/17 04:29 08/11/17 04:29 Labs: Laboratory Results - last 24 hr 08/10/17 08/10/17 08/10/17 04:10 11:56 17:59 WBC RBC Hgb Hct MCV MCH MCHC RDW Plt Count MPV Neut % (Auto) Lymph % (Auto) [place] % (Auto) Eos % (Auto) Baso % (Auto) Neut # (Auto) Lymph # (Auto) [place] # (Auto) Eos # (Auto) Baso # (Auto) Immature Gran % Nucleated RBC % Immature Gran # Nucleated RBCs # Immature Plt Fraction Sodium Potassium Chloride Carbon Dioxide Anion Gap BUN Creatinine GFR Calculation BUN/Creatinine Ratio Glucose POC Glucose 183 H 338 H Calculated Osmolality Calcium Phosphorus Magnesium Prealbumin Blood Type B POSITIVE Antibody Screen Negative Crossmatch See Detail 08/10/17 08/10/17 08/10/17 21:09 23:49 Unknown WBC RBC Hgb 10.4 L D Hct 32.2 L MCV MCH MCHC RDW Plt Count MPV Neut % (Auto) Lymph % (Auto) [place] % (Auto) Eos % (Auto) Baso % (Auto) Neut # (Auto) Lymph # (Auto) [place] # (Auto) Eos # (Auto) Baso # (Auto) Immature Gran % Nucleated RBC % Immature Gran # Nucleated RBCs # Immature Plt Fraction Sodium Potassium Chloride Carbon Dioxide Anion Gap BUN Creatinine GFR Calculation BUN/Creatinine Ratio Glucose POC Glucose 231 H Calculated Osmolality Calcium Phosphorus Magnesium Prealbumin Blood Type B POSITIVE Antibody Screen Crossmatch 08/11/17 08/11/17 08/11/17 04:29 04:29 04:29 WBC 9.5 RBC 4.13 D Hgb 10.4 L Hct 32.7 L MCV 79.2 L MCH 25 L MCHC 31.8 L RDW 17.5 H Plt Count 204 MPV 11.0 Neut % (Auto) 69.2 Lymph % (Auto) 17.8 L [place] % (Auto) 8.4 Eos % (Auto) 1.3 Baso % (Auto) 0.3 Neut # (Auto) 6.6 Lymph # (Auto) 1.7 [place] # (Auto) 0.8 Eos # (Auto) 0.1 Baso # (Auto) 0.0 Immature Gran % 3.0 Nucleated RBC % 0.4 Immature Gran # 0.28 Nucleated RBCs # 0.04 Immature Plt Fraction 0.0 Sodium 144 Potassium 3.8 Chloride 106 Carbon Dioxide 29 Anion Gap 12.8 BUN 35 H Creatinine 1.30 GFR Calculation 57 BUN/Creatinine Ratio 26.00 H Glucose 89 POC Glucose Calculated Osmolality 292.8 Calcium 8.6 Phosphorus 3.6 Magnesium 2.4 Prealbumin 23.4 Blood Type Antibody Screen Crossmatch 08/11/17 08/11/17 04:29 05:13 WBC RBC Hgb 10.5 L Hct 32.7 L MCV MCH MCHC RDW Plt Count MPV Neut % (Auto) Lymph % (Auto) [place] % (Auto) Eos % (Auto) Baso % (Auto) Neut # (Auto) Lymph # (Auto) [place] # (Auto) Eos # (Auto) Baso # (Auto) Immature Gran % Nucleated RBC % Immature Gran # Nucleated RBCs # Immature Plt Fraction Sodium Potassium Chloride Carbon Dioxide Anion Gap BUN Creatinine GFR Calculation BUN/Creatinine Ratio Glucose POC Glucose 130 H Calculated Osmolality Calcium Phosphorus Magnesium Prealbumin Blood Type Antibody Screen Crossmatch Quality Measures - VTE Contraindication to Pharmacological VTE Prophylaxis: High Risk of Bleeding Specialty Discharge - Follow Up or Referrals
--- NOTE | 2017-08-11 12:49 | Infectious Disease Progress ---
Assessment and Plan (1) Shock circulatory Status: Acute Assessment and plan: Doubt this was due to sepsis. All cultures negative. May have be cardiogenic. Recommendations: Consider stopping Zosyn I will sign off now. Call again as needed. Discussed patient's daughters at bedside Current Visit: Yes (2) Acute on chronic combined systolic and diastolic CHF (congestive heart failure) Status: Acute Current Visit: Yes (3) Intermittent complete heart block Status: Acute Current Visit: Yes (4) Coronary artery disease Status: Chronic Current Visit: Yes Qualifiers: Coronary Disease-Associated Artery/Lesion type: [place] artery [place] vs. transplanted heart: benton heart Associated angina: with stable angina Qualified Code(s): I25.118 - Atherosclerotic heart disease of [place] coronary artery with other forms of angina pectoris (5) Type 2 diabetes mellitus Status: Chronic Current Visit: Yes Infectious Disease - PN: Subj Interval history: Patient without fever over the weekend. He is off vasopressors. No new symptoms since I saw him 3 days ago. Apparently family is considering withdrawing some care. Infectious Disease Exam (PN) - Constitutional Vitals: Temp Pulse Resp BP Pulse Ox 97.1 F L 79 22 124/76 95 08/11/17 11:00 08/11/17 11:54 08/11/17 12:15 08/11/17 11:54 08/11/17 11:54 General appearance: no acute distress, other (Intubated and sedated) Exam: General appearance: Sedated but he is arousable and squeeze my hand on command - Eye Eye exam: Present: EOMI. no icterus Pupils: Present: ROMAN - ENT ENT exam: ET tube in situ - Respiratory Respiratory exam: vesicular BS, no crepitations or wheezes - Cardiovascular Cardiovascular exam: Temporary pacemaker via right subclavian region, regular rate and rhythm, no murmurs - GI/Abdominal GI/Abdominal exam: Sluggish bowel sounds, soft, non-tender, no organomegaly or mass - Extremities Exam Extremities exam: no edema - Skin Skin exam: no rash Results - Labs CBC & BMP: 08/11/17 04:29 08/11/17 04:29 Lab Results: I have reviewed the past 24 hour labs (Blood and urine cultures negative) Quality Measures - VTE Contraindication to Pharmacological VTE Prophylaxis: High Risk of Bleeding Specialty Discharge - Follow Up or Referrals
[2017-08-11] MEDS: DIGOXIN 0.125 MG TABLET PO SCH (13:32)
[2017-08-11] MEDS: CAPTOPRIL 6.25 MG TABLET PO SCH ×2 (15:04→21:39)
[2017-08-11 16:21] LABS: Hematocrit 34.5 VOL% (42.0-52.0); Hemoglobin 10.9 GM/DL (14.0-18.0)
--- NOTE | 2017-08-11 17:11 | Neurology Progress Note ---
Neurology - PN : Subjective Interval history: Stable neurologically. No new problems reported. He is waking up and following commands Exam (Progress Note) - Constitutional Vitals: Period Temp Pulse Resp BP Sys/Torre Pulse Ox Last 24 Hr 96.9 F-98 F 68-101 12-28 96-127/48-76 71-99 Exam: GENERAL: Patient is in no acute distress. NECK: Neck is supple. There is no JVD. No carotid bruits present. No thyroid masses. CVS: First and second heart sounds are normal. There is no S3 present. Regular rate and rhythm. RESPIRATORY: Lungs are clear to auscultation without any rales or rhonchi. ABDOMEN: Soft and non-tender. Bowel sounds are present. There is no hepatosplenomegaly. EXT: There is no palpable edema. Peripheral pulses are present. Skin: No rashes Central Nervous system: General: Waking up and following commands. Speech: None Comprehension: Fair Facial expressions: Normal Cranial Nerves: Pupils are equally reactive to light. External ocular movements are intact. No facial asymmetry seen. Motor: Bulk and Tone is normal. Strength moving all 4 extremities spontaneously as well as on command Sensory: Unreliable Reflexes: 1+ and symmetrical Cerebellar function: Not tested Toes: Equivocal Gait: Not tested Results - Labs CBC & BMP: 08/11/17 16:14 08/11/17 04:29 Assessment and Plan (1) Altered mental status Status: Resolved Assessment and plan: Likely due to metabolic/cardiac etiologies. No clear evidence of stroke, TIAs, epilepsy or seizures. Continue current antiplatelet agents No new recommendations from neuro standpoint Sign off please call as needed Current Visit: Yes Quality Measures - VTE Contraindication to Pharmacological VTE Prophylaxis: High Risk of Bleeding Specialty Discharge - Follow Up or Referrals
[2017-08-11] MEDS: ATORVASTATIN 80 MG TABLET PO SCH (21:39)
[2017-08-11] MEDS: INSULIN GLARGINE 100 UNIT/ML SUBCUT SCH (21:40)
[2017-08-12] MEDS: INSULIN REGULAR 100 UNIT/ML SUBCUT SCH ×4 (00:18→17:09)
[2017-08-12] MEDS: PROPOFOL 1,000 MG/100 ML BOTTLE IV SCH ×2 (01:20→06:42)
[2017-08-12] MEDS: PIPERACILLIN/TAZOBACTAM 3,375 MG in SODIUM CHLORIDE 0.9% 100 ML IV SCH ×4 (05:01→21:00)
[2017-08-12 05:28] LABS: Basophils % 0.3 % (0.0-0.8); Eosinophils # 0.2 10*3/uL (0.0-0.87); Eosinophils % 1.5 % (0.00-10.9); Hematocrit 33.1 VOL% (42.0-52.0); Hemoglobin 10.4 GM/DL (14.0-18.0); Immature Granulocytes % 1.3 %; Immature Granulocytes Absolute 0.13 #; Lymphocytes # 1.4 10*3/uL (1.4-4.0); Lymphocytes % 14.3 % (21.2-54.2); Mean Corpuscular HGB Conc 31.4 GM/DL (32-36); Mean Corpuscular Hemoglobin 25 PG (27-34); Mean Corpuscular Volume 78.8 FL (87-102); Mean Platelet Volume 10.8 FL (9.6-12.0); Monocytes # 0.6 10*3/uL (0.11-0.8); Monocytes % 6.4 % (1.7-12.7); NRBC # 0.04 10*3/uL; Neutrophils # 7.4 10*3/uL (1.4-7.4); Neutrophils % 76.2 % (38.7-73.9); Platelet Count 216 T/CUMM (130-400); Red Cell Distribution Width 17.8 % (9.3-17.3); White Blood Count 9.7 T/CUMM (4-12)
[2017-08-12 06:02] LABS: Calcium 8.7 MG/DL (8.5-10.1); Magnesium 2.5 MG/DL (1.8-2.4); Osmolality,Calculated 292.1 MOS/KG (273-304); Potassium 3.8 MMOL/L (3.5-5.1)
--- NOTE | 2017-08-12 06:19 | Pain Management Progress Note ---
Assessment and Plan (1) Chronic pain syndrome Status: Acute Assessment and plan: Patient can continue his [place] 7.5 3 times daily to 4 times daily as needed for pain during hospital stay. We will make him follow-up appointment with me in pain clinic after discharge and we will make a plan further care 08/05 continue [place] for pain and agree with LTAC transfer at the end of inpatient stay 08/06 hold norco for now due to change in mental status 08/12 call me as needed Current Visit: Yes Pain - Subjective Interval history: checking on him today. still intubated and sedated and pain control is not an issue Exam - Constitutional Vitals: Period Temp Pulse Resp BP Sys/Torre Pulse Ox Last 24 Hr 97.0 F-97.8 F 68-88 12-24 96-126/48-76 71-98 General appearance: no acute distress - Head Head exam: Present: normal inspection - Eye Eye exam: Present: EOMI Pupils: Present: ROMAN - ENT ENT exam: Present: normal exam Ear exam: Present: intact Mouth exam: Present: normal external inspection - Neck Neck exam: Present: normal inspection - Respiratory Respiratory exam: Present: decreased breath sounds - Cardiovascular Cardiovascular exam: Present: irregular rhythm - GI/Abdominal GI/Abdominal exam: Present: normal bowel sounds - Extremities Exam Extremities exam: Present: edema - Neurological Exam Speech: Present: abnormal - Skin Skin exam: Present: normal color Results - Labs CBC & BMP: 08/12/17 04:39 08/12/17 04:39 Lab Results: I have reviewed the past 24 hour labs Quality Measures - VTE Contraindication to Pharmacological VTE Prophylaxis: High Risk of Bleeding Specialty Discharge - Follow Up or Referrals
--- NOTE | 2017-08-12 07:15 | Pulmonology Progress Note ---
Pulmonary - PN: Subj Interval history: 86-year-old man that had acute coronary syndrome and had a syncopal episode due to AV block. He had a pacemaker placed yesterday and was placed on mechanical ventilation. Remains on the ventilator this morning. We will hold sedation change to IMV and hopefully can get him weaned. 08/08/2017 patient did well with weaning trials yesterday. He is about ready to be extubated. He is going for a permanent pacemaker today. We will hold off on extubation until he returns from that. Continuing with CPAP for now. 08/09/2017 pacemaker was postponed. Patient was hypotensive. Chest x-ray today looks wet. Weight is up 2 kg. Will add Zaroxolyn and stop saline. Did well with CPAP yesterday but not ready to extubate as yet. Plan is for pacemaker on Friday. 08/10/2017 patient had good diuresis yesterday. Chest x-ray does look better. Hematocrit is down to 25. Patient may require patient is for permanent pacemaker tomorrow, I believe. For that reason we will not try to get him extubated today. He is tolerating CPAP's. 08/11/2017 apparently family has decided against pacemaker and to make him comfort measures. I suspect he will do okay off the ventilator. Needs pacemaker long-term but they have declined that. They are concerned the patient has told him that he never wanted to be on the ventilator. Perhaps when she is off the ventilator and has the options explained to him, he may want a permanent pacemaker. Family is coming in today and wants to continue as we are doing until they can talk it over and see him tonight. 08/12/2017 patient doing well as far as mechanical ventilation is concerned. Tolerating CPAP. Should be able to get him extubated this morning. Family wants him to discuss possibility of permanent pacemaker. I think that is reasonable. I think he will be fine with extubation. We will check blood gases on CPAP as well as mechanics to be sure. Chest x-ray is pending. Exam (Progress Note) - Constitutional Vitals: Period Temp Pulse Resp BP Sys/Torre Pulse Ox Last 24 Hr 97.1 F-97.8 F 68-88 12-24 87-126/48-76 95-98 Exam: Patient is sedated on the ventilator. Awakens for CPAP when sedation is held. Vital signs stable. Pupils react to light. Orotracheal tube in place. Neck is supple no bruits. Chest reveals a few basilar crackles. Also has a few rhonchi. Heart shows a systolic murmur on the left sternal border. Abdomen is soft nontender no masses. Extremities no clubbing cyanosis 1+ edema. Results - Labs CBC & BMP: 08/12/17 04:39 08/12/17 04:39 Lab Results: I have reviewed the past 24 hour labs Assessment and Plan (1) Acute on chronic combined systolic and diastolic CHF (congestive heart failure) Status: Acute Assessment and plan: Has ejection fraction 45%. Defer to cardiology. Ischemic heart disease and mitral regurgitation 08/07/2017 x-ray looks a little bit less wet today. Needs some diuresis in order to wean. 08/08/2017 seems to be diuresing. Still a little wet. About ready for extubation, however since he is going for permanent pacemaker today will not plan extubation until he is back from that. 08/09/2017 x-ray is a little wet to her today. Not ready for extubation. Need to diurese first. Pacemaker was not done yesterday, it is planned for Friday. Patient is not requiring pressors at present. 08/10/2017 continuing with diuresis with Lasix and Zaroxolyn. Renal function intact. 08/11/2017 Has ejection fraction 40% with MR and AR. Congestive heart failure seems to be fairly well controlled at present. At the present time we will plan to extubate him once the family gets together and makes their final decision. 08/12/2017 congestive heart failure is fairly well controlled clinically. Current Visit: Yes (2) Acute respiratory failure Status: Acute Assessment and plan: Presently on ventilator after requiring intubation with pacemaker. Will follow and wean as possible. 08/07/2017 ABGs look good. Change to IMV and start weaning process. Probably needs to diurese a little more. 08/08/2017 doing well with weaning process. 08/09/2017 ABGs look good. Did well with CPAP yesterday. However with worsening chest x-ray can not consider extubation as yet. 08/10/2017 ABGs do look good. Tolerating prolonged CPAP. Holding off on extubation until permanent pacemaker is in place. 08/11/2017 tolerating CPAP. Should be able to extubate the meantime. We were keeping him on so that he would be ready for the permanent pacemaker today, this appears to be on hold again. 08/12/2017 tolerating CPAP. Hope to be able to extubate this morning. Family hesitant about the permanent pacemaker and wants the patient to decide himself Current Visit: Yes (3) Syncope and collapse Status: Resolved Assessment and plan: Because of a third-degree heart block. Now has pacemaker. 08/07/2017 this was due to heart block. 08/08/2017 this was due to heart block. Has temporary pacemaker. Plans are for permanent pacemaker today. 08/09/2017 has temporary pacemaker. Permanent pacemaker postponed. 08/11/2017 apparently due to bradycardia and heart block. Current Visit: Yes (4) ST elevation myocardial infarction (STEMI) of inferior wall Status: Resolved Assessment and plan: He had a catheterization. Please see cardiology note. 08/07/2017 defer to cardiology. Had revascularization done with stents 1 week ago. 08/09/2017 post intervention. 08/10/2017 defer to cardiology. 08/12/17 had stent placed about 2 weeks ago. Current Visit: Yes Specialty Discharge - Follow Up or Referrals
[2017-08-12] MEDS: ALBUTEROL/IPRATROPIUM 3 ML NEB RESP TX SCH ×2 (07:20→14:01)
[2017-08-12 08:25] LABS: Pt O2 Delivery Device Ventilator
[2017-08-12 08:27] LABS: ABG Oxygen Saturation 96.9 % (95-100); ABG PCO2 37.6 MM HG (35-48); ABG PH 7.475 (7.35-7.45); ABG PO2 87.1 MM HG (80-95); ABG TCO2 24.7 MMOL/L (23-27)
--- NOTE | 2017-08-12 09:06 | XRay Report ---
History is ventilator management Comparison 08/10/2017 The heart is enlarged. ET tube tip remains at T5 There remain mild diffuse hazy bilateral pulmonary opacities and small effusions with improvement in the interval. No more focal consolidation seen. Impression: Mild improvement with continued diffuse pulmonary edema PROCEDURE INTERPRETED AT [facility] DEPARTMENT OF RADIOLOGY Final Report Signed by: Dr. Alida Mathis
--- NOTE | 2017-08-12 09:09 | Electrophysiology Progress Not ---
Assessment and Plan (1) Ischemic cardiomyopathy Status: Chronic Assessment and plan: 86-year-old male, ischemic cardiomyopathy, ejection fraction 30-35%, recurrent episodes of complete heart block, syncope, requiring CPR. DNR, quite debilitated. 08/06: temp PM implant -Awaiting family decision on goals of care. -The cardiogenic shock resolved, was likely due to ischemic MR. -If they want to pursue permanent pacemaker implant, please let me know. Otherwise, if comfort care is pursued, the temporary wire may be pulled. -I will sign off, please call with further questions Current Visit: Yes (2) Advanced age Status: Chronic Current Visit: Yes (3) Anemia Status: Acute Current Visit: Yes (4) Chronic atrial fibrillation Status: Chronic Current Visit: Yes Electrophysiology Subjective Interval history: Patient still intubated, minimally responsive. Temporary wire in place, capturing well with no output. No recurrence of AV block last night. Family was still unable to make a decision goals of care. Exam - Constitutional Vitals: Period Temp Pulse Resp BP Sys/Torre Pulse Ox Last 24 Hr 97.1 F-97.8 F 69-88 12-24 87-127/51-76 95-100 General appearance: no acute distress, over weight, other (Minimally responsive) - Head Head exam: Present: normal inspection, hematoma (Resolving suffusion) - Eye Eye exam: Absent: periorbital swelling, laceration to eyelids - ENT ENT exam: Present: normal external ear exam - Neck Neck exam: Present: normal inspection - Respiratory Respiratory exam: Present: clear to auscultation bilaterally. Absent: chest wall tenderness - Cardiovascular Cardiovascular exam: Present: irregular rhythm, regular rate and rhythm, systolic murmur. Absent: JVD - GI/Abdominal GI/Abdominal exam: Present: hypoactive bowel sounds. Absent: distended, guarding - Extremities Exam Extremities exam: Present: normal inspection, normal capillary refill, edema (1+ ) - Neurological Exam Neurological exam: Present: other (Minimally responsive) - Skin Skin exam: Present: normal color, warm. Absent: cyanosis Results - Labs CBC & BMP: 08/12/17 04:39 08/12/17 04:39 Lab Results: I have reviewed the past 24 hour labs Quality Measures - VTE Contraindication to Pharmacological VTE Prophylaxis: High Risk of Bleeding Specialty Discharge - Follow Up or Referrals
[2017-08-12] MEDS: GLIMEPIRIDE 2 MG TABLET PO SCH ×2 (09:28→16:07)
--- NOTE | 2017-08-12 10:01 | Cardiology Progress Note ---
Assessment and Plan - Time spent with patient Time spent with patient: Greater than 30 minutes (1) Acute on chronic diastolic CHF (congestive heart failure) Status: Resolved Assessment and plan: SEE PLAN OF CARE LISTED BELOW Current Visit: Yes (2) Coronary artery disease Status: Chronic Assessment and plan: SEE PLAN OF CARE LISTED BELOW Current Visit: Yes Qualifiers: Coronary Disease-Associated Artery/Lesion type: [place] artery [place] vs. transplanted heart: [place] heart Associated angina: with stable angina Qualified Code(s): I25.118 - Atherosclerotic heart disease of [place] coronary artery with other forms of angina pectoris (3) Chronic atrial fibrillation Status: Chronic Assessment and plan: SEE PLAN OF CARE LISTED BELOW Current Visit: Yes (4) Hyperlipidemia Status: Chronic Assessment and plan: SEE PLAN OF CARE LISTED BELOW Current Visit: Yes (5) Type 2 diabetes mellitus Status: Chronic Assessment and plan: SEE PLAN OF CARE LISTED BELOW Current Visit: Yes (6) Closed head injury Status: Acute Assessment and plan: SEE PLAN OF CARE LISTED BELOW Current Visit: Yes (7) Head injury Status: Acute Assessment and plan: SEE PLAN OF CARE LISTED BELOW Current Visit: Yes (8) Syncope and collapse Status: Resolved Assessment and plan: SEE PLAN OF CARE LISTED BELOW Current Visit: Yes (9) ST elevation myocardial infarction (STEMI) of inferior wall Status: Resolved Assessment and plan: SEE PLAN OF CARE LISTED BELOW Current Visit: Yes (10) Ischemic cardiomyopathy Status: Chronic Assessment and plan: SEE PLAN OF CARE LISTED BELOW Current Visit: Yes (11) Bradycardia following surgery Status: Acute Assessment and plan: SEE PLAN OF CARE LISTED BELOW Current Visit: Yes (12) Altered mental status Status: Resolved Assessment and plan: SEE PLAN OF CARE LISTED BELOW Current Visit: Yes (13) Advanced age Status: Chronic Assessment and plan: SEE PLAN OF CARE LISTED BELOW Current Visit: Yes (14) Debilitated Status: Chronic Assessment and plan: SEE PLAN OF CARE LISTED BELOW Current Visit: Yes (15) Acute kidney injury Status: Acute Assessment and plan: SEE PLAN OF CARE LISTED BELOW Current Visit: Yes (16) Anemia Status: Acute Assessment and plan: SEE PLAN OF CARE LISTED BELOW Current Visit: Yes (17) Respiratory distress Status: Acute Assessment and plan: SEE PLAN OF CARE LISTED BELOW Current Visit: Yes Cardiology - PN: Subj Interval history: 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 BRANDON Patient is being seen in the CCU. SUMMARY: Mr. Colvin, 86WM, with history of known CAD (status post CABG), hypertension, dyslipidemia, diabetes. History of atrial fibrillation on chronic anticoagulation (Xarelto), history of DVT, chronic pain. Patient presented to ED of [facility] July 31, 2017 after experiencing head trauma due to fall related to syncope. EKG revealed inferoposterior STEMI. Underwent emergent CT head to rule out hemorrhage (negative for hemorrhage) prior to proceeding with heart catheterization. Dr. Pollock took patient to be heart parking lot laborer where he required a SRUTHI to vein graft to right coronary artery. (See heart catheterization report). Patient tolerated the actual procedure well. Postoperatively, patient experienced transient third-degree heart block, near syncope, brief episode of spitting up of blood. (It was difficult to ascertain if this came from the stomach or lungs). Also, patient experienced respiratory distress deemed acute on chronic CHF secondary to systolic dysfunction (EF 45-50 %) and diastolic dysfunction, NYHA Class IV. He required intubation. Patient has had temporary pacemaker placed as he continued to have transient third- degree heart block. Echocardiogram: EF 45-50%, mild to moderate mitral regurgitation, PAP of 38 mmHg. Required pressors for several days. 2016: Hopefully, patient will be weaned from ventilator today. Family has decided they wish to proceed with extubation (if patient is stable) and allow Mr. Colvin to determine whether or not he would like a permanent pacemaker implanted. He seems to be following commands appropriately. Labs are stable. Treatment continues with Aspirin, Atorvastatin, Captopril, Plavix. I will further discuss with Dr. Sepulveda and await additional recommendations. ASSESSMENT/PLAN: 1. STEMI, INFERIOR - status post revascularization. Continue Aspirin, Plavix. 2. CAD S/P CABG - continue Aspirin, Plavix as we continue to watch labs daily. Avoiding beta blockers due to his episodes of transient high degree heart block. TOO inhibitor now on board. 3. DYSLIPIDEMIA - LDL 98. Continue Atorvastatin at 20 mg. 4. DIABETES - adequately controlled at this time. 5. BRADYCARDIA ARRHYTHMIA/ASYSTOLE - now with temporary pacemaker. 6. ATRIAL FIBRILLATION, CHRONIC - previously on Xarelto. Patient will not be a candidate for triple antiplatelet therapy and favor Aspirin, Plavix for recent CO with PCI with SRUTHI. 7. TANYA - resolved. Suspect related to hypotension with STEMI, IVP dye use with heart cath, and significant use of diuretics to treat his CHF. May eventually be able to tolerate TOO/ARB prior to discharge if creatinine remains normal and hypotension resolves. 8. SYNCOPE - may have been related to arrhythmia versus CO. Stable. 9. HIGH FALLS RISK - protocol in place to prevent falls 10. ANEMIA - stable. Continue DAPT without fail. Daily CBC 11. ICM - long-standing history of ischemic cardiomyopathy. Now on TOO. 12. CHF, ACUTE ON CHRONIC - secondary to systolic dysfunction (EF previously 45 %-50%) and diastolic dysfunction. NYHA class II-III. Intubated. Strict I&O, daily weights. CHF appears to have resolved at this time. 13. RESPIRATORY DISTRESS - now weaning trials ensue. Hoepful for extubation today. Exam (Progress Note) - Constitutional Vitals: Period Temp Pulse Resp BP Sys/Torre Pulse Ox Last 24 Hr 97.1 F-97.8 F 69-100 12-24 87-135/51-77 94-100 Exam: General: [Appears pale and critically ill. Intubated.] HEENT: [Mmultiple lacerations and ecchymotic areas noted to the right face. Mucous membranes moist. No jaundice noted. Conjunctiva moist and clear, sclerae anicteric] Neck: No obvious JVD/HJR, no thyromegaly or lymphadenopathy noted. No carotid bruit appreciated. No tracheal deviation noted. Cardiac: [Regular rate and rhythm.] [III/ holosystolic murmur heard best at fifth intercostal space to the left. Lungs: Decreased sounds throughout without wheezes. Requiring mechanical ventilation. Symmetrical chest wall movements noted. Abdomen: Soft, bowel sounds normoactive. Nontender and nondistended. No abdominal bruit or thrill noted. No masses noted. Musculoskeletal: No fluid collection. Decreased range of motion is noted. Extremities: No clubbing, cyanosis noted. [ Trace bilateral lower extremity edema noted.] Upper extremity pulses 2+. Lower extremity pulses 1+. Capillary refill less than 3 seconds. Right groin soft without hematoma noted. Skin: No unusual lesions or rashes other than the ecchymotic areas noted to his face. No skin breakdown appreciated. Neuro: Awakes and becomes aggressive when sedation with health. No essential tremor is appreciated. Result/EKG - Labs CBC & BMP: 08/12/17 04:39 08/12/17 04:39 Lab Results: I have reviewed the past 24 hour labs Labs: Laboratory Results - last 24 hr 08/11/17 08/11/17 08/11/17 11:37 16:14 16:49 WBC RBC Hgb 10.9 L Hct 34.5 L MCV MCH MCHC RDW Plt Count MPV Neut % (Auto) Lymph % (Auto) [place] % (Auto) Eos % (Auto) Baso % (Auto) Neut # (Auto) Lymph # (Auto) [place] # (Auto) Eos # (Auto) Baso # (Auto) Immature Gran % Nucleated RBC % Immature Gran # Nucleated RBCs # Immature Plt Fraction ABG pH ABG pCO2 ABG pO2 ABG HCO3 ABG Total CO2 ABG O2 Saturation ABG Base Excess FiO2 Sodium Potassium Chloride Carbon Dioxide Anion Gap BUN Creatinine GFR Calculation BUN/Creatinine Ratio Glucose POC Glucose 104 236 H Calculated Osmolality Calcium Magnesium 08/12/17 08/12/17 08/12/17 00:11 04:39 04:39 WBC 9.7 RBC 4.20 Hgb 10.4 L Hct 33.1 L MCV 78.8 L MCH 25 L MCHC 31.4 L RDW 17.8 H Plt Count 216 MPV 10.8 Neut % (Auto) 76.2 H Lymph % (Auto) 14.3 L [place] % (Auto) 6.4 Eos % (Auto) 1.5 Baso % (Auto) 0.3 Neut # (Auto) 7.4 Lymph # (Auto) 1.4 [place] # (Auto) 0.6 Eos # (Auto) 0.2 Baso # (Auto) 0.0 Immature Gran % 1.3 Nucleated RBC % 0.4 Immature Gran # 0.13 Nucleated RBCs # 0.04 Immature Plt Fraction 0.0 ABG pH ABG pCO2 ABG pO2 ABG HCO3 ABG Total CO2 ABG O2 Saturation ABG Base Excess FiO2 Sodium 142 Potassium 3.8 Chloride 106 Carbon Dioxide 29 Anion Gap 10.8 BUN 38 H Creatinine 1.20 GFR Calculation 63 BUN/Creatinine Ratio 31.00 H Glucose 125 H POC Glucose 176 H Calculated Osmolality 292.1 Calcium 8.7 Magnesium 2.5 H 08/12/17 08/12/17 05:13 08:20 WBC RBC Hgb Hct MCV MCH MCHC RDW Plt Count MPV Neut % (Auto) Lymph % (Auto) [place] % (Auto) Eos % (Auto) Baso % (Auto) Neut # (Auto) Lymph # (Auto) [place] # (Auto) Eos # (Auto) Baso # (Auto) Immature Gran % Nucleated RBC % Immature Gran # Nucleated RBCs # Immature Plt Fraction ABG pH 7.475 H ABG pCO2 37.6 ABG pO2 87.1 ABG HCO3 28.0 H ABG Total CO2 24.7 ABG O2 Saturation 96.9 ABG Base Excess 4.0 H FiO2 40.00 Sodium Potassium Chloride Carbon Dioxide Anion Gap BUN Creatinine GFR Calculation BUN/Creatinine Ratio Glucose POC Glucose 165 H Calculated Osmolality Calcium Magnesium - EKG EKG results: interpreted by me EKG shows: sinus rhythm Quality Measures - VTE Contraindication to Pharmacological VTE Prophylaxis: High Risk of Bleeding Specialty Discharge - Follow Up or Referrals
[2017-08-12 10:09] LABS: Pt O2 Delivery Device Venturi Mask
[2017-08-12 10:10] LABS: ABG HCO3 28.8 MMOL/L (20-26); ABG Oxygen Saturation 93.4 % (95-100); ABG PCO2 37.2 MM HG (35-48); ABG PH 7.492 (7.35-7.45); ABG TCO2 25.4 MMOL/L (23-27)
--- NOTE | 2017-08-12 10:10 | Hospitalist Progress Note ---
Assessment and Plan (1) Type 2 diabetes mellitus Status: Chronic Assessment and plan: Glucose is well controlled at this time we will continue present regimen. Will recheck electrolytes tomorrow. Current Visit: Yes Hospitalist: Subjective Interval history: Mr. yusuf is awake and responsive this morning. He has not had any new issues. Exam - Constitutional Vitals: Period Temp Pulse Resp BP Sys/Torre Pulse Ox Last 24 Hr 97.1 F-97.8 F 69-100 12-24 87-135/51-77 94-100 General appearance: no acute distress - Respiratory Respiratory exam: Present: clear to auscultation bilaterally - Cardiovascular Cardiovascular exam: Present: regular rate and rhythm Results - Labs CBC & BMP: 08/12/17 04:39 08/12/17 04:39 Lab Results: I have reviewed the past 24 hour labs Quality Measures - VTE Contraindication to Pharmacological VTE Prophylaxis: High Risk of Bleeding Specialty Discharge - Follow Up or Referrals
[2017-08-12] MEDS: SUCRALFATE 1 GM/10 ML UDCUP PO SCH ×4 (10:44→21:01)
[2017-08-12] MEDS: LORATADINE 10 MG TABLET PO SCH (10:44)
[2017-08-12] MEDS: metOLazone 2.5 MG TABLET PO SCH (10:44)
[2017-08-12] MEDS: CAPTOPRIL 6.25 MG TABLET PO SCH ×3 (10:44→21:01)
[2017-08-12] MEDS: CLOPIDOGREL 75 MG TABLET PO SCH (10:44)
[2017-08-12] MEDS: ASPIRIN CHEW 81 MG TABLET PO SCH (10:45)
[2017-08-12] MEDS: PANTOPRAZOLE 40 MG VIAL IV SCH (10:45)
[2017-08-12] MEDS: predniSONE 20 MG TABLET PO SCH (10:45)
[2017-08-12] MEDS: POLYETHYLENE GLYCOL POWDER 17 GM PACK PO SCH (10:45)
[2017-08-12] MEDS: SPIRONOLACTONE 25 MG TABLET PO SCH (14:06)
[2017-08-12] MEDS: FUROSEMIDE 40 MG/4 ML VIAL IV SCH ×3 (14:06→16:07)
[2017-08-12] MEDS: ENOXAPARIN 30 MG/0.3 ML SYRINGE SUBCUT SCH ×2 (14:07→14:18)
[2017-08-12] MEDS: ATORVASTATIN 80 MG TABLET PO SCH (21:01)
[2017-08-12] MEDS: INSULIN GLARGINE 100 UNIT/ML SUBCUT SCH (21:01)
[2017-08-13] MEDS: INSULIN REGULAR 100 UNIT/ML SUBCUT SCH ×5 (00:14→20:33)
[2017-08-13] MEDS: ALBUTEROL/IPRATROPIUM 3 ML NEB RESP TX SCH ×4 (00:30→23:16)
[2017-08-13 04:59] LABS: Basophils % 0.3 % (0.0-0.8); Eosinophils # 0.1 10*3/uL (0.0-0.87); Eosinophils % 0.8 % (0.00-10.9); Hematocrit 34.9 VOL% (42.0-52.0); Hemoglobin 11.1 GM/DL (14.0-18.0); Immature Granulocytes % 1.3 %; Immature Granulocytes Absolute 0.14 #; Lymphocytes # 1.5 10*3/uL (1.4-4.0); Lymphocytes % 13.8 % (21.2-54.2); Mean Corpuscular HGB Conc 31.8 GM/DL (32-36); Mean Corpuscular Hemoglobin 25 PG (27-34); Mean Corpuscular Volume 78.3 FL (87-102); Mean Platelet Volume 11.5 FL (9.6-12.0); Monocytes # 0.8 10*3/uL (0.11-0.8); Monocytes % 7.3 % (1.7-12.7); Neutrophils # 8.2 10*3/uL (1.4-7.4); Neutrophils % 76.5 % (38.7-73.9); Platelet Count 221 T/CUMM (130-400); Red Blood Count 4.46 MC/CUMM (3.8-5.5); Red Cell Distribution Width 17.9 % (9.3-17.3); White Blood Count 10.7 T/CUMM (4-12)
[2017-08-13 05:29] LABS: Calcium 9.2 MG/DL (8.5-10.1); Magnesium 2.3 MG/DL (1.8-2.4); Potassium 3.8 MMOL/L (3.5-5.1)
[2017-08-13] MEDS: PIPERACILLIN/TAZOBACTAM 3,375 MG in SODIUM CHLORIDE 0.9% 100 ML IV SCH ×3 (05:32→20:28)
--- NOTE | 2017-08-13 07:03 | Pulmonology Progress Note ---
Pulmonary - PN: Subj Interval history: 86-year-old man that had acute coronary syndrome and had a syncopal episode due to AV block. He had a pacemaker placed yesterday and was placed on mechanical ventilation. Remains on the ventilator this morning. We will hold sedation change to IMV and hopefully can get him weaned. 08/08/2017 patient did well with weaning trials yesterday. He is about ready to be extubated. He is going for a permanent pacemaker today. We will hold off on extubation until he returns from that. Continuing with CPAP for now. 08/09/2017 pacemaker was postponed. Patient was hypotensive. Chest x-ray today looks wet. Weight is up 2 kg. Will add Zaroxolyn and stop saline. Did well with CPAP yesterday but not ready to extubate as yet. Plan is for pacemaker on Friday. 08/10/2017 patient had good diuresis yesterday. Chest x-ray does look better. Hematocrit is down to 25. Patient may require patient is for permanent pacemaker tomorrow, I believe. For that reason we will not try to get him extubated today. He is tolerating CPAP's. 08/11/2017 apparently family has decided against pacemaker and to make him comfort measures. I suspect he will do okay off the ventilator. Needs pacemaker long-term but they have declined that. They are concerned the patient has told him that he never wanted to be on the ventilator. Perhaps when she is off the ventilator and has the options explained to him, he may want a permanent pacemaker. Family is coming in today and wants to continue as we are doing until they can talk it over and see him tonight. 08/12/2017 patient doing well as far as mechanical ventilation is concerned. Tolerating CPAP. Should be able to get him extubated this morning. Family wants him to discuss possibility of permanent pacemaker. I think that is reasonable. I think he will be fine with extubation. We will check blood gases on CPAP as well as mechanics to be sure. Chest x-ray is pending. 08/13/2017 patient was extubated without incident yesterday. Oxygen saturation in mid 90s on 2 L nasal oxygen. Patient is alert. He is somewhat confused. He still has a temporary pacemaker in place. Clearly he needs a permanent pacemaker. I discussed this with the patient and his daughters this morning. In addition he probably needs a little more diuresis. Exam (Progress Note) - Constitutional Vitals: Period Temp Pulse Resp BP Sys/Torre Pulse Ox Last 24 Hr 97.5 F-98.2 F 76-106 16-25 104-140/56-92 90-100 Exam: Patient is alert and responsive off the ventilator. Wearing nasal oxygen with O2 sat 95%. He is a little confused trying to answer questions. Vital signs stable. Pupils react to light. Throat is clear. Neck is supple no bruits. Chest reveals a few basilar crackles. Also has a few rhonchi. Heart shows a systolic murmur on the left sternal border. Abdomen is soft nontender no masses. Extremities no clubbing cyanosis 1+ edema. Results - Labs CBC & BMP: 08/13/17 04:07 08/13/17 04:07 Lab Results: I have reviewed the past 24 hour labs Assessment and Plan (1) Acute on chronic combined systolic and diastolic CHF (congestive heart failure) Status: Acute Assessment and plan: Has ejection fraction 45%. Defer to cardiology. Ischemic heart disease and mitral regurgitation 08/07/2017 x-ray looks a little bit less wet today. Needs some diuresis in order to wean. 08/08/2017 seems to be diuresing. Still a little wet. About ready for extubation, however since he is going for permanent pacemaker today will not plan extubation until he is back from that. 08/09/2017 x-ray is a little wet to her today. Not ready for extubation. Need to diurese first. Pacemaker was not done yesterday, it is planned for Friday. Patient is not requiring pressors at present. 08/10/2017 continuing with diuresis with Lasix and Zaroxolyn. Renal function intact. 08/11/2017 Has ejection fraction 40% with MR and AR. Congestive heart failure seems to be fairly well controlled at present. At the present time we will plan to extubate him once the family gets together and makes their final decision. 08/12/2017 congestive heart failure is fairly well controlled clinically. 08/13/2017 congestive heart failure improved. Still a little wet. Continue with diuretics. Current Visit: Yes (2) Acute respiratory failure Status: Acute Assessment and plan: Presently on ventilator after requiring intubation with pacemaker. Will follow and wean as possible. 08/07/2017 ABGs look good. Change to IMV and start weaning process. Probably needs to diurese a little more. 08/08/2017 doing well with weaning process. 08/09/2017 ABGs look good. Did well with CPAP yesterday. However with worsening chest x-ray can not consider extubation as yet. 08/10/2017 ABGs do look good. Tolerating prolonged CPAP. Holding off on extubation until permanent pacemaker is in place. 08/11/2017 tolerating CPAP. Should be able to extubate the meantime. We were keeping him on so that he would be ready for the permanent pacemaker today, this appears to be on hold again. 08/12/2017 tolerating CPAP. Hope to be able to extubate this morning. Family hesitant about the permanent pacemaker and wants the patient to decide himself 08/13/2017 patient extubated yesterday and is doing well with nasal oxygen. Respiratory failure improved. Still requiring a little oxygen Current Visit: Yes (3) Syncope and collapse Status: Resolved Assessment and plan: Because of a third-degree heart block. Now has pacemaker. 08/07/2017 this was due to heart block. 08/08/2017 this was due to heart block. Has temporary pacemaker. Plans are for permanent pacemaker today. 08/09/2017 has temporary pacemaker. Permanent pacemaker postponed. 08/11/2017 apparently due to bradycardia and heart block. 08/13/2017 syncope due to severe bradycardia. Clearly needs permanent pacemaker. Current Visit: Yes (4) ST elevation myocardial infarction (STEMI) of inferior wall Status: Resolved Assessment and plan: He had a catheterization. Please see cardiology note. 08/07/2017 defer to cardiology. Had revascularization done with stents 1 week ago. 08/09/2017 post intervention. 08/10/2017 defer to cardiology. 08/12/17 had stent placed about 2 weeks ago. 08/13/2017 follow-up with cardiology. Current Visit: Yes Specialty Discharge - Follow Up or Referrals
[2017-08-13] MEDS: FUROSEMIDE 40 MG/4 ML VIAL IV SCH ×2 (08:24→16:05)
[2017-08-13] MEDS: predniSONE 20 MG TABLET PO SCH (08:25)
[2017-08-13] MEDS: SPIRONOLACTONE 25 MG TABLET PO SCH (08:25)
[2017-08-13] MEDS: ASPIRIN CHEW 81 MG TABLET PO SCH (08:25)
[2017-08-13] MEDS: GLIMEPIRIDE 2 MG TABLET PO SCH ×2 (08:25→16:06)
[2017-08-13] MEDS: CAPTOPRIL 6.25 MG TABLET PO SCH ×3 (08:25→20:32)
[2017-08-13] MEDS: LORATADINE 10 MG TABLET PO SCH (08:26)
[2017-08-13] MEDS: CLOPIDOGREL 75 MG TABLET PO SCH (08:26)
[2017-08-13] MEDS: POLYETHYLENE GLYCOL POWDER 17 GM PACK PO SCH (08:27)
[2017-08-13] MEDS: PANTOPRAZOLE 40 MG VIAL IV SCH (08:52)
[2017-08-13] MEDS: SUCRALFATE 1 GM/10 ML UDCUP PO SCH ×4 (08:52→20:34)
--- NOTE | 2017-08-13 09:54 | Hospitalist Progress Note ---
Assessment and Plan (1) Type 2 diabetes mellitus Status: Chronic Assessment and plan: Glucose is well controlled at this time we will continue present regimen. Will recheck electrolytes tomorrow. Current Visit: Yes Hospitalist: Subjective Interval history: Mr. yusuf is now off the ventilator. His fasting glucometer was 160. The patient has improved spirits and I discussed his case with his daughters at the bedside. Exam - Constitutional Vitals: Period Temp Pulse Resp BP Sys/Torre Pulse Ox Last 24 Hr 97.2 F-98.2 F 78-106 16-29 104-140/56-92 90-100 General appearance: no acute distress - Respiratory Respiratory exam: Present: clear to auscultation bilaterally - Cardiovascular Cardiovascular exam: Present: regular rate and rhythm Results - Labs CBC & BMP: 08/13/17 04:07 08/13/17 04:07 Lab Results: I have reviewed the past 24 hour labs Quality Measures - VTE Contraindication to Pharmacological VTE Prophylaxis: High Risk of Bleeding Specialty Discharge - Follow Up or Referrals
--- NOTE | 2017-08-13 11:38 | Cardiology Progress Note ---
Assessment and Plan (1) Mitral regurgitation Status: Acute Assessment and plan: 1. 86-year-old WM status post STEMI with stenting of vein graft RCA July 31 , who has moderate ischemic cardiomyopathy and severe MR/pulmonary hypertension , still intubated with temporary pacemaker in place 2. Patient is DNR, but I have been told family wants to wait until the morning to discontinue temporary pacemaker and extubate him, so we will plan for this. 3. Can I get beta-zuleyka given he has had episodes of complete heart block ( none apparent this morning, and he is in sinus with relatively frequent ectopy) 4. Add captopril 6.25 mg twice daily given his cardiomyopathy and cardiogenic shock diagnosis. August 13, 2017: 1. Mr. yusuf is significant more alert and is oriented today and would like permanent pacemaker placement "if you think I need it"; given his history of recurrent complete heart block, last Dr. Morrison to schedule as soon as he able to do it, to remove his temporary pacemaker. 2. Severe mitral regurgitation with likely ischemic component; he still has a loud murmur but will continue to treat his ischemic cardiomyopathy will continue treatment with beta-zuleyka and TOO inhibitor therapy as well as spironolactone. 3. Change TOO inhibitor to lisinopril 10 mg twice daily. 4. He was in sinus rhythm previously; rhythm is a bit irregular today we will check EKG to define his rhythm. Current Visit: Yes (2) Ischemic cardiomyopathy Status: Chronic Current Visit: Yes (3) ST elevation myocardial infarction (STEMI) of inferior wall Status: Resolved Current Visit: Yes Cardiology - PN: Subj Interval history: Mr. yusuf more alert today we had a long discussion with him and his family. He initially thought his family did not want a pacemaker "like I take his course ". However after I explained with him the reason for it he said "you are the doctor, I want to do what you think is right". He denies shortness of breath or chest discomfort. Exam (Progress Note) - Constitutional Vitals: Period Temp Pulse Resp BP Sys/Torre Pulse Ox Last 24 Hr 97.2 F-98.2 F 78-106 16-29 104-140/56-92 92-100 General appearance: normal weight, no acute distress, other (voice is somewhat hoarse) - Head Head exam: Present: normal inspection, normocephalic, atraumatic - Neck Neck exam: Present: normal inspection - Respiratory Respiratory exam: Present: rales. Absent: stridor, wheezes - Cardiovascular Cardiovascular exam: Present: irregular rhythm, systolic murmur, tachycardia - GI/Abdominal GI/Abdominal exam: Present: soft. Absent: tenderness - Extremities Exam Extremities exam: Absent: edema Result/EKG - Labs CBC & BMP: 08/13/17 04:07 08/13/17 04:07 Labs: Laboratory Results - last 24 hr 08/12/17 08/12/17 08/13/17 12:15 19:15 04:07 WBC RBC Hgb Hct MCV MCH MCHC RDW Plt Count MPV Neut % (Auto) Lymph % (Auto) [place] % (Auto) Eos % (Auto) Baso % (Auto) Neut # (Auto) Lymph # (Auto) [place] # (Auto) Eos # (Auto) Baso # (Auto) Immature Gran % Nucleated RBC % Immature Gran # Nucleated RBCs # Immature Plt Fraction Sodium 143 Potassium 3.8 Chloride 106 Carbon Dioxide 27 Anion Gap 13.8 BUN 36 H Creatinine 1.10 GFR Calculation 70 BUN/Creatinine Ratio 32.00 H Glucose 161 H POC Glucose 71 L 185 H Calculated Osmolality 295.0 Calcium 9.2 Magnesium 2.3 08/13/17 08/13/17 04:07 05:31 WBC 10.7 RBC 4.46 Hgb 11.1 L Hct 34.9 L MCV 78.3 L MCH 25 L MCHC 31.8 L RDW 17.9 H Plt Count 221 MPV 11.5 Neut % (Auto) 76.5 H Lymph % (Auto) 13.8 L [place] % (Auto) 7.3 Eos % (Auto) 0.8 Baso % (Auto) 0.3 Neut # (Auto) 8.2 H Lymph # (Auto) 1.5 [place] # (Auto) 0.8 Eos # (Auto) 0.1 Baso # (Auto) 0.0 Immature Gran % 1.3 Nucleated RBC % 0.0 Immature Gran # 0.14 Nucleated RBCs # 0.00 Immature Plt Fraction 0.0 Sodium Potassium Chloride Carbon Dioxide Anion Gap BUN Creatinine GFR Calculation BUN/Creatinine Ratio Glucose POC Glucose 154 H Calculated Osmolality Calcium Magnesium Quality Measures - VTE Contraindication to Pharmacological VTE Prophylaxis: High Risk of Bleeding Specialty Discharge - Follow Up or Referrals
[2017-08-13] MEDS: PROPOFOL 1,000 MG/100 ML BOTTLE IV SCH (12:02)
--- NOTE | 2017-08-13 12:59 | EKG Report ---
Stationary ECG Study [facility] Test Date: 08/13/2017 12:57:50 PM Pat Name: IOANA GATES Department: Room: 123 Gender: M Ict Teacher: SISI : [id number] Requested by: Marco A Melchor Order Number: [id number] Reading MD: MARVIN HU Intervals [place] Rate: 100 P: 84 GA: 192 QRS: 73 QRSD: 114 T: -63 QT: 337 QTc: 394 Interpretive Statements SINUS TACHYCARDIA at [address] DEVIATION AND MODERATE T-WAVE ABNORMALITY, CONSIDER ISCHEMIA Electronically Signed On 08-16-17 12:27:36 CDT by MARVIN HU [email or web address]
--- NOTE | 2017-08-13 13:00 | Electrophysiology Progress Not ---
Assessment and Plan (1) Ischemic cardiomyopathy Status: Chronic Assessment and plan: 86-year-old male, ischemic cardiomyopathy, ejection fraction 30-35%, recurrent episodes of complete heart block, syncope, requiring CPR. DNR, quite debilitated. 08/06: temp PM implant -Pt and family discuss treatment options and now they agree to proceed with DDD PM implant, temp PM explant -Will plan in AM, with MAC -NPO after MN Current Visit: Yes (2) Advanced age Status: Chronic Current Visit: Yes (3) Anemia Status: Acute Current Visit: Yes (4) Chronic atrial fibrillation Status: Chronic Current Visit: Yes Electrophysiology Subjective Interval history: He is extubated. He now agrees to proceed with the DDD PM implant and temp explant . Also spoke w/family, they also would like to proceed. No recurrence of AVB. Exam - Constitutional Vitals: Period Temp Pulse Resp BP Sys/Torre Pulse Ox Last 24 Hr 97.2 F-98.2 F 78-116 16-29 104-162/56-92 92-100 General appearance: no acute distress, over weight - Head Head exam: Present: normal inspection. Absent: abrasion - Eye Eye exam: Absent: periorbital swelling, laceration to eyelids Pupils: Absent: dilated - ENT ENT exam: Present: normal external ear exam - Neck Neck exam: Present: normal inspection, other (R subclavian temp PM in place) - Respiratory Respiratory exam: Present: decreased breath sounds - Cardiovascular Cardiovascular exam: Present: regular rate and rhythm, systolic murmur. Absent : JVD - GI/Abdominal GI/Abdominal exam: Present: normal bowel sounds, ascites. Absent: distended, guarding - Extremities Exam Extremities exam: Present: normal inspection, normal capillary refill. Absent: edema - Back Exam Back exam: Present: normal inspection - Neurological Exam Neurological exam: Present: alert, oriented X3 - Psychiatric Psychiatric exam: Present: normal affect, normal mood - Skin Skin exam: Present: normal color, warm. Absent: cyanosis Results - Labs CBC & BMP: 08/13/17 04:07 08/13/17 04:07 Lab Results: I have reviewed the past 24 hour labs Quality Measures - VTE Contraindication to Pharmacological VTE Prophylaxis: High Risk of Bleeding Specialty Discharge - Follow Up or Referrals
[2017-08-13] MEDS: ATORVASTATIN 80 MG TABLET PO SCH (20:32)
[2017-08-13] MEDS: INSULIN GLARGINE 100 UNIT/ML SUBCUT SCH (20:35)
[2017-08-14] MEDS: PIPERACILLIN/TAZOBACTAM 3,375 MG in SODIUM CHLORIDE 0.9% 100 ML IV SCH (03:39)
[2017-08-14 05:53] LABS: Basophils % 0.4 % (0.0-0.8); Eosinophils # 0.1 10*3/uL (0.0-0.87); Eosinophils % 1.3 % (0.00-10.9); Hemoglobin 11.9 GM/DL (14.0-18.0); Immature Granulocytes % 0.9 %; Lymphocytes # 1.9 10*3/uL (1.4-4.0); Lymphocytes % 17.4 % (21.2-54.2); Mean Corpuscular HGB Conc 31.3 GM/DL (32-36); Mean Corpuscular Hemoglobin 24 PG (27-34); Mean Corpuscular Volume 77.9 FL (87-102); Mean Platelet Volume 11.3 FL (9.6-12.0); Monocytes # 0.8 10*3/uL (0.11-0.8); Monocytes % 7.7 % (1.7-12.7); Neutrophils # 7.7 10*3/uL (1.4-7.4); Neutrophils % 72.3 % (38.7-73.9); Platelet Count 233 T/CUMM (130-400); Red Blood Count 4.88 MC/CUMM (3.8-5.5); Red Cell Distribution Width 17.7 % (9.3-17.3); White Blood Count 10.7 T/CUMM (4-12)
[2017-08-14 06:36] LABS: Calcium 9.5 MG/DL (8.5-10.1); Osmolality,Calculated 291.8 MOS/KG (273-304); Potassium 3.3 MMOL/L (3.5-5.1)
[2017-08-14 06:38] LABS: Calcium 9.4 MG/DL (8.5-10.1); Magnesium 2.3 MG/DL (1.8-2.4); Potassium 3.4 MMOL/L (3.5-5.1)
--- NOTE | 2017-08-14 06:40 | Pulmonology Progress Note ---
Pulmonary - PN: Subj Interval history: 86-year-old man that had acute coronary syndrome and had a syncopal episode due to AV block. He had a pacemaker placed yesterday and was placed on mechanical ventilation. Remains on the ventilator this morning. We will hold sedation change to IMV and hopefully can get him weaned. 08/08/2017 patient did well with weaning trials yesterday. He is about ready to be extubated. He is going for a permanent pacemaker today. We will hold off on extubation until he returns from that. Continuing with CPAP for now. 08/09/2017 pacemaker was postponed. Patient was hypotensive. Chest x-ray today looks wet. Weight is up 2 kg. Will add Zaroxolyn and stop saline. Did well with CPAP yesterday but not ready to extubate as yet. Plan is for pacemaker on Friday. 08/10/2017 patient had good diuresis yesterday. Chest x-ray does look better. Hematocrit is down to 25. Patient may require patient is for permanent pacemaker tomorrow, I believe. For that reason we will not try to get him extubated today. He is tolerating CPAP's. 08/11/2017 apparently family has decided against pacemaker and to make him comfort measures. I suspect he will do okay off the ventilator. Needs pacemaker long-term but they have declined that. They are concerned the patient has told him that he never wanted to be on the ventilator. Perhaps when she is off the ventilator and has the options explained to him, he may want a permanent pacemaker. Family is coming in today and wants to continue as we are doing until they can talk it over and see him tonight. 08/12/2017 patient doing well as far as mechanical ventilation is concerned. Tolerating CPAP. Should be able to get him extubated this morning. Family wants him to discuss possibility of permanent pacemaker. I think that is reasonable. I think he will be fine with extubation. We will check blood gases on CPAP as well as mechanics to be sure. Chest x-ray is pending. 08/13/2017 patient was extubated without incident yesterday. Oxygen saturation in mid 90s on 2 L nasal oxygen. Patient is alert. He is somewhat confused. He still has a temporary pacemaker in place. Clearly he needs a permanent pacemaker. I discussed this with the patient and his daughters this morning. In addition he probably needs a little more diuresis. 08/14/2017 patient is to have permanent pacemaker placed today. He does have some dementia and confusion. His chest x-ray looks better almost clear now. He does have a cardiomyopathy and mitral regurgitation. He has had 8 days of Zosyn. We will discontinue that. Also stop his prednisone. Exam (Progress Note) - Constitutional Vitals: Period Temp Pulse Resp BP Sys/Torre Pulse Ox Last 24 Hr 97.2 F-98.3 F 86-116 12 108-162/49-91 92-99 Exam: Patient is alert and responsive off the ventilator. Wearing nasal oxygen with O2 sat 95%. He is a little confused trying to answer questions. Vital signs stable. Pulse around 105. Pupils react to light. Throat is clear. Neck is supple no bruits. Chest sounds clear. Heart shows a systolic murmur on the left sternal border. Abdomen is soft nontender no masses. Extremities no clubbing cyanosis 1+ edema. Results - Labs CBC & BMP: 08/14/17 05:29 08/13/17 04:07 Lab Results: I have reviewed the past 24 hour labs - Diagnostic Findings Procedure: Chest x-ray: image reviewed by me (Cardiomegaly. Interstitial edema improved and almost completely resolved.) Assessment and Plan (1) Acute on chronic combined systolic and diastolic CHF (congestive heart failure) Status: Acute Assessment and plan: Has ejection fraction 45%. Defer to cardiology. Ischemic heart disease and mitral regurgitation 08/07/2017 x-ray looks a little bit less wet today. Needs some diuresis in order to wean. 08/08/2017 seems to be diuresing. Still a little wet. About ready for extubation, however since he is going for permanent pacemaker today will not plan extubation until he is back from that. 08/09/2017 x-ray is a little wet to her today. Not ready for extubation. Need to diurese first. Pacemaker was not done yesterday, it is planned for Friday. Patient is not requiring pressors at present. 08/10/2017 continuing with diuresis with Lasix and Zaroxolyn. Renal function intact. 08/11/2017 Has ejection fraction 40% with MR and AR. Congestive heart failure seems to be fairly well controlled at present. At the present time we will plan to extubate him once the family gets together and makes their final decision. 08/12/2017 congestive heart failure is fairly well controlled clinically. 08/13/2017 congestive heart failure improved. Still a little wet. Continue with diuretics. 08/14/2017 congestive heart failure seems controlled now. Weight recorded as down 5 kg. Current Visit: Yes (2) Acute respiratory failure Status: Acute Assessment and plan: Presently on ventilator after requiring intubation with pacemaker. Will follow and wean as possible. 08/07/2017 ABGs look good. Change to IMV and start weaning process. Probably needs to diurese a little more. 08/08/2017 doing well with weaning process. 08/09/2017 ABGs look good. Did well with CPAP yesterday. However with worsening chest x-ray can not consider extubation as yet. 08/10/2017 ABGs do look good. Tolerating prolonged CPAP. Holding off on extubation until permanent pacemaker is in place. 08/11/2017 tolerating CPAP. Should be able to extubate the meantime. We were keeping him on so that he would be ready for the permanent pacemaker today, this appears to be on hold again. 08/12/2017 tolerating CPAP. Hope to be able to extubate this morning. Family hesitant about the permanent pacemaker and wants the patient to decide himself 08/13/2017 patient extubated yesterday and is doing well with nasal oxygen. Respiratory failure improved. Still requiring a little oxygen 08/14/2017 doing well on nasal oxygen Current Visit: Yes (3) Syncope and collapse Status: Resolved Assessment and plan: Because of a third-degree heart block. Now has pacemaker. 08/07/2017 this was due to heart block. 08/08/2017 this was due to heart block. Has temporary pacemaker. Plans are for permanent pacemaker today. 08/09/2017 has temporary pacemaker. Permanent pacemaker postponed. 08/11/2017 apparently due to bradycardia and heart block. 08/13/2017 syncope due to severe bradycardia. Clearly needs permanent pacemaker. 08/14/2017 syncope due to bradycardia. Permanent pacemaker to be placed today. Does have a little tachycardia which likely will improve with beta blockers Current Visit: Yes (4) ST elevation myocardial infarction (STEMI) of inferior wall Status: Resolved Assessment and plan: He had a catheterization. Please see cardiology note. 08/07/2017 defer to cardiology. Had revascularization done with stents 1 week ago. 08/09/2017 post intervention. 08/10/2017 defer to cardiology. 08/12/17 had stent placed about 2 weeks ago. 08/13/2017 follow-up with cardiology. 08/14/2017 again being followed by cardiology. Current Visit: Yes Specialty Discharge - Follow Up or Referrals
[2017-08-14] MEDS ORDERED: ceFAZolin 1,000 MG VIAL IRRIG ONE (07:00)
[2017-08-14] MEDS: ALBUTEROL/IPRATROPIUM 3 ML NEB RESP TX SCH ×3 (07:05→23:17)
--- NOTE | 2017-08-14 07:12 | XRay Report ---
Exam: XR chest 1V portable Date: 08/14/2017 4:00 AM Indication: CHF Comparison: 08/12/2017 Technical: AP Findings: Cardiomegaly is present with previous sternotomy. A right-sided temporary pacing lead is suspected from a subclavian approach with the distal tip in the right ventricle. Low volume effusions are present. ASVD is present. The mediastinum is unremarkable. No pneumothorax. Impression: 1. Cardiomegaly with previous sternotomy and stable position of the cardiac temporary pacing device 2. Cardiac decompensation with low volume effusions and patchy interstitial densities in both bases 3. Removal of endotracheal tube and feeding tube has occurred when compared to the previous exam. PROCEDURE INTERPRETED AT [facility] DEPARTMENT OF RADIOLOGY Final Report Signed by: Dr. Kurt Rangel
[2017-08-14] MEDS ORDERED: SODIUM CHLORIDE 0.9% 100 ML IV ONE (07:16)
--- NOTE | 2017-08-14 07:41 | History and Physical Update ---
Sedation H&P Update - History and Physical H&P was reviewed, the patient examined and there: are no changes in the patients condition since last H&P was completed. - Dictation Physical: refer to H&P completed by admitting physician - Physical Exam Mental Status: alert and oriented Heart: regular rate and rhythm Lung: clear to auscultation Abdomen: within normal limits Vitals: within normal limits - Sedation Plan for Sedation: MAC (by the anesthesia team) Patient Consent: Procedure disscussed with patient and patinet has consented., Risks and benefits were discussed with patient,including infection,, bleeding, injury to surrounding structures, seizure, temporary nerve, Patient understands and accepts potential risks/benefits and agrees to ASA Class: V Airway Assessment: Class III: Soft palate, base of uvula visible
[2017-08-14] MEDS ORDERED: HEPARIN/NACL 0.9% 2 UNITS/ML 500 ML IV ONE (07:50)
[2017-08-14] MEDS ORDERED: ETOMIDATE 20 MG/10 ML VIAL IV ONE ×2 (07:50→10:14)
[2017-08-14] MEDS ORDERED: ceFAZolin 1,000 MG VIAL ONE (07:50)
[2017-08-14] MEDS ORDERED: LIDOCAINE 1% 20 ML VIAL ONE (07:50)
[2017-08-14] MEDS ORDERED: TISSUE ADHESIVE 1 EACH APPLICATOR TOP ONE (09:22)
--- NOTE | 2017-08-14 09:31 | Cardiac Pacemaker ---
- Preoperative diagnosis Date of Procedure:: 08/14/17 Preoperative Diagnosis: Documented nonreversible symptomatic bradycardia due to , third degree atrioventricular block Post-op diagnosis: other (Patient has had some head trauma due to fall, presents and the EKG has evidence of an acute inferoposterior STEMI, troponin 7.1, having some ongoing left arm pain, head CT is negative for bleed--) Procedure: PROCEDURE SUMMARY DDD pacemaker implant from left axillary vein access. Temporary pacemaker removal. PLAN Bed rest for 4 hours. Routine post pacemaker implant site care and activity restrictions. Do not remove pressure dressing until AM. Portable CXR, EKG stat. CXR PA/Lat, device interrogation in AM. Ancef 1g iv. q8h x2. PROCEDURE Informed consent was obtained and a timeout was performed prior to the procedure. The patient was continuously monitored by ECG, pulse oxymetry and NIBP. 1g iv. Ancef was administered prior to the procedure for antibiotic prophylaxis. Monitored anesthesia care was provided by the anesthesia team. The left pectoral area was meticulously prepared with ChloroPrep surgical scrub. Sterile draping was applied and Ioban was used to cover the operation site. The image intensifier was draped with a sterile bag and positioned over the patient's chest. A left subclavian venogram was obtained with 10 cc. iv contrast. The left axillary and subclavian veins and the SVC were patent. After infiltration with 1% lidocaine, an incision was made in the left infraclavicular area, parallel to the deltopectoral groove. The incision was carried down to the level of the pectoral fascia. A subcutaneous pocket was then created with electrocautery and blunt dissection. Hemostasis was then achieved with electrocautery. A micropuncture needle was used to access the left axillary vein under fluoroscopic guidance. The microfilament was used to introduce the micropuncture sheath, which then was used to introduce and advance a long hydrophylic guidewire into the inferior vena cava. A 9 Fr sheath was introduced over the guidewire. The dilator was removed. The right ventricular pacemaker lead was introduced through the sheath. The sheath was then peeled away. The curved stylet was used to move the lead into the right ventricular outflow tract. The stylet was then replaced with a straight stylet and the lead was moved into a stable position in the right ventricular apex. Adequate sensing and pacing threshold was confirmed. The active fixation mechanism was then deployed. Stable signal and pacing threshold was noted, with decrease in pacing impedance. No extracardiac stimulation was noted with high output pacing. The lead was then anchored to the subcutaneous tissue with 2-0 nonabsorbable suture, using the anchoring sleeve near the point of entry to the vein. Another 9 Fr sheath was introduced over the retained guidewire. The dilator was removed. The right atrial pacemaker lead was introduced through the sheath. The sheath was then peeled away. A straight stylet was used to move the lead into the right atrium. The stylet was then replaced with a curved J stylet and the lead was moved into a stable position in the right atrial appendage. Adequate sensing and pacing threshold was confirmed. The active fixation mechanism was then deployed. Stable signal and pacing threshold was noted, with decrease in pacing impedance. No extracardiac stimulation was noted with high output pacing. The lead was then anchored to the subcutaneous tissue with 2-0 nonabsorbable suture, using the anchoring sleeve near the point of entry to the vein. The retained guidewire was removed. The temporary pacemaker wire was then removed, under fluoroscopic guidance. The implanted lead positions remained unchanged. The pacemaker generator was attached to the leads and sealed in the prescribed manner. The wound was flushed with Ancef . The generator was placed into the pocket and tied to the pectoral fascia using 2-0 nonabsorbable suture. Stable lead positions were confirmed with fluoroscopy. The wound was closed using a double layer of 2-0 absorbable Vicryl sutures, followed by a subcuticular running suture with 4-0 Monocryl, then Exofin. A sterile, then a pressure dressing was applied. The right subclavian sheath was then removed, manual pressure was held, until hemostasis was achieved. The device was then interrogated and programmed as detailed below. The implanted system is MRI conditional. Device Type SN Location Medtronic Advisa DDD pacemaker [id number] Left infraclavicular Lead Position Type SN P/R Threshold Impedance RA RA appendage Medtronic 5076-52 [id number] 2.8 mV 0.4 V @ 0.5 ms 604 Ohm RV RV apex Medtronic 5076-58 [id number] 6.4 mV 0.4 V @ 0.5 ms 871 Ohm Bradycardia settings MVPR 60/130 Anesthesia: MAC Surgeon / Physician: Geovanni Morrison Automatic Steel Tie Adjuster: other (Aziza) Estimated blood loss: minimal Specimens: none sent Condition: stable Disposition: ICU/CCU - Medications / Follow-up
--- NOTE | 2017-08-14 09:58 | EKG Report ---
Stationary ECG Study [facility] Test Date: 08/14/2017 10:01:10 AM Pat Name: IOANA GATES Department: Room: 123 Gender: M [employer] Agent: : [id number] Requested by: MATTIE MARTINEZ Order Number: [id number] Reading MD: MEGHAN SAM Intervals [place] Rate: 105 P: 112 CO: 196 QRS: -10 QRSD: 109 T: -53 QT: 353 QTc: 414 Interpretive Statements ISCHEMIA Electronically Signed On 08-16-17 17:46:57 CDT by MEGHAN SAM [email or web address]
[2017-08-14] MEDS ORDERED: MIDAZOLAM 2 MG/2 ML VIAL ONE (10:14)
--- NOTE | 2017-08-14 10:22 | Anesthesia Post-Op ---
Anesthesia Post OP - Post Ansesthetic Evaluation Patient seen in post op: Yes Resp: within normal limits CV: within normal limits Mental: within normal limits Temp: within normal limits Ydkg-To-Nfonvpkew: within normal limits Nausea and Vomiting: within normal limits Pain: within normal limits
--- NOTE | 2017-08-14 10:35 | XRay Report ---
XR chest 1V portable Indication: Lead placement Comparison: 14 August 2017 at 2:57 AM Findings: The heart and mediastinum are stable in size and configuration with cardiac surgery changes. Pacemaker is been added and appears in good position. The pulmonary vascularity is slightly increased with bilateral increased interstitial lung density may be slightly increased. No other lung infiltrates, effusions, pneumothorax or other abnormality is demonstrated. Impression: Findings suggest slight increase of cardiac decompensation. Pacemaker appears within normal limits. PROCEDURE INTERPRETED AT [facility] DEPARTMENT OF RADIOLOGY Final Report Signed by: Dr. Gucci Rivas
--- NOTE | 2017-08-14 10:41 | Hospitalist Progress Note ---
Assessment and Plan (1) Type 2 diabetes mellitus Status: Chronic Assessment and plan: The patient has trimmed to morning hypoglycemia. I am going to reduce the Amaryl to once in the morning and reduce Lantus to 36 units at night. I will follow up glucometers and make adjustments as required. Current Visit: Yes Hospitalist: Subjective Interval history: The patient's blood sugar was 68 this morning. The patient had surgery for pacemaker implantation. Exam - Constitutional Vitals: Period Temp Pulse Resp BP Sys/Torre Pulse Ox Last 24 Hr 97.5 F-98.3 F 86-116 12-27 108-162/49-91 90-99 General appearance: no acute distress - Respiratory Respiratory exam: Present: clear to auscultation bilaterally - Cardiovascular Cardiovascular exam: Present: regular rate and rhythm - GI/Abdominal GI/Abdominal exam: Present: normal bowel sounds Results - Labs CBC & BMP: 08/14/17 05:29 08/14/17 05:29 Lab Results: I have reviewed the past 24 hour labs Quality Measures - VTE Contraindication to Pharmacological VTE Prophylaxis: High Risk of Bleeding Specialty Discharge - Follow Up or Referrals
[2017-08-14] MEDS ORDERED: INSULIN GLARGINE 100 UNIT/ML SUBCUT SCH (10:43)
[2017-08-14] MEDS: INSULIN REGULAR 100 UNIT/ML SUBCUT SCH ×4 (11:01→20:30)
--- NOTE | 2017-08-14 11:05 | Urology Progress Note ---
Urology - PN: Subj Interval history: Patient is now extubated. He apparently just had a pacemaker. His urine is remained clear. Will probably be watched in ICU overnight and then up to the floor. He had to have a daily placed and may have some trouble when the catheter was removed but we will observe this. Exam - Constitutional Vitals: Period Temp Pulse Resp BP Sys/Torre Pulse Ox Last 24 Hr 98 F-98.3 F 86-110 12-27 108-151/49-88 90-99 Results - Labs CBC & BMP: 08/14/17 05:29 08/14/17 05:29 Specialty Discharge - Follow Up or Referrals
[2017-08-14] MEDS: SUCRALFATE 1 GM/10 ML UDCUP PO SCH ×5 (11:17→20:31)
[2017-08-14] MEDS: CAPTOPRIL 6.25 MG TABLET PO SCH ×3 (11:17→20:31)
[2017-08-14] MEDS: ASPIRIN CHEW 81 MG TABLET PO SCH (11:18)
[2017-08-14] MEDS: CLOPIDOGREL 75 MG TABLET PO SCH (11:18)
[2017-08-14] MEDS: SPIRONOLACTONE 25 MG TABLET PO SCH (11:18)
[2017-08-14] MEDS: LORATADINE 10 MG TABLET PO SCH (11:18)
[2017-08-14] MEDS: PANTOPRAZOLE 40 MG VIAL IV SCH (11:19)
[2017-08-14] MEDS: FUROSEMIDE 40 MG/4 ML VIAL IV SCH ×2 (11:19→15:42)
[2017-08-14] MEDS: POLYETHYLENE GLYCOL POWDER 17 GM PACK PO SCH ×2 (11:19→11:29)
[2017-08-14] MEDS: oxyCODONE/ACETAMINOPHEN 5-325 MG TABLET PO PRN ×2 (14:29→18:16)
[2017-08-14] MEDS: GLIMEPIRIDE 2 MG TABLET PO SCH (18:28)
[2017-08-14] MEDS: ATORVASTATIN 80 MG TABLET PO SCH (20:31)
[2017-08-15 04:23] LABS: Basophils # 0.1 10*3/uL (0.0-0.2); Basophils % 0.6 % (0.0-0.8); Eosinophils # 0.3 10*3/uL (0.0-0.87); Eosinophils % 2.3 % (0.00-10.9); Hematocrit 39.5 VOL% (42.0-52.0); Hemoglobin 12.5 GM/DL (14.0-18.0); Immature Granulocytes % 0.7 %; Immature Granulocytes Absolute 0.09 #; Lymphocytes # 2.3 10*3/uL (1.4-4.0); Lymphocytes % 18.6 % (21.2-54.2); Mean Corpuscular HGB Conc 31.6 GM/DL (32-36); Mean Corpuscular Hemoglobin 25 PG (27-34); Mean Corpuscular Volume 78.7 FL (87-102); Mean Platelet Volume 11.5 FL (9.6-12.0); Monocytes % 8.3 % (1.7-12.7); Neutrophils # 8.6 10*3/uL (1.4-7.4); Neutrophils % 69.5 % (38.7-73.9); Platelet Count 254 T/CUMM (130-400); Red Blood Count 5.02 MC/CUMM (3.8-5.5); Red Cell Distribution Width 18.1 % (9.3-17.3); White Blood Count 12.3 T/CUMM (4-12)
[2017-08-15 04:50] LABS: Calcium 9.1 MG/DL (8.5-10.1); Magnesium 2.1 MG/DL (1.8-2.4); Potassium 3.6 MMOL/L (3.5-5.1)
--- NOTE | 2017-08-15 06:49 | Pulmonology Progress Note ---
Pulmonary - PN: Subj Interval history: 86-year-old man that had acute coronary syndrome and had a syncopal episode due to AV block. He had a pacemaker placed yesterday and was placed on mechanical ventilation. Remains on the ventilator this morning. We will hold sedation change to IMV and hopefully can get him weaned. 08/08/2017 patient did well with weaning trials yesterday. He is about ready to be extubated. He is going for a permanent pacemaker today. We will hold off on extubation until he returns from that. Continuing with CPAP for now. 08/09/2017 pacemaker was postponed. Patient was hypotensive. Chest x-ray today looks wet. Weight is up 2 kg. Will add Zaroxolyn and stop saline. Did well with CPAP yesterday but not ready to extubate as yet. Plan is for pacemaker on Friday. 08/10/2017 patient had good diuresis yesterday. Chest x-ray does look better. Hematocrit is down to 25. Patient may require patient is for permanent pacemaker tomorrow, I believe. For that reason we will not try to get him extubated today. He is tolerating CPAP's. 08/11/2017 apparently family has decided against pacemaker and to make him comfort measures. I suspect he will do okay off the ventilator. Needs pacemaker long-term but they have declined that. They are concerned the patient has told him that he never wanted to be on the ventilator. Perhaps when she is off the ventilator and has the options explained to him, he may want a permanent pacemaker. Family is coming in today and wants to continue as we are doing until they can talk it over and see him tonight. 08/12/2017 patient doing well as far as mechanical ventilation is concerned. Tolerating CPAP. Should be able to get him extubated this morning. Family wants him to discuss possibility of permanent pacemaker. I think that is reasonable. I think he will be fine with extubation. We will check blood gases on CPAP as well as mechanics to be sure. Chest x-ray is pending. 08/13/2017 patient was extubated without incident yesterday. Oxygen saturation in mid 90s on 2 L nasal oxygen. Patient is alert. He is somewhat confused. He still has a temporary pacemaker in place. Clearly he needs a permanent pacemaker. I discussed this with the patient and his daughters this morning. In addition he probably needs a little more diuresis. 08/14/2017 patient is to have permanent pacemaker placed today. He does have some dementia and confusion. His chest x-ray looks better almost clear now. He does have a cardiomyopathy and mitral regurgitation. He has had 8 days of Zosyn. We will discontinue that. Also stop his prednisone. 08/15/2017 patient had permanent pacemaker placed yesterday. Chest x-ray looks good. His earlier congestive heart failure has improved. He had an acute inferior myocardial infarction with catheterization and intervention. He has mitral regurgitation and ischemic cardiomyopathy with ejection fraction 45%. At the present time he is on 2 L nasal oxygen O2 sat of 94%. We need to see if we can wean him off oxygen in anticipation of discharge. Still having some problems with his Daniels catheter. Not on antibiotics at the present time Exam (Progress Note) - Constitutional Vitals: Period Temp Pulse Resp BP Sys/Torre Pulse Ox Last 24 Hr 98.1 F-98.2 F 85-113 11-106 103-151/62-90 90-98 Exam: Patient is alert and responsive off the ventilator. Wearing 2 L nasal oxygen with O2 sat 94%. He is a little confused trying to answer questions. Vital signs stable. Pulse around 105. Pupils react to light. Throat is clear. Neck is supple no bruits. Chest sounds clear. Heart shows a systolic murmur on the left sternal border. Abdomen is soft nontender no masses. Extremities no clubbing cyanosis 1+ edema. Results - Labs CBC & BMP: 08/15/17 03:50 08/15/17 03:50 Lab Results: I have reviewed the past 24 hour labs - Diagnostic Findings Procedure: Chest x-ray: image reviewed by me (Pacemaker over left chest. Tortuous trachea. Lung jarquin are improved although he still has some minimal bibasilar interstitial infiltrates. Congestive heart failure improved.) Assessment and Plan (1) Acute on chronic combined systolic and diastolic CHF (congestive heart failure) Status: Acute Assessment and plan: Has ejection fraction 45%. Defer to cardiology. Ischemic heart disease and mitral regurgitation 08/07/2017 x-ray looks a little bit less wet today. Needs some diuresis in order to wean. 08/08/2017 seems to be diuresing. Still a little wet. About ready for extubation, however since he is going for permanent pacemaker today will not plan extubation until he is back from that. 08/09/2017 x-ray is a little wet to her today. Not ready for extubation. Need to diurese first. Pacemaker was not done yesterday, it is planned for Friday. Patient is not requiring pressors at present. 08/10/2017 continuing with diuresis with Lasix and Zaroxolyn. Renal function intact. 08/11/2017 Has ejection fraction 40% with MR and AR. Congestive heart failure seems to be fairly well controlled at present. At the present time we will plan to extubate him once the family gets together and makes their final decision. 08/12/2017 congestive heart failure is fairly well controlled clinically. 08/13/2017 congestive heart failure improved. Still a little wet. Continue with diuretics. 08/14/2017 congestive heart failure seems controlled now. Weight recorded as down 5 kg. 08/15/2017 this appears improved. He has continued to diurese and his renal function is stable. Current Visit: Yes (2) Acute respiratory failure Status: Acute Assessment and plan: Presently on ventilator after requiring intubation with pacemaker. Will follow and wean as possible. 08/07/2017 ABGs look good. Change to IMV and start weaning process. Probably needs to diurese a little more. 08/08/2017 doing well with weaning process. 08/09/2017 ABGs look good. Did well with CPAP yesterday. However with worsening chest x-ray can not consider extubation as yet. 08/10/2017 ABGs do look good. Tolerating prolonged CPAP. Holding off on extubation until permanent pacemaker is in place. 08/11/2017 tolerating CPAP. Should be able to extubate the meantime. We were keeping him on so that he would be ready for the permanent pacemaker today, this appears to be on hold again. 08/12/2017 tolerating CPAP. Hope to be able to extubate this morning. Family hesitant about the permanent pacemaker and wants the patient to decide himself 08/13/2017 patient extubated yesterday and is doing well with nasal oxygen. Respiratory failure improved. Still requiring a little oxygen 08/14/2017 doing well on nasal oxygen 08/15/2017 this has resolved although than still requiring low flow oxygen. Try to wean that if we can Current Visit: Yes (3) Syncope and collapse Status: Resolved Assessment and plan: Because of a third-degree heart block. Now has pacemaker. 08/07/2017 this was due to heart block. 08/08/2017 this was due to heart block. Has temporary pacemaker. Plans are for permanent pacemaker today. 08/09/2017 has temporary pacemaker. Permanent pacemaker postponed. 08/11/2017 apparently due to bradycardia and heart block. 08/13/2017 syncope due to severe bradycardia. Clearly needs permanent pacemaker. 08/14/2017 syncope due to bradycardia. Permanent pacemaker to be placed today. Does have a little tachycardia which likely will improve with beta blockers 08/15/2017 this was due to heart block. Has permanent pacemaker in place now. Current Visit: Yes (4) ST elevation myocardial infarction (STEMI) of inferior wall Status: Resolved Assessment and plan: He had a catheterization. Please see cardiology note. 08/07/2017 defer to cardiology. Had revascularization done with stents 1 week ago. 08/09/2017 post intervention. 08/10/2017 defer to cardiology. 08/12/17 had stent placed about 2 weeks ago. 08/13/2017 follow-up with cardiology. 08/14/2017 again being followed by cardiology. 08/15/2017 this has been addressed by cardiology with stents. Current Visit: Yes Specialty Discharge - Follow Up or Referrals
--- NOTE | 2017-08-15 07:35 | XRay Report ---
Exam: XR chest 1V portable Date: 08/15/2017 4:00 AM Indication: Follow-up lead placement Comparison: 08/14/2017 Technical: AP Findings: Cardiomegaly is present with previous sternotomy. A cardiac pacing device and placement left-sided approach with atrial ventricular leads present. Patchy densities are present in the lung jarquin bilaterally with tiny low volume effusions. Mediastinum is intact. ASVD is present. Impression: 1. Stable appearance of the cardiac leads and pacing device with previous sternotomy 2. Underlying component of COPD and mild fibrotic scarring and interstitial edema and tiny effusions with cardiac enlargement ,with little change when compared to the previous study PROCEDURE INTERPRETED AT [facility] DEPARTMENT OF RADIOLOGY Final Report Signed by: Dr. Kurt Rangel
[2017-08-15] MEDS: ALBUTEROL/IPRATROPIUM 3 ML NEB RESP TX SCH ×2 (07:51→15:27)
[2017-08-15] MEDS ORDERED: GLIMEPIRIDE 4 MG TABLET PO SCH (08:00)
--- NOTE | 2017-08-15 08:33 | EKG Report ---
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
[2017-08-15] MEDS: INSULIN REGULAR 100 UNIT/ML SUBCUT SCH ×2 (09:14→12:23)
[2017-08-15] MEDS: CLOPIDOGREL 75 MG TABLET PO SCH (09:23)
[2017-08-15] MEDS: ASPIRIN CHEW 81 MG TABLET PO SCH (09:23)
[2017-08-15] MEDS: LORATADINE 10 MG TABLET PO SCH (09:23)
[2017-08-15] MEDS: SPIRONOLACTONE 25 MG TABLET PO SCH (09:23)
[2017-08-15] MEDS: CAPTOPRIL 6.25 MG TABLET PO SCH (09:24)
[2017-08-15] MEDS: POLYETHYLENE GLYCOL POWDER 17 GM PACK PO SCH (09:25)
[2017-08-15] MEDS: SUCRALFATE 1 GM/10 ML UDCUP PO SCH ×2 (09:25→15:52)
[2017-08-15] MEDS: PANTOPRAZOLE 40 MG VIAL IV SCH (09:26)
--- NOTE | 2017-08-15 09:26 | Event Note ---
I had a prolonged discussion with family and explained Mr. yusuf his current condition. They are very happy with his progress. He is oriented to place this morning and is in good spirits eating his breakfast by himself. He had some difficulty with the year. He denies dyspnea and chest discomfort. Given he has pacemaker I will add Toprol 25 mg twice daily to treat his cardiomyopathy and for rate control/promote normal sinus rhythm (currently in atrial fibrillation). I will also change Lasix to p.o., and TOO inhibitor to twice daily lisinopril for simpler heart failure regimen. I am also adding low- dose Eliquis 2.5 mg twice daily to reduce his cardioembolic risk (lower dose as he is advanced in age and is on DAP)
[2017-08-15] MEDS: FUROSEMIDE 40 MG/4 ML VIAL IV SCH (09:28)
[2017-08-15] MEDS ORDERED: APIXABAN 2.5 MG TABLET PO SCH (09:30)
[2017-08-15] MEDS ORDERED: METOPROLOL SUCCINATE XL 25 MG TABLET PO SCH (09:30)
[2017-08-15] MEDS ORDERED: LISINOPRIL 5 MG TABLET PO SCH (09:30)
--- NOTE | 2017-08-15 09:55 | Case Mgmt Physician Query Form ---
LONG STAY PHYSICIAN RECERTIFICATION *This form is to be completed for all Medicare patients before they reach day 20 of their hospitalization. Please complete each section as appropriate.* I certify that hospitalization, and continued hospitalization, for this patient is medically necessary as follows: 1) Reasons of either continued hospitalization of the patient for medical treatment or medically required diagnostic study or special or unusual services for cost outlier cases are as follows: 2) Estimated time patient will need to remain in hospital: 3) Plan for Post Hospital Care: ( ) Home with Primary Care Follow up ( ) Home with Home Health Follow up ( ) LTACH/ Acute Care Rehab/ SNF/Prison ( ) Other: If you have any questions, please contact me. Thank you, Alida Adamson RN Case Management P: [phone] F [phone] E: [email or web address]
--- NOTE | 2017-08-15 11:12 | Hospitalist Progress Note ---
Assessment and Plan (1) Type 2 diabetes mellitus Status: Chronic Assessment and plan: The patient did not have morning hypoglycemia after reduction of nighttime Lantus and change of Amaryl to once daily. Will continue on present regimen and follow glucometers through the day. Current Visit: Yes Hospitalist: Subjective Interval history: Hospital medicine is consulted concerning glucose management. Fasting glucose this morning is 108. Present regimen is appropriate. Exam - Constitutional Vitals: Period Temp Pulse Resp BP Sys/Torre Pulse Ox Last 24 Hr 98.1 F-98.2 F 85-113 11-106 103-142/62-90 93-100 General appearance: no acute distress - Respiratory Respiratory exam: Present: clear to auscultation bilaterally - Cardiovascular Cardiovascular exam: Present: regular rate and rhythm Results - Labs CBC & BMP: 08/15/17 03:50 08/15/17 03:50 Lab Results: I have reviewed the past 24 hour labs Quality Measures - VTE Contraindication to Pharmacological VTE Prophylaxis: High Risk of Bleeding Specialty Discharge - Follow Up or Referrals
--- NOTE | 2017-08-15 11:38 | Discharge Summary ---
Hospital Course - Hospital Course Hospital Course: [employer] DEVELOPER: DR. CHRISTINE Patient is being seen in the CCU. SUMMARY: Mr. Colvin, 86WM, with history of known CAD (status post CABG), hypertension, dyslipidemia, diabetes. History of atrial fibrillation on chronic anticoagulation (Xarelto), history of DVT, chronic pain. Patient presented to ED of [facility] July 31, 2017 after experiencing head trauma due to fall related to syncope. EKG revealed inferoposterior STEMI. Underwent emergent CT head to rule out hemorrhage (negative for hemorrhage) prior to proceeding with heart catheterization. Dr. 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 (See heart catheterization report). Patient tolerated the actual procedure well. Postoperatively, patient experienced transient third-degree heart block, near syncope, brief episode of spitting up of blood. (It was difficult to ascertain if this came from the stomach or lungs). Also, patient experienced respiratory distress deemed acute on chronic CHF secondary to systolic dysfunction (EF 45-50 %) and diastolic dysfunction, NYHA Class IV. He required intubation. Patient has had temporary pacemaker placed as he continued to have transient third- degree heart block. Echocardiogram: EF 45-50%, mild to moderate mitral regurgitation, PAP of 38 mmHg. Required pressors for several days. Patient was successfully weaned from ventilator. Patient and his family were agreeable for permanent pacemaker implantation. August 14, 2017 underwent DDD pacemaker, performed by Dr. Morrison. He tolerated the procedure well without complication and returned to the CCU in stable condition. He has continued to progress nicely. He has been evaluated for and accepted to [facility] for continued management. Having felt is met maximal medical therapy, patient is being discharged from [facility] for transfer to [facility]. Patient's device will be interrogated August 21, 2017 at [facility]. Patient will be given a 4-6 week follow-up with Dr. Christine. Dr. Morrison will evaluate pacemaker insertion site next week at [facility]. Discharge medications include the following: Eliquis 2.5 mill grams orally twice daily Aspirin 81 mg orally daily Atorvastatin 80 mg orally each evening Dulcolax 5 mg p.o. as needed Plavix 75 mg daily Lasix 40 mg orally twice daily Amaryl 4 mg orally with breakfast Lantus 36 units subcu nightly Lisinopril 5 mg orally twice daily Loratadine 10 mg orally Metoprolol succinate 25 mg orally twice daily Percocet 5/325 1 p.o. every 4 hours as needed moderate pain Pantoprazole 40 mg orally daily MiraLAX 17 g orally daily Spironolactone 25 mg orally daily Flomax 0.4 mg orally daily - Time spent with patient Time with patient DS: Greater than 30 minutes Diagnosis - Discharge Diagnosis (1) Acute on chronic diastolic CHF (congestive heart failure) Status: Resolved (2) Coronary artery disease Status: Chronic (3) Chronic atrial fibrillation Status: Chronic (4) Hyperlipidemia Status: Chronic (5) Type 2 diabetes mellitus Status: Chronic (6) Closed head injury Status: Resolved (7) Head injury Status: Resolved (8) Syncope and collapse Status: Resolved (9) ST elevation myocardial infarction (STEMI) of inferior wall Status: Resolved (10) Ischemic cardiomyopathy Status: Chronic (11) Bradycardia following surgery Status: Acute (12) Altered mental status Status: Resolved (13) Advanced age Status: Chronic (14) Debilitated Status: Chronic (15) Acute kidney injury Status: Acute (16) Anemia Status: Acute (17) Respiratory distress Status: Acute Specialty Discharge - Follow Up or Referrals Follow up with: Donavan Christine MD [Physician] - (4-6 weeks) Discharge Plan - Discharge Data Disposition: Disch To Home/Self Care Condition at Discharge: Stable Discharge Diet: heart healthy Activity: other (Per physical therapy. Post pacemaker expectations) Hygiene: other (Post pacemaker expectations.) Weight Bearing at Discharge: other (Post pacemaker expectations. Physical therapy will make recommendations) Driving: other (No driving) Contact your physician if you experience:: fever over 101, Difficulty voiding, Redness or swelling, Nausea/Vomiting, Shortness of breath, Bleeding, pain uncontrolled by pain medications - Discharge Medications New Acetaminophen Tab [Tylenol Tab] 325 mg PO Q4H PRN tablet PRN Reason: fever, headache/body aches Albuterol/Ipratropium Neb [Duoneb] 3 ml RESP TX RT Q8H Apixaban [Eliquis] 2.5 mg PO BID tablet Aspirin Chew Tab 81 mg PO DAILY tablet Atorvastatin [Lipitor] 80 mg PO BEDTIME tablet Bisacodyl Tab [Dulcolax Tab] 5 mg PO DAILY PRN tablet PRN Reason: Constipation Furosemide Tab [Lasix Tab] 40 mg PO BID DIURETIC tablet Insulin Glargine [Lantus] 36 unit SUBCUT BEDTIME unit Metoprolol Succinate Xl [Toprol Xl] 25 mg PO BID tablet oxyCODONE/ACETAMINOPHEN 5-325 [Percocet 5-325] 1 tablet PO Q4H PRN tablet PRN Reason: Pain Moderate (4-7) Pantoprazole Tab [Protonix Tab] 40 mg PO DAILY tablet Polyethylene Glycol Powder [Miralax] 17 gm PO DAILY Bisacodyl Supp [Dulcolax Supp] 10 mg RECTAL DAILY PRN supp PRN Reason: Constipation Clopidogrel [Plavix] 75 mg PO DAILY tablet Lisinopril [Prinivil] 5 mg PO BID tablet Spironolactone [Aldactone] 25 mg PO DAILY tablet Continue Loratadine Tab [Claritin Tab] 10 mg PO DAILY Tamsulosin [Flomax] 0.4 mg PO DAILY Glimepiride 4 mg PO BID Discontinued Methocarbamol Tab [Robaxin Tab] 500 mg PO TID Lisinopril 20 mg PO BID Aspirin [Ecotrin] 81 mg PO DAILY Rivaroxaban [Xarelto] 15 mg PO DAILY W/BREAKFAST Isosorbide Mononitrate [Isosorbide Mononitrate ER] 30 mg PO DAILY Fish Oil 340-1,000 1 capsule PO DAILY Sucralfate Liquid [Carafate Liquid] 1 gm PO QID Multivit-Min/FA/Lycopen/Lutein [Centrum Silver Tablet] 1 each PO DAILY Metoprolol Tartrate 50 mg PO BID Metformin HCl 1,000 mg PO BID Sitagliptin Phosphate [Januvia] 50 mg PO DAILY Pantoprazole Tab [Protonix Tab] 40 mg PO DAILY Hydrocodone/Acetaminophen [Hydrocodon-Acetaminoph 7.5-325] 1 each PO QID Famotidine [Pepcid AC] 20 mg PO DAILY - Follow Up or Referral - Forms/Instructions Instructions: Myocardial Infarction (GEN), Left Heart Catheterization (DC), Heart Healthy Diet (GEN), Coronary Intravascular Stent Placement (DC) Exam - Constitutional Vitals: Period Temp Pulse Resp BP Sys/Torre Pulse Ox Last 24 Hr 98.1 F-98.2 F 85-113 11-106 103-139/62-90 93-100 Exam: General: [Appears pale and critically ill. Intubated.] HEENT: [Mmultiple lacerations and ecchymotic areas noted to the right face. Mucous membranes moist. No jaundice noted. Conjunctiva moist and clear, sclerae anicteric] Neck: No obvious JVD/HJR, no thyromegaly or lymphadenopathy noted. No carotid bruit appreciated. No tracheal deviation noted. Cardiac: [Regular rate and rhythm.] [III/ holosystolic murmur heard best at fifth intercostal space to the left. Left chest area reveals pacemaker implantation site. Minimal edema. Mild ecchymosis Lungs: Decreased sounds throughout without wheezes. Requiring mechanical ventilation. Symmetrical chest wall movements noted. Abdomen: Soft, bowel sounds normoactive. Nontender and nondistended. No abdominal bruit or thrill noted. No masses noted. Musculoskeletal: No fluid collection. Decreased range of motion is noted. Extremities: No clubbing, cyanosis noted. [ Trace bilateral lower extremity edema noted.] Upper extremity pulses 2+. Lower extremity pulses 1+. Capillary refill less than 3 seconds. Right groin soft without hematoma noted. Skin: No unusual lesions or rashes other than the ecchymotic areas noted to his face. No skin breakdown appreciated. Neuro: Awakes and becomes aggressive when sedation with health. No essential tremor is appreciated. Discharge Results Procedures and tests throughout hospitalization: Pending Orders 08/14/17 06:33 CL pacemaker Routine Labs on day of discharge: Labs from last 24 hours 08/15/17 08/15/17 08/14/17 03:50 03:50 19:35 WBC 12.3 H RBC 5.02 Hgb 12.5 L Hct 39.5 L MCV 78.7 L MCH 25 L MCHC 31.6 L RDW 18.1 H Plt Count 254 MPV 11.5 Neut % (Auto) 69.5 Lymph % (Auto) 18.6 L Parmer % (Auto) 8.3 Eos % (Auto) 2.3 Baso % (Auto) 0.6 Neut # (Auto) 8.6 H Lymph # (Auto) 2.3 Parmer # (Auto) 1.0 H Eos # (Auto) 0.3 Baso # (Auto) 0.1 Immature Gran % 0.7 Nucleated RBC % 0.0 Immature Gran # 0.09 Nucleated RBCs # 0.00 Immature Plt Fraction 0.0 Sodium 143 Potassium 3.6 Chloride 104 Carbon Dioxide 29 Anion Gap 13.6 BUN 37 H Creatinine 1.20 GFR Calculation 62 BUN/Creatinine Ratio 30.00 H Glucose 108 H POC Glucose 224 H Calculated Osmolality 294.0 Calcium 9.1 Magnesium 2.1 08/14/17 08/14/17 14:59 07:47 WBC RBC Hgb Hct MCV MCH MCHC RDW Plt Count MPV Neut % (Auto) Lymph % (Auto) Parmer % (Auto) Eos % (Auto) Baso % (Auto) Neut # (Auto) Lymph # (Auto) Parmer # (Auto) Eos # (Auto) Baso # (Auto) Immature Gran % Nucleated RBC % Immature Gran # Nucleated RBCs # Immature Plt Fraction Sodium Potassium Chloride Carbon Dioxide Anion Gap BUN Creatinine GFR Calculation BUN/Creatinine Ratio Glucose POC Glucose 206 H 93 Calculated Osmolality Calcium Magnesium - Imaging and Cardiology Cardiology Procedure: report reviewed by me Procedure: Chest x-ray: report reviewed by me DS: Provider Date of admission: 07/31/17 06:08 Primary care physician: Anderson Mi MD Attending physician on admission: Jim Pollock MD Consults: 07/31/17 06:08 Consult to Cardiac Rehabilitation [CONS] Routine Reason for Cardiac Rehabilitation: Risk Factor Modification Other Home Exercise Program/Elias Appt Out Pt Cardiac Rehab Consult Comment: Evaluate and recommend 08/01/17 11:49 Consult to Physical Therapy [CONS] Routine Reason for Physical Therapy: Evaluate and Treat 08/01/17 20:51 Consult to Physician [CONS] Routine Comment: Consulting Provider: Susan Lux Consulting Provider Notified: No When should Consulting Provider be notified: In am Consult Notification Comment: For management of DJD/back pain. See my event note of 08/01/17. Thank you for your help. 08/03/17 13:24 Consult to Physician [CONS] Routine Comment: Consulting Provider: Ramandeep Baker Consulting Provider Notified: No When should Consulting Provider be notified: In am Consult Notification Comment: Elderly patient who is not overweight but had an inferior [place] treated with a stent last morning. He has chronic atrial fib and believe also heart failure. Earlier this morning, he had an episode where he quit breathing and had bradycardia, or it could be vice versa. After brief CPR he came back to normal. Now is in normal sinus rhythm, But it may be transient. Please evaluate for the possibility that this patient has central sleep apnea and may need treatment with CPAP or other treatments. He may also need a pacemaker. Thank you. 08/05/17 07:09 Consult to Case Mgmt/Social Srvs [CONS] Routine Reason for Case Mgmt/Social Srvs: Discharge Planning 08/05/17 07:10 Consult to Case Mgmt/Social Srvs [CONS] Routine Reason for Case Mgmt/Social Srvs: Discharge Planning Consult Comment: SNF or LTAC candidate at discharge? 08/05/17 11:09 Consult to Physician [CONS] Routine Comment: bradycardia Consulting Provider: Geovanni Morrison 08/05/17 15:17 Consult to Physician [CONS] Routine Comment: Consulting Provider: Consult to Specialist Group: Hospitalist When should Consulting Provider be notified: Now Consult Notification Comment: Management of diabetes. 08/05/17 15:29 Consult to Physician [CONS] Routine Comment: Consulting Provider: Geovanni Morrison When should Consulting Provider be notified: Now Consult Notification Comment: Possible pacemaker 08/06/17 10:44 Consult to Physician [CONS] Routine Comment: Consulting Provider: Consult to Specialist Group: Pulmonology When should Consulting Provider be notified: Now 08/06/17 11:43 Consult to Physician [CONS] Routine Comment: bleeding uretha, unable to place lopez Consulting Provider: Daniel Musa Consult to Specialist Group: Urology When should Consulting Provider be notified: Now 08/06/17 12:12 Consult to Physician [CONS] Routine Comment: vent managment Consulting Provider: Lui Willis Consult to Specialist Group: Pulmonology When should Consulting Provider be notified: Now Person Notified: Gloria Mix Date Notified: 08/06/17 Time Notified: 12:00 08/06/17 13:26 Consult to Physician [CONS] Routine Comment: Stroke Consulting Provider: Vinod Edward Consult to Specialist Group: Neurology When should Consulting Provider be notified: Now Discharging clinician: Janene Fontenot NP Expected date of discharge: 08/15/17
--- NOTE | 2017-08-15 12:49 | Electrophysiology Progress Not ---
Compa Hernandez Vanessa, RN, am scribing for, and in the presence of, Geovanni Morrison MD 12 :48. Assessment and Plan - Time spent with patient Time spent with patient: Greater than 30 minutes (1) Ischemic cardiomyopathy Status: Chronic Assessment and plan: 86-year-old WM, PMHx atrial fib, ischemic cardiomyopathy with EF 30-35%, recurrent episodes of complete heart block, syncope, and required CPR. He is a DNR and quite debilitated. 08/06: Temp pacemaker implant 08/14: DDD pacemaker implant with removal of temp pacer A/P: 1. s/p pacemaker implant -site looks good -chest x-ray confirms good lead and device positioning, with no pneumothorax -device interrogation this morning per [employer] vaccine customer representative shows proper function -leave dressing in place, do not get area wet for 1 week. wear immobilizer. -f/u Friday if he goes to LTAC/SNF over weekend or can follow up in clinic in 1 week. -low dose Eliquis started today per cardiology. Will monitor AF burden with PM. If no recurrence, may just continue DAPT Current Visit: Yes (2) Anemia Status: Acute Assessment and plan: SEE PLAN OF CARE LISTED ABOVE. Current Visit: Yes (3) Chronic atrial fibrillation Status: Chronic Assessment and plan: SEE PLAN OF CARE LISTED ABOVE. Current Visit: Yes (4) Advanced age Status: Chronic Assessment and plan: SEE PLAN OF CARE LISTED ABOVE. Current Visit: Yes Electrophysiology Subjective Interval history: Mr. Colvin feels well this morning and in good spirits. BP 126/71. Mild tachycardia this morning, HR 95-105. He is not having any pain, dyspnea, or other complaint at this time. Spoke with family at bedside, answered questions. They verbalize understanding. Patient being evaluated for transfer to LTAC/ swing bed facility. If not able to discharge today, stable from my standpoint to go to telemetry. Exam - Constitutional Vitals: Period Temp Pulse Resp BP Sys/Torre Pulse Ox Last 24 Hr 98.1 F-98.2 F 85-113 11-106 103-142/62-90 93-98 Exam: General appearance: no acute distress, over weight, - Head Head exam: Present: normal inspection. Absent: abrasion - Eye Eye exam: Absent: periorbital swelling, laceration to eyelids Pupils: Absent: dilated - ENT ENT exam: Present: normal external ear exam - Neck Neck exam: Present: normal inspection, no tenderness - Respiratory Respiratory exam: Present: decreased breath sounds, overall CTA - Cardiovascular Cardiovascular exam: Present: regular rate and rhythm, systolic murmur. Absent : JVD, bruit - GI/Abdominal GI/Abdominal exam: Present: normal bowel sounds, soft. Absent: distended, guarding, tender - Extremities Exam Extremities exam: Present: normal inspection, normal capillary refill. Absent: edema, calf tenderness - Back Exam Back exam: Present: normal inspection - Neurological Exam Neurological exam: Present: alert, oriented X3. Calm and cooperative. - Psychiatric Psychiatric exam: Present: normal affect, normal mood. Not anxious or depressed. - Skin Skin exam: Present: normal color, warm and dry. Absent: cyanosis, diaphoresis Chest/Torso: left chest wall pacemaker implant site with dry/intact dressing. No hematoma or bruising. Results - Labs CBC & BMP: 08/15/17 03:50 08/15/17 03:50 Lab Results: I have reviewed the past 24 hour labs - Diagnostic Findings Procedure: Chest x-ray: image reviewed by me, report reviewed by me Quality Measures - VTE Contraindication to Pharmacological VTE Prophylaxis: High Risk of Bleeding Specialty Discharge - Follow Up or Referrals Follow up with: Donavan Christine MD [Physician] - (4-6 weeks) Tamiko Hernandez Attila, MD, personally performed the services described in this documentation, ascribed by Cathy Chatman RN in my presence, and it is both accurate and complete .
[2017-08-15] MEDS ORDERED: FUROSEMIDE 40 MG TABLET PO SCH (16:00)
[2017-08-15 17:00] VITALS: BP 115/62
[2017-08-16] MEDS ORDERED: PANTOPRAZOLE 40 MG TABLET PO SCH (09:00)
== END 2017-08-15 16:43 | DRG 242 ==
LOC: EDBD → EDUNIT# → N.ED 02:42 → N.CC 04:25
PROVIDERS: ADMIT Internal Medicine Cardiovascular Disease; ATTEND Internal Medicine Cardiovascular Disease

== ENCOUNTER 2017-09-09 09:34 | Inpatient (IN) ==
[2017-09-09] MEDS ORDERED: PANTOPRAZOLE 40 MG VIAL IV STA (10:18)
[2017-09-09] MEDS ORDERED: PANTOPRAZOLE 40 MG VIAL IV ONE (10:48)
[2017-09-09 10:54] LABS: Basophils % 0.1 % (0.0-0.8); Hematocrit 31.6 VOL% (42.0-52.0); Hemoglobin 10.3 GM/DL (14.0-18.0); Immature Granulocytes % 1.2 %; Immature Granulocytes Absolute 0.17 #; Lymphocytes # 1.4 10*3/uL (1.4-4.0); Lymphocytes % 9.7 % (21.2-54.2); Mean Corpuscular HGB Conc 32.6 GM/DL (32-36); Mean Corpuscular Hemoglobin 25 PG (27-34); Mean Platelet Volume 11.8 FL (9.6-12.0); Monocytes # 0.9 10*3/uL (0.11-0.8); Monocytes % 6.4 % (1.7-12.7); Neutrophils # 12.2 10*3/uL (1.4-7.4); Neutrophils % 82.6 % (38.7-73.9); Platelet Count 242 T/CUMM (130-400); Red Blood Count 4.16 MC/CUMM (3.8-5.5); White Blood Count 14.8 T/CUMM (4-12)
[2017-09-09 11:24] LABS: Albumin 3.1 G/DL (3.4-5.0); Calcium 9.4 MG/DL (8.5-10.1); Magnesium 2.2 MG/DL (1.8-2.4); Osmolality,Calculated 292.8 MOS/KG (273-304); Potassium 3.5 MMOL/L (3.5-5.1)
[2017-09-09] MEDS ORDERED: FUROSEMIDE 40 MG/4 ML VIAL IV STA (12:44)
[2017-09-09] MEDS: ALBUTEROL/IPRATROPIUM 3 ML NEB RESP TX SCH ×2 (14:41→19:32)
[2017-09-09 14:54] LABS: Apearance,Urine CLEAR (Clear); Bacteria,Urine Occasional /HPF (Few); Bilirubin,Urine Negative (Negative); Blood, Urine Negative (Negative); Glucose,Urine (UA) Negative (Negative); Hyaline Casts,Urine 22 /LPF (0-3); Ketones,Urine Negative (Negative); Mucus,Urine Occasional /LPF (Occasional); Nitrite,Urine Negative (Negative); Protein,Urine Negative; RBC,Urine 1 /HPF (0-4); Squamous Epithelial Cell,Urine Occasional /HPF (0-10); Urine Color Straw (Yellow); Urine Specific Gravity 1.005 (1.001-1.035); Urine Urobilinogen < 2.0 EU/DL (0.2-1.0); WBC,Urine 29 /HPF (0-6)
[2017-09-09 15:19] LABS: Hematocrit 30.2 VOL% (42.0-52.0); Hemoglobin 9.7 GM/DL (14.0-18.0)
[2017-09-09] MEDS: PIPERACILLIN/TAZOBACTAM 3,375 MG in SODIUM CHLORIDE 0.9% 100 ML IV SCH (15:26)
[2017-09-09] MEDS ORDERED: BISACODYL 5 MG TABLET PO PRN (18:20)
[2017-09-09] MEDS ORDERED: POLYETHYLENE GLYCOL POWDER 17 GM PACK PO PRN (18:20)
[2017-09-09] MEDS ORDERED: clonazePAM 0.5 MG TABLET PO PRN (18:20)
[2017-09-09] MEDS: FUROSEMIDE 40 MG/4 ML VIAL IV SCH (18:53)
[2017-09-09 19:24] LABS: Hemoglobin 9.1 GM/DL (14.0-18.0)
[2017-09-09 22:11] LABS: Hematocrit 27.5 VOL% (42.0-52.0); Hemoglobin 9.1 GM/DL (14.0-18.0)
[2017-09-10] MEDS: PANTOPRAZOLE 40 MG VIAL IV SCH ×3 (00:32→20:50)
[2017-09-10] MEDS: ALBUTEROL/IPRATROPIUM 3 ML NEB RESP TX SCH ×4 (00:45→20:08)
[2017-09-10] MEDS: PIPERACILLIN/TAZOBACTAM 3,375 MG in SODIUM CHLORIDE 0.9% 100 ML IV SCH ×2 (03:04→15:23)
[2017-09-10 07:06] LABS: Basophils % 0.1 % (0.0-0.8); Hematocrit 27.8 VOL% (42.0-52.0); Hemoglobin 9.1 GM/DL (14.0-18.0); Immature Granulocytes % 0.6 %; Immature Granulocytes Absolute 0.07 #; Lymphocytes # 0.9 10*3/uL (1.4-4.0); Lymphocytes % 7.5 % (21.2-54.2); Mean Corpuscular HGB Conc 32.7 GM/DL (32-36); Mean Corpuscular Hemoglobin 25 PG (27-34); Mean Corpuscular Volume 74.9 FL (87-102); Mean Platelet Volume 12.1 FL (9.6-12.0); Monocytes # 0.7 10*3/uL (0.11-0.8); Monocytes % 5.5 % (1.7-12.7); NRBC # 0.06 10*3/uL; Neutrophils # 10.8 10*3/uL (1.4-7.4); Neutrophils % 86.3 % (38.7-73.9); Platelet Count 187 T/CUMM (130-400); Red Blood Count 3.71 MC/CUMM (3.8-5.5); Red Cell Distribution Width 17.6 % (9.3-17.3); White Blood Count 12.5 T/CUMM (4-12)
[2017-09-10 07:15] LABS: INR 1.4; PT Patient Result 14.7 SECS
[2017-09-10 07:44] LABS: Albumin 2.5 G/DL (3.4-5.0); Bilirubin,Total 1.3 MG/DL (0.2-1.0); Calcium 8.4 MG/DL (8.5-10.1); Osmolality,Calculated 301.1 MOS/KG (273-304); Potassium 2.9 MMOL/L (3.5-5.1); Total Protein 5.6 G/DL (6.4-8.3)
[2017-09-10] MEDS ORDERED: POTASSIUM CHLORIDE 20 MEQ TABLET PO PRN (08:00)
[2017-09-10] MEDS: POTASSIUM CHLORIDE RIDER 10 MEQ in PREMIX 1 EACH IV PRN ×5 (09:40→18:44)
[2017-09-10] MEDS: metOLazone 2.5 MG TABLET PO SCH (09:41)
[2017-09-10] MEDS: FUROSEMIDE 40 MG/4 ML VIAL IV SCH ×2 (12:41→15:24)
[2017-09-10] MEDS: METOPROLOL SUCCINATE XL 25 MG TABLET PO SCH ×2 (12:41→20:53)
[2017-09-10] MEDS: INSULIN LISPRO 100 UNIT/ML SUBCUT SCH (20:48)
[2017-09-10] MEDS: DESITIN 4OZ/NYSTATIN 15 GRAM MIXTURE PASTE TOP SCH (20:55)
[2017-09-10] MEDS ORDERED: INSULIN REGULAR 100 UNIT/ML IV ONE (23:00)
[2017-09-10] MEDS: INSULIN GLARGINE 100 UNIT/ML SUBCUT SCH (23:11)
[2017-09-11] MEDS: ALBUTEROL/IPRATROPIUM 3 ML NEB RESP TX SCH ×4 (00:42→20:27)
[2017-09-11] MEDS: PIPERACILLIN/TAZOBACTAM 3,375 MG in SODIUM CHLORIDE 0.9% 100 ML IV SCH ×2 (02:04→16:17)
[2017-09-11 07:26] LABS: Basophils % 0.1 % (0.0-0.8); Eosinophils % 0.1 % (0.00-10.9); Hematocrit 28.4 VOL% (42.0-52.0); Hemoglobin 9.2 GM/DL (14.0-18.0); Immature Granulocytes % 0.8 %; Immature Granulocytes Absolute 0.08 #; Lymphocytes % 9.3 % (21.2-54.2); Mean Corpuscular HGB Conc 32.4 GM/DL (32-36); Mean Corpuscular Hemoglobin 25 PG (27-34); Mean Corpuscular Volume 75.7 FL (87-102); Mean Platelet Volume 11.3 FL (9.6-12.0); Monocytes # 0.7 10*3/uL (0.11-0.8); Monocytes % 6.5 % (1.7-12.7); NRBC # 0.02 10*3/uL; Neutrophils # 8.8 10*3/uL (1.4-7.4); Neutrophils % 83.2 % (38.7-73.9); Platelet Count 177 T/CUMM (130-400); Red Blood Count 3.75 MC/CUMM (3.8-5.5); Red Cell Distribution Width 17.7 % (9.3-17.3); White Blood Count 10.6 T/CUMM (4-12)
[2017-09-11 08:07] LABS: INR 1.3; PT Patient Result 13.4 SECS
[2017-09-11 08:12] LABS: Calcium 8.6 MG/DL (8.5-10.1); Magnesium 2.3 MG/DL (1.8-2.4); Osmolality,Calculated 308.1 MOS/KG (273-304); Potassium 2.7 MMOL/L (3.5-5.1)
[2017-09-11] MEDS: INSULIN LISPRO 100 UNIT/ML SUBCUT SCH ×4 (09:00→20:55)
[2017-09-11] MEDS: glipiZIDE 10 MG TABLET PO SCH (09:01)
[2017-09-11] MEDS: METOPROLOL SUCCINATE XL 25 MG TABLET PO SCH ×2 (09:01→20:53)
[2017-09-11] MEDS: metOLazone 2.5 MG TABLET PO SCH (09:01)
[2017-09-11] MEDS: PANTOPRAZOLE 40 MG VIAL IV SCH ×2 (09:01→20:53)
[2017-09-11] MEDS: INSULIN GLARGINE 100 UNIT/ML SUBCUT SCH ×2 (09:03→20:55)
[2017-09-11] MEDS: FUROSEMIDE 40 MG/4 ML VIAL IV SCH ×2 (09:03→16:17)
[2017-09-11] MEDS: DESITIN 4OZ/NYSTATIN 15 GRAM MIXTURE PASTE TOP SCH ×2 (09:03→20:55)
[2017-09-11] MEDS: POTASSIUM CHLORIDE 20 MEQ/15 ML UDCUP PO PRN ×4 (10:00→16:40)
[2017-09-12] MEDS: ALBUTEROL/IPRATROPIUM 3 ML NEB RESP TX SCH ×4 (01:18→19:38)
[2017-09-12] MEDS: PIPERACILLIN/TAZOBACTAM 3,375 MG in SODIUM CHLORIDE 0.9% 100 ML IV SCH ×2 (02:06→16:40)
[2017-09-12 07:31] LABS: Basophils % 0.1 % (0.0-0.8); Eosinophils % 0.4 % (0.00-10.9); Hematocrit 28.7 VOL% (42.0-52.0); Hemoglobin 8.8 GM/DL (14.0-18.0); Immature Granulocytes % 0.4 %; Immature Granulocytes Absolute 0.04 #; Lymphocytes # 0.8 10*3/uL (1.4-4.0); Mean Corpuscular HGB Conc 30.7 GM/DL (32-36); Mean Corpuscular Hemoglobin 24 PG (27-34); Mean Corpuscular Volume 76.9 FL (87-102); Mean Platelet Volume 11.3 FL (9.6-12.0); Monocytes # 0.5 10*3/uL (0.11-0.8); Monocytes % 6.1 % (1.7-12.7); NRBC # 0.02 10*3/uL; Neutrophils # 7.5 10*3/uL (1.4-7.4); Platelet Count 193 T/CUMM (130-400); Red Blood Count 3.73 MC/CUMM (3.8-5.5); Red Cell Distribution Width 17.6 % (9.3-17.3); White Blood Count 8.9 T/CUMM (4-12)
[2017-09-12 07:50] LABS: INR 1.2; PT Patient Result 12.5 SECS
[2017-09-12 07:57] LABS: Calcium 8.5 MG/DL (8.5-10.1); Magnesium 2.2 MG/DL (1.8-2.4); Osmolality,Calculated 304.4 MOS/KG (273-304); Potassium 3.2 MMOL/L (3.5-5.1)
[2017-09-12] MEDS: METOPROLOL SUCCINATE XL 25 MG TABLET PO SCH ×2 (09:32→20:26)
[2017-09-12] MEDS: INSULIN GLARGINE 100 UNIT/ML SUBCUT SCH ×2 (09:32→22:04)
[2017-09-12] MEDS: glipiZIDE 10 MG TABLET PO SCH (09:32)
[2017-09-12] MEDS: metOLazone 2.5 MG TABLET PO SCH (09:32)
[2017-09-12] MEDS: FUROSEMIDE 20 MG TABLET PO SCH ×2 (09:32→16:39)
[2017-09-12] MEDS: PANTOPRAZOLE 40 MG VIAL IV SCH ×2 (09:32→20:26)
[2017-09-12] MEDS: INSULIN LISPRO 100 UNIT/ML SUBCUT SCH ×4 (11:04→22:02)
[2017-09-12] MEDS: DESITIN 4OZ/NYSTATIN 15 GRAM MIXTURE PASTE TOP SCH ×2 (11:05→21:00)
[2017-09-12] MEDS: POTASSIUM CHLORIDE 20 MEQ/15 ML UDCUP PO PRN ×4 (11:47→20:26)
[2017-09-13] MEDS: PIPERACILLIN/TAZOBACTAM 3,375 MG in SODIUM CHLORIDE 0.9% 100 ML IV SCH ×2 (03:15→15:50)
[2017-09-13 05:31] LABS: Eosinophils # 0.1 10*3/uL (0.0-0.87); Eosinophils % 0.8 % (0.00-10.9); Hematocrit 28.6 VOL% (42.0-52.0); Hemoglobin 8.7 GM/DL (14.0-18.0); Immature Granulocytes % 0.5 %; Immature Granulocytes Absolute 0.05 #; Lymphocytes # 1.4 10*3/uL (1.4-4.0); Lymphocytes % 14.8 % (21.2-54.2); Mean Corpuscular HGB Conc 30.4 GM/DL (32-36); Mean Corpuscular Hemoglobin 24 PG (27-34); Mean Corpuscular Volume 77.7 FL (87-102); Mean Platelet Volume 11.2 FL (9.6-12.0); Monocytes # 0.9 10*3/uL (0.11-0.8); Monocytes % 9.8 % (1.7-12.7); Neutrophils # 6.9 10*3/uL (1.4-7.4); Neutrophils % 74.1 % (38.7-73.9); Platelet Count 192 T/CUMM (130-400); Red Blood Count 3.68 MC/CUMM (3.8-5.5); Red Cell Distribution Width 17.8 % (9.3-17.3); White Blood Count 9.3 T/CUMM (4-12)
[2017-09-13] MEDS: DESITIN 4OZ/NYSTATIN 15 GRAM MIXTURE PASTE TOP SCH ×3 (05:37→21:25)
[2017-09-13 06:15] LABS: Calcium 8.4 MG/DL (8.5-10.1); Magnesium 2.5 MG/DL (1.8-2.4); Osmolality,Calculated 295.5 MOS/KG (273-304)
[2017-09-13] MEDS: POTASSIUM CHLORIDE RIDER 10 MEQ in PREMIX 1 EACH IV PRN ×6 (07:22→20:15)
[2017-09-13] MEDS: ALBUTEROL/IPRATROPIUM 3 ML NEB RESP TX SCH ×4 (07:25→20:03)
[2017-09-13] MEDS: METOPROLOL SUCCINATE XL 25 MG TABLET PO SCH ×3 (08:57→21:24)
[2017-09-13] MEDS: FUROSEMIDE 20 MG TABLET PO SCH ×2 (08:57→15:33)
[2017-09-13] MEDS: glipiZIDE 10 MG TABLET PO SCH (08:57)
[2017-09-13] MEDS: INSULIN GLARGINE 100 UNIT/ML SUBCUT SCH ×2 (08:57→21:24)
[2017-09-13] MEDS: metOLazone 2.5 MG TABLET PO SCH (08:57)
[2017-09-13] MEDS: PANTOPRAZOLE 40 MG VIAL IV SCH ×2 (08:58→21:24)
[2017-09-13] MEDS: INSULIN LISPRO 100 UNIT/ML SUBCUT SCH ×4 (08:58→21:25)
[2017-09-13] MEDS ORDERED: ASPIRIN CHEW 81 MG TABLET PO ONE (11:56)
[2017-09-13] MEDS: CLOPIDOGREL 75 MG TABLET PO SCH (12:42)
[2017-09-13] MEDS: POTASSIUM CHLORIDE 20 MEQ/15 ML UDCUP PO PRN (22:56)
[2017-09-14] MEDS: POTASSIUM CHLORIDE 20 MEQ/15 ML UDCUP PO PRN ×2 (01:18→05:44)
[2017-09-14] MEDS: ALBUTEROL/IPRATROPIUM 3 ML NEB RESP TX SCH ×2 (01:45→07:20)
[2017-09-14] MEDS: PIPERACILLIN/TAZOBACTAM 3,375 MG in SODIUM CHLORIDE 0.9% 100 ML IV SCH (03:15)
[2017-09-14] MEDS ORDERED: ASPIRIN CHEW 81 MG TABLET PO SCH (09:00)
[2017-09-14] MEDS: metOLazone 2.5 MG TABLET PO SCH (09:13)
[2017-09-14] MEDS: FUROSEMIDE 20 MG TABLET PO SCH (09:13)
[2017-09-14] MEDS: CLOPIDOGREL 75 MG TABLET PO SCH (09:13)
[2017-09-14] MEDS: glipiZIDE 10 MG TABLET PO SCH (09:13)
[2017-09-14] MEDS: METOPROLOL SUCCINATE XL 25 MG TABLET PO SCH (09:13)
[2017-09-14] MEDS: INSULIN LISPRO 100 UNIT/ML SUBCUT SCH ×2 (09:14→11:49)
[2017-09-14] MEDS: INSULIN GLARGINE 100 UNIT/ML SUBCUT SCH (09:15)
[2017-09-14] MEDS: DESITIN 4OZ/NYSTATIN 15 GRAM MIXTURE PASTE TOP SCH (09:15)
[2017-09-14] MEDS: PANTOPRAZOLE 40 MG VIAL IV SCH (09:15)
[2017-09-14 09:54] VITALS: BP 93/57
[2017-09-14] MEDS ORDERED: METOPROLOL SUCCINATE XL 50 MG TABLET PO SCH (21:00)
== END 2017-09-14 11:48 | DRG 871 ==
LOC: EDBD → EDUNIT# → N.ED 09:34 → N.EDINP 12:16 → N.5E 14:03
PROVIDERS: ADMIT Internal Medicine; ATTEND Internal Medicine

== ENCOUNTER 2017-09-18 09:15 | Inpatient (IN) ==
[2017-09-18] MEDS ORDERED: ONDANSETRON 4 MG/2 ML VIAL IV STA (10:07)
[2017-09-18] MEDS ORDERED: MORPHINE 2 MG/1 ML SYRINGE IV STA (10:07)
[2017-09-18] MEDS ORDERED: MORPHINE 2 MG/1 ML SYRINGE ONE (10:12)
[2017-09-18] MEDS ORDERED: ONDANSETRON 4 MG/2 ML VIAL ONE (10:12)
[2017-09-18 10:15] LABS: Basophils % 0.1 % (0.0-0.8); Hematocrit 32.6 VOL% (42.0-52.0); Immature Granulocytes % 1.6 %; Lymphocytes # 0.8 10*3/uL (1.4-4.0); Lymphocytes % 2.4 % (21.2-54.2); Mean Corpuscular HGB Conc 28.8 GM/DL (32-36); Mean Corpuscular Hemoglobin 24 PG (27-34); Mean Platelet Volume 13.5 FL (9.6-12.0); Monocytes # 1.1 10*3/uL (0.11-0.8); Monocytes % 3.7 % (1.7-12.7); NRBC # 0.31 10*3/uL; Neutrophils # 28.4 10*3/uL (1.4-7.4); Neutrophils % 92.2 % (38.7-73.9); Platelet Count 193 T/CUMM (130-400); Red Blood Count 3.93 MC/CUMM (3.8-5.5); Red Cell Distribution Width 18.9 % (9.3-17.3); White Blood Count 30.8 T/CUMM (4-12)
[2017-09-18 10:16] LABS: Hemoglobin 9.4 GM/DL (14.0-18.0)
[2017-09-18 10:26] LABS: INR 3.5; Partial Thromboplastin Time 37.5 SECS (0-40)
[2017-09-18 10:32] LABS: PT Patient Result 35.2 SECS
[2017-09-18 10:34] LABS: Burr Cells Slight; Giant Platelets Few; Hypochromasia 1+; Lymphocytes 1 % (20-55); Ovalocytes Slight; Platelet Estimate Adequate; Segmented Neutrophils 97 % (50-85); Total Cells Counted 100
[2017-09-18 10:50] LABS: Albumin 2.7 G/DL (3.4-5.0); Bilirubin,Total 2.3 MG/DL (0.2-1.0); Calcium 6.8 MG/DL (8.5-10.1); Osmolality,Calculated 314.5 MOS/KG (273-304); Total Protein 5.8 G/DL (6.4-8.3)
[2017-09-18 11:01] LABS: Potassium 7.1 MMOL/L (3.5-5.1); Troponin I Only 1.31 NG/ML (0.00-0.045)
[2017-09-18] MEDS ORDERED: DEXTROSE 50% 25 GM/50 ML SYRINGE IV ONE (11:05)
[2017-09-18] MEDS ORDERED: INSULIN REGULAR 100 UNIT/ML ONE (11:06)
[2017-09-18] MEDS ORDERED: DEXTROSE 50% 25 GM/50 ML VIAL IV STA (11:13)
[2017-09-18] MEDS ORDERED: INSULIN REGULAR 100 UNIT/ML IV STA (11:13)
[2017-09-18] MEDS ORDERED: GLUCAGON 1 MG VIAL IM PRN (11:45)
[2017-09-18] MEDS ORDERED: MORPHINE 2 MG/1 ML SYRINGE IV PRN ×2 (11:45→17:15)
[2017-09-18] MEDS ORDERED: DEXTROSE 50% 25 GM/50 ML VIAL IV PRN (11:45)
[2017-09-18] MEDS ORDERED: ONDANSETRON 4 MG/2 ML VIAL IV PRN (11:45)
[2017-09-18] MEDS ORDERED: LORazepam 2 MG/1 ML VIAL ONE (11:53)
[2017-09-18] MEDS ORDERED: INSULIN LISPRO 100 UNIT/ML SUBCUT SCH (16:30)
[2017-09-19 05:34] VITALS: BP 63/37
== END 2017-09-19 06:24 | disposition expired | DRG 871 ==
LOC: EDUNIT# → EDBD → N.ED 09:15 → N.EDINP 10:26 → N.CC 12:30
PROVIDERS: ADMIT Internal Medicine; ATTEND Internal Medicine